=== PATIENT | female | born 1955 | race Hispanic/Latino ===

== ENCOUNTER 2023-03-28 13:59 | Inpatient (IN) | payer BC, OTHER ==
--- OUTSIDE RECORDS SUMMARY | 2023-03-28 22:04 | XMS REPORT | Continuity of Care Document ---
:1955 Author Organization [facility] t Address [address] [place]. [address] [place] [address] Care Team Providers Name Role Phone Pcp, Patient Does Not Have A Primary Care Physician [phone] ANA NOVA Attending Clinician Unavailable Sen GONZALEZ, Abel El Attending Clinician [phone] Tereso Villalba MD Attending Clinician Abel Bhagat MD Attending Clinician Ana Nova MD Attending Clinician DEREK PLASCENCIA Attending Clinician Unavailable Derek Plascencia MD Attending Clinician Doctor Unassigned, Adeline Attending Clinician Unavailable ABEL BHAGAT Admitting Clinician Unavailable Payers Payer Name Policy Type Policy Number Effective Date Expiration Date [facility] OBS/INPT [id number] 2022 PART A ONLY 00:00:00 Problems Condition Condition Condition Status Onset Resolution Last Treating Co mments Source Name Details Category Date Date Treatment Clinician Date Acute Acute Disease Active Univers ischemic ischemic 03-25 ity of stroke stroke 00:00: [place] 00 Medical Branch Aortic Aortic Disease Active Univers dissection dissection 03-25 it y of 00:00: [place] [facility] Essential Essential Disease Active Uni vers hypertensi hypertensi 03-25 it y of on on 00:00: [place] 00 Medical Branch 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 00: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) Br anch , right , right Allergies, Adverse Reactions, Alerts Allergy Allergy Status Severity Reaction(s) Onset Inactive Treating Comm ents Source Name Type Date Date Clinician NO KNOWN Drug Active Univers ALLERGIE Class ity of S [facility] Social History Social Habit Start Date Stop Date Quantity Comments Source Sexual orientation Univer sity [facility] History of tobacco Cigarette Smoker University of use [facility] Gender identity Universit y [facility] History of Social 2023-03-20 2023-03-20 Univers ity of function 00:00:00 00:00:00 [facility] Tobacco use and 2023 2023 Smokeless Universit y of exposure 00:00:00 00:00:00 tobacco non-user [facility] Sex Ass[birth year] At [birth year] Universit y of 00:00:00 00:00:00 [facility] Smoking Status Start Date Stop Date Source Tobacco smoking consumption Univ [facility] Branch Smokes tobacco daily 2023 00:00:[address] [facility] Medications Ordered Filled Start Stop Current Ordering Indication Dosage Frequency Signature Comments Components Source Medication Medication Date Date Medication? Clinician (SIG) Name Name atordhara 2023- Yes [id number] 40mg Take 1 Univers n 40 mg 03-28 tablet by ity of tablet 00:00: 04:59 mouth at [place] 00 :00 bedtime. Medical Branch melatonin 3 2023- Yes [id number] 3mg Take 1 Univers mg tablet 03-28 tablet by ity of 00:00: 05:59 mouth at [place] 00 :00 bedtime Medical for 180 Branch days. Lidocaine 2022- No 1{patch 1 Patch, Univers (LIDOCARE) 03-27 } Topical, ity of 4 % patch 1 17:00: 06:24 Administer [place] Patch 00 :00 over 12 Medical Hours, Branch ONCE, 1 dose, On Fri03/27/23 at 1200, Routine lisinopriL 2023-0 Yes 5mg 5 mg, Univer s (PRINIVIL,Z 03-27 Oral, ity of ESTRIL) 14:00: DAILY, Kristie tablet 5 mg 00 First dose Me dical on [place] Branch 03/27/23 at 0900, Until Discontinu ed, Routine labetaloL Yes 10mg 10 mg, Univer s (NORMODYNE) 03-27 Slow IV ity o f injection 11:36: Push, [place] 10 mg 17 [id number], 5 Medical doses, Branch Starting on [place] 03/27/23 at 0636, Until Discontinu ed, Routine, Hypertensi on SBP> 180, DBP > 110 Lidocaine 2022- No 1{patch 1 Patch, Univers (LIDOCARE) 03-26 } Topical, ity of 4 % patch 1 16:45: 04:50 Administer [place] Patch 00 :00 over 12 Medical Hours, Branch ONCE, 1 dose, On Fri03/26/23 at 1145, Routine cefTRIAXone 2022- Yes 1000mg 1,000 mg, Univers (ROCEPHIN) 03-26 IV ity of 1,000 mg in 13:30: 13:29 Piggyback, [place] NaCl 0.9% 00 :00 Q24H ABX, Medic al (NS) 100 mL 5 doses, Bran ch MINI-BAG First dose on Fri03/26/23 at 0830, Last dose on Fri03/30/23 at 0830, Administer over 30 Minutes, 100 mL
Reas on for Anti-Infec tive: Documented Infection< br>Documen edna Infection Site: Urine
D uration of Therapy: Other (see Comments) barium 2022- No [id number] 20g 20 g, Univ ers sulfate 03-25 Oral, ity of (VARIBAR 21:45: 21:45 ONCE, 1 [place] THIN 00 :00 dose, On Medical LIQUID) 81 03/25/23 Bra nch % (w/w) at 1645, oral powder Routine 20 g barium 2022- No [id number] 20mL 20 mL, Uni vers sulfate-NO 03-25 Oral, ity of CHARGE- 21:45: 21:45 ONCE, 1 [place] (VARIBAR 00 :00 dose, On Medical NECTOR) 40 Fri03/25/23 Bra nch % (w/v) at 1645, oral Routine suspension 20 mL NaCl 0.9% 2022- No 1000mL at 50 [facility] ers (NS) IV 03-25 09-05 mL/hr, IV ity of infusion 06:30: 16:50 Infusion, García as 1,000 mL 00 :18 CONTINUOUS Medic al , Starting Branch on Fri03/25/23 at 0130, Until Fri03/25/23 at 1150, Routine iopamidol 2022- No [id number] 100mL 100 mL, Univers (ISOVUE 03-24 09-04 Intravenou ity o f 370-500 mL) 17:30: 17:30 s, ONCE, 1 [place] injection 00 :00 dose, On Medica l 100 mL Fri03/24/23 Branch at 1230, Routine clopidogreL Yes 75mg 75 mg, [facility] ers (PLAVIX) 75 03-24 Oral, ity of mg tablet 14:00: DAILY, [place] 75 mg 00 First dose Medical on [facility] 03/24/23 at 0900, Until Discontinu ed, Routine aspirin Yes 81mg 81 mg, Univers chewable 03-24 Oral, ity of tablet 81 14:00: DAILY, [place] mg 00 First dose Medical on [facility] 03/24/23 at 0900, Until Discontinu ed, Routine acetaminoph Yes 650mg 650 mg, Un lennox en 03-23 Oral, ity of (TYLENOL) 22:03: Q4HPRN, [place] 160 mg/5 mL 12 Starting Medi porsha oral liquid on [facility] 650 mg 03/23/23 at 1703, Until Discontinu ed, Routine, Temp > 38.5 C polyethylen Yes 17g 17 g, [facility] rs e glycol 03-23 Oral, ity of 3350 powder 19:30: DAILY, [place] 17 g 00 First dose Medical on [facility] 03/23/23 at 1430, Until Discontinu ed, Routine sennosides- 0 Yes 1{tbl} 1 tablet, Univers docusate 03-23 Oral, ity of sodium 19:30: DAILY, [place] (SENOKOT-S) 00 First dose Me dical 8.6-50 mg on [place] Branch per tablet 03/23/23 at 1 tablet 1430, Until Discontinu ed, Routine iopamidol 2022-2022- No [id number] 80mL 80 mL, Univers (ISOVUE 03-23 Intravenou ity o f 370-500 mL) 15:45: 15:45 s, ONCE, 1 [place] injection 00 :00 dose, On Medica l 80 mL [place] 03/23/23 Branch at 1045, Routine KCL 2022-2022- No 40meq 40 mEq, Univers (KLOR-CON 03-23 Oral, ity of M20) tablet 13:30: 13:15 ONCE, 1 [place] 40 mEq 00 :00 dose, On Medical [place] 03/23/23 Branch at 0830, Routine potassium 2022-2022- No 20meq 20 mEq, IV Univers chloride in 03-23 Piggyback, i ty of water (KCL) 12:15: 17:58 ONCE, 1 [place] 20 mEq/100 00 :07 dose, On Medic al mL RTU IVPB [place] 03/23/23 Br anch 20 mEq at 0715, 100 mL magnesium 2022- No 4g 4 g, IV Univ ers sulfate in 03-23 Piggyback, it y of water 4 12:15: 13:50 at 25 [place] gram/50 mL 00 :00 mL/hr Medical (8 %) IV Administer Branc h Piggyback 4 over 120 g Minutes, ONCE, 1 dose, On 03/23/23 at 0715, Routine calcium 2022-2022- No 2g 2 g, IV Univer s gluconate 2 03-22 Infusion, it y of g in NaCl 13:45: 15:25 at 200 [place] 100 mL 00 :00 mL/hr Medical (ISO-OSM) Administer Bran ch RTU IV over 30 infusion 2 Minutes, g ONCE, 1 dose, On 03/22/23 at 0845, Routine KCL 2022-0 2022- No 40meq 40 mEq, Univers (KLOR-CON 03-22 Oral, ity of M20) tablet 13:30: 13:33 ONCE, 1 [place] 40 mEq 00 :00 dose, On Medical [facility] 03/22/23 Branch at 0830, Routine potassium 2022-2022- No 20meq 20 mEq, IV Univers chloride in 03-22 Piggyback, i ty of water (KCL) 13:30: 19:14 ONCE, 1 [place] 20 mEq/100 00 :17 dose, On Medic al mL RTU IVPB Sat 03/22/23 Br anch 20 mEq at 0830, 100 mL magnesium 2022- No 2g 2 g, IV Univ ers sulfate in 03-22 Piggyback, it y of water 2 13:15: 14:36 Administer García as gram/50 mL 00 :00 over 60 Medica l (4 %) Minutes, Branch infusion 2 ONCE, 1 g dose, On 03/22/23 at 0815, Routine methocarbam 2022- No 1000mg 1,000 mg, Univers oL 03-22 Intravenou ity of (ROBAXIN) 03:00: 21:09 s, Q8H, 9 [place] injection 00 :32 doses, Medical 1,000 mg First dose Branc h (after last modificati on) on Fri03/21/23 at 2200, Last dose on Fri03/24/23 at 1400, Routine heparin Yes 5000U 5,000 Univers (porcine) 03-22 Units, ity of injection 01:00: Subcutaneo [place] 5,000 Units 00 us, Q12H, Med ical First dose Branch on Fri03/21/23 at 2000, Until Discontinu ed, Routine acetaminoph Yes 650mg 650 mg, Un lennox en 03-21 Oral, Q6H, ity of (TYLENOL) 23:00: First dose [place] tablet 650 00 (after Medical mg last Branch modificati on) on Fri03/21/23 at 1800, Until Discontinu ed, Routine D5W 0.9% 2022- No 1000mL at 50 Unive rs NaCl (NS) 03-21 09-05 mL/hr, ity of IV infusion 22:00: 05:26 1,000 mL, [place] 1,000 mL 00 :25 IV Medical Infusion, Branch CONTINUOUS , Starting on Fri03/21/23 at 1700, Until Fri03/25/23 at 0026, Routine dextrose Yes 250mL 250 mL, IV Un lennox 10% (D10W) 03-21 Infusion, ity of bolus 20:57: PRN - SEE [place] infusion 14 INSTRUCTIO Medic al 250 mL NS, Branch Administer over 60 Minutes, Other, If blood glucose is < or = 70 mg/dL and patient is unable to swallow or has mental status changes, Starting on Fri03/21/23 at 1557
If blood glucose is < or = 70 mg/dL and patient is unable to swallow or has mental status changes (Give glucagon order if patient needs fluid restrictio n): IF IV access available: Dextrose 10%. 1. 125 mL (? bag) of D10W IV infusion - equivalent to 12.5 g dextrose 2. Blood glucose - draw blood glucose 15 minutes after D10W Administra tion. 3. If blood glucose is < 80 mg/dL, repeat.
glucagon Yes 1mg 1 mg, Univers (GLUCAGEN 03-21 Intramuscu ity of DIAGNOSTIC 20:57: lar, PRN, [place] KIT) 10 Starting Medical injection 1 on Fri Branch mg 03/21/23 at 1557, Until Discontinu ed, [facility], Blood Glucose < or = 70 mg/dL and patient is NPO, unable to swallow or has mental changes. niCARdipine 2022- No 2.5mg/h 2.5-15 Univers (CARDENE 03-21 09-06 mg/hr ity of I.V.) 40 mg 19:19: 12:10 (12.5-75 [place] in NaCL 200 08 :44 mL/hr), IV Me dical mL (RTU) Infusion, Branch infusion TITRATE, SBP 120 - 140, Starting on Fri03/21/23 at 1419
In itiate infusion at 2.5 mg/hr.&nbs p; Ti trate by 2.5 mg/hr every 5 minutes to 15 minutes as needed to achieve and maintain goal blood pressure. Maximum dose = 15 mg/hr. If goal not maintained at maximum allowed dose, contact prescriber .
niCARdipine 2022- No 2.5mg/h 2.5-15 Univers (CARDENE 03-21 mg/hr ity of I.V.) 40 mg 17:50: 19:19 (12.5-75 [place] in NaCL 200 58 :22 mL/hr), IV Me dical mL (RTU) Infusion, Branch infusion TITRATE, SBP <120, Starting on Fri03/21/23 at 1250
Initiate infusion at 2.5 mg/hr.&nbs p; Ti trate by 2.5 mg/hr every 5 minutes to 15 minutes as needed to achieve and maintain goal blood pressure. Maximum dose = 15 mg/hr. If goal not maintained at maximum allowed dose, contact prescriber .
niCARdipine 2022- No 2.5mg/h 2.5-15 Univers (CARDENE 03-21 mg/hr ity of I.V.) 40 mg 17:50: 17:05 (12.5-75 [place] in NaCL 200 58 :07 mL/hr), IV Me dical mL (RTU) Infusion, Branch infusion TITRATE, SBP Goal < 180 mmHg, <140, Starting on Fri03/21/23 at 1250
In itiate infusion at 2.5 mg/hr.&nbs p; Ti trate by 2.5 mg/hr every 5 minutes to 15 minutes as needed to achieve and maintain goal blood pressure. Maximum dose = 15 mg/hr. If goal not maintained at maximum allowed dose, contact prescriber .
iopamidol 2022- No [id number] 80mL 80 mL, Univers (ISOVUE 03-21 9104 Intravenou ity o f 370-500 mL) 16:30: 15:27 s, ONCE, 1 [place] injection 00 :00 dose, On Medica l 80 mL Fri03/21/23 Branch at 1130, Routine pantoprazol 2022- No 40mg 40 mg, Uni vers e 03-21 Slow IV ity of (PROTONIX) 16:00: 15:59 Push, [place] injection 00 :00 Q24H, 3 Medical 40 mg doses, Branch First dose on Fri03/21/23 at 1100, Last dose on 03/23/23 at 1100 heparin 2022-0 2022- No PRN, Univers 1,000 03-21 Starting ity of unit/mL 15:07: 15:07 on Fri [place] injection 57 :57 03/21/23 at Medic al 1007, Branch Until Fri03/21/23 at 1007, Routine, Intra-op atropine 2022-2022- No PRN, Univers injection 03-21 Starting ity o f 14:52: 14:52 on Fri [place] 58 :58 03/21/23 at Medical 0952, Branch Until Fri03/21/23 at 0952, Routine, Intra-op iopamidol 2022-2022- No [id number] 50mL 50 mL, Univers (ISOVUE 03-21 9104 Intravenou ity o f 300-100 mL) 14:30: 14:30 s, ONCE, 1 [place] injection 00 :00 dose, On Medica l 50 mL 03/21/23 Branch at 0930, Routine lidocaine 2022- No PRN, Univers 1% 03-21 Starting ity of (XYLOCAINE) 14:15: 14:15 on Fri García as 10 mg/mL (1 00 :00 03/21/23 at Med ical %) 0915, Branch injection Until Fri03/21/23 at 0915, Routine, Intra-op FENTanyl PF 2022- No Slow IV Un lennox (SUBLIMAZE 03-21 Push, PRN, it y of (PF)) 14:12: 15:04 Starting [place] injection 24 :44 on Fri Medical 03/21/23 at Branch 0912, Until Fri03/21/23 at 1004, Routine, Intra-op melatonin 2022- Yes 3mg 3 mg, Univers (MELATIN) 03-21 Oral, QHS, ity of tablet 3 mg 02:00: First dose [place] 00 on [place] [facility] 03/20/23 at Branch 2100, Until Discontinu ed, Routine aspirin 2022- No 81mg 81 mg, Univers chewable 03-20 Oral, ity of tablet 81 17:15: 14:09 DAILY, [place] mg 00 :55 First dose Medical on [facility] 03/20/23 at 1215, Until Discontinu ed, Routine clopidogreL 2022-0 2022- No 75mg 75 mg, Uni vers (PLAVIX) 75 03-2003 Oral, ity of mg tablet 14:00: 14:09 DAILY, [place] 75 mg 00 :55 First dose Medical on [facility] 03/20/23 at 0900, Until Discontinu ed, Routine acetaminoph 0 2022- No 650mg 650 mg, U nivers en 03-20 Oral, ity of (TYLENOL) 05:40: 18:46 Q6HPRN, [place] tablet 650 47 :27 Starting Medic al mg on [facility] 03/20/23 at 0040, Until Fri03/21/23 at 1346, Routine, Pain (scale 1-3), Pain (scale 4-6), Temp > 38 C atorvastati Yes 40mg 40 mg, Univ ers n (LIPITOR) 03-20 Oral, QHS, it y of tablet 40 02:00: First dose [place] mg 00 on [facility] 03/19/23 at Branch 2100, Until Discontinu ed, Routine famotidine Yes 20mg 20 mg, Unive rs (PEPCID AC) 03-20 Oral, BID, it y of tablet 20 01:00: First dose [place] mg 00 on Fri [facility] 03/19/23 at Branch 2000, Until Discontinu ed, Routine nicotine 0 Yes 1{patch 1 Patch, Un lennox (NICODERM) 03-19 } Topical, ity o f 21 mg/24 hr 22:45: Administer [place] patch 1 00 over 24 Medical Patch Hours, Branch Q24H, First dose on Fri03/19/23 at 1745, Until Discontinu ed, Routine NaCl 0.9% 0 2022- No 1000mL at 50 Univ ers (NS) IV 03-19 0904 mL/hr, IV ity of infusion 22:42: 14:56 Infusion, García as 1,000 mL 00 :34 CONTINUOUS Medic al , Starting Branch on Fri03/19/23 at 1745, Until Fri03/24/23 at 0956, Routine NaCl 0.9% 2022-0 2022- Yes 1000mL at 999 Uni vers (NS) bolus 03-19 mL/hr, ity of infusion 15:30: 15:00 1,000 mL, García as 1,000 mL 00 :00 IV Medical Infusion, Branch ONCE, 1 dose, On Fri03/19/23 at 1030, STAT clopidogreL No 300mg 300 mg, U nivers (PLAVIX) 03-19 Oral, ity of 300 mg 15:15: 14:24 ONCE, 1 [place] tablet 300 00 :00 dose, On Medic al mg Wed Branch 03/19/23 at 1015, [facility] aspirin No 325mg 325 mg, Unive rs tablet 325 03-19 Oral, ity of mg 14:30: 14:24 ONCE, 1 [place] 00 :00 dose, On Medical Wed Branch 03/19/23 at 0930, STAT iopamidol 2022- No [id number] 80mL 80 mL, Univers (ISOVUE 03-19 Intravenou ity o f 370-500 mL) 13:16: 13:30 s, ONCE, 1 [place] injection 00 :00 dose, On Medica l 80 mL Wed Branch 03/19/23 at 0830, Routine NaCl 0.9% Yes 5mL 5 mL, Slow Un lennox (NS) 03-19 IV Push, ity of injection 5 13:01: PRN - SEE [place] mL 36 [facility] Medical NS, Branch Starting on Fri03/19/23 at 0801, Until Discontinu ed, 10 mL Immunizations Ordered Immunization Filled Immunization Date Status Commen ts Source Name Name Moderna COVID-19 Moderna COVID-19 2021-03-17 Completed Vaccine Vaccine 00:00:00 Moderna COVID-19 Moderna COVID-19 2021-02-17 Completed Vaccine Vaccine 00:00:00 Vital Signs Vital Name Observation Time Observation Value Comments Source Systolic blood 2023-03-28 20:39:00 149 mm[Hg] Univer sity of pressure [facility] Diastolic blood 2023-03-28 20:39:00 73 mm[Hg] Unive rsity of pressure [facility] Heart rate 2023-03-28 20:39:00 59 /min Universi ty of [facility] Body temperature 2023-03-28 20:39:00 36.5 Nohemy Univ ersity of [place] [facility] Respiratory rate 2023-03-28 20:39:00 16 /min Univ ersity of [place] [facility] Oxygen saturation in 2023-03-28 20:39:00 96 /min University of Arterial blood by [facility] Pulse oximetry Branch Body height 2023 21:07:00 162.6 cm Universi ty of [place] [facility] Body weight 2023 21:07:00 66.679 kg Universi ty of [place] [facility] BMI 2023 21:07:00 25.23 kg/m2 Universi ty [facility] [place] [facility] Systolic blood 2023 14:30:00 196 mm[Hg] Univer sity of pressure [place] [facility] Diastolic blood 2023 14:30:00 78 mm[Hg] Unive rsity of pressure [place] [facility] Heart rate 2023 14:30:00 51 /min Universi ty of [place] [facility] Respiratory rate 2023 14:30:00 24 /min Univ ersity of [place] [facility] Oxygen saturation in 2023 14:30:00 97 /min University of Arterial blood by [facility] Pulse oximetry Branch Body temperature 2023 14:06:36 37.06 Nohemy Univ ersity of [place] [facility] Body height 2023 12:52:00 162.6 cm Universi ty of [place] [facility] Body weight 2023 12:52:00 66.724 kg Universi ty of [place] [facility] BMI 2023 12:52:00 25.25 kg/m2 Universi ty [facility] [place] [facility] Systolic blood 2023-03-23 16:00:00 140 mm[Hg] Univer sity of pressure [place] [facility] Diastolic blood 2023-03-23 16:00:00 51 mm[Hg] Unive rsity of pressure [place] [facility] Heart rate 2023-03-23 16:00:00 71 /min Universi ty [facility] [place] [facility] Body temperature 2023-03-23 16:00:00 37.72 Nohemy Univ ersity of [place] [facility] Respiratory rate 2023-03-23 16:00:00 20 /min Univ ersity of [place] [facility] Oxygen saturation in 2023-03-23 16:00:00 98 /min [facility] Arterial blood by [facility] Pulse oximetry Branch Systolic blood 2023-03-22 16:00:00 138 mm[Hg] Univer sity of pressure [facility] Diastolic blood 2023-03-22 16:00:00 67 mm[Hg] [facility] Heart rate 2023-03-22 16:00:00 58 /min [facility] Body temperature 2023-03-22 16:00:00 37.28 Nohemy [facility] Respiratory rate 2023-03-22 16:00:00 16 /min [facility] hospital Oxygen saturation in 2023-03-22 16:00:00 97 /min [facility] Arterial blood by [facility] Pulse oximetry [employer] Body height 2023 21:07:[address] [facility] Body weight 2023 21:07:[address] [facility] BMI 2023 21:07:00 25.23 kg/m2 [facility] Procedures Procedure Date / Time Performing Clinician Source Performed MAGNESIUM 2023-03-28 06:09:00 Elías Flowers [facility] BASIC METABOLIC PANEL 2023-03-28 06:09:00 Elías Flowers [facility] (NA, K, CL, CO2, GLUCOSE, Medica l Branch BUN, CREATININE, CA) MR BRAIN WO CONTRAST 2023-03-27 20:27:00 Elías Flowers [facility] MAGNESIUM 2023-03-27 07:46:00 Elías Flowers [facility] BASIC METABOLIC PANEL 2023-03-27 07:46:00 Elías Flowers [facility] (NA, K, CL, CO2, GLUCOSE, Medica l Branch BUN, CREATININE, CA) CBC WITHOUT DIFF 2023-03-27 07:46:00 Elías Flowers [facility] POCT GLUCOSE (AUTOMATED) 2023-03-26 21:24:00 Tereso Pan [facility] POCT GLUCOSE (AUTOMATED) 2023-03-26 16:54:[address] [address] (AUTOMATED) 2023-03-26 12:40:[address] [facility] MAGNESIUM 2023-03-26 09:52:00 Perry Collins [facility] BASIC METABOLIC PANEL 2023-03-26 09:52:00 Karina [facility] [place] [facility] (NA, K, CL, CO2, GLUCOSE, Medica l Branch BUN, CREATININE, CA) CBC WITH DIFF 2023-03-26 09:52:[address] [facility] POCT GLUCOSE (AUTOMATED) 2023-03-26 01:22:00 Tereso Pan [facility] XR CHEST 1 VW 2023-03-25 21:59:[address] [facility] URINALYSIS 2023-03-25 21:55:[address] [facility] POCT GLUCOSE (AUTOMATED) 2023-03-25 16:47:[address] [facility] PO[facility] GLUCOSE (AUTOMATED) 2023-03-25 12:46:[address] [facility] PHOSPHORUS 2023-03-25 08:35:[address] [facility] MAGNESIUM 2023-03-25 08:35:[address] [facility] THYROID STIMULATING 2023-03-25 08:35:00 [facility] 2023-03-25 08:35:00 Larry Watts [facility] (NA, K, CL, CO2, GLUCOSE, [place] Medica l Branch BUN, CREATININE, CA) CBC WITHOUT DIFF 2023-03-25 08:35:00 Larry Watts [facility] POCT GLUCOSE (AUTOMATED) 2023-03-25 02:22:[address] [facility] PO[facility]UCOSE (AUTOMATED) 2023-03-24 20:37:[address] [facility] [facility] PO[facility] GLUCOSE (AUTOMATED) 2023-03-24 16:49:00 Tereso Pan [facility] CT ANGIOGRAM CHEST 2023-03-24 16:40:56 Allison Valle [facility] CT ABDOMEN PELVIS W 2023-03-24 16:40:56 Allison Valle [facility] CONTRAST [facility] POCT GLUCOSE (AUTOMATED) 2023-03-24 12:49:00 Tereso Pan [facility] PHOSPHORUS 2023-03-24 09:07:[address] [facility] MAGNESIUM 2023-03-24 09:07:[address] [facility] BASIC METABOLIC PANEL 2023-03-24 09:07:00 Yokasta Clark [facility] (NA, K, CL, CO2, GLUCOSE, Medica l Branch BUN, CREATININE, CA) CBC WITHOUT DIFF 2023-03-24 09:07:00 Amber Ykoasta [facility] POCT GLUCOSE (AUTOMATED) 2023-03-24 02:09:00 Tereso Pan [facility] POCT GLUCOSE (AUTOMATED) 2023-03-23 21:05:00 Tereso Pan [facility] POCT GLUCOSE (AUTOMATED) 2023-03-23 16:43:00 Tereso Pan [facility] POCT GLUCOSE (AUTOMATED) 2023-03-23 16:43:00 Tereso Pan [facility] AC PANEL 20 + LACTIC ACID 2023-03-23 15:21:00 Yokasta Clark [facility] AC PANEL 20 + LACTIC ACID 2023-03-23 15:21:00 Yokasta Clark [facility] CT ANGIOGRAM HEAD 2023-03-23 14:57:00 Maria Isabel [facility] CT HEAD WO CONTRAST 2023-03-23 14:57:00 Yokasta Clark [facility] CT ANGIOGRAM NECK 2023-03-23 14:57:00 Maria Isabel [facility] POCT GLUCOSE (AUTOMATED) 2023-03-23 13:16:00 Tereso Pan [facility] POCT GLUCOSE (AUTOMATED) 2023-03-23 13:16:00 Tereso Pan [facility] CBC WITH DIFF 2023-03-23 10:19:00 Se [facility] BASIC METABOLIC PANEL 2023-03-23 10:19:00 Se [facility] (NA, K, CL, CO2, GLUCOSE, Medica l Branch BUN, CREATININE, CA) PHOSPHORUS 2023-03-23 10:19:[address] [facility] MAGNESIUM 2023-03-23 10:19:[address] [facility] PHOSPHORUS 2023-03-23 10:19:[address] [facility] MAGNESIUM 2023-03-23 10:19:[address] [facility] BASIC METABOLIC PANEL 2023-03-23 10:19:00 Se [facility] (NA, K, CL, CO2, GLUCOSE, Medica l Branch BUN, CREATININE, CA) CBC WITH DIFF 2023-03-23 10:19:00 Se [facility] POCT GLUCOSE (AUTOMATED) 2023-03-23 02:41:00 Tereso Pan [facility] POCT GLUCOSE (AUTOMATED) 2023-03-23 02:41:00 Tereso Pan [facility] POCT GLUCOSE (AUTOMATED) 2023-03-22 21:10:00 Tereso Pan [facility] POCT GLUCOSE (AUTOMATED) 2023-03-22 21:10:00 Tereso Pan [facility] BASIC METABOLIC PANEL 2023-03-22 20:59:00 Se [facility] (NA, K, CL, CO2, GLUCOSE, Medica l Branch BUN, CREATININE, CA) MAGNESIUM 2023-03-22 20:59:00 Se [facility] MAGNESIUM 2023-03-22 20:59:00 Se [facility] BASIC METABOLIC PANEL 2023-03-22 20:59:00 Se [facility] (NA, K, CL, CO2, GLUCOSE, Medica l Branch BUN, CREATININE, CA) POCT GLUCOSE (AUTOMATED) 2023-03-22 17:10:00 Tereso Pan [facility] POCT GLUCOSE (AUTOMATED) 2023-03-22 17:10:00 Tereso Pan [facility] CBC WITH DIFF 2023-03-22 16:23:00 Leonard [facility] CBC WITH DIFF 2023-03-22 16:23:00 Leonard [facility] POCT GLUCOSE (AUTOMATED) 2023-03-22 12:41:00 Tereso Pan [facility] POCT GLUCOSE (AUTOMATED) 2023-03-22 12:41:00 Tereso Pan [facility] CBC WITH DIFF 2023-03-22 10:33:00 Leonard [facility] BASIC METABOLIC PANEL 2023-03-22 10:33:00 [facility], K, CL, CO2, GLUCOSE, Fanta Medica l Branch BUN, CREATININE, CA) MAGNESIUM 2023-03-22 10:33:00 Kristina [facility] PHOSPHORUS 2023-03-22 10:33:00 [facility] PHOSPHORUS 2023-03-22 10:33:00 [facility] MAGNESIUM 2023-03-22 10:33:00 [facility] BASIC METABOLIC PANEL 2023-03-22 10:33:00 [facility] (NA, K, CL, CO2, GLUCOSE, Fanta Medica l Branch BUN, CREATININE, CA) CBC WITH DIFF 2023-03-22 10:33:00 Leonard [facility] CBC WITH DIFF 2023-03-22 04:28:00 Leonard [facility] CBC WITH DIFF 2023-03-22 04:28:00 Leonard [facility] POCT GLUCOSE (AUTOMATED) 2023-03-22 01:46:00 Tereso Pan [facility] POCT GLUCOSE (AUTOMATED) 2023-03-22 01:46:00 Tereso Pan [facility] CBC WITH DIFF 2023-03-21 22:45:00 Lia [facility] CBC WITH DIFF 2023-03-21 22:45:00 Lia [facility] POCT GLUCOSE (AUTOMATED) 2023-03-21 20:43:00 Tereso Pan [facility] POCT GLUCOSE (AUTOMATED) 2023-03-21 20:43:00 Tereso Pan [facility] TRANSTHORACIC ECHO (TTE) 2023-03-21 19:58:09 Shameka Whatley [facility] TRANSTHORACIC ECHO (TTE) 2023-03-21 19:58:09 Shameka Whatley [facility] BASIC METABOLIC PANEL 2023-03-21 17:41:00 Alexy Benson [facility] (NA, K, CL, CO2, GLUCOSE, Medica l Branch BUN, CREATININE, CA) MAGNESIUM 2023-03-21 17:41:00 Alexy Benson [facility] PHOSPHORUS 2023-03-21 17:41:00 Alexy Benson [facility] PHOSPHORUS 2023-03-21 17:41:00 Alexy Benson [facility] MAGNESIUM 2023-03-21 17:41:00 Alexy Benson [facility] BASIC METABOLIC PANEL 2023-03-21 17:41:00 Alexy Benson [facility] (NA, K, CL, CO2, GLUCOSE, Medica l Branch BUN, CREATININE, CA) MRSA / MSSA SCREEN BY 2023-03-21 17:04:00 Allison Valle [facility] PCR, [facility] CBC WITH DIFF 2023-03-21 17:04:00 Leonard [facility] CBC WITH DIFF 2023-03-21 17:04:00 Leonard [facility] MRSA / MSSA SCREEN BY 2023-03-21 17:04:00 Allison Valle [facility] PCR, [facility] [employer] CT ANGIOGRAM 2023-03-21 15:44[facility] ANGIOGRAM 2023-03-21 15:44:44 [facility] CT ANGIOGRAM CHEST 2023-03-21 15:43:51 Heriberto [facility] ABORH CONFIRMATION (LAB 2023-03-21 15:37:00 [facility] ONLY) [facility] ABORH CONFIRMATION (LAB 2023-03-21 15:37:00 [facility] ONLY) [facility] HB ABO GROUPING 2023-03-21 15:15:00 [facility] HB ABO GROUPING 2023-03-21 15:15:00 [facility] LIPID PANEL (43753)(TOTAL 2023-03-21 09:53:00 Shameka Whatley [facility] CHOLESTEROL, Medical Branch TRIGLYCERIDES, HDL) GLYCOSYLATED HEMOGLOBIN 2023-03-21 09:53:00 Shameka Whatley [facility] VERIFYNOW PRUTEST (P2Y12) 2023-03-21 09:53:00 Larry Watts [facility] LIPID PANEL (51521)(TOTAL 2023-03-21 09:53:00 Shameka Whatley [facility] CHOLESTEROL, Medical Branch TRIGLYCERIDES, HDL) GLYCOSYLATED HEMOGLOBIN 2023-03-21 09:53:00 Shameka Whatley [facility] VERIFYNOW ASPIRIN TEST 2023-03-21 09:53:00 Larry Watts [facility] TRANSTHORACIC ECHO (TTE) 2023-03-20 20:44:32 Shameka Whatley [facility] COMPLETE [facility] [employer] TRANSTHORACIC ECHO (TTE) 2023-03-20 20:44:32 Shameka Whatley [facility] COMPLETE [facility] MR STROKE BRAIN WO 2023-03-20 17:35:00 [facility] MR STROKE BRAIN WO 2023-03-20 17:35:00 Ch[facility] CONTRAST [facility] URINALYSIS 2023 14:52:00 Derek Plascencia [facility] POCT GLUCOSE(AGE >30DAYS) 2023 14:07:[address] [facility]SE(AGE >30DAYS) 2023 14:07:00 [facility] NECK 2023 13:21:28 Derek Plascencia [facility] CT STROKE ANGIOGRAM HEAD 2023 13:21:28 Derek Plascencia [facility] CT STROKE HEAD WO 2023 13:16:00 Derek Plascencia [facility] CT STROKE HEAD WO 2023 13:16:00 Derek Plascencia [facility] CBC WITHOUT DIFF 2023 13:07:00 [facility]FF 2023 13:07:00 Derek Plascencia [facility] PROTHROMBIN TIME / INR 2023 13:05:00 Derek Plascencia [facility] ACTIVATED PARTIAL 2023 13:05:00 Derek Plascencia [facility] 13:05:00 Derek Plascencia [facility] BASIC METABOLIC PANEL 2023 13:05:00 Derek Plascencia [facility] (NA, K, CL, CO2, GLUCOSE, Medica l Branch BUN, CREATININE, CA) MAGNESIUM 2023 13:05:00 Derek Plascencia [facility] MAGNESIUM 2023 13:05:00 Derek Plascencia [facility] TROPONIN I 2023 13:05:00 Derek Plascencia [facility] BASIC METABOLIC PANEL 2023 13:05:00 Derek Plascencia [facility] (NA, K, CL, CO2, GLUCOSE, Medica l Branch BUN, CREATININE, CA) PROTHROMBIN TIME / INR 2023 13:05:00 Derek Plascencia [facility] ACTIVATED PARTIAL 2023 13:05:00 Derek Plascencia [facility] THRMPLAS FORTINO [facility] HB ECG ROUTINE & RHYTHM 2023 13:00:52 Derek Plascencia [facility] STRIP [facility] NOTICE OF PRIVACY 2023 12:46:28 Doctor Rebekah, [facility] [employer] NOTICE OF PRIVACY 2023 12:46:28 Doctor Rebekah, [facility] [employer] CONSENT/REFUSAL FOR 2023 12:44:58 Doctor Rebekah [facility] DIAGNOSIS AND TREATMENT [facility] [employer] AGREEMENTS AUTHORIZATIONS 2023 05:01:00 Doctor Rebekah [facility] AND IRREVOCABLE [facility] ASSIGNMENTS (FORM 2001) AGREEMENTS AUTHORIZATIONS 2023 05:01:00 [facility] AND IRREVOCABLE [facility] ASSIGNMENTS (FORM 2001) HOSPITAL ADMISSION 2023 05:01:00 Doctor Rebekah [facility] Name Medical [facility] [employer] Plan of Care Planned Activity Planned Date Details Comments Source Medication 2023-03-29 aspirin 81 mg [facility] 00:00:00 chewable tablet [code Medica l Branch = 964103] Medication 2023-03-29 clopidogreL 75 mg [facility] 00:00:00 tablet [code = Medical Branc h 850024] Medication 2023-03-29 lisinopriL 5 mg [facility] 00:00:00 tablet [code = Medical Branc h 368760] Medication 2023-03-29 amoxicillin-clavulana [facility] 00:00:00 te (AUGMENTIN) Medical Branc h 875-125 mg per tablet [code = 465905] Encounters Start End Encounter Admission Attending Care Care Encounter Source Date/Time Date/Time Type Type Clinicians Facility Department ID 2023 2023-03-28 Inpatient X GENE [facility] IRINA [id number] Univers 11:02:00 20:00:00 ANA ity of [facility] 2023 2023-03-28 [facility] M[facility]ENDEZ 1 .2.840.114 [id number] Univers 11:02:00 20:00:00 Encounter Tereso Pan 350.1.13.10 ity of [facility] Anne [facility] 4.2.7.2.686 [place] Ana Nova [id number] Medical 098 Branch 2023 2023 [facility] [id number] Univers 07:55:00 09:58:00 DEREK ity [facility] 2023 2023 Emergency Plascencia, 1.2.840.6 [id number] Univers 07:55:00 09:58:00 Derek 01265.1.1 ity of 3.104.2.7 [place] .3.904733 Medica l .8 [employer] 2023 2023 Travel 1.2.840.1 1.2.367.508 [id number] Univers 00:00:00 00:00:00 56938.1.1 350.1.13.10 ity of 3[place]104.2.[place] .3.369[place] 084.8 Medica l .8 [employer] 2023 2023 Orders Doctor 1.2.840.9 [id number] Univers 00:00:00 00:00:00 Only Unassigned, 29342.1.1 ity of [place] 3.104.2.7 [place] .3.569150 Medica l .8 Branch 2021-03-17 2021-03-17 Outpatient GCCOVIDV GCCOVIDV [id number] GCCOVID 00:00:00 00:00:00 V 2021-02-17 2021-02-17 Outpatient GCCOVIDV GCCOVIDV [id number] GCCOVID 00:00:00 00:00:00 V Results Test Description Test Time Test Comments Results Result Comments Source POCT GLUCOSE (AUTOMATED) 2023-03-26 21:25:59 Test Item Value Reference Range Interpretation Comme nts POCT GLU (test code = 4338695452) 127 mg/dL 70-110 H Lab Interpretation (test code = 98956-2) Abnormal [facility] GLUCOSE (AUTOMATED)2023-03-26 16:54:59 Test Item Value Reference Range Interpretation Comments POCT GLU (test code = 5105326102) 125 mg/dL 70-110 H Lab Interpretation (test code = Abnormal 80371-2) [facility] GLUCOSE (AUTOMATED)2023-03-26 12:41:41 Test Item Value Reference Range Interpretation Comments POCT GLU (test code = 4791208578) 125 mg/dL 70-110 H Lab Interpretation (test code = Abnormal 88010-8) [facility] [place] [facility] 10:55:12 Test Item Value Reference Range Interpretation Comments MAGNESIUM (test code = 1818431866) 1.9 mg/dL 1.7-2.4 Lab Interpretation (test code = Normal 49296-1) [facility] METABOLIC PANEL (NA, K, CL, CO2, GLUCOSE, BUN, CREATININE, CA)2023-03-26 10:55:12 Test Item Value Reference Range Interpretation Comments NA (test code = 137 mmol/L 135-145 1666722749) K (test code = 3.8 mmol/L 3.5-5.0 6351398583) CL (test code = 101 mmol/L 98-108 4948525836) CO2 TOTAL (test code = 26 mmol/L 23-31 2512332359) AGAP (test code = 10 2-16 6590419059) BUN (test code = 18 mg/dL 7-23 1009541923) GLUCOSE (test code = 118 mg/dL 70-110 H 7921174459) CREATININE (test code = 0.40 mg/dL 0.50-1.04 L 3793194501) CALCIUM (test code = 9.2 mg/dL 8.6-10.6 5026951680) eGFR (test code = 159.7 mL/min/1.73m2 5166994433) EMANI (test code = EMANI) Association of Glomerular Filtration Rate (GFR) and Staging of Kidney Disease* + --+ --+ ------+| GFR (mL/min/1.73 m2) ?| With Kidney Damage ?| ?Without Kidney Damage+ --------+ --------+ +| ?>90 ?| ?Stage one ?| ? Normal ?+ ---+ ---+ -------+| ?60-89 ?| ?Stage two ?| ? Decreased GFR ? + --+ --+ ------+| ?30-59 ?| ?Stage three ?| ? Stage three ? + --+ --+ ------+| ?15-29 ?| ?Stage four ? | ? Stage four ?+ ---+ ---+ -------+| ?<15 (or dialysis) ? ?| ?Stage five ? | ? Stage five ?+ ---+ ---+ -------+ *Each stage assumes the associated GFR level has been in effect for at least three months. ?Stages 1 to 5, with or without kidney disease, indicate chronic kidney disease. Notes: Determination of stages one and two (with eGFR >59mL/min/1.73 m2) requires estimation of kidney damage for at least three months as defined by structural or functional abnormalities of the kidney, manifested by either:Pathological abnormalities or Markers of kidney damage (including abnormalities in the composition of the blood or urine or abnormalities in imaging tests). Lab Interpretation Abnormal (test code = 88089-7) [facility] WITH [id number] 10:33:28 Test Item Value Reference Range Interpretation Comments WBC (test code = 9.79 See_Comment [Automated 1001-2) message] The sy stem which generated this result transmitted reference range : 4.30 - 11.10 10*3/?L. The reference range was not used to interpret this result as normal/abnormal . RBC (test code = 3.93 See_Comment [Automated 347-1) message] The sy stem which generated this result transmitted reference range : 3.93 - 5.25 10*6/?L. The reference range was not used to interpret this result as normal/abnormal . HGB (test code = 11.7 g/dL 11.6-15.0 718-7) HCT (test code = 34.2 % 35.7-45.2 L 4544-3) MCV (test code = 87.0 fL 80.6-95.5 787-2) MCH (test code = 29.8 pg 25.9-32.8 785-6) MCHC (test code = 34.2 g/dL 31.6-35.1 786-4) RDW-SD (test code = 42.7 fL 39.0-49.9 14294-8) RDW-CV (test code = 13.4 % 12.0-15.5 788-0) PLT (test code = 289 See_Comment [Automated 777-3) message] The sy stem which generated this result transmitted reference range : 166 - 358 10*3/ ?L. The reference r oralia was not used to interpret this result as normal/abnormal . MPV (test code = 9.7 fL 9.5-12.9 91387-1) NRBC/100 WBC (test 0.0 See_Comment [Automat ed code = 6253643675) message] The system which generated this result transmitted reference range : 0.0 - 10.0 /100 WBCs. The refer ence range was not u sed to interpret th is result as normal/abnormal . NRBC x10^3 (test code See_Comment [Auto mated = 0628989800) message] The s ystem which generated this result transmitted reference range : 10*3/?L. The reference range was not used to interpret this result as normal/abnormal . GRAN MAT (NEUT) % 71.2 % (test code = 770-8) IMM GRAN % (test code 0.30 % = 8962138545) LYMPH % (test code = 19.0 % 736-9) MONO % (test code = 8.9 % 5905-5) EOS % (test code = 0.2 % 713-8) BASO % (test code = 0.4 % 706-2) GRAN MAT x10^3(ANC) 6.97 10*3/uL 1.88-7.09 (test code = 5503094077) IMM GRAN x10^3 (test 0.03 10*3/uL 0.00-0.06 code = 2038307350) LYMPH x10^3 (test code 1.86 10*3/uL 1.32-3.29 = 731-0) MONO x10^3 (test code 0.87 10*3/uL 0.33-0.92 = 742-7) EOS x10^3 (test code = 0.03-0.39 L 711-2) BASO x10^3 (test code 0.04 10*3/uL 0.01-0.07 = 704-7) Lab Interpretation Abnormal (test code = 47464-1) [facility] GLUCOSE (AUTOMATED)2023-03-26 01:23:00 Test Item Value Reference Range Interpretation Comments POCT GLU (test code = 5031645067) 124 mg/dL 70-110 H Lab Interpretation (test code = Abnormal 60754-4) [facility] GLUCOSE (AUTOMATED)2023-03-25 16:48:49 Test Item Value Reference Range Interpretation Comments POCT GLU (test code = 0380132349) 109 mg/dL 70-110 Lab Interpretation (test code = Normal 42173-7) [facility] [place] [facility] [id number] 16:29:48 Test Item Value Reference Range Interpretation Comments TSH (test code = 2.05 See_Comment Biotin has been 8013380868) reported to cau se a negative bias, interpret resul ts relative to pat chante's use of biotin. [Automated mess age] The system [employer] generated this result transmitted ref erence range: 0.45 - 4 .70 mIU/L. The refe rence range was not u sed to interpret this result as normal/abnor mal. Lab Interpretation (test Normal code = 68590-5) [facility] GLUCOSE (AUTOMATED)2023-03-25 12:47:02 Test Item Value Reference Range Interpretation Comments POCT GLU (test code = 3506983498) 121 mg/dL 70-110 H Lab Interpretation (test code = Abnormal 66762-6) [facility] [place] [facility]2023-[facility]-05 09:13:39 Test Item Value Reference Range Interpretation Comments PHOSPHORUS (test code = 8197936755) 4.1 mg/dL 2.5-5.0 Lab Interpretation (test code = Normal 22260-3) [facility] [place] [facility]23-[facility]-05 09:13:39 Test Item Value Reference Range Interpretation Comments MAGNESIUM (test code = 4395310688) 1.9 mg/dL 1.7-2.4 Lab Interpretation (test code = Normal 91746-5) [facility] METABOLIC PANEL (NA, K, CL, CO2, GLUCOSE, BUN, CREATININE, CA)2023-03-25 09:13:39 Test Item Value Reference Range Interpretation Comments NA (test code = 137 mmol/L 135-145 5661333659) K (test code = 4.1 mmol/L 3.5-5.0 Slight 6952566799) hemolysis CL (test code = 103 mmol/L 98-108 8354825165) CO2 TOTAL (test code 25 mmol/L 23-31 = 9853019380) AGAP (test code = 9 2-16 9189479460) BUN (test code = 12 mg/dL 7-23 Slight 5241332198) hemolysis GLUCOSE (test code = 118 mg/dL 70-110 H 9182434556) CREATININE (test code 0.40 mg/dL 0.50-1.04 L = 5570810877) CALCIUM (test code = 8.9 mg/dL 8.6-10.6 7125029510) eGFR (test code = 159.7 mL/min/1.73m2 9942601218) EMANI (test code = EMANI) Association of Glomerular Filtration Rate (GFR) and Staging of Kidney Disease* + -----+ --------+ +| GFR (mL/min/1.73 m2) ?| With Kidney Damage ?| ?Without Kidney Damage+ +------- +---- --+| ?>90 ?| ?Stage one ?| ? Normal ?+ ------+ ---------+--------- +| ?60-89 ?| ?Stage two ?| ? Decreased GFR ? + -----+ --------+ +| ?30-59 ?| ?Stage three ?| ? Stage three ? + -----+ --------+ +| ?15-29 ?| ?Stage four ? | ? Stage four ?+ ------+ ---------+--------- +| ?<15 (or dialysis) ? ?| ?Stage five ? | ? Stage five ?+ ------+ ---------+--------- + *Each stage assumes the associated GFR level has been in effect for at least three months. ?Stages 1 to 5, with or without kidney disease, indicate chronic kidney disease. Notes: Determination of stages one and two (with eGFR >59mL/min/1.73 m2) requires estimation of kidney damage for at least three months as defined by structural or functional abnormalities of the kidney, manifested by either:Pathological abnormalities or Markers of kidney damage (including abnormalities in the composition of the blood or urine or abnormalities in imaging tests). Lab Interpretation Abnormal (test code = 23588-6) [facility] WITHOUT [id number] 08:57:39 Test Item Value Reference Range Interpretation Comments WBC (test code = 6690-2) 10.13 See_Comment [A utomated message] The system [employer] generated this result transmit edna reference range : 4.30 - 11.10 10*3/?L. The reference range was not used to interpret this result as normal/abnormal . RBC (test code = 789-8) 3.69 See_Comment L [Au tomated message] The system [employer] generated this result transmit edna reference range : 3.93 - 5.25 10* 6/?L. The reference r oralia was not used to interpret this result as normal/abnormal . HGB (test code = 718-7) 11.3 g/dL 11.6-15.0 L HCT (test code = 4544-3) 32.5 % 35.7-45.2 L MCH (test code = 785-6) 30.6 pg 25.9-32.8 MCV (test code = 787-2) 88.1 fL 80.6-95.5 MCHC (test code = 786-4) 34.8 g/dL 31.6-35.1 PLT (test code = 777-3) 240 See_Comment [Au tomated message] The system [employer] generated this result transmit edna reference range : 166 - 358 10*3/?L. The reference range was not used to interpret this result as normal/abnormal . MPV (test code = 10.5 fL 9.5-12.9 58985-0) RDW-CV (test code = 13.6 % 12.0-15.5 788-0) RDW-SD (test code = 44.0 fL 39.0-49.9 75646-8) NRBC x10^3 (test code = See_Comment [Au tomated message] 9852410412) The system [employer] generated this result transmit edna reference range : 10*3/?L. The reference range was not used to interpret this result as normal/abnormal . NRBC/100 WBC (test code 0.0 See_Comment [Au tomated message] = 7815985856) The system [employer] generated this result transmit edna reference range : 0.0 - 10.0 /100 WBC s. The reference r oralia was not used to interpret this result as normal/abnormal . IPF % (test code = 4569137829) Lab Interpretation (test Abnormal code = 68654-8) [facility] GLUCOSE (AUTOMATED)2023-03-25 02:32:46 Test Item Value Reference Range Interpretation Comments POCT GLU (test code = 5457776601) 143 mg/dL 70-110 H Lab Interpretation (test code = Abnormal 26324-6) [facility] GLUCOSE (AUTOMATED)2023-03-24 20:46:56 Test Item Value Reference Range Interpretation Comments POCT GLU (test code = 2403221808) 123 mg/dL 70-110 H Lab Interpretation (test code = Abnormal 71462-5) [facility] GLUCOSE (AUTOMATED)2023-03-24 16:51:31 Test Item Value Reference Range Interpretation Comments POCT GLU (test code = 5646088608) 111 mg/dL 70-110 H Lab Interpretation (test code = Abnormal 39079-7) [facility] GLUCOSE (AUTOMATED)2023-03-24 13:25:21 Test Item Value Reference Range Interpretation Comments POCT GLU (test code = 0533683470) 129 mg/dL 70-110 H Lab Interpretation (test code = Abnormal 25484-3) [facility] METABOLIC PANEL (NA, K, CL, CO2, GLUCOSE, BUN, CREATININE, CA)2023-03-24 09:44:31 Test Item Value Reference Range Interpretation Comments NA (test code = 136 mmol/L 135-145 8501087311) K (test code = 4.1 mmol/L 3.5-5.0 Slight 7514049672) hemolysis CL (test code = 108 mmol/L 98-108 2439599864) CO2 TOTAL (test code 21 mmol/L 23-31 L = 3907912233) AGAP (test code = 7 2-16 7708440915) BUN (test code = 10 mg/dL 7-23 Slight 2409497671) hemolysis GLUCOSE (test code = 111 mg/dL 70-110 H 6726079993) CREATININE (test code 0.40 mg/dL 0.50-1.04 L = 8773468167) CALCIUM (test code = 7.6 mg/dL 8.6-10.6 L 1445999636) eGFR (test code = 159.7 mL/min/1.73m2 6604985488) EMANI (test code = EMANI) Association of Glomerular Filtration Rate (GFR) and Staging of Kidney Disease* + -----+ --------+ +| GFR (mL/min/1.73 m2) ?| With Kidney Damage ?| ?Without Kidney Damage+ +------- +---- --+| ?>90 ?| ?Stage one ?| ? Normal ?+ ------+ ---------+--------- +| ?60-89 ?| ?Stage two ?| ? Decreased GFR ? + -----+ --------+ +| ?30-59 ?| ?Stage three ?| ? Stage three ? + -----+ --------+ +| ?15-29 ?| ?Stage four ? | ? Stage four ?+ ------+ ---------+--------- +| ?<15 (or dialysis) ? ?| ?Stage five ? | ? Stage five ?+ ------+ ---------+--------- + *Each stage assumes the associated GFR level has been in effect for at least three months. ?Stages 1 to 5, with or without kidney disease, indicate chronic kidney disease. Notes: Determination of stages one and two (with eGFR >59mL/min/1.73 m2) requires estimation of kidney damage for at least three months as defined by structural or functional abnormalities of the kidney, manifested by either:Pathological abnormalities or Markers of kidney damage (including abnormalities in the composition of the blood or urine or abnormalities in imaging tests). Lab Interpretation Abnormal (test code = 93126-3) [facility] [place] [facility] 09:37:32 Test Item Value Reference Range Interpretation Comments PHOSPHORUS (test code = 0778511293) 3.2 mg/dL 2.5-5.0 Lab Interpretation (test code = Normal 25903-0) [facility] [place] [facility]23-[facility]04 09:37:32 Test Item Value Reference Range Interpretation Comments MAGNESIUM (test code = 5496557261) 1.8 mg/dL 1.7-2.4 Lab Interpretation (test code = Normal 91593-2) [id number] 09:32:46 Test Item Value Reference Range Interpretation Comments WBC (test code = 6690-2) 8.79 See_Comment [A utomated message] The system [employer] generated this result transmit edna reference range : 4.30 - 11.10 10*3/?L. The reference range was not used to interpret this result as normal/abnormal . RBC (test code = 789-8) 3.37 See_Comment L [Au tomated message] The system [employer] generated this result transmit edna reference range : 3.93 - 5.25 10* 6/?L. The reference r oralia was not used to interpret this result as normal/abnormal . HGB (test code = 718-7) 10.2 g/dL 11.6-15.0 L HCT (test code = 4544-3) 30.3 % 35.7-45.2 L MCH (test code = 785-6) 30.3 pg 25.9-32.8 MCV (test code = 787-2) 89.9 fL 80.6-95.5 MCHC (test code = 786-4) 33.7 g/dL 31.6-35.1 PLT (test code = 777-3) 198 See_Comment [Au tomated message] The system [employer] generated this result transmit edna reference range : 166 - 358 10*3/?L. The reference range was not used to interpret this result as normal/abnormal . MPV (test code = 10.6 fL 9.5-12.9 14076-4) RDW-CV (test code = 13.9 % 12.0-15.5 788-0) RDW-SD (test code = 45.3 fL 39.0-49.9 99789-3) NRBC x10^3 (test code = See_Comment [Au tomated message] 1688798466) The system [employer] generated this result transmit edna reference range : 10*3/?L. The reference range was not used to interpret this result as normal/abnormal . NRBC/100 WBC (test code 0.0 See_Comment [Au tomated message] = 7677424384) The system [employer] ch generated this result transmit edna reference range : 0.0 - 10.0 /100 WBC s. The reference r oralia was not used to interpret this result as normal/abnormal . IPF % (test code = 1938553918) Lab Interpretation (test Abnormal code = 42741-3) [facility] GLUCOSE (AUTOMATED)2023-03-24 02:09:59 Test Item Value Reference Range Interpretation Comments POCT GLU (test code = 1518843242) 120 mg/dL 70-110 H Lab Interpretation (test code = Abnormal 76928-3) [facility] GLUCOSE (AUTOMATED)2023-03-23 21:06:29 Test Item Value Reference Range Interpretation Comments POCT GLU (test code = 7930825895) 123 mg/dL 70-110 H Lab Interpretation (test code = Abnormal 01097-9) [facility] GLUCOSE (AUTOMATED)2023-03-23 16:44:08 Test Item Value Reference Range Interpretation Comments POCT GLU (test code = 3835088658) 133 mg/dL 70-110 H Lab Interpretation (test code = Abnormal 43974-0) [facility] GLUCOSE (AUTOMATED)2023-03-23 16:44:08 Test Item Value Reference Range Interpretation Comments POCT GLU (test code = 1435607847) 133 mg/dL 70-110 H Lab Interpretation (test code = Abnormal 01375-8) [facility] + Lactic [id number] 15:44:35 Test Item Value Reference Range Interpretation Comments PH (test code = 2) 7.39 7.35-7.45 PCO2 (test code = 35 See_Comment [Automate d 6847235206) message] The sy stem which generated this result transmitted reference range : 35 - 45 mmHg. The reference range was not used to interpret this result as normal/abnormal . PO2 (test code = 75 See_Comment L [Automated 6308554321) message] The sy stem which generated this result transmitted reference range : 80 - 100 mmHg. The reference range was not used to interpret this result as normal/abnormal . HCO3 (test code = 21 See_Comment L [Automate d 5001070278) message] The sy stem which generated this result transmitted reference range : 22 - 26 mEq/L. The reference range was not used to interpret this result as normal/abnormal . BE (test code = -3.5 See_Comment L [Automated 0214044999) message] The sy stem which generated this result transmitted reference range : -3.0 - 3.0 mEq/ L. The reference r oralia was not used to interpret this result as normal/abnormal . THB (test code = 14.5 g/dL 12.0-16.0 9791147288) %O2HB (test code = 94.1 % 94.0-99.0 3678099704) %COHB ART (test code = 1.4 % 0.0-1.5 8250818874) %METHB ART (test code = 0.0 % 0.4-1.5 L 6241124565) VOL%O2 ART (test code = 19.2 % 15.0-23.0 5394043690) NA (test code = 135 mmol/L 135-145 7664852445) K+ (test code = 3.6 mmol/L 3.5-5.0 2768398980) AC CA IONZ (test code = 4.60 mg/dL 4.50-5.30 3721951051) GLUCOSE (test code = 108 mg/dL 70-110 9866451973) LACTIC ACID (test code 0.99 mmol/L 0.50-2.20 = 3960732881) Lab Interpretation Abnormal (test code = 36028-1) [facility] + Lactic [id number] 15:44:35 Test Item Value Reference Range Interpretation Comments PH (test code = 2) 7.39 7.35-7.45 PCO2 (test code = 35 See_Comment [Automate d 1656113167) message] The sy stem which generated this result transmitted reference range : 35 - 45 mmHg. The reference range was not used to interpret this result as normal/abnormal . PO2 (test code = 75 See_Comment L [Automated 1770247252) message] The sy stem which generated this result transmitted reference range : 80 - 100 mmHg. The reference range was not used to interpret this result as normal/abnormal . HCO3 (test code = 21 See_Comment L [Automate d 3391834411) message] The sy stem which generated this result transmitted reference range : 22 - 26 mEq/L. The reference range was not used to interpret this result as normal/abnormal . BE (test code = -3.5 See_Comment L [Automated 6533804525) message] The sy stem which generated this result transmitted reference range : -3.0 - 3.0 mEq/ L. The reference r oralia was not used to interpret this result as normal/abnormal . THB (test code = 14.5 g/dL 12.0-16.0 5875696949) %O2HB (test code = 94.1 % 94.0-99.0 9469132096) %COHB ART (test code = 1.4 % 0.0-1.5 6679713837) %METHB ART (test code = 0.0 % 0.4-1.5 L 6911075680) VOL%O2 ART (test code = 19.2 % 15.0-23.0 0643851540) NA (test code = 135 mmol/L 135-145 0367287566) K+ (test code = 3.6 mmol/L 3.5-5.0 7422544903) AC CA IONZ (test code = 4.60 mg/dL 4.50-5.30 0586266466) GLUCOSE (test code = 108 mg/dL 70-110 0873457922) LACTIC ACID (test code 0.99 mmol/L 0.50-2.20 = 5466675548) Lab Interpretation Abnormal (test code = 91678-1) [facility] 13:17:53 Test Item Value Reference Range Interpretation Comments POCT GLU (test code = 4316255262) 139 mg/dL 70-110 H Lab Interpretation (test code = Abnormal 96438-2) [facility] METABOLIC PANEL (NA, K, CL, CO2, GLUCOSE, BUN, CREATININE, CA)2023-03-23 11:15:05 Test Item Value Reference Range Interpretation Comments NA (test code = 137 mmol/L 135-145 5778500397) K (test code = 3.4 mmol/L 3.5-5.0 L 5510846652) CL (test code = 108 mmol/L 98-108 2602949353) CO2 TOTAL (test code = 20 mmol/L 23-31 L 1083827846) AGAP (test code = 9 2-16 9786691643) BUN (test code = 9 mg/dL 7-23 2397804582) GLUCOSE (test code = 122 mg/dL 70-110 H 7762544828) CREATININE (test code = 0.40 mg/dL 0.50-1.04 L 4269242762) CALCIUM (test code = 8.0 mg/dL 8.6-10.6 L 2401828293) eGFR (test code = 159.7 mL/min/1.73m2 3045539896) EMANI (test code = EMANI) Association of Glomerular Filtration Rate (GFR) and Staging of Kidney Disease* + --+ --+ ------+| GFR (mL/min/1.73 m2) ?| With Kidney Damage ?| ?Without Kidney Damage+ --------+ --------+ +| ?>90 ?| ?Stage one ?| ? Normal ?+ ---+ ---+ -------+| ?60-89 ?| ?Stage two ?| ? Decreased GFR ? + --+ --+ ------+| ?30-59 ?| ?Stage three ?| ? Stage three ? + --+ --+ ------+| ?15-29 ?| ?Stage four ? | ? Stage four ?+ ---+ ---+ -------+| ?<15 (or dialysis) ? ?| ?Stage five ? | ? Stage five ?+ ---+ ---+ -------+ *Each stage assumes the associated GFR level has been in effect for at least three months. ?Stages 1 to 5, with or without kidney disease, indicate chronic kidney disease. Notes: Determination of stages one and two (with eGFR >59mL/min/1.73 m2) requires estimation of kidney damage for at least three months as defined by structural or functional abnormalities of the kidney, manifested by either:Pathological abnormalities or Markers of kidney damage (including abnormalities in the composition of the blood or urine or abnormalities in imaging tests). Lab Interpretation Abnormal (test code = 87714-8) [facility] METABOLIC PANEL (NA, K, CL, CO2, GLUCOSE, BUN, CREATININE, CA)2023-03-23 11:15:05 Test Item Value Reference Range Interpretation Comments NA (test code = 137 mmol/L 135-145 2362520347) K (test code = 3.4 mmol/L 3.5-5.0 L 4981634316) CL (test code = 108 mmol/L 98-108 7466992055) CO2 TOTAL (test code = 20 mmol/L 23-31 L 7151085465) AGAP (test code = 9 2-16 2476164180) BUN (test code = 9 mg/dL 7-23 1315777344) GLUCOSE (test code = 122 mg/dL 70-110 H 5968694951) CREATININE (test code = 0.40 mg/dL 0.50-1.04 L 0559288225) CALCIUM (test code = 8.0 mg/dL 8.6-10.6 L 5763206279) eGFR (test code = 159.7 mL/min/1.73m2 8149495755) EMANI (test code = EMANI) Association of Glomerular Filtration Rate (GFR) and Staging of Kidney Disease* + --+ --+ ------+| GFR (mL/min/1.73 m2) ?| With Kidney Damage ?| ?Without Kidney Damage+ --------+ --------+ +| ?>90 ?| ?Stage one ?| ? Normal ?+ ---+ ---+ -------+| ?60-89 ?| ?Stage two ?| ? Decreased GFR ? + --+ --+ ------+| ?30-59 ?| ?Stage three ?| ? Stage three ? + --+ --+ ------+| ?15-29 ?| ?Stage four ? | ? Stage four ?+ ---+ ---+ -------+| ?<15 (or dialysis) ? ?| ?Stage five ? | ? Stage five ?+ ---+ ---+ -------+ *Each stage assumes the associated GFR level has been in effect for at least three months. ?Stages 1 to 5, with or without kidney disease, indicate chronic kidney disease. Notes: Determination of stages one and two (with eGFR >59mL/min/1.73 m2) requires estimation of kidney damage for at least three months as defined by structural or functional abnormalities of the kidney, manifested by either:Pathological abnormalities or Markers of kidney damage (including abnormalities in the composition of the blood or urine or abnormalities in imaging tests). Lab Interpretation Abnormal (test code = 11181-6) [facility] 11:15:05 Test Item Value Reference Range Interpretation Comments PHOSPHORUS (test code = 9186390323) 3.1 mg/dL 2.5-5.0 Lab Interpretation (test code = Normal 83778-9) [facility] Test Item Value Reference Range Interpretation Comments MAGNESIUM (test code = 3635590648) 1.6 mg/dL 1.7-2.4 L Lab Interpretation (test code = Abnormal 16238-4) [facility] 11:15:05 Test Item Value Reference Range Interpretation Comments PHOSPHORUS (test code = 1548995611) 3.1 mg/dL 2.5-5.0 Lab Interpretation (test code = Normal 89145-2) [facility]05 Test Item Value Reference Range Interpretation Comments MAGNESIUM (test code = 4342972982) 1.6 mg/dL 1.7-2.4 L Lab Interpretation (test code = Abnormal 07800-9) [facility] WITH [id number] 10:45:03 Test Item Value Reference Range Interpretation Comments WBC (test code = 10.89 See_Comment [Automated 6690-2) message] The sy stem which generated this result transmitted reference range : 4.30 - 11.10 10*3/?L. The reference range was not used to interpret this result as normal/abnormal . RBC (test code = 3.70 See_Comment L [Automated 789-8) message] The sy stem which generated this result transmitted reference range : 3.93 - 5.25 10*6/?L. The reference range was not used to interpret this result as normal/abnormal . HGB (test code = 11.0 g/dL 11.6-15.0 L 718-7) HCT (test code = 33.2 % 35.7-45.2 L 4544-3) MCV (test code = 89.7 fL 80.6-95.5 787-2) MCH (test code = 29.7 pg 25.9-32.8 785-6) MCHC (test code = 33.1 g/dL 31.6-35.1 786-4) RDW-SD (test code = 45.1 fL 39.0-49.9 93817-2) RDW-CV (test code = 13.8 % 12.0-15.5 788-0) PLT (test code = 212 See_Comment [Automated 777-3) message] The sy stem which generated this result transmitted reference range : 166 - 358 10*3/ ?L. The reference r oralia was not used to interpret this result as normal/abnormal . MPV (test code = 10.4 fL 9.5-12.9 89002-6) NRBC/100 WBC (test 0.0 See_Comment [Automat ed code = 5497273979) message] The system which generated this result transmitted reference range : 0.0 - 10.0 /100 WBCs. The refer ence range was not u sed to interpret th is result as normal/abnormal . NRBC x10^3 (test code See_Comment [Auto mated = 8773346322) message] The s ystem which generated this result transmitted reference range : 10*3/?L. The reference range was not used to interpret this result as normal/abnormal . GRAN MAT (NEUT) % 77.8 % (test code = 770-8) IMM GRAN % (test code 0.30 % = 1544610073) LYMPH % (test code = 12.6 % 736-9) MONO % (test code = 8.9 % 5905-5) EOS % (test code = 0.1 % 713-8) BASO % (test code = 0.3 % 706-2) GRAN MAT x10^3(ANC) 8.48 10*3/uL 1.88-7.09 H (test code = 0474962805) IMM GRAN x10^3 (test 0.03 10*3/uL 0.00-0.06 code = 5086246446) LYMPH x10^3 (test code 1.37 10*3/uL 1.32-3.29 = 731-0) MONO x10^3 (test code 0.97 10*3/uL 0.33-0.92 H = 742-7) EOS x10^3 (test code = 0.03-0.39 L 711-2) BASO x10^3 (test code 0.03 10*3/uL 0.01-0.07 = 704-7) Lab Interpretation Abnormal (test code = 66782-3) [facility] WITH [id number] 10:45:03 Test Item Value Reference Range Interpretation Comments WBC (test code = 10.89 See_Comment [Automated 6690-2) message] The sy stem which generated this result transmitted reference range : 4.30 - 11.10 10*3/?L. The reference range was not used to interpret this result as normal/abnormal . RBC (test code = 3.70 See_Comment L [Automated 789-8) message] The sy stem which generated this result transmitted reference range : 3.93 - 5.25 10*6/?L. The reference range was not used to interpret this result as normal/abnormal . HGB (test code = 11.0 g/dL 11.6-15.0 L 718-7) HCT (test code = 33.2 % 35.7-45.2 L 4544-3) MCV (test code = 89.7 fL 80.6-95.5 787-2) MCH (test code = 29.7 pg 25.9-32.8 785-6) MCHC (test code = 33.1 g/dL 31.6-35.1 786-4) RDW-SD (test code = 45.1 fL 39.0-49.9 84492-2) RDW-CV (test code = 13.8 % 12.0-15.5 788-0) PLT (test code = 212 See_Comment [Automated 777-3) message] The sy stem which generated this result transmitted reference range : 166 - 358 10*3/ ?L. The reference r oralia was not used to interpret this result as normal/abnormal . MPV (test code = 10.4 fL 9.5-12.9 18622-1) NRBC/100 WBC (test 0.0 See_Comment [Automat ed code = 4825397879) message] The system which generated this result transmitted reference range : 0.0 - 10.0 /100 WBCs. The refer ence range was not u sed to interpret th is result as normal/abnormal . NRBC x10^3 (test code See_Comment [Auto mated = 7611001024) message] The s ystem which generated this result transmitted reference range : 10*3/?L. The reference range was not used to interpret this result as normal/abnormal . GRAN MAT (NEUT) % 77.8 % (test code = 770-8) IMM GRAN % (test code 0.30 % = 3545148770) LYMPH % (test code = 12.6 % 736-9) MONO % (test code = 8.9 % 5905-5) EOS % (test code = 0.1 % 713-8) BASO % (test code = 0.3 % 706-2) GRAN MAT x10^3(ANC) 8.48 10*3/uL 1.88-7.09 H (test code = 9971313282) IMM GRAN x10^3 (test 0.03 10*3/uL 0.00-0.06 code = 0032651495) LYMPH x10^3 (test code 1.37 10*3/uL 1.32-3.29 = 731-0) MONO x10^3 (test code 0.97 10*3/uL 0.33-0.92 H = 742-7) EOS x10^3 (test code = 0.03-0.39 L 711-2) BASO x10^3 (test code 0.03 10*3/uL 0.01-0.07 = 704-7) Lab Interpretation Abnormal (test code = 83861-0) [facility] 02:42:21 Test Item Value Reference Range Interpretation Comments POCT GLU (test code = 2695976574) 154 mg/dL 70-110 H Lab Interpretation (test code = Abnormal 76667-8) [facility] 21:32:56 Test Item Value Reference Range Interpretation Comments MAGNESIUM (test code = 8567992807) 1.9 mg/dL 1.7-2.4 Lab Interpretation (test code = Normal 43530-2) [facility] (NA, K, CL, CO2, GLUCOSE, BUN, CREATININE, CA)2023-03-22 21:21:57 Test Item Value Reference Range Interpretation Comments NA (test code = 137 mmol/L 135-145 6262719542) K (test code = 4.0 mmol/L 3.5-5.0 7697093630) CL (test code = 110 mmol/L 98-108 H 0390611242) CO2 TOTAL (test code = 21 mmol/L 23-31 L 9775095591) AGAP (test code = 6 2-16 6046887387) BUN (test code = 10 mg/dL 7-23 6757757726) GLUCOSE (test code = 123 mg/dL 70-110 H 5268383210) CREATININE (test code = 0.50 mg/dL 0.50-1.04 9516462714) CALCIUM (test code = 8.6 mg/dL 8.6-10.6 8140220399) eGFR (test code = 123.4 mL/min/1.73m2 6851578466) EMANI (test code = EMANI) Association of Glomerular Filtration Rate (GFR) and Staging of Kidney Disease* + --+ --+ ------+| GFR (mL/min/1.73 m2) ?| With Kidney Damage ?| ?Without Kidney Damage+ --------+ --------+ +| ?>90 ?| ?Stage one ?| ? Normal ?+ ---+ ---+ -------+| ?60-89 ?| ?Stage two ?| ? Decreased GFR ? + --+ --+ ------+| ?30-59 ?| ?Stage three ?| ? Stage three ? + --+ --+ ------+| ?15-29 ?| ?Stage four ? | ? Stage four ?+ ---+ ---+ -------+| ?<15 (or dialysis) ? ?| ?Stage five ? | ? Stage five ?+ ---+ ---+ -------+ *Each stage assumes the associated GFR level has been in effect for at least three months. ?Stages 1 to 5, with or without kidney disease, indicate chronic kidney disease. Notes: Determination of stages one and two (with eGFR >59mL/min/1.73 m2) requires estimation of kidney damage for at least three months as defined by structural or functional abnormalities of the kidney, manifested by either:Pathological abnormalities or Markers of kidney damage (including abnormalities in the composition of the blood or urine or abnormalities in imaging tests). Lab Interpretation Abnormal (test code = 22930-9) [facility] GLUCOSE (AUTOMATED)2023-03-22 21:11:14 Test Item Value Reference Range Interpretation Comments POCT GLU (test code = 3015350218) 122 mg/dL 70-110 H Lab Interpretation (test code = Abnormal 49317-4) [facility] GLUCOSE (AUTOMATED)2023-03-22 17:11:57 Test Item Value Reference Range Interpretation Comments POCT GLU (test code = 0094953119) 141 mg/dL 70-110 H Lab Interpretation (test code = Abnormal 58807-9) [facility] WITH [id number] 16:43:19 Test Item Value Reference Range Interpretation Comments WBC (test code = 8.16 See_Comment [Automated 9415-2) message] The sy stem which generated this result transmitted reference range : 4.30 - 11.10 10*3/?L. The reference range was not used to interpret this result as normal/abnormal . RBC (test code = 3.96 See_Comment [Automated 945-8) message] The sy stem which generated this result transmitted reference range : 3.93 - 5.25 10*6/?L. The reference range was not used to interpret this result as normal/abnormal . HGB (test code = 11.8 g/dL 11.6-15.0 718-7) HCT (test code = 35.5 % 35.7-45.2 L 4544-3) MCV (test code = 89.6 fL 80.6-95.5 787-2) MCH (test code = 29.8 pg 25.9-32.8 785-6) MCHC (test code = 33.2 g/dL 31.6-35.1 786-4) RDW-SD (test code = 45.3 fL 39.0-49.9 67589-3) RDW-CV (test code = 14.1 % 12.0-15.5 788-0) PLT (test code = 222 See_Comment [Automated 977-3) message] The sy stem which generated this result transmitted reference range : 166 - 358 10*3/ ?L. The reference r oralia was not used to interpret this result as normal/abnormal . MPV (test code = 10.1 fL 9.5-12.9 14955-6) NRBC/100 WBC (test 0.0 See_Comment [Automat ed code = 7023070412) message] The system which generated this result transmitted reference range : 0.0 - 10.0 /100 WBCs. The refer ence range was not u sed to interpret th is result as normal/abnormal . NRBC x10^3 (test code See_Comment [Auto mated = 9999361282) message] The s ystem which generated this result transmitted reference range : 10*3/?L. The reference range was not used to interpret this result as normal/abnormal . GRAN MAT (NEUT) % 66.5 % (test code = 770-8) IMM GRAN % (test code 0.20 % = 1796436815) LYMPH % (test code = 26.0 % 736-9) MONO % (test code = 7.0 % 5905-5) EOS % (test code = 0.1 % 713-8) BASO % (test code = 0.2 % 706-2) GRAN MAT x10^3(ANC) 5.42 10*3/uL 1.88-7.09 (test code = 3219076070) IMM GRAN x10^3 (test 0.00-0.06 code = 7906314392) LYMPH x10^3 (test code 2.12 10*3/uL 1.32-3.29 = 731-0) MONO x10^3 (test code 0.57 10*3/uL 0.33-0.92 = 742-7) EOS x10^3 (test code = 0.03-0.39 L 711-2) BASO x10^3 (test code 0.01-0.07 = 704-7) Lab Interpretation Abnormal (test code = 35685-1) [facility] WITH [id number] 16:43:19 Test Item Value Reference Range Interpretation Comments WBC (test code = 8.16 See_Comment [Automated 6690-2) message] The sy stem which generated this result transmitted reference range : 4.30 - 11.10 10*3/?L. The reference range was not used to interpret this result as normal/abnormal . RBC (test code = 3.96 See_Comment [Automated 789-8) message] The sy stem which generated this result transmitted reference range : 3.93 - 5.25 10*6/?L. The reference range was not used to interpret this result as normal/abnormal . HGB (test code = 11.8 g/dL 11.6-15.0 718-7) HCT (test code = 35.5 % 35.7-45.2 L 4544-3) MCV (test code = 89.6 fL 80.6-95.5 787-2) MCH (test code = 29.8 pg 25.9-32.8 785-6) MCHC (test code = 33.2 g/dL 31.6-35.1 786-4) RDW-SD (test code = 45.3 fL 39.0-49.9 96291-4) RDW-CV (test code = 14.1 % 12.0-15.5 788-0) PLT (test code = 222 See_Comment [Automated 777-3) message] The sy stem which generated this result transmitted reference range : 166 - 358 10*3/ ?L. The reference r oralia was not used to interpret this result as normal/abnormal . MPV (test code = 10.1 fL 9.5-12.9 99415-9) NRBC/100 WBC (test 0.0 See_Comment [Automat ed code = 5223895686) message] The system which generated this result transmitted reference range : 0.0 - 10.0 /100 WBCs. The refer ence range was not u sed to interpret th is result as normal/abnormal . NRBC x10^3 (test code See_Comment [Auto mated = 4827323662) message] The s ystem which generated this result transmitted reference range : 10*3/?L. The reference range was not used to interpret this result as normal/abnormal . GRAN MAT (NEUT) % 66.5 % (test code = 770-8) IMM GRAN % (test code 0.20 % = 3960088988) LYMPH % (test code = 26.0 % 736-9) MONO % (test code = 7.0 % 5905-5) EOS % (test code = 0.1 % 713-8) BASO % (test code = 0.2 % 706-2) GRAN MAT x10^3(ANC) 5.42 10*3/uL 1.88-7.09 (test code = 7174942569) IMM GRAN x10^3 (test 0.00-0.06 code = 5584930390) LYMPH x10^3 (test code 2.12 10*3/uL 1.32-3.29 = 731-0) MONO x10^3 (test code 0.57 10*3/uL 0.33-0.92 = 742-7) EOS x10^3 (test code = 0.03-0.39 L 711-2) BASO x10^3 (test code 0.01-0.07 = 704-7) Lab Interpretation Abnormal (test code = 05613-4) [facility] GLUCOSE (AUTOMATED)2023-03-22 12:42:49 Test Item Value Reference Range Interpretation Comments POCT GLU (test code = 6718683717) 115 mg/dL 70-110 H Lab Interpretation (test code = Abnormal 70117-8) [facility] GLUCOSE (AUTOMATED)2023-03-22 12:42:49 Test Item Value Reference Range Interpretation Comments POCT GLU (test code = 7976447664) 115 mg/dL 70-110 H Lab Interpretation (test code = Abnormal 19131-0) [facility] WITH [id number] 11:26:21 Test Item Value Reference Range Interpretation Comments WBC (test code = 8.85 See_Comment [Automated 1190-2) message] The sy stem which generated this result transmitted reference range : 4.30 - 11.10 10*3/?L. The reference range was not used to interpret this result as normal/abnormal . RBC (test code = 3.62 See_Comment L [Automated 909-8) message] The sy stem which generated this result transmitted reference range : 3.93 - 5.25 10*6/?L. The reference range was not used to interpret this result as normal/abnormal . HGB (test code = 10.8 g/dL 11.6-15.0 L 718-7) HCT (test code = 31.9 % 35.7-45.2 L 4544-3) MCV (test code = 88.1 fL 80.6-95.5 787-2) MCH (test code = 29.8 pg 25.9-32.8 785-6) MCHC (test code = 33.9 g/dL 31.6-35.1 786-4) RDW-SD (test code = 45.7 fL 39.0-49.9 34883-9) RDW-CV (test code = 14.1 % 12.0-15.5 788-0) PLT (test code = 187 See_Comment [Automated 777-3) message] The sy stem which generated this result transmitted reference range : 166 - 358 10*3/ ?L. The reference r oralia was not used to interpret this result as normal/abnormal . MPV (test code = 10.1 fL 9.5-12.9 70604-1) IPF % (test code = 3.3 % 1.3-7.7 Platelet count [id number]) measured by fluorescence method. NRBC/100 WBC (test 0.0 See_Comment [Automat ed code = 0184990102) message] The system which generated this result transmitted reference range : 0.0 - 10.0 /100 WBCs. The refer ence range was not u sed to interpret th is result as normal/abnormal . NRBC x10^3 (test code See_Comment [Auto mated = 4735903755) message] The s ystem which generated this result transmitted reference range : 10*3/?L. The reference range was not used to interpret this result as normal/abnormal . GRAN MAT (NEUT) % 72.3 % (test code = 770-8) IMM GRAN % (test code 0.30 % = 2548394528) LYMPH % (test code = 18.3 % 736-9) MONO % (test code = 8.7 % 5905-5) EOS % (test code = 0.1 % 713-8) BASO % (test code = 0.3 % 706-2) GRAN MAT x10^3(ANC) 6.39 10*3/uL 1.88-7.09 (test code = 8504803818) IMM GRAN x10^3 (test 0.03 10*3/uL 0.00-0.06 code = 9528907950) LYMPH x10^3 (test code 1.62 10*3/uL 1.32-3.29 = 731-0) MONO x10^3 (test code 0.77 10*3/uL 0.33-0.92 = 742-7) EOS x10^3 (test code = 0.03-0.39 L 711-2) BASO x10^3 (test code 0.03 10*3/uL 0.01-0.07 = 704-7) Lab Interpretation Abnormal (test code = 50208-6) [facility] METABOLIC PANEL (NA, K, CL, CO2, GLUCOSE, BUN, CREATININE, CA)2023-03-22 11:12:01 Test Item Value Reference Range Interpretation Comments NA (test code = 139 mmol/L 135-145 2533500973) K (test code = 3.0 mmol/L 3.5-5.0 L 0883329052) CL (test code = 112 mmol/L 98-108 H 1727810409) CO2 TOTAL (test code = 20 mmol/L 23-31 L 1229498695) AGAP (test code = 7 2-16 5635713923) BUN (test code = 15 mg/dL 7-23 4891970078) GLUCOSE (test code = 112 mg/dL 70-110 H 2212617572) CREATININE (test code = 0.40 mg/dL 0.50-1.04 L 3904114093) CALCIUM (test code = 7.4 mg/dL 8.6-10.6 L 9406988259) eGFR (test code = 159.7 mL/min/1.73m2 7433817417) EMANI (test code = EMANI) Association of Glomerular Filtration Rate (GFR) and Staging of Kidney Disease* + --+ --+ ------+| GFR (mL/min/1.73 m2) ?| With Kidney Damage ?| ?Without Kidney Damage+ --------+ --------+ +| ?>90 ?| ?Stage one ?| ? Normal ?+ ---+ ---+ -------+| ?60-89 ?| ?Stage two ?| ? Decreased GFR ? + --+ --+ ------+| ?30-59 ?| ?Stage three ?| ? Stage three ? + --+ --+ ------+| ?15-29 ?| ?Stage four ? | ? Stage four ?+ ---+ ---+ -------+| ?<15 (or dialysis) ? ?| ?Stage five ? | ? Stage five ?+ ---+ ---+ -------+ *Each stage assumes the associated GFR level has been in effect for at least three months. ?Stages 1 to 5, with or without kidney disease, indicate chronic kidney disease. Notes: Determination of stages one and two (with eGFR >59mL/min/1.73 m2) requires estimation of kidney damage for at least three months as defined by structural or functional abnormalities of the kidney, manifested by either:Pathological abnormalities or Markers of kidney damage (including abnormalities in the composition of the blood or urine or abnormalities in imaging tests). Lab Interpretation Abnormal (test code = 72713-3) [facility]2023-09-02 11:12:01 Test Item Value Reference Range Interpretation Comments MAGNESIUM (test code = 3551664563) 1.5 mg/dL 1.7-2.4 L Lab Interpretation (test code = Abnormal 23512-0) [facility]12:01 Test Item Value Reference Range Interpretation Comments PHOSPHORUS (test code = 3337017025) 3.0 mg/dL 2.5-5.0 Lab Interpretation (test code = Normal 79869-9) [facility] 11:12:01 Test Item Value Reference Range Interpretation Comments PHOSPHORUS (test code = 9593534294) 3.0 mg/dL 2.5-5.0 Lab Interpretation (test code = Normal 70412-9) [facility]2023-09-02 11:12:01 Test Item Value Reference Range Interpretation Comments MAGNESIUM (test code = 2394747994) 1.5 mg/dL 1.7-2.4 L Lab Interpretation (test code = Abnormal 09141-8) [facility] (NA, K, CL, CO2, GLUCOSE, BUN, CREATININE, CA)2023-03-22 11:12:01 Test Item Value Reference Range Interpretation Comments NA (test code = 139 mmol/L 135-145 5655665025) K (test code = 3.0 mmol/L 3.5-5.0 L 5627460808) CL (test code = 112 mmol/L 98-108 H 0826646421) CO2 TOTAL (test code = 20 mmol/L 23-31 L 1093809344) AGAP (test code = 7 2-16 8321276555) BUN (test code = 15 mg/dL 7-23 0866096973) GLUCOSE (test code = 112 mg/dL 70-110 H 3150842145) CREATININE (test code = 0.40 mg/dL 0.50-1.04 L 8868302217) CALCIUM (test code = 7.4 mg/dL 8.6-10.6 L 7589127795) eGFR (test code = 159.7 mL/min/1.73m2 5235655115) EMANI (test code = EMANI) Association of Glomerular Filtration Rate (GFR) and Staging of Kidney Disease* + --+ --+ ------+| GFR (mL/min/1.73 m2) ?| With Kidney Damage ?| ?Without Kidney Damage+ --------+ --------+ +| ?>90 ?| ?Stage one ?| ? Normal ?+ ---+ ---+ -------+| ?60-89 ?| ?Stage two ?| ? Decreased GFR ? + --+ --+ ------+| ?30-59 ?| ?Stage three ?| ? Stage three ? + --+ --+ ------+| ?15-29 ?| ?Stage four ? | ? Stage four ?+ ---+ ---+ -------+| ?<15 (or dialysis) ? ?| ?Stage five ? | ? Stage five ?+ ---+ ---+ -------+ *Each stage assumes the associated GFR level has been in effect for at least three months. ?Stages 1 to 5, with or without kidney disease, indicate chronic kidney disease. Notes: Determination of stages one and two (with eGFR >59mL/min/1.73 m2) requires estimation of kidney damage for at least three months as defined by structural or functional abnormalities of the kidney, manifested by either:Pathological abnormalities or Markers of kidney damage (including abnormalities in the composition of the blood or urine or abnormalities in imaging tests). Lab Interpretation Abnormal (test code = 01434-8) [facility] WITH [id number] 05:20:35 Test Item Value Reference Range Interpretation Comments WBC (test code = 12.93 See_Comment H [Automated 6690-2) message] The sy stem which generated this result transmitted reference range : 4.30 - 11.10 10*3/?L. The reference range was not used to interpret this result as normal/abnormal . RBC (test code = 4.19 See_Comment [Automated 789-8) message] The sy stem which generated this result transmitted reference range : 3.93 - 5.25 10*6/?L. The reference range was not used to interpret this result as normal/abnormal . HGB (test code = 12.4 g/dL 11.6-15.0 718-7) HCT (test code = 36.7 % 35.7-45.2 4544-3) MCV (test code = 87.6 fL 80.6-95.5 787-2) MCH (test code = 29.6 pg 25.9-32.8 785-6) MCHC (test code = 33.8 g/dL 31.6-35.1 786-4) RDW-SD (test code = 45.6 fL 39.0-49.9 23136-3) RDW-CV (test code = 14.3 % 12.0-15.5 788-0) PLT (test code = 230 See_Comment [Automated 777-3) message] The sy stem which generated this result transmitted reference range : 166 - 358 10*3/ ?L. The reference r oralia was not used to interpret this result as normal/abnormal . MPV (test code = 10.1 fL 9.5-12.9 83109-4) IPF % (test code = 3.3 % 1.3-7.7 Platelet count 0514822114) measured by fluorescence method. NRBC/100 WBC (test 0.0 See_Comment [Automat ed code = 1451018039) message] The system which generated this result transmitted reference range : 0.0 - 10.0 /100 WBCs. The refer ence range was not u sed to interpret th is result as normal/abnormal . NRBC x10^3 (test code See_Comment [Auto mated = 3254106386) message] The s ystem which generated this result transmitted reference range : 10*3/?L. The reference range was not used to interpret this result as normal/abnormal . GRAN MAT (NEUT) % 78.5 % (test code = 770-8) IMM GRAN % (test code 0.40 % = 3453718592) LYMPH % (test code = 14.2 % 736-9) MONO % (test code = 6.5 % 5905-5) EOS % (test code = 0.2 % 713-8) BASO % (test code = 0.2 % 706-2) GRAN MAT x10^3(ANC) 10.16 10*3/uL 1.88-7.09 H (test code = 8800342924) IMM GRAN x10^3 (test 0.05 10*3/uL 0.00-0.06 code = 3610014203) LYMPH x10^3 (test 1.84 10*3/uL 1.32-3.29 code = 731-0) MONO x10^3 (test code 0.84 10*3/uL 0.33-0.92 = 742-7) EOS x10^3 (test code 0.03-0.39 L = 711-2) BASO x10^3 (test code 0.01-0.07 = 704-7) Lab Interpretation Abnormal (test code = 05925-4) [facility]22 01:47:33 Test Item Value Reference Range Interpretation Comments POCT GLU (test code = 5214871896) 128 mg/dL 70-110 H Lab Interpretation (test code = Abnormal 08716-5) [facility]2023-03-21 22:05:13 Test Item Value Reference Range Interpretation Comments Height (test code = 64 in 9029595740) Weight (test code = 147 lbs 1259487476) Systolic BP (test 140 mmHg code = 5305377340) Diastolic BP (test 54 mmHg code = 5302176517) Heart Rate (test code 50 bpm = 7951597863) BSA (test code = 1.72 m2 4754018743) Radiology Study observation (narrative) (test code = 83694-8) EMANI (test code = EMANI) ?Left?Atrium: PFO present viewable by saline contrast on Valsalva, less than 10 bubble visualized within 4 beats. Left VentricleLeft ventricle size is normal. Normal systolic function.Right VentricleRight ventricle size is normal. Normal systolic function.Left AtriumLeft atrium size is normal. PFO present viewable by saline contrast on Valsalva, less than 10 bubble visualized within 4 beats.Right AtriumRight atrium size is normal.Study DetailsA limited echocardiogram was performed using 2D. [facility] GLUCOSE (AUTOMATED)2023-03-21 20:45:43 Test Item Value Reference Range Interpretation Comments POCT GLU (test code = 7272800186) 139 mg/dL 70-110 H Lab Interpretation (test code = Abnormal 33437-5) [facility] Confirm[facility] (Lab Only)2023-03-21 15:41:00 Test Item Value Reference Range Interpretation Comments ABO & RH (test code = 20) A Positive [facility] (Lab Only)2023-03-21 15:41:00 Test Item Value Reference Range Interpretation Comments ABO & RH (test code = 20) [facility]2023-03-21 15:41:00 Test Item Value Reference Range Interpretation Comments ABO & RH (test code = 20) A [facility] Screen - ONCE [id number] 15:25:00 Test Item Value Reference Range Interpretation Comments ABO & RH (test code = 20) A POSITIVE IAT (test code = 1185) Negative [facility]CE [id number] 15:25:00 Test Item Value Reference Range Interpretation Comments ABO & RH (test code = 20) A POSITIVE IAT (test code = 1185) Negative [facility] [employer] and Screen - ONCE [id number] 15:25:00 Test Item Value Reference Range Interpretation Comments ABO & RH (test code = 20) A POSITIVE IAT (test code = 1185) Negative [facility] Glucose (Age >30 Days) - Code Stroke 2023 14:07:00 Test Item Value Reference Range Interpretation Comments POCT Glu (age>30days) (test code = 112 mg/dL 70-110 A BMP 3342) Lab Interpretation (test code = Abnormal 24389-6) [facility] Glucose (Age >30 Days) - Code Stroke 2023 14:07:00 Test Item Value Reference Range Interpretation Comments POCT Glu (age>30days) (test code = 112 mg/dL 70-110 A BMP 3342) Lab Interpretation (test code = Abnormal 43580-9) [facility] Glucose (Age >30 Days) - Code Stroke 2023 14:07:00 Test Item Value Reference Range Interpretation Comments POCT Glu (age>30days) (test code = 112 mg/dL 70-110 A BMP 3342) Lab Interpretation (test code = Abnormal 74250-9) [facility] [id number] 13:35:07 Test Item Value Reference Range Interpretation Comments TROPONIN I (test code = 0.007 ng/mL <=0.034 5738214286) EMANI (test code = EMANI) Reference (Normal) Range (defined by the 99th percentile reference limit): <= 0.034 ng/mL Note: Cardiac troponin begins to rise 3-4 hours after the onset of ischemia. Repeat in 4-6 hours if the sample was drawn within 3-4 hours of the onset of the symptom and found normal. Diagnosis of myocardial injury is made with acute changes in cTn concentrations with at least one serial sample above the 99th percentile upper reference limit (URL), taken together with the patient's clinical presentation. Biotin has been reported to cause a negative bias, interpret results relative to patient's use of biotin. Lab Interpretation Normal (test code = 35795-2) [facility] [id number] 13:35:07 Test Item Value Reference Range Interpretation Comments TROPONIN I (test code = 0.007 ng/mL <=0.034 8059296786) EMANI (test code = EMANI) Reference (Normal) Range (defined by the 99th percentile reference limit): <= 0.034 ng/mL Note: Cardiac troponin begins to rise 3-4 hours after the onset of ischemia. Repeat in 4-6 hours if the sample was drawn within 3-4 hours of the onset of the symptom and found normal. Diagnosis of myocardial injury is made with acute changes in cTn concentrations with at least one serial sample above the 99th percentile upper reference limit (URL), taken together with the patient's clinical presentation. Biotin has been reported to cause a negative bias, interpret results relative to patient's use of biotin. Lab Interpretation Normal (test code = 43222-4) [facility] - Code [id number] 13:35:07 Test Item Value Reference Range Interpretation Comments TROPONIN I (test code = 0.007 ng/mL <=0.034 8133403632) EMANI (test code = EMANI) Reference (Normal) Range (defined by the 99th percentile reference limit): <= 0.034 ng/mL Note: Cardiac troponin begins to rise 3-4 hours after the onset of ischemia. Repeat in 4-6 hours if the sample was drawn within 3-4 hours of the onset of the symptom and found normal. Diagnosis of myocardial injury is made with acute changes in cTn concentrations with at least one serial sample above the 99th percentile upper reference limit (URL), taken together with the patient's clinical presentation. Biotin has been reported to cause a negative bias, interpret results relative to patient's use of biotin. Lab Interpretation Normal (test code = 26822-8) [facility] - Code [id number] 13:33:26 Test Item Value Reference Range Interpretation Comments APTT Patient (test 25 See_Comment [Automat ed code = 3173-2) message] The system which generated this result transmitted reference range : 23 - 38 Seconds . The reference range was not used to interpr et this result as normal/abnormal . EMANI (test code = EMANI) The [facility] patient population mean normal value for aPTT is 30 seconds. Lab Interpretation Normal (test code = 30436-0) [facility] - Code [id number] 13:33:26 Test Item Value Reference Range Interpretation Comments APTT Patient (test 25 See_Comment [Automat ed code = 3173-2) message] The system which generated this result transmitted reference range : 23 - 38 Seconds . The reference range was not used to interpr et this result as normal/abnormal . EMANI (test code = EMANI) The [facility] patient population mean normal value for aPTT is 30 seconds. Lab Interpretation Normal (test code = 07462-0) [facility] - Code [id number] 13:33:26 Test Item Value Reference Range Interpretation Comments APTT Patient (test 25 See_Comment [Automat ed code = 3173-2) message] The system which generated this result transmitted reference range : 23 - 38 Seconds . The reference range was not used to interpr et this result as normal/abnormal . EMANI (test code = EMANI) The [facility] patient population mean normal value for aPTT is 30 seconds. Lab Interpretation Normal (test code = 04266-8) [facility] Hospital[facility] / INR - Code [id number] 13:31:29 Test Item Value Reference Range Interpretation Comments PROTIME PATIENT (test 12.4 See_Comment [Auto mated message] code = 5964-2) The system [employer] generated this result transmitted ref erence range: 12.0 - 1 4.7 Seconds. The re ference range was not u sed to interpret this result as normal/abnor mal. INR (test code = 6301-6) 1.0 Nor mal INR <1.1; Warfarin Therap eutic range 2.0 to 3. 0 or 2.5 to 3.5, dep ending upon the indica tions. Lab Interpretation (test Normal code = 47331-7) [facility] / INR - Code [id number] 13:31:29 Test Item Value Reference Range Interpretation Comments PROTIME PATIENT (test 12.4 See_Comment [Auto mated message] code = 5964-2) The system [employer] generated this result transmitted ref erence range: 12.0 - 1 4.7 Seconds. The re ference range was not u sed to interpret this result as normal/abnor mal. INR (test code = 6301-6) 1.0 Nor mal INR <1.1; Warfarin Therap eutic range 2.0 to 3. 0 or 2.5 to 3.5, dep ending upon the indica tions. Lab Interpretation (test Normal code = 35298-8) [facility] / INR - Code [id number] 13:31:29 Test Item Value Reference Range Interpretation Comments PROTIME PATIENT (test 12.4 See_Comment [Auto mated message] code = 5964-2) The system [employer] generated this result transmitted ref erence range: 12.0 - 1 4.7 Seconds. The re ference range was not u sed to interpret this result as normal/abnor mal. INR (test code = 6301-6) 1.0 Nor mal INR <1.1; Warfarin Therap eutic range 2.0 to 3. 0 or 2.5 to 3.5, dep ending upon the indica tions. Lab Interpretation (test Normal code = 53292-2) [facility] Metabolic Panel (NA, K, CL, CO2, Glucose, BUN, Creatinine, CA) - Code [id number] 13:23:43 Test Item Value Reference Range Interpretation Comments NA (test code = 141 mmol/L 135-145 6137242714) K (test code = 4.2 mmol/L 3.5-5.0 5186850557) CL (test code = 110 mmol/L 98-108 H 3945971924) CO2 TOTAL (test code = 26 mmol/L 23-31 6183307937) AGAP (test code = 5 2-16 5376689534) BUN (test code = 21 mg/dL 7-23 4106430451) GLUCOSE (test code = 112 mg/dL 70-110 H 8941896781) CREATININE (test code = 0.48 mg/dL 0.50-1.04 L 0432362142) CALCIUM (test code = 9.4 mg/dL 8.6-10.6 3868176518) eGFR (test code = 129.4 mL/min/1.73m2 0046416280) EMANI (test code = EMANI) Association of Glomerular Filtration Rate (GFR) and Staging of Kidney Disease* + --+ --+ ------+| GFR (mL/min/1.73 m2) ?| With Kidney Damage ?| ?Without Kidney Damage+ --------+ --------+ +| ?>90 ?| ?Stage one ?| ? Normal ?+ ---+ ---+ -------+| ?60-89 ?| ?Stage two ?| ? Decreased GFR ? + --+ --+ ------+| ?30-59 ?| ?Stage three ?| ? Stage three ? + --+ --+ ------+| ?15-29 ?| ?Stage four ? | ? Stage four ?+ ---+ ---+ -------+| ?<15 (or dialysis) ? ?| ?Stage five ? | ? Stage five ?+ ---+ ---+ -------+ *Each stage assumes the associated GFR level has been in effect for at least three months. ?Stages 1 to 5, with or without kidney disease, indicate chronic kidney disease. Notes: Determination of stages one and two (with eGFR >59mL/min/1.73 m2) requires estimation of kidney damage for at least three months as defined by structural or functional abnormalities of the kidney, manifested by either:Pathological abnormalities or Markers of kidney damage (including abnormalities in the composition of the blood or urine or abnormalities in imaging tests). Lab Interpretation Abnormal (test code = 87152-9) [facility] 13:23:43 Test Item Value Reference Range Interpretation Comments MAGNESIUM (test code = 8500003827) 2.0 mg/dL 1.7-2.4 Lab Interpretation (test code = Normal 63251-2) [facility] without Diff - Code [id number] 13:13:26 Test Item Value Reference Range Interpretation Comments WBC (test code = 8.45 See_Comment [Automated message] The 0790-2) system which [employer] nerated this result tra nsmitted reference range : 4.30 - 11.10 10*3/?L. The reference range was not used to interpr et this result as normal/abnormal . RBC (test code = 4.75 See_Comment [Automated message] The 789-8) system which [employer] nerated this result tra nsmitted reference range : 3.93 - 5.25 10*6/?L. T he reference range was not used to interpr et this result as normal/abnormal . HGB (test code = 14.5 g/dL 11.6-15.0 718-7) HCT (test code = 42.7 % 35.7-45.2 4544-3) MCH (test code = 30.5 pg 25.9-32.8 785-6) MCV (test code = 89.9 fL 80.6-95.5 787-2) MCHC (test code = 34.0 g/dL 31.6-35.1 786-4) PLT (test code = 327 See_Comment [Automated message] The 777-3) system which ge nerated this result tra nsmitted reference range : 166 - 358 10*3/?L. Th e reference range was not used to interpr et this result as normal/abnormal . MPV (test code = 9.7 fL 9.5-12.9 79438-5) RDW-CV (test code = 14.2 % 12.0-15.5 788-0) RDW-SD (test code = 46.9 fL 39.0-49.9 06831-1) NRBC x10^3 (test See_Comment [Automated message] The code = 2979682550) system ich generated this result tra nsmitted reference range : 10*3/?L. The reference r oralia was not used to int erpret this result as normal/abnormal . NRBC/100 WBC (test 0.0 See_Comment [Automat ed message] The code = 7334498981) system [facility] generated this result tra nsmitted reference range : 0.0 - 10.0 /100 WBCs. The reference range was not used to interpr et this result as normal/abnormal . IPF % (test code = 6263910699) [facility] without Diff - Code [id number] 13:13:26 Test Item Value Reference Range Interpretation Comments WBC (test code = 8.45 See_Comment [Automated message] The 6690-2) system which nerated this result tra nsmitted reference range : 4.30 - 11.10 10*3/?L. The reference range was not used to interpr et this result as normal/abnormal . RBC (test code = 4.75 See_Comment [Automated message] The 789-8) system which ge nerated this result tra nsmitted reference range : 3.93 - 5.25 10*6/?L. T he reference range was not used to interpr et this result as normal/abnormal . HGB (test code = 14.5 g/dL 11.6-15.0 718-7) HCT (test code = 42.7 % 35.7-45.2 4544-3) MCH (test code = 30.5 pg 25.9-32.8 785-6) MCV (test code = 89.9 fL 80.6-95.5 787-2) MCHC (test code = 34.0 g/dL 31.6-35.1 786-4) PLT (test code = 327 See_Comment [Automated message] The 777-3) system which nerated this result tra nsmitted reference range : 166 - 358 10*3/?L. Th e reference range was not used to interpr et this result as normal/abnormal . MPV (test code = 9.7 fL 9.5-12.9 61225-4) RDW-CV (test code = 14.2 % 12.0-15.5 788-0) RDW-SD (test code = 46.9 fL 39.0-49.9 64299-9) NRBC x10^3 (test See_Comment [Automated message] The code = 0367117916) system [facility] generated this result tra nsmitted reference range : 10*3/?L. The reference r oralia was not used to int erpret this result as normal/abnormal . NRBC/100 WBC (test 0.0 See_Comment [Automat ed message] The code = 1148998377) system [facility] generated this result tra nsmitted reference range : 0.0 - 10.0 /100 WBCs. The reference range was not used to interpr et this result as normal/abnormal . IPF % (test code = 9257828800) [facility] without Diff - Code [id number] 13:13:26 Test Item Value Reference Range Interpretation Comments WBC (test code = 8.45 See_Comment [Automated message] The 6690-2) system which nerated this result tra nsmitted reference range : 4.30 - 11.10 10*3/?L. The reference range was not used to interpr et this result as normal/abnormal . RBC (test code = 4.75 See_Comment [Automated message] The 789-8) system which nerated this result tra nsmitted reference range : 3.93 - 5.25 10*6/?L. T he reference range was not used to interpr et this result as normal/abnormal . HGB (test code = 14.5 g/dL 11.6-15.0 718-7) HCT (test code = 42.7 % 35.7-45.2 4544-3) MCH (test code = 30.5 pg 25.9-32.8 785-6) MCV (test code = 89.9 fL 80.6-95.5 787-2) MCHC (test code = 34.0 g/dL 31.6-35.1 786-4) PLT (test code = 327 See_Comment [Automated message] The 777-3) system which ge nerated this result tra nsmitted reference range : 166 - 358 10*3/?L. Th e reference range was not used to interpr et this result as normal/abnormal . MPV (test code = 9.7 fL 9.5-12.9 20414-4) RDW-CV (test code = 14.2 % 12.0-15.5 788-0) RDW-SD (test code = 46.9 fL 39.0-49.9 21301-4) NRBC x10^3 (test See_Comment [Automated message] The code = 3487291921) system [facility] generated this result tra nsmitted reference range : 10*3/?L. The reference r oralia was not used to int erpret this result as normal/abnormal . NRBC/100 WBC (test 0.0 See_Comment [Automat ed message] The code = 0824452413) system [facility] generated this result tra nsmitted reference range : 0.0 - 10.0 /100 WBCs. The reference range was not used to interpr et this result as normal/abnormal . IPF % (test code = 3310609008) [facility] Consult Notes Date/Time Note Provider Source 2023-03-22 15:04:00-00:00 Associated Order(s): CONSULT SPEECH [facility] Formatting of this note is different from the or iginal. Speech-Language Pathology Clinical Swallow Re-Evaluation 03/22/2023 Criss Griffin : 1955 Age/Sex: 68 year ol d female Time IN/OUT: 5061-6328 Referring Physician: Akhil Date of Referral: 03/22/2023 Reason for Referral: stroke activation (dysphagia, speech-language/cognitive-linguistic) Date of Admission/Onset: 2023 SUBJECTIVE: Patient awake/alert, accompa nied by family, agreeable to participate. Per RN, patient on CLD awaiting this evaluation. OBJECTIVE: is being seen for a clinical swallow evaluation. Per Hospital Course, "Patient is a 68 y/o woman with no concerning PMH history presenting for left-sided weakness onset 03/18 at 23:30. She was transferred from [facility] on 03/19 to [facility] in [place], where she was admitted to stroke service. Imagining in [place] showed right ICA occlusion with right FILOMENA, MCA flow from left- sided collaterals. Started o n DAPT, statin, and enoxaparin prophylactic. MRI showed multiple infarcts and right FILOMENA-MCA watershed cortical infarct. DSA aborted due to suspicion of aortic dissection whic h was confirmed and patient was transferred to SICU." This service re-consulted due to "patient with repeat stroke with significant deficits". Please see chart for more details. Pertinent Imaging: CT ANGIOGRAM ABDOMEN/PELVIS Result Date: 03/21/2023 1. Zenda type B aortic di ssection extending up to the level of renal arteries. Superior mesenteric artery, left renal artery, celiac trunk and DALY arise from true lumen and are patent. The false lume n extends into the right katrina al artery leading to narrowing at the ostium but there is symmetric enhancement of the right kidney when compared to the left kidney. 3. Calcified and noncalcified arterioscl erotic plaques are visualize d throughout the aorta and branch arteries resulting in approximately 50% luminal narrowing of the right common iliac artery. Left femoral arterial line terminates at the aor tic bifurcation. 4. Two left hepatic lobe focal lesions are favored to represent hemangioma. The larger one measures 6.7 cm in largest dimension, is superficial, and surgical consultation is recommended . Post cholecystectomy. A 1. 4 cm left adrenal adenoma. 5. Post procedural changes are seen in the groins bilaterally with fat stranding seen on the left side and a pelvic hematoma measuring about 6 cm s een on the right side withou t contrast extravasation (5:202). Findings were notified to Dr. Louis by Dr. Dimas around 11:00 AM. Preliminary Report Dictated by Resident: Carson Jhaveri MD., have reviewed this study and agree w ith the above report. MR STROKE BRAIN WO CONTRAST Result Date: 03/20/2023 Restricted diffusion indicat ing acute infarctions in numerous aspect of the right centrum semiovale white matter as well as a right FILOMENA-MCA watershed cortical infarct. Thrombosed right ICA. Preliminary Report Dictated by Resident: Sal Bull MD., have reviewed this study and agree with the above report. CT ACUTE STROKE ANGIOGRAM HEAD Result Date: 2023 Total occlusion of the right ICA at the bifurcation. Right FILOMENA and MCA fill through collaterals. discussed with Dr. Gould at 8:33am. Preliminary Report Dictated by Resident: Yogesh Middleton MD., have reviewed this study and agree with the above report. CT ACUTE STROKE ANGIOGRAM NECK Result Date: 2023 Total occlusion of the right ICA at the bifurcation. Right FILOMENA and MCA fill through collaterals. discussed with Dr. Gould at 8:33am. Preliminary Report Dictated by Resident: Yogesh Middleton MD., have reviewed this study and agree with the above report. CT ACUTE STROKE HEAD WO CONTRAST Result Date: 2023 No acute intracranial abnorm ality. Preliminary Report Dictated by Resident: Sal Middleton MD., have reviewed this study and agree with the above report. Previous BATTERY TECHNICIAN Services/Swallow History: Patient seen for clinical sw allow evaluation earlier this admission on 2023 at which time she appeared to present with safe, functional swallowing. BATTERY TECHNICIAN rec'd a regular-textured diet with thin liqui ds and swallow precautions w ith plan to follow-up for diet tolerance and completion of speech-language/cognitive evaluation in the coming days. Please see note for more details. No past medical history on file. No past surgical history on file. General Behavior: Alert and Cooperative Hearing: WFL for speech Respiratory Status: room air Orientation/Cognition: - Patient oriented to: person, place, time, and situation - Response type: verbal - Follows 1-step commands: Yes Current Diet Texture/Means of Nutrition: Clear l iquid diet Oral Motor Exam Dentition and Oral Cavity: n atural dentition, moist oral mucosa, and clean oral cavity Face impaired function, characterized by Left fa cial droop Jaw within normal limits and symmetrical Lips impaired function, characterized by asymmet fareed labial spread and pucker Tongue impaired function, ch aracterized by tongue deviates to the left slightly Palate Difficult to fully assess/visualize Vocal Quality clear Speech dysarthria CLINICAL SWALLOW EVALUATION Swallows on command: Yes Handles Secretions: Yes Volitional Cough: Did not test Spontaneous Cough: No PO trials were administered by patient and BATTERY TECHNICIAN. Patient was provided with multiple bites/sips of thin liquid (0), pudding (4), and regular solid (7) consistencies with the following observations: Oral Stage Anterior leakage of bolus not observe d Pocketing of bolus not observed Subjectively prolonged oral phase not observed Oral residue not observed Mastication slow and prolonged, but adequate Pharyngeal Stage Subjectively reduced laryngeal elevation not observed Coughing or throat clearing not observed Change in voice quality not observed Multiple swallows subjectively not observed Respiratory sufficiency and coordination WFL - no increased work of breathing and/or oxygen sats and respiratory rate remained stable Report of globus sensation does not report 3 oz water challenge Did not test Patient/Family/Staff educati on: Provided verbally. Patient/family verbalized understanding and is in agreement with plan of care. Patient/Family goal: safe PO intake ASSESSMENT/IMPRESSIONS: Criss Griffin presents with possible oropharyngeal dysphagia in the setting of multiple right-sided infarcts. Patient noted to have left-sided facial weakness, not seen during initial evaluation on 03/19 , but demonstrated adequate bolus acceptance. Laryngeal elevation is subjectively adequate upon palpation and no overt s/sx of aspiration observed (note: aspiration cannot be confirmed nor r/o at bedsid e without imaging). Patient appears to be grossly safe for a PO diet as below given observations made today but is at some risk for dysphagia/aspiration due to multiple right-sided infarcts. She may cyndy ntually benefit from complet ion of instrumental swallow study (I.e., MBS/FEES), especially if any specific concerns for aspiration/aspiration-related complication arise. Patient may also eventually bene fit from speech-language/cog nitive evaluation. Patient and family members in agreement. She would benefit from continued BATTERY TECHNICIAN services while in-house. Prognosis is fair for safe p o intake with adherence to texture modifications and adherence to swallow precautions due to above findings. RECOMMENDATIONS/GOALS: 1. Recommend patient initiat e a easy to chew (IDDSI level 7)-textured diet with thin liquids (IDDSI level 0) and swallow precautions: sit fully upright/in chair, small single bites/sips, alternate bites/sips, and remain upright after PO intake 2. Recommend pt be closely m onitored for s/sx of aspiration or signs of a developing respiratory infection (i.e. Throat clearing/coughing with po, wet/gurgled voice, fever spikes 30-60 mins after meals, increased chest congestion, leukocytosis, etc). If observed or suspected, recommend pt be made NPO and notify BATTERY TECHNICIAN - may consider MBS vs FEES at that time 3. Recommend elevated head of bed and frequent, thorough oral hygiene care. 4. Recommend BATTERY TECHNICIAN therapy 2-5 x/wk for 15-45 min/session while in-house to address the following goals: Swallowing: - Patient will tolerate the safest, least restricted po diet texture without overt s/sx of aspiration or other negative effects on medical condition BATTERY TECHNICIAN will also follow up for full speech-language/cognitive evaluation in the coming days as indicated. 5. Discharge rec: IGGY Rios MS, [facility]-BATTERY TECHNICIAN Speech Language Pathology Office Number: [phone] Pager: [phone] 08:46:00-00:00 Associated Order(s): CONSULT ADULT OCCUPATIONAL THERAPY [facility] 03/22/2023 0846 OCCUPATIONAL THERAPY NOTE: Duplicate consult. Please di scontinue active bedrest order once patient cleared to participate with therapy. PUSHPA Fonseca, OTD, C/NDT Electronically signed by Sherron Allen OT a t 03/22/2023 8:56 AM CDT 2023-03-22 08:45:00-00:00 Associated Order(s): CONSULT ADULT PHY SICAL THERAPY [facility] PHYSICAL THERAPY NOTE: Duplicate consult. Please di scontinue active bedrest order once patient cleared to participate with therapy. Thank you. Maira Adam, PT, DPT [facility] Rehabilitation Services 2023-03-21 12:08:34-00:00 Formatting of this note is d ifferent from the original. [facility] VASCULAR SURGERY CONSULT Date of Service: 03/21/2023 Requesting Physician: Neuro IR Chief Complaint: aortic dissection HPI Ms. Griffin is a 68 yo femal e who presents with aortic dissection. Patient initially presented to [place] with new onset L sided weakness LSN 23:30 on 03/18. Was found to have total right ICA occlusion with R FILOMENA and MCA fill thro ugh left-sided collaterals. Got ASA and plavix and was transferred to [place]. MRI showed multiple acute right-sided infarcts as well as right FILOMENA-MCA watershed cortical in [place]. Patient went this AM for cerebral angiogram with neuro IR, however upon access to R CHIP SEPARATOR, the wire didn't advance and resistance was met. L CHIP SEPARATOR access was obtained however the wire was looping in the mid abdominal aorta and dissection was suspected at that point. 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 Patient has minimal L sided abdominal pain but is otherwise a symptomatic. She says her L weakness has slightl y improved since admission. CURRENT HOSPITAL MEDICATIONS Current Facility-Administered Medications Medication Dose Route Frequency Last Rate Last A dmin atropine injection PRN 0.5 mg at 03/21/23 0952 FENTanyl PF (SUBLIMAZE (PF) ) injection Slow IV Push PRN 50 mcg at 03/21/23 1004 heparin 1,000 unit/mL injection PRN 5,000 Units at 03/21/23 1007 lidocaine 1% (XYLOCAINE) 10 mg/mL (1 %) injecti on PRN 10 mL at 03/21/23 0915 niCARdipine (CARDENE I.V.) 40 mg in NaCL 200 mL (RTU) infusion 2.5-15 mg/hr IV Infusion TITRATE pantoprazole (PROTONIX) injection 40 mg 40 mg S low IV Push Q24H acetaminophen (TYLENOL) tab let 650 mg 650 mg Oral Q6HPRN 650 mg at 03/20/23 0048 melatonin (MELATIN) tablet 3 mg 3 mg Oral QHS 3 mg at 03/20/232 aspirin chewable tablet 81 mg 81 mg Oral DAILY 81 mg at 03/20/23 1355 atorvastatin (LIPITOR) tablet 40 mg 40 mg Oral QHS 40 mg at 03/20/232041 clopidogreL (PLAVIX) 75 mg tablet 75 mg 75 mg Oral DAILY 75 mg at 03/20/23 0855 enoxaparin (LOVENOX) injection 40 mg 40 mg Subc utaneous DAILY AT 1700 famotidine (PEPCID AC) tablet 20 mg 20 mg Oral BID 20 mg at 03/20/232041 labetaloL (NORMODYNE) injection 10 mg 10 mg Slo w IV Push [id number] NaCl 0.9% (NS) IV infusion 1,000 mL 1,000 mL IV Infusion CONTINUOUS 50 mL/hr at 03/21/23 1156 1,000 mL at 03/21/23 1156 nicotine (NICODERM) 21 mg/2 4 hr patch 1 Patch 1 Patch Topical Q24H 1 Patch at 03/20/23 1644 Review of Systems (-)=Negative,(+)=Positive Constitutional: negative HEENT: negative Cardio: negative Resp: negative GI: (+) abdominal pain : negative DONNELL: (+) L weakness Neuro: negative Hem/Lymphatic: negative Allergic/Immunologic: negative HISTORIES No past medical history on file. No past surgical history on file. No family history on file. Social History Socioeconomic History Marital status: Tobacco Use Smoking status: Every Day Types: Cigarettes Passive exposure: Never Smokeless tobacco: Never Social Determinants of Health Financial Resource Strain: Low Risk (03/20/2023) Overall Financial Resource Strain (CARDIA) Difficulty of Paying Living Expenses: Not hard at all Food Insecurity: No Food Insecurity (03/20/2023) Hunger Vital Sign Worried About Running Out of Food in the Last Y ear: Never true Ran Out of Food in the Last Year: Never true Transportation Needs: No Transportation Needs () PRAPARE - Transportation Lack of Transportation (Medical): No Lack of Transportation (Non-Medical): No Physical Activity: Sufficiently Active () Exercise Vital Sign Days of Exercise per Week: 7 days Minutes of Exercise per Session: 150+ min Social Connections: Unknown (03/20/2023) Social Connection and Isolation Panel [NHANES] Frequency of Communication with Friends and Family: More than three times a week Marital Status: Housing Stability: Low Risk (03/20/2023) Housing Stability Vital Sign Unable to Pay for Housing in the Last Year: No Number of Places Lived in the Last Year: 2 Unstable Housing in the Last Year: No Physical Exam Vitals: Vitals: 03/21/23 1050 03/21/23 1100 03/21/23 1110 03/21 1120 BP: (!) 157/71 (!) 173/70 (!) 183/62 (!) 148/66 BP Location: Patient Position: Pulse: Resp: 16 17 16 16 Temp: TempSrc: SpO2: 98% 98% 96% 98% Weight: Height: (-)=Negative,(+)=Positive General: awake, alert HEENT: normocephalic atraumatic Respiratory: clear to auscultation bilaterally Cardio: sinus bradycardia, H R 40-50 asymptomatic. BP systolic's 180's . Bilateral carotid pulses, bilateral palpable radial pulses, sheath still present on L femoral stick site sutured in place, R femoral pulse palpable, palpable DP pulses. Abdomen: negative and NT/ND Rectal: not tested Musculoskeletal: weakness LUE Skin: negative Neurologic: no focal deficits Psychiatric: alert, oriented, with appropriate a ffect LABORATORY Labs reviewed RADIOLOGY Radiology Reviewed PATHOLOGY N/a ASSESSMENT/PLAN: Ms. Griffin is a 68 yo femal e who presents with aortic dissection. Initially presented to [facility] with R ICA occlusive stroke and L sided weakness. Attempted to undergo cerebral angiogram with neuro IR this AM, however aortic dissecti on flap created during procedure (Zenda B). Patient has mild L abdominal pain but is otherwise asymptomatic with pulses intact. Neuro: monitor neuro exam, f /u neurology recs, continue ASA and plavix. Q1H neuro checks. CV: Systolic BP goal <120, s tarted cardene gtt (held on BB given bradycardia down to 40's). Monitor bradycardia. Catheter still in L groin stick site - will remove and hold pressure. Resp: no acute concerns GI: NPO, gentle IVF. Liver m ass seen on CT will f/u final read and discuss with patient. : cruz in place, monitor UOP Endo: no current concerns MSK: lie flat per neuro IR protocol Heme: q6h CBC, transfuse for Hgb >7 ID: no current concerns Dispo: SICU, transferred to vascular surgery ser vice Allison Valle MD General Surgery PGY-4 Electronically signed by Tereso Pan MD at 1:00 PM CDT Associated attestation - Tereso Pan MD - 07/2022 1:00 PM CDT This is a patient who presen ts for iatrogenic aortic dissection. Patient was undergoing an arteriogram directed at evaluating for recent stroke and aortic dissection was noted. Patient continues to have palpable pulses in all 4 ex tremities and minimal complaints. CT scan demonstrates what amounts to a type B aortic dissection. There is no visceral malperfusion although the right renal artery appears t o be somewhat narrowed by th e dissection. We will admit her to the intensive care unit for blood pressure control and monitoring. We will plan on a repeat CAT scan if this is stable she will probably not need specific treatment. 2023-03-20 10:42:36-00:00 Associated Order(s): CONSULT CARE [facility]-ADULT [facility] - [facility] Medicare part A: [id number] Walker delivered from [facility] mgmt requested, patient does not have DME coverage. HH with [facility] ([facility]) [place] [address] [place] [address], P: [phone] / [phone], F: [phone] referral sent. Care Management Social Functional Assessment Patient Name: Criss Griffin Age: [age] year old Sex : female Previous admit date: N/A CM spoke with patient/family to complete SFA. Role of Care Management explained. Initial CM screening and initial discharge plan established. CM anticipates patient to discharge to prior [facility] and to be provided informa tion on after care, medication management, and follow-ups prior to discharge. No discharge barriers identified. Current diagnosis and co-morbidities: CVA, old, hemiparesis [I69.359] Readmission Questions: Was patient discharged from any acute care hospital within the last 30 days: No Alcohol Use Screening (AUDIT-C) Q1: How often do you have a drink containing alc ohol?: Never SCORE: 1 Did patient elect to have resources provided: No Social Functional Assessment: Mental Status: Alert & Oriented to Person,Place & Time Information given by: Self Patient's support system and healthcare project manager: Child;O ther Name and phone number of [place] caregiver/support system: Catherine Abdi sibling [phone], Anthony Ibarra child [phone], Flo Griffin child [phone], Feng palma BF [phone] Living Arrangement: Apartment: Downstairs In the last 12 months, was t here a time when you were not able to pay the mortgage or rent on time?: No In the last 12 months, how many places have you lived?: 2 (planned) In the last 12 months, was t here a time when you did not have a steady place to sleep or slept in a residential (including now)?: No Persons living in home: Other Names & numbers of persons living in home: Alban palma [phone] Are you , , di vorced, , never , or living with a partner?: In a typical week, how many times do you talk on the phone with family, friends, or neighbors?: More than three times a week Baseline functional assessment-ADLS: Independent Current functional status same as prior: No Current functional status- ambulation: Independe nt Current functional status- personal care: Indepe ndent Current functional status- driving: Dependent Current functional status- g rocery shopping: Requires minimal to moderate assistance Current functional status-ho use keeping: Requires minimal to moderate assistance Current functional status- m eal preparation: Requires minimal to moderate assistance On average, how many days pe r week do you engage in moderate to strenuous exercise (like a brisk walk)?: 7 days On average, how many minutes do you engage in exercise at this level?: 150+ min Do you have a PCP?: No Refered to: [facility] pcp set up team Home Health Care Agency: No Provider Services: No DME Company: No Equipment: None Hemodialysis: No Community resources utilized: SSA/SSI/Medicaid Funding Resources: Medicare A;Commercial Prescription coverage plan: Commercial How hard is it for you to pa y for the very basics like food, housing, medical care, and heating?: Not hard at all Within the past 12 months, y ou worried that your food would run out before you got the money to buy more.: Never true Within the past 12 months, t he food you bought just didn't last and you didn't have money to get more.: Never true Anticipated services prior t o disharge: Consult;Continue Medical Eval;IV Antibiotic Therapy;Lab Values;MRI/CT/US;PT/OT/ST;Reassess prior to discharge;ROCAEL/TTE Expected mode of discharge t ransportation: Personal vehicle;Same as support system In the past 12 months, has l ack of transportation kept you from medical appointments or from getting medications?: No In the past 12 months, has l ack of transportation kept you from meetings, work, or from getting things needed for daily living?: No Additional info required for discharge planning: Pending medical evaluation;Pending P/T O/T recommendation Recommended discharge plan: Home;Home with new [facility] [employer] [employer] Health;DME Referral SFA Complete: Social Functional Assessment complete: Yes KAYA Ortiz, RN [email or web address] O:[phone] F:[phone] Case Management Reshma Hancock Adult Inpatient Pager for weekends and holidays [phone] Electronically signed by Tirso Monsalve, RN at 10:44 AM CDT 2023-03-20 09:10:00-00:00 Associated Order(s): CONSULT ADULT OCCUPATIONAL THERAPY [facility] OT GENERAL EVALUATION Consult received via [employer] MR reviewed and evaluation completed 03/20/23. Patient referred to occupational therapy for evaluation and treatment secondary to L sided weakness. Patient agreeable to participate in occupational therapy. Discharge Recommendations: T he patient would benefit from continued therapy post-discharge from hospital. The patient reports that she does not have reliable transportation to and from outpatient appoin [facility], therefore OT recommending home health OT /PT if applicable. Therapy Needs and Potential: - Patient would benefit from continued skilled occupational therapy services to address: Decline in basic activities of daily living, Decline in instrumental activities of daily living, Decreased streng th, Decreased range of motion, Decreased endurance, and Decreased coordination - Patient demonstrates good potential to improve and meet therapy goals with further skilled occupational therapy services. - Patient appears motivated to improve their B/IADLs and return to their previous level of function. - Patient demonstrates abili ty to tolerate at least 30-60 minutes of active participation in occupational therapy. - Patient able to follow com mands: 1-step Yes, Multi-step Yes, Inconsistencies No Challenges to Home Transition: - Requires physical assistance for BADLS - Requires physical assistance for IADLS - Requires supervision or verbal cues for BADLS - Requires supervision or verbal cues for IADLS - Limited caregiver availability - Increased risk of falls - Environmental barriers Equipment Recommendations:Bedside commode, Tub t ransfer bench, and Grab bars PLAN OF CARE: At least 3x/week Precautions: Weight bearing status: NA General: PPE Utilized: Gloves, Fall, BP < 220/11 0 for first 24 hours; Bracing: N/A Current Occupational Performance and/or Treatmen t: AM-PAC 6 Clicks (Raw Score 0 =Dependent, 24=Independent; Low function Raw Score 0= Dependent, 32=Independent): Raw Score - Daily Activity: 13 T-Scale Score - Daily Activity: 32.03 Grooming: Supervision, to wipe face bed level wi th rag UB Dressing: Moderate Assist ance, to doff gown by pulling over head bed level; to don new gown from front pending transportation to MRI LB Dressing: Moderate Assistance, to don socks b ed level Feeding: Not Tested - The pa tient is NPO at this time secondary to pending imaging and procedure. Functional Mobility: Pt foun d semireclining in bed with HOB elevated. The patient reports that she just finished working with physical therapy staff and is feeling fatigued at this time with dizziness. Patient seen for bed level e valuation at this time secondary to these symptoms. Patient/caregiver educated o n: Adaptive equipment, ADL training, AROM/Strengthening (of OMAR UE with more emphasis on L hand due to lack of fine motor coordination) Role of OT, and Safety awareness Patient left semireclining i n bed with call bradshaw in reach. Visitor present and OMAR LE elevated. Please, see full evaluation below for more detail. OT EVALUATION: 68 year old female Admit date: 2023 Date of onset: 2023 Admit Diagnosis: CVA, old, hemiparesis [I69.359] OT Diagnosis: Impaired BADL independence, Impaired IADL independence, Weakness, Decreased endurance, and Limited joint ROM PMH: No past medical history on file. PSH: No past surgical history on file. PAIN: Denies pain before and after session. OCCUPATIONAL ROLES/HOME ENVIRONMENT: Home environment: Lives enmanuel rapp in a first floor apartment in [place]. The patient reports that her boyfriend stays with her often but works throughout the day therefore he is not available for support. The patient reports that she has a brother and sister but they do not live close to support her as needed. 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 The patient reports that in her free time she enjoys riding around and going to the movies with her boyfriend. Function prior to admission: Prior to onset of symptoms - Household ambulation, Community ambulation, Independent with BADLs, and Independent with IADLs Suspected ischemic or hemorraghic stroke patient : YES, Defer to PT Equipment prior to admission: None PERFORMANCE SKILLS/FACTORS: Areas marked NT as patient reports she just finished working with physical therapy staff and is feeling dizzy at this time. The patient requests OT return at a later time for EOB/OOB activity. UE Muscle Tone: bilateral WNL UE ROM: bilateral AROM WFL e xcept shoulder flexion limited bilaterally; pt reports possible rotator cuff injury to R shoulder from repetitive scrubbing of pots/grills at work causing pain. UE Strength: R UE (4-/5), L UE (3+/5) Hand dominance: right Dexterity/Coordination: left Fine motor skills Impaired - pt reports weakness in the left hand intermittently after working all day at [employer]. The patient reports that when the weakness onsets, she drops objects and has trouble with her grasping . Endurance - Sitting: Fair+ Standing: NT Sitting Balance - Static: Good against HOB Dynam ic: NT Standing: Balance - Static NT Dynamic: NT Dizziness: Yes Skin Integrity: No breakdown noted, but defer full skin assessment to nursing staff. Sensation: bilateral Intact to light touch and Patient denies numbness and tinging. Oral Motor: WFL - pt was NPO pending procedure and MRI at time of OT evaluation. Communication: Able to verbalize needs Yes Other : N/A Vision: WFL Yes Other: reading glasses Hearing: good; no issues reported COGNITION: Orientation: person, place, date/time, and situa tion Follows Commands: 1-step Yes Multi-step Yes Inco nsistencies No Safety Awareness/Judgment: Good PROBLEM LIST: Decreased inde pendence with B/IADL, Decreased functional ROM, and Decreased strength/endurance for functional activity REHAB POTENTIAL/PROGNOSIS: good PATIENT/FAMILY GOALS: The pa danielle and her boyfriend report that they want the patient to have a resolution of symptoms and gained independence. The patient requests to speak to care management regarding her concerns with being out of work without her group home at this time. TREATMENT/INTERVENTION PLAN: Patient/Caregiver Education, Equipment recommendations, Daily living activities, and Therapeutic exercises GOAL(S): By discharge, patie nt will increase independence in daily living skills as follows: 1 Patient will perform toilet transfer with mini mal assistance. 2 Patient will perform 1 grooming task while sta nding with supervision. 3 Patient will perform simulated tub/shower mendiola sfer with supervision. 4 Patient will don/doff UB clothing with supervi christiano. 5 Patient will don/doff LB c lothing with supervision using adaptive equipment as needed. 6 Patient will increase endu loren for functional activity as evidenced by ability to sustain 30 minutes of active participation. 7 Patient/caregiver will nancy balize/demonstrate understanding/proficiency in the following home programs: Adaptive equipment and 8 Dexterity/fine motor coordination//General Strengthening PATIENT-FAMILY TEACHING Patient provided with prefer red teaching of verbal information and demonstration on Adaptive equipment, ADL training, AROM/Strengthening (of OMAR UE with more emphasis on L hand due to lack of fine motor coordination) Role of OT, a nd Safety awareness. Shows readiness to learn. Verbal instruction and Demonstration teaching provided. Individual is able to read and verbalizes understanding of teaching provided. PUSHPA Montano, OTD Pager #: [phone] Total Timed Treatment Codes: 8 Min Total Treatment Time: 19 Min Patient Complexity Level Mod erate - An occupational therapy evaluation of moderate complexity was completed using the above tests and measures. The following information was obtained: An occupational pr ofile and medical and therap y history, including an expanded review of medical and/or therapy records and additional review of physical, cognitive, or psychosocial history related to current functional performance, Various standar dized and non-standardized assessments were used to identify at least 3-5 performance deficits related to physical, cognitive, or psychosocial skills that result in activity limitations and/or participa tion restrictions, and Clinical decision making of moderate analytic complexity, which includes an analysis of the occupational profile, analysis of data from detailed assess ment(s), and consideration o f several treatment options. Patient may present with comorbidities that affect occupational performance. Minimal to moderate modification of tasks or assistance (e.g., physi porsha or verbal) with assessme nt(s) is necessary to enable patient to complete evaluation component. Electronically signed by Leyda Vazquez OT at 0 03/20/2023 1:31 PM CDT 2023-03-20 08:40:00-00:00 Associated Order(s): CONSULT ADULT PHY SICAL THERAPY [facility] Formatting of this note is different from the or iginal. Patient agreeable to working with physical thera py. Patient met supine. Recommend nursing staff util ize RW to safely assist patient with mobility out of the bed or chair. PHYSICAL THERAPY EVALUATION Consult received, chart revi ewed and evaluation complete this date. Patient is referred to PT for evaluation and treatment. Patient is a 68 year old female who presents to hospital for CVA, old, hemipar esis [I69.359] [facility]: smoking (25 pack year), who presented with left sided weakness, LSN: 23:30 03/18, NIHSS 2. Transferred from [facility]. In ED: CT head showed no acute intracranial abnor mality, CTA head and neck showed total occlusion of right ICA at bifurcation and right FILOMENA and MCA fill through collaterals. Discharge Recommendations: Therapy Needs and Potential: Patient would benefit from c ontinued physical therapy services to address: decline in bed mobility decline in transfers decline in gait and/or balance decreased strength decreased endurance Patient demonstrates good po tential to improve and meet therapy goals with further physical therapy services. Patient appears motivated to improve their functional mobility and return to their previous level of function. Challenges to Home Transition: increased risk of falls decreased caregiver availability Equipment recommendations: rolling walker Rolling Walker or Rollator: I certify that Criss Griffin is under my care and that I had a [id number] encounter with this patient on: 03/20/23 . The primary reason for the durable medical equip ment: Difficulty in walking. I am ordering and certify th at, based on my findings, the following is medically necessary durable medical equipment: Rolling walker . Patient has a mobility limit ation that significantly impairs his/her ability to participate in one or more mobility-related activities of daily living (MRADL) in the home and the patient is able to safe ly use the walker and the fu nctional mobility deficit can be sufficiently resolved with use of a walker. Height: Ht Readings from Last 1 Encounters: 03/19/23 5' 4" (1.626 m) Weight: Wt Readings from Last 1 Encounters: 03/19/23 147 lb (66.7 kg) Duration of need: 99 months. Current Functional Status and/or Treatment: AM-PAC 6 Clicks (Raw Score 0 =Dependent, 24=Independent; Low function Raw Score 0= Dependent, 32=Independent): Raw Score - Basic Mobility : 16 T-Scale Score - Basic Mobility : 38.32 Bed Mobility: Rolling: Supervision Supine-sit: Minimal Assistance Scooting to edge of bed: Moderate Assistance Sit to supine: Minimal Assistance compensatory strategies to c omplete rolling without using side rails to simulate bed at home patient given verbal cues fo r proper body mechanics during transition supine to sit provided min assistance to swing both LE in/out of bed provided min assistance for elevation of the upper body to complete transition to upright position Incorporated sitting balance activities while sitting on the EOB.Initiated with static sitting balance and progressed to dynamic sitting balance within FLAQUITA.Manual facilitation for postural correction an d to maintain midline positi on in sitting position. Anterior cueing to reduce retropulsion Transfers: Sit to stand: Moderate Assistance using Rolling Walker Stand to sit: Moderate Assistance using Rolling Walker Static/dynamic standing balance: Poor+ Verbal cueing provided for correct hand placemen t and correct use of AD Patient provided education o n proper feet placement, and proper trunk movement for safety and stability during STS. Ambulation: Assisted patient with ambul ation as follows: 20 feet using Rolling Walker and Moderate Assistance. Patient presenting with Step -to gait pattern. Patient has short step length with the left LE and needed mod assist for weight shifting, sequencing, and activation of LE muscles for safety and stability. Therapeutic exercise: patient educated in Fall pre vention, General strengthening, Positioning, Relaxation/breathing techniques, and Safety awareness., instructed patient in the following: ankle pumps, glut sets, heel slides, hip abduction/adduction, lo ng arc quads, seated septembering, patient/caregiver instructed to perform HEP 1-2 times per day, 10 repetitions., and patient/caregiver demonstrates understanding of instructions. Patient educated on function al mobility and the importance/benefits of active and safe performance to help prevent BLE DVT's, PNA, overall decrease in mobility, strength, and endurance, skin breakdown Weight shifting in supine an d sitting position with correct frequency and duration to help prevent any possible skin breakdown. Functional Outcome Measures: (Values within the past 12 hours) Tinetti Gait Score- # / 12 Initiation of gait: No hesitancy Step length: Only on foot passes the other Foot clearance: Both feet completely clear floor Step Symmetry: Step lengths not equal Step continuity: Stopping/dis-continuous steps Path: Mild/moderate deviation or uses AD Trunk: Marked sway or uses AD Walking: Heels apart Tinetti Gait Score: 5 Tinetti Gait Score Interpretation: < 7 - Increas ed risk for falls After session, patient semi reclined in bed. Call button provided. Nurse notified. PLAN OF CARE: While in the hospital, PT wi ll follow patient at least 3-5 times per week,once or twice a day, per patient's tolerance and needs. See below for complete details. Admit Date: 2023 Hospital Diagnosis:CVA, old, hemiparesis [I69.359] PMHx of the following stroke risk factors: smoking (25 pack year), who presented with left sided weakness, LSN: 23:30 08, NIHSS 2. Transferred from [facility]. In ED: CT hea d showed no acute intracranial abnormality, CTA head and neck showed total occlusion of right ICA at bifurcation and right FILOMENA and MCA fill through collaterals. PT Diagnosis: Difficulty wal paul, Weakness, Abnormality of gait and balance, and dizziness Weight Bearing Precaution: NA General Precautions: PPE used:Gloves, General, F all, Bracing/Cast present or required:N/A PMH: No past medical history on file. PSH: No past surgical history on file. Prior Living Situation: live s alone and in a apartment, has a boyfriend that comes and help her DME: No device Prior level of Mobility: community ambulation, h ouse hold ambulation Suspected ischemic or hemorr aghic stroke:Yes, Pre-Stroke Modified Talat Score: 0 - No symptoms Subjective: "I need to go back to work" Patient/Family Goals: To go home Patient/Family verbalizes understanding of condi tion: Yes PAIN: -Pain Description: aching -Pain Location: right UE -Pain rating before treatment: does not rate, Af ter treatment: does not rate -Pain Management: Nursing Notified and Sapnaitidarlin fountain Provided COMMUNICATION Primary Language: Icelandic Able to Verbalize needs: Yes Vision:good; no issues reported Hearing:good; no issues reported ORIENTATION/COGNITION: Oriented to: person, place, date/time, and situa tion Awake: Yes Alert: Yes Dizzy: Yes , while standin g and walking but no LOB Follows Commands: Yes 1-Step Yes Multi-Step Yes Inconsistent: No NEUROLOGICAL Light Touch: within functional limits bilateral LE Tone: intact BALANCE: Sitting: Static: Good Dynamic: Good Standing: Static: Fair Dynamic: Poor+ RANGE OF MOTION: within functional limits bilate ral LE STRENGTH: 5/5 (Normal) right LE , 4/5 left LE ENDURANCE: Fair, Room air SKIN INTEGRITY: intact PROBLEM LIST: Decline in bed mobility, Decline in gait, Decline in transfers, Decreased strength, Decreased endurance, Decreased balance, and Pain ASSESSMENT: Patient is a 68 year old female seen secondary to the above listed diagnosis. Patient presents with left side weakness and decline in functional mobility. Patient requires physical assistanc e with bed mobility, transfe rs, balance and ambulation. Patient would benefit from continued PT services to address the above listed deficits to maximize independence and safety with functional mobility . Patient will also benefit from post acute Physical Therapy services in a Home health setting to continue therapeutic intervention to improve functional mobility with increased safety and return to PLO F . With patient's motivatio n and active participation, patient can reasonably make measurable improvement in functional mobility. Rehabilitation Potential: good Goals: The following goals a re to maximize independence and safety with functional mobility to eventually return to prior living situation and prior functional status. Upon discharge, patient and/or family will demon strate the followin. Rolling: Independent Supine-sit: Independent Sit to supine: Independent 2. sit-stand: Independent 3. Independent with ambulation, Feet: 300 using least assistive device. 4. Demonstrate or verbalize understanding of home exercise program in order to continue with their rehab on their own. Treatment Plan: Gait trainin g, Therapeutic exercise, Transfer training, Balance training, Bed mobility training, Equipment needs assessment, Safety education, patient/caregiver education, and Neuromuscular Re-Education PATIENT EDUCATION: Patient p rovided with preferred teaching of verbal information on role of PT, plan of care, HEP. Shows readiness to learn. Verbal instruction teaching provided. Individual verbalizes understanding of teaching provided. Total Time Tx Codes in Minutes: 24 min Total Treatment Time in Minutes: 34 min Maira Adam PT, DPT [facility] A physical therapy evaluatio n of moderate complexity was completed based on meeting the criteria below: A history of present problem with at least 1-2 personal factors (includes environmental factors) and/or comorbidities that impact the plan of care An examination of body syste ms using standardized tests and measures in addressing at least 3 or more elements from any of the following: body structures and functions, activity limitations and/or participation restrictions An evolving clinical presentation with changing characteristics 2023 15:16:00-00:00 Associated Order(s): CONSULT SPEECH [facility] Formatting of this note is different from the or iginal. Speech-Language Pathology Clinical Swallow Evaluation 2023 Criss Griffin : 1955 Age/Sex: 68 year ol d female Time IN/OUT: [id number] Referring Physician: Chacorta Date of Referral: 2023 Reason for Referral: stroke activation (dysphagia, speech-language/cognitive-linguistic) Date of Admission/Onset: 2023 SUBJECTIVE: Patient awake/alert, accompa nied by multiple family members, agreeable to participate. OBJECTIVE: is being seen for a clinical swallow evaluation. Per (incomplete, may be subject to change) Neurology note, "Criss Griffin is a 68 year old female with the following stroke factors: current s moker (25 pack year hx, half packs a day) who presented with CC of left-sided weakness prompting stroke activation. CT head did not show any intracranial abnormality. CTA showed total occlusion of the r ight ICA at the bifurcation, and Right FILOMENA and MCA fill through collaterals" MRI has been ordered. Pertinent Imaging: CT ACUTE STROKE ANGIOGRAM HEAD Result Date: 2023 Total occlusion of the right ICA at the bifurcation. Right FILOMENA and MCA fill through collaterals. discussed with Dr. Gould at 8:33am. Preliminary Report Dictated by Resident: Yogesh Middleton MD., have reviewed this study and agree with the above report. CT ACUTE STROKE ANGIOGRAM NECK Result Date: 2023 Total occlusion of the right ICA at the bifurcation. Right FILOMENA and MCA fill through collaterals. discussed with Dr. Gould at 8:33am. Preliminary Report Dictated by Resident: Yogesh Middleton MD., have reviewed this study and agree with the above report. CT ACUTE STROKE HEAD WO CONTRAST Result Date: 2023 No acute intracranial abnorm ality. Preliminary Report Dictated by Resident: Lesley Doll I, Sal Zurita MD., have reviewed this study and agree with the above report. Previous BATTERY TECHNICIAN Services/Swallow History: None documented or reported No past medical history on file. No past surgical history on file. General Behavior: Alert and Cooperative Hearing: WFL for speech Respiratory Status: room air Orientation/Cognition: - Patient oriented to: person, place, time, and situation - Response type: verbal - Follows 1-step commands: Yes Current Diet Texture/Means o f Nutrition: NPO; per pt, OK to eat and snacks seen at bedside Oral Motor Exam Dentition and Oral Cavity: n atural dentition, many missing teeth, moist oral mucosa, and clean oral cavity Face within normal limits and symmetrical Jaw within normal limits and symmetrical Lips within normal limits and symmetrical Tongue within normal limits and midline on protr usion Palate Difficult to fully assess/visualize Vocal Quality clear Speech clear/intelligible CLINICAL SWALLOW EVALUATION Swallows on command: Yes Handles Secretions: Yes Volitional Cough: strong Spontaneous Cough: No PO trials were administered by patient. Patient was provided with bites/sips of thin liquid (0) and regular solid (7) consistencies with the following observations: Oral Stage Anterior leakage of bolus not observe d Pocketing of bolus not observed Subjectively prolonged oral phase not observed Oral residue not observed Mastication WNL Pharyngeal Stage Subjectively reduced laryngeal elevation not observed Coughing or throat clearing not observed Change in voice quality not observed Multiple swallows subjectively not observed Respiratory sufficiency and coordination WFL - no increased work of breathing and/or oxygen sats and respiratory rate remained stable Report of globus sensation no 3 oz water challenge passed Patient/Family/Staff education: Provided verball y. Patient/Family goal: safe PO intake ASSESSMENT/IMPRESSIONS: Criss Griffin appears to pre sent with safe, functional swallowing c/b suspected timely swallow initiation with subjectively adequate laryngeal elevation and no overt s/sx of aspiration observed (Note: a spiration cannot be confirme d nor ruled out without instrumental study/imaging). Patient appears to be safe to continue a PO diet as below but would benefit from at-least 1 additional session, given str fiona work-up, to assess diet tolerance and ensure no further BATTERY TECHNICIAN needs. Prognosis is favorable for safe po intake due to above findings RECOMMENDATIONS/GOALS: 1. Recommend patient continu e a regular (IDDSI level 7)-textured diet with thin liquids (IDDSI level 0) and swallow precautions: sit fully upright/in chair and remain upright after PO intake 2. Recommend BATTERY TECHNICIAN therapy 2-5 x/wk for 15-45 min/session while in-house to address the following goals: Swallowing: - Patient will tolerate the safest, least restricted po diet texture without overt s/sx of aspiration or other negative effects on medical condition *Patient may benefit from sp eech-language/cognitive evaluation in the coming days 3. Discharge recs: TBD Perla Rios MS, CCC-BATTERY TECHNICIAN Speech Language Pathology Office Number: [phone] Pager: [phone] History and Physical Notes Date/Time Note Provider Source 2023-03-21 13:23:24-00:00 Formatting of this note is d ifferent from the original. SHAYE-SURGERY [facility] SICU ADMIT NOTE Date of Service: 03/21/2023 13:25 Pre-operative/Admission Diagnosis: Type B Aortic Dissection Monitoring/Support: hemodynamic monitoring HPI: Ms. Griffin is a 68 yo femal e who is admitted to SICU for hemodynamic monitoring after type B aortic dissection. Patient initially presented to [place] with new onset L sided weakness 03/18. Was found t o have total right ICA occlu christiano with R FILOMENA and MCA fill through left-sided collaterals. Got ASA and plavix and was transferred to [place]. MRI showed multiple acute right-sided infarcts as well as ri ght FILOMENA-MCA watershed cortic al infarct. Patient went this AM for cerebral angiogram with neuro IR, however upon access to R CHIP SEPARATOR, the wire didn't advance and resistance was met. L CHIP SEPARATOR access was obtained however the wire was loopin g in the mid abdominal aorta and dissection was suspected at that point. A Lavell type B dissection was confirmed on CTA. She says her L weakness has slightly improved since admission. Social History Socioeconomic History Marital status: Spouse name: Not on file Number of children: Not on file Years of education: Not on file Highest education level: Not on file Occupational History Not on file Tobacco Use Smoking status: Every Day Types: Cigarettes Passive exposure: Never Smokeless tobacco: Never Substance and Sexual Activity Alcohol use: Not on file Drug use: Not on file Sexual activity: Not on file Other Topics Concern Not on file Social History Narrative Not on file Social Determinants of Health Financial Resource Strain: Low Risk (03/20/2023) Overall Financial Resource Strain (CARDIA) Difficulty of Paying Living Expenses: Not hard at all Food Insecurity: No Food Insecurity (03/20/2023) Hunger Vital Sign Worried About Running Out of Food in the Last Y ear: Never true Ran Out of Food in the Last Year: Never true Transportation Needs: No Transportation Needs () PRAPARE - Transportation Lack of Transportation (Medical): No Lack of Transportation (Non-Medical): No Physical Activity: Sufficiently Active () Exercise Vital Sign Days of Exercise per Week: 7 days Minutes of Exercise per Session: 150+ min Stress: Not on file Social Connections: Unknown (03/20/2023) Social Connection and Isolation Panel [NHANES] Frequency of Communication with Friends and Family: More than three times a week Frequency of Social Gatherings with Friends and Family: Not on file Attends Sabianist Services: Not on file Active Member of Clubs or Organizations: Not on file Attends Club or Organization Meetings: Not on f ile Marital Status: Intimate Partner Violence: Not on file Housing Stability: Low Risk (03/20/2023) Housing Stability Vital Sign Unable to Pay for Housing in the Last Year: No Number of Places Lived in the Last Year: 2 Unstable Housing in the Last Year: No CURRENT MEDICATIONS: IV niCARdipine infusion, Last Rate: 2.5 mg/hr (09/0 1/23 1323) NaCl 0.9% (NS), Last Rate: 1,000 mL (03/21/23 11 56) Scheduled pantoprazole (PROTONIX) IV, 40 mg, Q24H melatonin, 3 mg, QHS aspirin, 81 mg, DAILY atorvastatin, 40 mg, QHS clopidogreL, 75 mg, DAILY enoxaparin (LOVENOX) SC Syringe, 40 mg, DAILY AT 1700 famotidine, 20 mg, BID nicotine, 1 Patch, Q24H PRN niCARdipine infusion, 2.5-15 mg/hr, TITRATE acetaminophen, 650 mg, Q6HPRN labetaloL, 10 mg, [id number] Pressors: None Feeds: Orders Placed This Encounter Procedures NPO Except Meds Diet. Vent Settings: SpO2 Av.3 % Min: 93 % Max: 100 % SpO2: 95 % Oxygen mode (O2 device): None (room air) Mechani porsha Ventilation: Lines/catheters locations: Peripheral IV 03/21/23 1029 Distal;Left;Superior Arm (Active) Peripheral IV 03/21/23 1115 Inferior;Left Arm (A ctive) Urethral Catheter Single-lumen;Temperature probe 16 fr (Active) Intake/Output: No intake or output data in the 24 hours ending 03/21/23 1325 Physical Exam: Vitals: 03/21/23 1255 BP: Pulse: 50 Resp: 12 Temp: 36.9 ?C (98.4 ?F) SpO2: 95% General: awake, alert HEENT: normocephalic atraumatic Respiratory: clear to auscultation bilaterally Cardio: sinus bradycardia. B P systolic's 180's . Bilateral carotid pulses, bilateral palpable radial pulses. R femoral pulse palpable, palpable DP pulses. Abdomen: negative and NT/ND Musculoskeletal: weakness LUE Skin: negative Neurologic: left lower extremity with some weakn ess. Strength 4/5 Psychiatric: alert, oriented, with appropriate a ffect Labs - reviewed, pertinent results as below: Cell count Recent Labs 03/19/23 0807 03/21/23 1204 WBC 8.45 8.88 HGB 14.5 12.9 MCV 89.9 89.7 HCT 42.7 38.5 PLT 327 288 Chemistry Recent Labs 03/19/23 0805 03/21/23 1241 NA 141 140 K 4.2 3.8 CL 110* 111* TCO2 26 22* AGAP 5 7 BUN 21 19 CREAT 0.48* 0.50 GLU 112* 109 PHOS -- 3.7 MG 2.0 1.8 CA 9.4 8.4* Coagulation Profile Recent Labs 03/19/23 0805 PTPAT 12.4 PTINR 1.0 APTTPAT 25 Imaging MR STROKE BRAIN WO CONTRAST Result Date: 03/20/2023 Restricted diffusion indicat ing acute infarctions in numerous aspect of the right centrum semiovale white matter as well as a right FILOMENA-MCA watershed cortical infarct. Thrombosed right ICA. Preliminary Report Dictated by Resident: David Wilson, Sal Zurita MD., have reviewed this study and agree with the above report. Assessment/Plan: Ms. Griffin is a 68 yo femal e who presents with type B aortic dissection. Initially presented to [facility] with R ICA occlusive stroke and L sided weakness. Attempted to undergo cerebral angiogram with neuro IR, however aortic dissectio n flap created during procedure (Zenda B). Patient is asymptomatic with pulses intact. Neuro ASA 81 mg daily Clopidogrel 75 mg daily Monitor neuro exam Q1H neuro checks. 2. Cardiovascular Systolic BP goal < 120 mmHg Cardene gtt (held on BB given bradycardia down t o 40's). Monitor bradycardia. MIVF low rate 50 cc/hr 3. Respiratory O2 per protrocol 4. Gastrointestinal NPO 5. Genitourinary Cruz in place, monitor UOP, replace electrolyte s PRN 6. MSK: Lie flat per neuro IR protocol 7. Heme Q6H CBC, transfuse for Hgb >7 8. ID Not indicated at this time. 9. PPX Lovenox 40 mg daily Protonix 40 mg daily 10. Disposition SICU Plan discussed with Dr. Maninder MD. Christine Acevedo MD General Surgery Resident PGY-2 Associated attestation - Miguel Dickens MD - 03/21/2023 2:32 PM CDT I personally examined the joseline santos on March 21 [address] Acevedo's resident note as written . I actively participated in the decision- making process. Please see the resident's note for additional details. 2023 11:17:06-00:00 Formatting of this note is d ifferent from the original. [facility] STROKE SERVICE HISTORY AND PHYSICAL DATE OF SERVICE: 2023 18:31 CHIEF COMPLAINT: Left sided weakness HISTORY OF PRESENT ILLNESS Criss Griffin is a 68 year o ld female right handed with the following stroke factors: current smoker (25 pack year hx, half packs a day) and no other PMHx presented with CC of Left sided weakness. LSN: 10/16 23:30. Patient says brandon rapp was walking in her house when all of a sudden she felt heavy in her left leg and left arm. She felt like she was "going sideways" while walking. She slept and woke up at 3: 30 am to walk her dog. She h ad difficulty walking even then. She slept again and woke up at 5:30 for work but felt that she wont be able to go to work. She called her boyfriend to take her to the hospit al. She was subsequently brought to [facility] ED. In ED at [place]: Arrival B P: 171/60, B, CT head did not show any intracranial abnormality. CTA showed total occlusion of the right ICA at the bifurcation, and Right FILOMENA and MCA fill through collaterals. Of note, patient says that 2 weeks ago she had difficulty holding cup on left hand, which later improved later. She also has Intermittent right-sided hemianopia for a year now, which lasts 2-3 mins, occ urs "every other day". Thoug ht was allergies and never seeked medical attention. Feels like air bubbles coming out of right ear and also endorses hearing loss on right side. Antiplatelets: No Anticoagulations: No Tobacco abuse: Yes half a pack a day. (25 pack y ear hx) Alcohol abuse: No Drug abuse: No Previous stroke: No Body mass index is 25.23 kg/m?. STROKE DOCUMENTATION Stroke Activation - Date: 03/19/23 Stroke Activation - Time: (not recorded) Physician arrival at bedside - Date: (not record ed) Physician arrival at bedside - Time: (not record ed) CT-Head without contrast read by Neurology: (not recorded) Transfer from [place] Last seen normal: Last known well - Date: (not recorded) Last known well - Time: (not recorded) Wake up stroke: No NIH STROKE SCALE NIHSS TOTAL: 2 NIHSS Interval: Admission LOC: 0 Alert: Keenly Responsive LOC QUESTIONS: 0 Answers Both Questions Correctl y LOC COMMANDS: 0 Performs Both Tasks Correctly BEST GAZE: 0 Normal VISUAL: 0 No Visual Loss FACIAL PALSY: 0 Normal MOTOR ARM-LEFT: 1 Drift MOTOR ARM-RIGHT: 0 No Drift MOTOR LEG-LEFT: 1 Drift MOTOR LEG-RIGHT: 0 No Drift LIMB ATAXIA: 0 Absent SENSORY: 0 Normal BEST LANGUAGE: 0 No Aphasia DYSARTHRIA: 0 Normal EXTINCTION AND INATTENTION (FORMERLY NEGLECT): 0 No Abnormalty Dysphagia Screen: Dysphagia Screen Step 1 (Exclusion Criteria): Pa ss (none of the above) Dysphagia Screen Step 2 (Management of secretion s): Pass (none of the above) Dysphagia Screen Step 3 (3-o unce water swallow challenge): Pass (none of the above) IV Alteplase: If IV Thrombolytic therapy w as indicated and given as a standard of care was the patient/family informed of benefits of treatment and risk such as hemorrhage and/or angioedema?: (not recorded) Was there a delay in door to IV thrombolytic ove r 30 minutes?: (not recorded) Reason (s): (not recorded) ICH/SAH Endovascular Intervention: PRE- ADMISSION MODIFIED TALAT SCORE 2 - Slight disability; unabl e to carry out all previous activities; but able to look after own affairs without assistance PAST MEDICAL HISTORY No past medical history on file. PAST SURGICAL HISTORY Laparoscopic cholecystitis FAMILY HISTORY Stroke in family SOCIAL HISTORY Social History Socioeconomic History Marital status: Tobacco Use Smoking status: Every Day Types: Cigarettes Passive exposure: Never Smokeless tobacco: Never Lives with her boyfriend Reviewed patient's family, surgical and social h x. HOME MEDICATIONS No medications prior to admission. HOSPITAL MEDICATIONS Current Facility-Administered Medications Medication Dose Route Frequency Last Rate Last A dmin [START ON 03/20/2023] aspirin chewable tablet 81 mg 81 mg Oral DAILY atorvastatin (LIPITOR) tablet 40 mg 40 mg Oral QHS [START ON 03/20/2023] clopidogreL (PLAVI X) 75 mg tablet 75 mg 75 mg Oral DAILY enoxaparin (LOVENOX) injection 40 mg 40 mg Subc utaneous DAILY AT 1700 famotidine (PEPCID AC) tablet 20 mg 20 mg Oral BID labetaloL (NORMODYNE) injection 10 mg 10 mg Slo w IV Push [id number] NaCl 0.9% (NS) IV infusion 1,000 mL 1,000 mL IV Infusion CONTINUOUS nicotine (NICODERM) 21 mg/2 4 hr patch 1 Patch 1 Patch Topical Q24H 1 Patch at 03/19/23 1641 ALLERGY No Known Allergies REVIEW OF SYSTEMS See HPI PHYSICAL EXAM Vitals: 03/19/23 1103 03/19/23 1247 03/19/23 1400 03/19 1607 BP: (!) 184/78 (!) 183/77 (!) 196/102 (!) 200/79 BP Location: Left arm Patient Position: Supine Pulse: (!) 47 (!) 47 61 60 Resp: 14 23 16 Temp: 36.4 ?C (97.5 ?F) 36.6 ?C (97.9 ?F) TempSrc: Oral SpO2: 97% 98% 94% 98% Weight: 66.7 kg (147 lb) 66.7 kg (147 lb) Height: 1.626 m (5' 4") General: Alert and oriented x 4 (time , person, place and situation); no apparent distress. Mental Status: Consciousness, attention, co ncentration: normal, Stays focused and on task while being questioned. Speech/ Language: intact to comprehension, fluen cy, repetition and naming. Fund of knowledge: is congruent with level of ed ucation. Remote and recent memory: normal, can recall rec ent and distant memories Cranial Nerves: I. Not tested. II. PERRL. FOV full to confrontation. III. IV., . Extraocular movements intact witho ut nystagmus. V. Normal sensation in V1-3 distributions. VII. No facial droop noted. VIII. Reduced hearing on right side. IX., X. Palatal elevation present symmetrically. XI. Normal Strength of sternocleidomastoid and t rapezius muscles bilaterally. XII. Tongue in midline. Motor: Tone: normal Bulk: normal STRENGTH Right Left Deltoid 5 4 Biceps 5 5- Triceps 5 5- Wrist extensors 5 5- Interossei 5 4 Hip flexors 5 4+ Knee flexors (hamstring) 5 4+ Knee extensors (quadriceps) 5 4+ Ankle dorsiflexors 5 5- Ankle plantar flexors 5 5- DTR's: Right Left Biceps 2+ 2+ Triceps 2+ 2+ Brachioradialis 2+ 3+ Patella 2+ 3+ Achilles 1+ 1+ Pathologic reflexes and signs: Mccallum: absent Babinski: absent Cerebellar: Nystagmus: neg, FTN: nl, HTS:nl, Tremors: neg, D ysdiadochokinesia: neg Sensory: LT: intact, temperature: int act, PP: intact, proprioception: intact, Vibration: intact Gait: antalgic gait HEENT: pupils equal, round, reactive to light; extraocular movements intact; oropharynx clear; moist mucous membranes Lungs: clear to auscultation bilaterally Cardio: S1, S2 normal Extremities:no cyanosis,clubbing or edema Neck:supple,no carotid bruit,no JVD LABS Recent Results (from the past 24 hour(s)) Prothrombin Time / INR - Code Stroke Collection Time: 03/19/23 8:05 AM Result Value Ref Range PROTIME PATIENT 12.4 12.0 - 14.7 Seconds INR 1.0 aPTT - Code Stroke Collection Time: 03/19/23 8:05 AM Result Value Ref Range APTT Patient 25 23 - 38 Seconds Troponin I - Code Stroke Collection Time: 03/19/23 8:05 AM Result Value Ref Range TROPONIN I 0.007 <=0.034 ng/mL Basic Metabolic Panel (NA, K , CL, CO2, Glucose, BUN, Creatinine, CA) - Code Stroke Collection Time: 03/19/23 8:05 AM Result Value Ref Range NA 141 135 - 145 mmol/L K 4.2 3.5 - 5.0 mmol/L CL 110 (H) 98 - 108 mmol/L CO2 TOTAL 26 23 - 31 mmol/L AGAP 5 2 - 16 BUN 21 7 - 23 mg/dL GLUCOSE 112 (H) 70 - 110 mg/dL CREATININE 0.48 (L) 0.50 - 1.04 mg/dL CALCIUM 9.4 8.6 - 10.6 mg/dL eGFR 129.4 mL/min/1.73m2 MAGNESIUM Collection Time: 03/19/23 8:05 AM Result Value Ref Range MAGNESIUM 2.0 1.7 - 2.4 mg/dL CBC without Diff - Code Stroke Collection Time: 03/19/23 8:07 AM Result Value Ref Range WBC 8.45 4.30 - 11.10 10*3/?L RBC 4.75 3.93 - 5.25 10*6/?L HGB 14.5 11.6 - 15.0 g/dL HCT 42.7 35.7 - 45.2 % MCH 30.5 25.9 - 32.8 pg MCV 89.9 80.6 - 95.5 fL MCHC 34.0 31.6 - 35.1 g/dL PLT 327 166 - 358 10*3/?L MPV 9.7 9.5 - 12.9 fL RDW-CV 14.2 12.0 - 15.5 % RDW-SD 46.9 39.0 - 49.9 fL NRBC x10^3 <0.01 10*3/?L NRBC/100 WBC 0.0 0.0 - 10.0 /100 WBCs IPF % POCT Glucose (Age >30 Days) - Code Stroke Collection Time: 03/19/23 9:07 AM Result Value Ref Range POCT Glu (age>30days) 112 (A) 70 - 110 mg/dL Urinalysis Collection Time: 03/19/23 9:52 AM Result Value Ref Range APPEARANCE Clear Clear COLOR Colorless (A) Yellow PH 6.0 4.8 - 8.0 SP GRAVITY 1.020 1.003 - 1.030 GLU U QUAL Normal Normal BLOOD 1+ (A) Negative KETONES Negative Negative PROTEIN Negative Negative UROBILIN Normal Normal BILIRUBIN Negative Negative NITRITE Negative Negative LEUK RED Negative Negative RBC/HPF <1 0 - 3 HPF WBC/HPF 0 0 - 5 HPF BACTERIA Negative Negative SQ EPITH 1 HPF STROKE LABS No results found for: "HGBA1C" No results found for: "LDL" No results found for: "CHOL" No results found for: "TSH" Recent Labs 03/19/[address] ACUTE STROKE ANGIOGRAM HEAD Result Date: 2023 Total occlusion of the right ICA at the bifurcation. Right FILOMENA and MCA fill through collaterals. discussed with Dr. Gould at 8:33am. Preliminary Report Dictated by Resident: Yogesh Middleton MD., have reviewed this study and agree with the above report. CT ACUTE STROKE ANGIOGRAM NECK Result Date: 2023 Total occlusion of the right ICA at the bifurcation. Right FILOMENA and MCA fill through collaterals. discussed with Dr. Gould at 8:33am. Preliminary Report Dictated by Resident: Lesley Doll I, Yogesh Hunt MD., have reviewed this study and agree with the above report. CT ACUTE STROKE HEAD WO CONTRAST Result Date: 2023 No acute intracranial abnorm ality. Preliminary Report Dictated by Resident: Lesley Doll I, Sal Zurita MD., have reviewed this study and agree with the above report. ASSESSMENT AND PLAN Criss Griffin is a 68 year o ld female with PMHx of the following stroke risk factors: smoking (25 pack year), who presented with left sided weakness, LSN: 23:30 03/18, NIHSS 2. Transferred from [facility]. In ED: CT head showed no acute intracranial abnormality, CTA head and neck showed total occlusion of right ICA at bifurcation and right FILOMENA and MCA fill through collaterals. Arrival BP 171/60, BG 112. On exam patient has le ft sided weakness in both UE and LE. 4/5. Plan to start DAPT. DSA on 03/20 to investigate cerebral vessels. Anatomic localization: Right MCA and FILOMENA Stroke etiology: Large vessel Occlusion List of Problems: Tobacco abuse - Admission under neurology stroke service - Aspirin 81 daily - Plavix 75 mg daily - Lipitor 40mg daily if LDL>70, will adjust acco rding to fasting lipid panel - <220/110 for ischemic stro ke first 24h, then resume home anti-hypertensive medications for goal normo-tension - Telemetry monitoring - DSA on 03/20 - NPO pMN - Frequent Neurochecks - Avoid hyperthermia, pain and constipation - POCT for BG and sliding scale insulin - Fall precautions - Consult PT/OT/ Speech pathology/Primary swallo wing screen - Milk Pasteurizer on stroke educatio n, smoking cessation, healthy diet, physical activity, weight loss Imaging: - MRI brain without contrast ordered STAT - Cerebral angiogram on 03/20 Labs: - Check fasting Lipid panel, HgA1C, TSH. - Check CBC, BMP, Pt, PTT, cardiac enzymes x 1, EKG - GI Prophylaxis: famotidine - DVT Prophylaxis: enoxaparin - Code status: Full code Discussed with Dr. Chatterjee, Neurology Faculty CARMEN Clarke Neurology PGY-2 Associated attestation - Abel Chatterjee MD - 03/20/2023 1:09 PM CDT Vascular Neurology attending note I personally examined the pa tient on 03/19/23 and agree with resident's note as written. I actively participated in the decision making process and edited the note as needed. Please see the resident's note for additional details. 68 year old female with PMHx of the following stroke risk factors: smoking (25 pack year), HTN who presented with left sided weakness, LSN: 23:30 03/18, NIHSS 2. Transferred from [facility]. In ED: C T head showed no acute intra cranial abnormality, CTA head and neck showed total occlusion of right ICA at bifurcation and right FILOMENA and MCA fill through collaterals.Left ICA moderate stenosis also, Arri donnie BP 171/60, BG 112. On ex am patient has left sided weakness in both UE and LE. 4/5. 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 [facility] VASCULAR AND INTERVENTIONAL RADIOLOGY PROCEDURE NOTE Pre-procedure diagnosis: Right ICA occlusion Post-procedure diagnosis: Right ICA occlusion an d [place] type B dissection. Procedure: No cerebral angiogram was performed. Findings: None. Complications: Rt CHIP SEPARATOR access , however failed as the wire didn't advance and resistance was meet. We then removed the RFA access and held manual compression till hemostasis. L CHIP SEPARATOR access was obtained, ho wever the wire was looping i n the mid abdominal aorta and did not advance. Dissection was suspected, and the procedure was stopped. Vascular interventional radiology as well as vascular surgery were con sulted. 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 Patient and her family were informed and verbalized understanding. Subsequently th e patient was transferred to vascular [facility] and admitted to SICU. Condition: Fair. Estimated blood loss: 300 ml Full dictated note to follow in PACS. Associated attestation - Abel Chatterjee MD - 03/23/2023 10:35 PM CDT Vascular Neurology attending note I agree with not e as written. I actively participated in the decision making process and edited the note as needed. Please see the resident's note for additional details. Abel Chatterjee MD Notes Date/Time Note Provider Source 2023-03-28 Formatting of this note might be differe nt from the original. Elizabeth Cueva RN [facility] 18:31:36-00:00 Problem: Discharge Planning Goal: Able to perform ADL 03/28/20231830 by Elizabeth Cueva RN Outcome: Resolved 03/28/20231830 by Elizabeth Cueva RN Outcome: Progressing as expected Goal: Knowledge of medication management 03/28/20231830 by Elizabeth Cueva RN Outcome: Resolved 03/28/20231830 by Elizabeth Cueva RN Outcome: Progressing as expected Goal: Knowledge of need for follow-up care 03/28/20231830 by Elizabeth Cueva RN Outcome: Resolved 03/28/20231830 by Elizabeth Cueva RN Outcome: Progressing as expected Goal: Knowledge of personal stroke risk factors 03/28/20231830 by Elizabeth Cueva RN Outcome: Resolved 03/28/20231830 by Elizabeth Cueva RN Outcome: Progressing as expected Goal: Knowledge of stroke warning signs 03/28/20231830 by Elizabeth Cueva RN Outcome: Resolved 03/28/20231830 by Elizabeth Cueva RN Outcome: Progressing as expected Problem: Falls, Risk of Goal: Absence of falls 03/28/20231830 by Elizabeth Cueva RN Outcome: Resolved 03/28/20231830 by Elizabeth Cueva RN Outcome: Progressing as expected Problem: Mobility - Impaired Goal: Able to achieve maximum mobility level 03/28/20231830 by Elizabeth Cueva RN Outcome: Resolved 03/28/20231830 by Elizabeth Cueva RN Outcome: Progressing as expected Goal: Able to use ambulatory assistive device ap propriately 03/28/20231830 by Elizabeth Cueva RN Outcome: Resolved 03/28/20231830 by Elizabeth Cueva RN Outcome: Progressing as expected Problem: Pain Goal: Control of pain at or below patient's docu mented comfort goal 03/28/20231830 by Elizabeth Cueva RN Outcome: Resolved 03/28/20231830 by Elizabeth Cueva RN Outcome: Progressing as expected Goal: Reduction in pain sensation 03/28/20231830 by Elizabeth Cueva RN Outcome: Resolved 03/28/20231830 by Elizabeth Cueva RN Outcome: Progressing as expected Electronically signed by Elizabeth Cueva RN a t 03/28/2023 6:31 PM CDT 2023-03-28 Formatting of this note might be differe nt from the original. Maritza Monsalve RN [facility] 04:22:48-00:00 Problem: Discharge Planning Goal: Able to perform ADL Outcome: Progressing as expected Goal: Knowledge of medication management Outcome: Progressing as expected Goal: Knowledge of need for follow-up care Outcome: Progressing as expected Goal: Knowledge of personal stroke risk factors Outcome: Progressing as expected Goal: Knowledge of stroke warning signs Outcome: Progressing as expected Problem: Falls, Risk of Goal: Absence of falls Outcome: Progressing as expected Problem: Mobility - Impaired Goal: Able to achieve maximum mobility level Outcome: Progressing as expected Goal: Able to use ambulatory assistive device ap propriately Outcome: Progressing as expected Problem: Pain Goal: Control of pain at or below patient's docu mented comfort goal Outcome: Progressing as expected Goal: Reduction in pain sensation Outcome: Progressing as expected Electronically signed by Maritza Monsalve RN at 02/2023 4:22 AM CDT 2023-03-27 [facility] 18:46:27-00:00 Problem: Discharge Planning Goal: Able to perform ADL Outcome: Progressing as expected Goal: Knowledge of medication management Outcome: Progressing as expected Goal: Knowledge of need for follow-up care Outcome: Progressing as expected Goal: Knowledge of personal stroke risk factors Outcome: Progressing as expected Goal: Knowledge of stroke warning signs Outcome: Progressing as expected Problem: Falls, Risk of Goal: Absence of falls Outcome: Progressing as expected Problem: Mobility - Impaired Goal: Able to achieve maximum mobility level Outcome: Progressing as expected Goal: Able to use ambulatory assistive device ap propriately Outcome: Progressing as expected Electronically signed by Elizabeth Cueva RN a t 03/27/2023 6:46 PM CDT 2023-03-25 Formatting of this note might be differe nt from the original. Yohana Jeff [facility] 03:49:35-00:00 WILMER Problem: Discharge Planning Goal: Able to perform ADL Outcome: Progressing as expected Goal: Knowledge of medication management Outcome: Progressing as expected Goal: Knowledge of need for follow-up care Outcome: Progressing as expected Goal: Knowledge of personal stroke risk factors Outcome: Progressing as expected Goal: Knowledge of stroke warning signs Outcome: Progressing as expected Problem: Falls, Risk of Goal: Absence of falls Outcome: Progressing as expected Problem: Mobility - Impaired Goal: Able to achieve maximum mobility level Outcome: Progressing as expected Goal: Able to use ambulatory assistive device ap propriately Outcome: Progressing as expected Problem: Pain Goal: Control of pain at or below patient's docu mented comfort goal Outcome: Progressing as expected Goal: Reduction in pain sensation Outcome: Progressing as expected 2023-03-24 Formatting of this note might be differe nt from the original. Johanna Domingo RN [facility] 16:45:21-00:00 Problem: Discharge Planning Goal: Able to perform ADL Outcome: Progressing as expected Goal: Knowledge of medication management Outcome: Progressing as expected Goal: Knowledge of need for follow-up care Outcome: Progressing as expected Goal: Knowledge of personal stroke risk factors Outcome: Progressing as expected Goal: Knowledge of stroke warning signs Outcome: Progressing as expected Problem: Falls, Risk of Goal: Absence of falls Outcome: Progressing as expected Problem: Mobility - Impaired Goal: Able to achieve maximum mobility level Outcome: Progressing as expected Goal: Able to use ambulatory assistive device ap propriately Outcome: Progressing as expected Problem: Pain Goal: Control of pain at or below patient's docu mented comfort goal Outcome: Progressing as expected Goal: Reduction in pain sensation Outcome: Progressing as expected Electronically signed by Johanna Domingo RN at 4:[address] [facility] 2023-03-24 Formatting of this note might be differe nt from the original. Friday Bonita GUILLEN [facility] 06:00:00-00:00 Problem: Discharge Planning Goal: Able to perform ADL Outcome: Progressing as expected Problem: Falls, Risk of Goal: Absence of falls Outcome: Progressing as expected Problem: Mobility - Impaired Goal: Able to achieve maximum mobility level Outcome: Progressing as expected Problem: Pain Goal: Control of pain at or below patient's docu mented comfort goal Outcome: Progressing as expected Electronically signed by Fox [place] RN at 10/2022 7:[address] [facility] 2023-03-23 Formatting of this note might be differe nt from the original. Huma Tinoco RN [facility] 00:09:38-00:00 Problem: Discharge Planning Goal: Able to perform ADL Outcome: Progressing as expected Goal: Knowledge of medication management Outcome: Progressing as expected Goal: Knowledge of need for follow-up care Outcome: Progressing as expected Goal: Knowledge of personal stroke risk factors Outcome: Progressing as expected Goal: Knowledge of stroke warning signs Outcome: Progressing as expected Problem: Falls, Risk of Goal: Absence of falls Outcome: Progressing as expected Problem: Mobility - Impaired Goal: Able to achieve maximum mobility level Outcome: Progressing as expected Goal: Able to use ambulatory assistive device ap propriately Outcome: Progressing as expected Problem: Pain Goal: Control of pain at or below patient's docu mented comfort goal Outcome: Progressing as expected Goal: Reduction in pain sensation Outcome: Progressing as expected RA [facility] 2023-03-22 Formatting of this note might be differe nt from the original. Akilah Maria RN [facility] 01:44:35-00:00 Problem: Discharge Planning Goal: Able to perform ADL Outcome: Progressing as expected Goal: Knowledge of medication management Outcome: Progressing as expected Goal: Knowledge of need for follow-up care Outcome: Progressing as expected Goal: Knowledge of personal stroke risk factors Outcome: Progressing as expected Goal: Knowledge of stroke warning signs Outcome: Progressing as expected Problem: Falls, Risk of Goal: Absence of falls Outcome: Progressing as expected Problem: Mobility - Impaired Goal: Able to achieve maximum mobility level Outcome: Progressing as expected Goal: Able to use ambulatory assistive device ap propriately Outcome: Progressing as expected Problem: Pain Goal: Control of pain at or below patient's docu mented comfort goal Outcome: Progressing as expected Goal: Reduction in pain sensation Outcome: Progressing as expected Electronically signed by Akilah Maria RN at 03/22 1:44 AM CDT 2023-03-21 Formatting of this note might be differe nt from the original. Segundo Escobedo RN [facility] 19:27:36-00:00 Problem: Discharge Planning Goal: Able to perform ADL Outcome: Progressing as expected Goal: Knowledge of medication management Outcome: Progressing as expected Goal: Knowledge of need for follow-up care Outcome: Progressing as expected Goal: Knowledge of personal stroke risk factors Outcome: Progressing as expected Goal: Knowledge of stroke warning signs Outcome: Progressing as expected Problem: Falls, Risk of Goal: Absence of falls Outcome: Progressing as expected Problem: Mobility - Impaired Goal: Able to achieve maximum mobility level Outcome: Progressing as expected Goal: Able to use ambulatory assistive device ap propriately Outcome: Progressing as expected Problem: Pain Goal: Control of pain at or below patient's docu mented comfort goal Outcome: Progressing as expected Goal: Reduction in pain sensation Outcome: Progressing as expected 2023-03-21 Formatting of this note might be differe nt from the original. Carla Robertson RN [facility] 11:12:00-00:00 Report called to segundo guillen for icu bed [id number] 2023-03-21 [facility] 10:50:00-00:00 dr sybil Loco with neuro and dr pan all at bedside updating pt on status and plan of care; pt to go to surgical icu T 2023-03-21 Formatting of this note might be differe nt from the original. Koki Woods RN [facility] 10:13:29-00:00 Transporting patient for stat CT T 2023-03-21 [facility] 10:06:00-00:00 Dr mcneil came into procedure room 2 by the requ est of Dr Chatterjee T 2023-03-21 Formatting of this note might be differe nt from the original. Tommy Virgen RN [facility] 05:15:16-00:00 Problem: Discharge Planning Goal: Able to perform ADL Outcome: Progressing as expected Goal: Knowledge of medication management Outcome: Progressing as expected Goal: Knowledge of need for follow-up care Outcome: Progressing as expected Goal: Knowledge of personal stroke risk factors Outcome: Progressing as expected Goal: Knowledge of stroke warning signs Outcome: Progressing as expected Problem: Falls, Risk of Goal: Absence of falls Outcome: Progressing as expected Problem: Mobility - Impaired Goal: Able to achieve maximum mobility level Outcome: Progressing as expected Goal: Able to use ambulatory assistive device ap propriately Outcome: Progressing as expected Problem: Pain Goal: Control of pain at or below patient's docu mented comfort goal Outcome: Progressing as expected Goal: Reduction in pain sensation Outcome: Progressing as expected RA [facility] 2023-03-20 Formatting of this note might be differe nt from the original. Odalis Quevedo RN [facility] 13:25:38-00:00 Problem: Discharge Planning Goal: Able to perform ADL Outcome: Progressing as expected Goal: Knowledge of medication management Outcome: Progressing as expected Goal: Knowledge of need for follow-up care Outcome: Progressing as expected Goal: Knowledge of personal stroke risk factors Outcome: Progressing as expected Goal: Knowledge of stroke warning signs Outcome: Progressing as expected Problem: Falls, Risk of Goal: Absence of falls Outcome: Progressing as expected Problem: Mobility - Impaired Goal: Able to achieve maximum mobility level Outcome: Progressing as expected Goal: Able to use ambulatory assistive device ap propriately Outcome: Progressing as expected Problem: Pain Goal: Control of pain at or below patient's docu mented comfort goal Outcome: Progressing as expected Goal: Reduction in pain sensation Outcome: Progressing as expected T 2023-03-20 [facility] 05:52:48-00:00 Problem: Falls, Risk of Goal: Absence of falls Outcome: Progressing as expected Problem: Mobility - Impaired Goal: Able to achieve maximum mobility level Outcome: Progressing as expected Goal: Able to use ambulatory assistive device ap propriately Outcome: Progressing as expected Problem: Pain Goal: Control of pain at or below patient's docu mented comfort goal Outcome: Progressing as expected Goal: Reduction in pain sensation Outcome: Progressing as expected RA [facility] 2023 [facility] 17:10:52-00:00 Problem: Discharge Planning Goal: Able to perform ADL Outcome: Progressing as expected Goal: Knowledge of medication management Outcome: Progressing as expected Goal: Knowledge of need for follow-up care Outcome: Progressing as expected Goal: Knowledge of personal stroke risk factors Outcome: Progressing as expected Goal: Knowledge of stroke warning signs Outcome: Progressing as expected Problem: Falls, Risk of Goal: Absence of falls Outcome: Progressing as expected Problem: Mobility - Impaired Goal: Able to achieve maximum mobility level Outcome: Progressing as expected Goal: Able to use ambulatory assistive device ap propriately Outcome: Progressing as expected Problem: Pain Goal: Control of pain at or below patient's docu mented comfort goal Outcome: Progressing as expected Goal: Reduction in pain sensation Outcome: Progressing as expected 2023 Formatting of this note might be differe nt from the original. Alba Marrero RN [facility] 15:48:20-00:00 Pt transported to [id number] with transporter and te ch 2023 [facility] 15:23:27-00:00 Report given to Jazmine GUILLEN 2023 [facility] 13:10:31-00:00 Pt provided with sandwich, bedside dysphagia pas sed 2023 [facility] 12:45:16-00:00 call center analyst stroke paged 2023 [facility] 12:45:00-00:00 Per neurology, ok to keep blood pressure permiss americo SBP <220 2023 [facility] 11:46:44-00:00 Stroke attending at bedside 2023 [facility] 11:19:26-00:00 Neurology at bedside 2023 [facility] 11:09:34-00:00 Criss Griffin is a 68 year o ld female that presents to ER via EMS that was transferred from [place] d/t R ICA occlusion. EMS reports that around 0300 she had unsteady gait when taking her dogs to the athroom. CTA performed in [place] and pt loaded with ASA/plavix. NAD. Ambulated to bathroom on arrival, minima l assist to bathroom d/t unsteady gait T 2023 [facility] 11:07:17-00:00 Neuro aware of pt arrival. Electronically signed by Sarah Chester RN at 02/20 11:[address] [facility] 2023 Formatting of this note might be differe nt from the original. Sarah Chester RN [facility] 11:02:48-00:00 Criss Griffin is a 68 year o ld female presents to ED via EMS from [facility] for R ICA full occlusion. Pt reports 0400 woke up feeling sluggish and left arm weakness. Denies any PMH. Pt given Plavix and ASA pt a. Pt is aox4 with gcs 15 sk in warm and dry resp even and unlabored. Pt to room 113 for eval Neuro paged for pt arrival, awaiting call return . Electronically signed by Sarah Chester RN at 02/20 11:06 AM T 2023 Formatting of this note might be differe nt from the original. Tatiana Bright RN [facility] 09:55:08-00:00 Nurse Report Report given to WILMER Fitzgerald. C hief complaint, assessment findings, infusion verify and orders reviewed. Plan of care discussed at bedside with patient and both nurses. Patient/family members verbalized understanding. [facility] at bedside picking up patient - Report given at bedside to Venkatesh Hung RN/LP. Patient left ER in no distress. Stable. Tatiana Bright RN 2023 Formatting of this note might be differe nt from the original. Brant Reyes [facility] 09:17:10-00:00 Provider speaking with suzanna martin and told her we will transfer her to [place]. RN 2023 [facility] 08:02:23-00:00 TC tech at bedside. Ekg being done and patient will go to CT scan. 2023 Formatting of this note is different from the or iginal. [facility] 08:00:00-00:00 Patient's name and verified with patient. Chief Complaint Patient presents with Other Left side heavy Patient ambulatory with steady gait with EC arri donnie. Patient is conscious and kira rt, with normal/unlabored breathing, and normal color/tone for ethnicity -oriented to name, time, place, and situation. GCS 15. Patient reports she got up t his morning to walk her dog at ~0400hrs - reports she was feeling "sluggish" with left sided deficits as she was unable to brush her hair. Continues to have slight left arm w eakness but it is "better" than it was when she initially woke up. Denies headache, shortness o f breath, fever, chills, nausea, vomiting, diarrhea. Report she experienced visua l changes when she woke up but they resolved prior to ER arrival. No past medical history on file. No known allergies. Vitals obtained. Assessment performed. IV in place and patent. Placed on continuous spo2/cardiac monitoring, HR 57 Bed low and locked, secured with two rails, call light within reach. Belongings at bedside. Patient aware of plan of care. Tatiana Bright RN 2023 [facility] 07:51:40-00:00 Pt woke up this morning ~030 0 with left arm/leg heaviness. States she couldn't put her hair in ponytail that well. Has had left hand numbness before but it didn't last. Electronically signed by Kathryn Brenner RN at 7:52 AM CDT
[2023-03-29] MEDS: ACETAMINOPHEN 325 MG TABLET PO PRN ×2 (00:04→08:02)
[2023-03-29] MEDS: MELATONIN 3 MG TABLET PO SCH ×2 (00:06→20:04)
[2023-03-29] MEDS ORDERED: PNEUMOCOCCAL VACCINE 0.5 ML IMVAC ONE (07:00)
[2023-03-29] MEDS: lisinopriL 5 MG TAB PO SCH (07:12)
[2023-03-29] MEDS: ASPIRIN 81 MG CHEWABLE TABLET PO SCH (07:12)
[2023-03-29 07:47] LABS: Hematocrit 36.5 % (36.0-45.0); Lymphocytes % 15.7 % (15.3-44.8); MCV 89.7 fL (80-100); MPV 7.6 fL (7.6-11.3); Platelets 465 thou/uL (152-406); RBC Red Blood Cell Count 4.07 M/uL (3.86-4.86)
[2023-03-29 07:48] LABS: Absolute Lymphocytes (CBC) 1.5 K/uL (0.7-4.9)
[2023-03-29] MEDS ORDERED: CLOPIDOGREL 75 MG TABLET PO SCH (08:00)
[2023-03-29 08:09] LABS: Albumin 2.9 g/dL (3.4-5.0); Magnesium 2.2 mg/dL (1.6-2.4); Prealbumin 14.9 mg/dL (20-40)
[2023-03-29] MEDS: AMOX/K CLAV 875 MG TAB PO SCH ×2 (13:32→20:04)
[2023-03-29] MEDS ORDERED: DOCUSATE NA/SENNA CONC 1 TAB PO PRN (17:03)
[2023-03-29] MEDS: ACETAMINOPHEN 500 MG TAB PO PRN (17:15)
[2023-03-29] MEDS: LIDOCAINE 4% PATCH TOP SCH (17:15)
[2023-03-29] MEDS: ATORVASTATIN 40 MG TAB PO SCH (20:03)
[2023-03-29] MEDS: APIXABAN 2.5 MG TABLET PO SCH (20:04)
[2023-03-29] MEDS: MAGNESIUM OXIDE 400 MG TAB PO SCH (20:04)
--- NOTE | 2023-03-29 23:34 | HP ---
Date of Admission: 03/28/2023 Time Of Service: 2 p.m. Chief Complaint: "I had a stroke and my left side is weak." History Of Present Illness: Ms. Figueroa is a 68-year-old patient with multiple stroke risk factors including 25 pack-year history of smoking, dyslipidemia, hypertension, and patent davis ova le, who presented to [facility] with sudden onset left-sided weakness. The patient's symptoms cortez ve been present for a few days prior to her arrival. She was not a candidate for thrombolysis. Work up showed total right internal carotid artery occlusion and right anterior cerebral artery and MCA we re filling through the left-sided collaterals. She was treated medically with aspirin, Plavix, and s ent to [facility] for higher level of care. Brain MRI on March 20 showed multiple right-side d infarcts with the right MCA FILOMENA watershed cortical infarcts. An attempt to undergo cerebral angiog quan was done, however the patient had an aortic dissection flap complicating the procedure. She was transferred to the SICU for hemodynamic monitoring. She was found to have very low blood pressures a nd required Cardene for the aortic dissection. She had an NIH Stroke Scale of 13. Subsequent CT sca n of her head showed the evolving right MCA territory stroke with hyperdensities unchanged. The [facility] ular surgery service repeated a CT angiogram of the abdomen and deemed no procedure was required for her dissection. She was transferred to the Neurological Intensive Care Unit for further management o f her stroke. Another repeat CT angiogram showed interval decrease in size in the aortic dissection. However, the patient will require interval monitoring of the dissection to determine if there is a surgical intervention required. She had a CT scan of abdomen and pelvis, which showed the liver mass to be hemangioma. Also determined to have a urinary tract infection treated with Rocephin. She was transferred to the regular floor and began physical therapy but was found to be maximum assistance f or her activities of daily living, upper body dressing, transferring, as she was completely independe nt with lower body dressing, bed mobilization. She had a modified barium study completed on and was able to tolerate nectar thick liquids with soft bite size texture diet and requires con tinued monitoring to determine when the diet can be advanced. As a result of her medical complicatio ns and acute need for aggressive inpatient rehabilitation, she is determined to be an appropriate can didate for physical, occupational, and speech therapy in an inpatient setting with management of her multiple comorbid conditions and she is therefore admitted for that. Past Medical History: As noted above. Past Surgical History: Unknown. Allergies: NO KNOWN DRUG ALLERGIES. Medications: Melatonin 3 mg at night, Zestril 5 mg daily, Plavix 75 mg daily, Lipitor 40 mg at bedti me, aspirin 81 mg daily, and she had received amoxicillin-clavulanic acid 875-125 twice daily. Family History: Noncontributory. Laboratory Studies: Complete blood count with differential is unremarkable except slightly elevated platelets of 465. White blood cell count 9.3, hemoglobin 12.5. Sodium 136, potassium 4.0, chloride 104, carbon dioxide 23, BUN 18, creatinine 0.45, glucose 115, calcium 9.4, magnesium 2.2, albumin 2.4 , prealbumin 14. Review of Systems: The patient's sister is at the bedside and did say she had some mild myalgias in the left upper and l ower extremity. She has dense paresis on that side and require passive movement. She is unable to m ove the arm or leg on the left to any degree. She does have decreased movement of the left face, but as noted can do her own swallowing and eating independently with the right hand. Otherwise, no feve rs, chills. No nausea and vomiting. No rash. There is depression of mood, otherwise no other posit cassie other than stated above on review of systems. Physical Examination: Vital Signs: Blood pressure 140/57, pulse of 60, respiratory rate 16, temperature 97.3, weight 151 p ounds, height 5 feet 2 inches, BMI 27.7. General: Ms. Figueroa is lying in bed, slightly on her right side. Her sister says she likes to lie on her abdomen. HEENT: She is normocephalic, atraumatic. Sclerae anicteric. Oropharynx is pink and moist. Neck: Supple. Chest: Clear. Heart: Regular. Extremities: Show no significant edema or cyanosis. Neurological: She is alert, oriented to person and situation. She follows commands. Moves the righ t upper and lower extremities equally well. She does have a cranial nerve deficits, decrease in the left nasolabial fold and with mild excursions when she tries to smile. Otherwise, some deviation of tongue as she goes to the left side and decreased sensation on the left face compared to right face. Motor examination dense paresis at 0-5 proximally and distally in the left upper and lower extremiti es, 5/5 right upper extremity. She has symmetric reflexes at best on the left. Sensation decreased in the left upper and lower extremity compared to the right side. She will be ambulated with gait be lt and the physical therapists. Current Level Of Functioning: Currently supervision for eating, maximal assistance for oral hygiene; dependent for toileting, showering, lower body dressing, upper body dressing, and sitting to standin g, all dependent, dependent on transfer from bed to chair and unable to ambulate at this point. Rehabilitation And Medical Assessment And Plan: Ms. Figueroa is admitted to the inpatient rehabilitat ion with impairment category of 01 stroke. Her impairment group code is 01.1 left body involvement r ight brain. Her etiologic diagnosis is right MCA stroke. Her comorbidities are decreased mobility, decrease in physical functioning, dyslipidemia, hypertension, incontinence of urine, left hemiparesis with dysphagia along with the right MCA stenosis and the aortic dissection. Plan: 1.She will have physical, occupational, and speech therapy for 3.5 hours, 5 of 7 days. 2.Continue aspirin 81 mg for stroke risk reduction. 3.Continue Eliquis 2.5 mg twice daily for DVT risk reduction. 4.Continue Augmentin for possible urinary tract infection. 5.Prinivil 5 mg daily for hypertension. 6.Melatonin for insomnia. 7.Patient does have tobacco dependency and is on nicotine patch of 21 mg daily, will be continued. Impact Of Comorbidities: She is a tobacco dependent as noted above and is on nicotine patch. Attemp ts were made to cut that back and decrease the need for nicotine. She also has stroke risk factors a s noted. Those will be worked on aggressively to minimize risk of worsening stroke. Also given the large size of her stroke, an interval CT scan may be required to determine if there is extension or h emorrhagic conversion. Rehab Specific Plan: Ms. Figueroa will have 3.5 hours, 5 of 7 days of physical, occupational, speech therapy. She will have fci ongoing daily basis start today and physician evaluation and management on a daily basis. Ms. Figueroa and her sister has a good understanding of the process of admission to the inpatient reha bilitation facility and that she will have a multidisciplinary approach to her rehabilitation. If ne ed be, services such as the Cardiology Service, Pulmonary Service, and Wound Care to help decrease th e risk of dependent ulcers will be consulted. Given the patient's complex medical condition and risk of further complications, rehabilitation cannot be safely or effectively provided at a lower level f acility such as fci. Barriers To Discharge: Currently she has a dense paresis of left upper extremity and lower extremity , and at this point be very difficult to see her going home unless the family has a plan where there are caregivers 24 hours 7 days a week. She will have her comorbidities addressed aggressively and th ose should be under good control prior to her discharge. She also is at risk of depression given the large stroke and significant risk of aspiration and those will be appropriately addressed. Estimated Length Of Stay: About 3 weeks. Disposition: Currently home. Prognosis: Fair. Rehabilitation Goals: 1.Min assist with upper and lower body dressing. 2.Min assist with transfers from bed to chair to toilet. 3.Min assist with showering. 4.Min assist with mobilization around 50 feet with a right gracie walker. 5.Min assist with going up and down 5 steps. 6.Continue with speech improvement and swallowing improvement to the point of being able to eat inde pendently and communicate independently. 7.The above goals were reviewed with Ms. Figueroa and her sister and they are in agreement. 8. I acknowledge, I personally performed a full physical examination on Ms. Criss Figueroa no later than 24 hours after her admission to the inpatient rehabilitation facility and determined that she is able to tolerate the above course of treatment at an intensive level for reasonable period of time. A de tailed individualized plan of care for her will be completed by hospital day 4 based on the preadmiss ion screen, history and physical, and therapy evaluations. STEVE/EFREN Voice ID: [id number]
[2023-03-30] MEDS: ACETAMINOPHEN 500 MG TAB PO PRN ×2 (01:24→19:07)
[2023-03-30] MEDS ORDERED: MAGNESIUM HYDROXIDE 8% 30 ML PO PRN (06:00)
[2023-03-30] MEDS: LIDOCAINE 4% PATCH TOP SCH (07:42)
[2023-03-30] MEDS: NICOTINE 21 MG/PAT TD SCH (07:42)
[2023-03-30] MEDS: MAGNESIUM OXIDE 400 MG TAB PO SCH ×2 (07:43→19:06)
[2023-03-30] MEDS: lisinopriL 5 MG TAB PO SCH (07:43)
[2023-03-30] MEDS: AMOX/K CLAV 875 MG TAB PO SCH ×2 (07:43→19:06)
[2023-03-30] MEDS: APIXABAN 2.5 MG TABLET PO SCH ×2 (07:43→19:06)
[2023-03-30] MEDS: DOCUSATE NA/SENNA CONC 1 TAB PO SCH ×2 (07:44→19:06)
[2023-03-30] MEDS: ASPIRIN 81 MG CHEWABLE TABLET PO SCH (07:44)
[2023-03-30] MEDS: MELATONIN 3 MG TABLET PO SCH (19:07)
[2023-03-30] MEDS: ATORVASTATIN 40 MG TAB PO SCH (19:07)
[2023-03-30] MEDS: TRAZODONE 50 MG TABLET PO PRN (21:34)
[2023-03-31] MEDS: TRAZODONE 50 MG TABLET PO PRN ×2 (00:38→19:15)
[2023-03-31] MEDS: ACETAMINOPHEN 500 MG TAB PO PRN ×3 (04:10→19:15)
[2023-03-31] MEDS: lisinopriL 5 MG TAB PO SCH (07:50)
[2023-03-31] MEDS: APIXABAN 2.5 MG TABLET PO SCH ×2 (07:50→19:14)
[2023-03-31] MEDS: ASPIRIN 81 MG CHEWABLE TABLET PO SCH (07:50)
[2023-03-31] MEDS: MAGNESIUM OXIDE 400 MG TAB PO SCH ×2 (07:50→19:15)
[2023-03-31] MEDS: DOCUSATE NA/SENNA CONC 1 TAB PO SCH ×2 (07:50→19:15)
[2023-03-31] MEDS: LIDOCAINE 4% PATCH TOP SCH (10:19)
[2023-03-31] MEDS: NICOTINE 21 MG/PAT TD SCH (10:19)
[2023-03-31] MEDS: CYANOCOBALAMIN 1,000 MCG TAB PO SCH (13:34)
[2023-03-31] MEDS: ATORVASTATIN 40 MG TAB PO SCH (19:15)
--- NOTE | 2023-04-01 02:31 | PN ---
Date of Progress Note: 03/31/2023 Time Of Service: 1:15 p.m. Subjective: Ms. Figueroa is doing better. She says the left sided upper and lower extremity not show ing much recovery after her stroke. She still has some drooling at the corner of the mouth, but she still has good spirits and she is able to eat without significant difficulty. Review of Systems: She denies significant fevers or chills. No nausea or vomiting. No myalgias or arthralgias. Physical Examination: Vital Signs: Blood pressure 123/57, pulse 69, respiratory rate 18, temperature 97.6, and oxygen satu ration 95%. Weight 151 pounds, height 5 feet 2 inches, and BMI 27.7. General: Ms. Figueroa is resting in bed. She appears in no acute distress. HEENT: She is normocephalic, atraumatic. Sclerae are anicteric. Oropharynx is moist. Some droolin g at the left corner of the mouth with decreased nasolabial fold in the left face. Lungs: Good air movement. Abdomen: Soft. Extremities: No significant edema or cyanosis in the extremities. Neurologic: She has dense paresis in the left upper and lower extremity. Decreased sensation in the left upper and lower extremity. She has some neglect of the left side. Laboratory Studies: Complete blood count with differential in the night is normal. Chemistries norm al. Creatinine is 0.45. Prealbumin 14.9, albumin 2.9. X-ray imaging no x-rays or imaging studies. Medications: Tylenol Extra Strength 500 mg every 4 hours as needed, Eliquis 2.5 mg twice daily, aspi rin 81 mg daily, Lipitor 40 mg at bedtime, B12 1000 mcg daily, lisinopril 5 mg daily, magnesium oxide 400 mg daily, nicotine patch 21 mg daily, trazodone 25 mg at night as needed, Senokot-S 2 twice rosa y for constipation. Please note that the patient did have some somnolence this morning after she received melatonin 3 mg and trazodone 25 mg at night. She is now on vitamin B12 1000 mcg sublingual daily. Current Functional Status: Today, with physical therapy gait training was done with maximum assistan ce. Two rehab assistants were required. Supine to sit done with moderate to maximum assistance. Sh e is unable to maintain an upright position in chair. She would fall in both directions, left or rig ht side. She did self pull a wheelchair 100 feet twice with seated rest breaks. With her occupation al therapy, she did have impaired sitting balance and tolerance, impaired core strength, and leaning to the left significantly. She did have a bedside swallow evaluation that showed recommendations wer dionte continued cognitive therapy. She would have thin liquids with chopped meat. Sit upright at 90 deg palmira when eating. Present food on the right side with small bites, alternate solids and liquids. Ea t slowly. Remain upright after meal. Progress Towards Rehabilitation Goals: Ms. Figueroa is beginning to make fair progress with her goals , but is still significantly impaired in her ability to transfer, to mobilize, to perform activities of daily living. She is making better progress with ability to eat different consistencies, but ther e are restrictions as stated above. Assessment: Ms. Figueroa is a 68-year-old patient admitted to the rehabilitation unit with a right mi ddle cerebral artery stroke, producing dense paresis of the left upper and lower extremities, dysarth nasra, dysphagia. She has hypertension, urinary incontinence, and dyslipidemia. Plan: 1.Continue with physical, occupational, and speech therapy for 3.5 hours, 5 to 7 days. 2.Continue with aspirin for stroke risk reduction. 3.Eliquis for DVT risk reduction. 4.Prinivil for hypertension. 5.Melatonin for insomnia. 6.Tobacco dependency addressed via nicotine patch. 7.She has atorvastatin for dyslipidemia. Comorbidities That Continue To Impact Her Rehabilitation Process: Currently her stroke is in the rig ht brain, allowing her good communication, but she has some impulsivity and has had significant weakn ess and will require an extended period of time for recovery given her significant stroke. She is li james to not be able to return home within the next few weeks and may require more extended stay for i mprovement. However, aggressive therapy at this point is the most critical thing she can receive to begin to recover strength and use full functioning of the left upper and lower extremities. LB/MODL Voice ID: [id number] Report ID: [id number]
[2023-04-01] MEDS: DOCUSATE NA/SENNA CONC 1 TAB PO SCH ×2 (07:26→19:17)
[2023-04-01] MEDS: CYANOCOBALAMIN 1,000 MCG TAB PO SCH (07:26)
[2023-04-01] MEDS: MAGNESIUM OXIDE 400 MG TAB PO SCH ×2 (07:27→19:16)
[2023-04-01] MEDS: lisinopriL 5 MG TAB PO SCH (07:27)
[2023-04-01] MEDS: APIXABAN 2.5 MG TABLET PO SCH ×2 (07:27→19:16)
[2023-04-01] MEDS: ASPIRIN 81 MG CHEWABLE TABLET PO SCH (07:27)
[2023-04-01] MEDS: ACETAMINOPHEN 500 MG TAB PO PRN ×3 (07:43→19:16)
[2023-04-01] MEDS: LIDOCAINE 4% PATCH TOP SCH (11:05)
[2023-04-01] MEDS: NICOTINE 21 MG/PAT TD SCH (11:05)
[2023-04-01] MEDS: ATORVASTATIN 40 MG TAB PO SCH (19:16)
[2023-04-01] MEDS: TRAZODONE 50 MG TABLET PO PRN ×2 (19:17→22:29)
--- NOTE | 2023-04-01 20:23 | PN ---
Date of Progress Note: 04/01/2023 Time Of Service: 1:45 p.m. Subjective: Ms. Figueroa is lying in bed, doing fairly well. She denies any new complaints. No othe r concerns. She just wants to get better. Review of Systems: No fevers, chills, nausea, vomiting. No myalgias or arthralgias. She does not appear to have a depr essed mood despite her significant stroke. Physical Examination: Vital Signs: Blood pressure 122/60, pulse 56, respiratory rate 17, temperature 97.8, oxygen saturati on 97%. General: Ms. Figueroa is resting in bed. HEENT: She is normocephalic, atraumatic. She does have significant left face, arm, and leg weakness from her right MCA stroke and that is essentially unchanged, around 0/5 movement proximally and dist ally in the left upper with movement in the lower extremity noted as well. Laboratory Studies: No new laboratory studies. X-rays/imaging: No new x-rays or imaging. Medications: Medications have been reviewed and remained unchanged. Current Functional Status: Today, she mobilized a wheelchair 100 feet twice with min assistance. Sh dionte completed therapeutic exercises. She needed maximum assistance for supine to sit transfers, modera te assistance for turning in bed. [id number] transfers in front of a mirror were done. Maximum as sistance needed to maintain standing upright position with cuing. With speech therapy, she repeated phrases and multisyllabic words with 80% accuracy. She recalled 3 of 3 unrelated pictures after 5 mi nutes without cues with 3 recalls. With occupational therapy, maximum assistance for bathing, upper body dressing while sitting in a shower chair, dependent for lower body dressing while sitting in the wheelchair. Supervision for oral hygiene. Progress Towards Rehabilitation Goals: Ms. Figueroa is making slow progress as she has a dense paresi s of the left side and large right MCA stroke. She is still trying very hard to move towards her goa ls of modified independence with transfers, to be able to dress her body with perhaps supervision, to do showering with supervision or minimum assistance and to begin to ambulate household distances wit h minimum assistance towards supervision. Assessment: Ms. Figueroa is a 68-year-old patient, in the rehabilitation unit with a right middle cer ebral artery stroke producing dense paresis of the left upper and lower extremity with numbness. She has dysarthria, some dysphagia, hypertension, urinary incontinence, dyslipidemia. Plan: 1.Continue with physical, occupational, and speech therapy for 3.5 hours, 5 of 7 days. 2.Continue Eliquis 2.5 mg twice daily for DVT risk reduction. 3.Continue aspirin 81 mg daily for stroke risk reduction. 4.Lipitor 40 mg at bedtime for dyslipidemia. 5.Vitamin B12 1000 mcg daily for poor energy. 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 She was actu ally started on gabapentin 100 mg at bedtime for this. 7.Continue with 1 lidocaine patch to the left side as needed. 8.Prinivil 5 mg daily for hypertension. 9.Magnesium oxide 400 mg twice daily for muscle spasms. 10.Nicotine patch 21 mg daily for tobacco withdrawal. 11.Senokot-S 2 tablets twice daily for constipation. 12.Trazodone 25 mg at night for insomnia. Comorbidities That Continue To Impact Her Rehabilitation Process: After the right-sided stroke, she does have a course dense paresis, but now is beginning to feel unusual tingling and pins and needle s ensations in the left side, likely related to the central pain syndrome after stroke and again that i s now treated with gabapentin, which is just started. She also has a significant need for help and i s likely to still require that need as she is ready to discharge from the unit and will require 24-ho ur care and supervision for an extended period of time. This will be discussed with the patient as s he will likely to require a plan of care at home with caregivers or family members versus facility monson ch as detention as her medical conditions are stably managed and she has outcomes to the end of aggressive inpatient therapy. LB/MODL Voice ID: [id number] Report ID: [id number]
[2023-04-01] MEDS ORDERED: GABAPENTIN 100 MG CAP PO SCH (21:00)
[2023-04-02] MEDS: LIDOCAINE 4% PATCH TOP SCH ×2 (08:00→08:01)
[2023-04-02] MEDS: NICOTINE 21 MG/PAT TD SCH (08:01)
[2023-04-02] MEDS: CYANOCOBALAMIN 1,000 MCG TAB PO SCH (08:02)
[2023-04-02] MEDS: APIXABAN 2.5 MG TABLET PO SCH ×2 (08:02→20:00)
[2023-04-02] MEDS: ASPIRIN 81 MG CHEWABLE TABLET PO SCH (08:02)
[2023-04-02] MEDS: MAGNESIUM OXIDE 400 MG TAB PO SCH ×2 (08:02→20:00)
[2023-04-02] MEDS: lisinopriL 5 MG TAB PO SCH (08:02)
[2023-04-02] MEDS: DOCUSATE NA/SENNA CONC 1 TAB PO SCH ×2 (08:03→20:00)
[2023-04-02] MEDS: ACETAMINOPHEN 500 MG TAB PO PRN ×3 (08:06→23:46)
[2023-04-02 13:51] VITALS: BMI 22.1
[2023-04-02] MEDS: DULOXETINE 30 MG CAP PO SCH (20:00)
[2023-04-02] MEDS: ATORVASTATIN 40 MG TAB PO SCH (20:00)
--- NOTE | 2023-04-02 20:02 | PN ---
Date of Progress Note: 04/02/2023 Time Of Service: 1:45 p.m. Subjective: Ms. Figueroa is resting in bed. She was on the phone. She is in no significant distress . No new complaints. Review of Systems: No fevers or chills. No nausea or vomiting. Still has significant paresis in the left upper and low er extremity. Physical Examination: Vital Signs: Blood pressure 139/62, pulse 55, respiratory rate of 16, temperature 97.7, oxygen satur ation 96%. General: Ms. Figueroa is resting in bed. She has significant left facial droop, has very dense pares is of the left upper and lower extremity. Decreased sensation, left upper and lower compared to the right side. No other new findings on examination. Laboratory Studies: No new laboratory studies. X-ray/imaging: No new x-rays or imaging studies. Medications: Her medications have been adjusted as she did complain of some tingling, pins and needl es sensations in the left upper and lower extremity, likely central pain from her stroke as she recov ers. She was put on gabapentin 100 mg at bedtime that will be increased to 200 mg at bedtime. Other miller, she continues aspirin 81 mg daily, Eliquis 2.5 mg daily, vitamin B12 1000 mcg daily, Prinivil 5 mg daily, milk of magnesia 30 mL daily for constipation, nicotine patch 21 mg daily, Senokot-S 2 tab lets twice daily, and Desyrel 25 mg at bedtime for insomnia. Current Functional Status: Currently complete wheelchair mobility, covering 200 feet and 150 feet wi th minimum assistance. Maximum assistance for wjs-is-lweov transfers and supine to sit transfers req uire maximum assistance. With her occupational therapy, she did improve static sitting balance philomena ance. She did have some left-sided inattention and difficulty with trunk control. With her speech t herapy, she tolerated soft bite size texture food. She was able to recall how to use lingual sweep f or oral clearing. She used chin tuck with thin liquids via straw with no coughing. She exhibited 90 % oral clearing after solids. Progress Towards Rehabilitation Goals: Ms. Figueroa is making good progress towards her recovery give n her dense stroke involving the left side. She does improve in terms of her ability to swallow. Sh e has good cognition, good insight and understanding. There is still some impulsivity. She is able to do mobilization with a wheelchair well, but still requires a lot of assistance for her transfers s uch as from bed to chair to toilet to commode. She will require a lot more care. Assessment: Ms. Figueroa is a 68-year-old patient with a right middle cerebral artery stroke, produci ng dense paresis of the left upper extremity, dysarthria, dysphagia. She has hypertension, urinary i ncontinence, dyslipidemia. Plan: 1.Continue with physical, occupational, speech therapy for 3.5 hours, 5 of 7 days. 2.Continue with Eliquis 2.5 mg daily for DVT prophylaxis. 3.Aspirin 81 mg daily for stroke risk reduction. 4.Continue with her multiple comorbid conditions including vitamin B12, Lipitor, Prinivil, magnesium , nicotine patch, Senokot-S, and trazodone as noted previously. Comorbidities That Continue To Impact Rehabilitation Process: Currently she is having a post stroke neuropathic central pain syndrome and gabapentin is helping with that. She also has some low back pa in and gabapentin is adjusted from 100 at night to 200 at night. STEVE/EFREN Voice ID: [id number] Report ID: [id number]
[2023-04-02] MEDS ORDERED: GABAPENTIN 100 MG CAP PO SCH (21:00)
[2023-04-02] MEDS: TRAZODONE 50 MG TABLET PO PRN (23:46)
[2023-04-03 04:46] LABS: Absolute Lymphocytes (CBC) 2.5 K/uL (0.7-4.9); Hematocrit 31.7 % (36.0-45.0); Lymphocytes % 32.5 % (15.3-44.8); MCV 89.9 fL (80-100); Platelets 576 thou/uL (152-406); RBC Red Blood Cell Count 3.53 M/uL (3.86-4.86)
[2023-04-03 05:04] LABS: Albumin 2.7 g/dL (3.4-5.0); Magnesium 2.3 mg/dL (1.6-2.4); Potassium 4.2 mEq/L (3.5-5.1); Prealbumin 16.2 mg/dL (20-40)
[2023-04-03] MEDS: LIDOCAINE 4% PATCH TOP SCH (08:00)
[2023-04-03] MEDS: APIXABAN 2.5 MG TABLET PO SCH ×2 (09:00→19:57)
[2023-04-03] MEDS: ACETAMINOPHEN 500 MG TAB PO PRN ×3 (09:04→19:56)
[2023-04-03] MEDS: lisinopriL 5 MG TAB PO SCH (09:05)
[2023-04-03] MEDS: MAGNESIUM OXIDE 400 MG TAB PO SCH ×2 (09:06→19:57)
[2023-04-03] MEDS: ASPIRIN 81 MG CHEWABLE TABLET PO SCH (09:06)
[2023-04-03] MEDS: DOCUSATE NA/SENNA CONC 1 TAB PO SCH ×2 (09:06→19:57)
[2023-04-03] MEDS: CYANOCOBALAMIN 1,000 MCG TAB PO SCH (09:06)
[2023-04-03] MEDS: NICOTINE 21 MG/PAT TD SCH (09:12)
[2023-04-03] MEDS ORDERED: BISACODYL 10 MG RECTAL SUPP PR PRN (12:53)
[2023-04-03] MEDS: TRAZODONE 50 MG TABLET PO PRN (19:56)
[2023-04-03] MEDS: ATORVASTATIN 40 MG TAB PO SCH (19:56)
[2023-04-03] MEDS: DULOXETINE 30 MG CAP PO SCH (19:57)
[2023-04-03] MEDS: GABAPENTIN 300 MG CAP PO SCH (19:57)
[2023-04-03] MEDS ORDERED: GABAPENTIN 100 MG CAP PO SCH (21:00)
--- NOTE | 2023-04-03 21:19 | PN ---
Date of Progress Note: 04/03/2023 Time Of Service: 1:30 p.m. Subjective: Ms. Figueroa is resting in bed. In terms of subjective, no complaints. She does have ag ain dense paresis of the left upper and lower extremities, but she is not necessarily depressed given her large deficit and is working hard to overcome her deficits. Review of Systems: No fevers or chills. No nausea, vomiting. No myalgias, arthralgias, or rash. Physical Examination: Vital Signs: Blood pressure 136/62, pulse 55, respiratory rate 16, temperature 97.6, oxygen saturati on 96%. General: Ms. Figueroa is resting comfortably. HEENT: Speech pathology is in the room. She does have a decrease of the left nasolabial fold and dr ooping of the left corner of her mouth. Extremities: She has dense paresis of left upper and lower extremity with no significant improvement over yesterday. Her right upper and lower extremities shows good movement. Laboratory Studies: Complete blood count with differential showed a slightly low hemoglobin of 11, h ematocrit 31.7, platelets slightly elevated to 576. Basic metabolic panel shows normal sodium, potas sium, chloride, BUN slightly elevated to 29, creatinine is 0.49, glucose 115, calcium 9.3. Magnesium 2.3. Albumin 2.7, prealbumin 16. X-rays/imaging: No new x-rays or imaging. Medications: Her medications have been reviewed and remained unchanged. Current Functional Status: Today, she did mobilize a wheelchair 175 feet with minimum assistance. S he did bump into the alicea to be redirected. Grrfyo-uf-lio transfers with maximum assistance. Sit-t o-stand transfers required maximum assistance. At another session, she mobilized a wheelchair 220 fe et with minimum assistance. With speech therapy, she used visualization to recall 3/3 unrelated pict ures after 5 minutes. She did attend to the left visual field with moderate verbal cues. She did re call speech and swallow strategies independently. Progress Towards Rehabilitation Goals: Ms. Figueroa is beginning to make good progress towards her go als of mobilization with a wheelchair with modified independence. Still significant deficits with am bulating with a rolling walker and requiring maximal assistance for transfers. She is doing better w ith her speech and swallowing, moving towards modified independence. Assessment: Ms. Figueroa is a 68-year-old patient with a right MCA stroke, which cause dense left upp er and lower extremity paresis, dysarthria, and dysphagia. She has urinary continence, dyslipidemia, hypertension. Plan: 1.Continue with physical, occupational, and speech therapy for 3.5 hours, 5/7 days. 2.Eliquis 2.5 mg twice daily for DVT prophylaxis. 3.She has B12 for low energy. She has Lipitor, Prinivil, magnesium. Has nicotine patch for tobacco dependency, Senokot S for constipation, trazodone for insomnia. 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 It is now 200 actuall y up to 300 at night and other medications have been continued as noted. STEVE/EFREN Voice ID: [id number] Report ID: [id number]
[2023-04-04] MEDS: TRAZODONE 50 MG TABLET PO PRN ×2 (00:13→22:55)
[2023-04-04] MEDS: ACETAMINOPHEN 500 MG TAB PO PRN ×2 (03:31→19:23)
[2023-04-04] MEDS: LIDOCAINE 4% PATCH TOP SCH (07:35)
[2023-04-04] MEDS: NICOTINE 21 MG/PAT TD SCH (07:35)
[2023-04-04] MEDS: ASPIRIN 81 MG CHEWABLE TABLET PO SCH (07:36)
[2023-04-04] MEDS: CYANOCOBALAMIN 1,000 MCG TAB PO SCH (07:36)
[2023-04-04] MEDS: lisinopriL 5 MG TAB PO SCH (07:36)
[2023-04-04] MEDS: APIXABAN 2.5 MG TABLET PO SCH ×2 (07:36→19:20)
[2023-04-04] MEDS: MAGNESIUM OXIDE 400 MG TAB PO SCH ×2 (07:41→19:20)
[2023-04-04] MEDS: DOCUSATE NA/SENNA CONC 1 TAB PO SCH ×3 (07:41→19:20)
[2023-04-04] MEDS ORDERED: GABAPENTIN 100 MG CAP PO SCH (08:00)
--- NOTE | 2023-04-04 13:30 | P.RH.PN ---
Estimated Length of Stay: 23 Expected Discharge Date: 04/12/23 Discharge Disposition Plan: Home Family Support: Yes [facility] Goal: Mobility, Transfers, Self Care Vital Signs: Last Vital Signs Temp 98.0 F 04/04/23 07:30 Pulse 56 04/04/23 07:36 Resp 17 04/04/23 07:30 BP 170/74 H 04/04/23 07:36 Pulse Ox 94 04/04/23 07:30 Laboratory: Laboratory Last Values WBC 7.70 thou/uL (4.3-10.9) 04/03/23 04:17 RBC 3.53 M/uL (3.86-4.86) L 04/03/23 04:17 Hgb 11.0 g/dL (12.0-15.0) L 04/03/23 04:17 Hct 31.7 % (36.0-45.0) L 04/03/23 04:17 MCV 89.9 fL (80-100) 04/03/23 04:17 MCH 31.1 pg (27.0-35.0) 04/03/23 04:17 MCHC 34.6 g/dL (32.0-36.0) 04/03/23 04:17 RDW 13.5 % (12.1-15.2) 04/03/23 04:17 Plt Count 576 thou/uL (152-406) H 04/03/23 04:17 MPV 7.0 fL (7.6-11.3) L 04/03/23 04:17 Neutrophils % 59.3 % (41.7-73.7) 04/03/23 04:17 Lymphocytes % 32.5 % (15.3-44.8) 04/03/23 04:17 Monocytes % 7.4 % (3.3-12.3) 04/03/23 04:17 Eosinophils % 0.4 % (0-4.4) 04/03/23 04:17 Basophils % 0.4 % (0-1.3) 04/03/23 04:17 Absolute Neutrophils 4.5 K/uL (1.8-8.0) 04/03/23 04:17 Absolute Lymphocytes 2.5 K/uL (0.7-4.9) 04/03/23 04:17 Absolute Monocytes 0.6 K/uL (0.1-1.3) 04/03/23 04:17 Absolute Eosinophils 0.0 K/uL (0-0.5) 04/03/23 04:17 Absolute Basophils 0.0 K/uL (0-0.5) 04/03/23 04:17 Sodium 138 mEq/L (136-145) 04/03/23 04:17 Potassium 4.2 mEq/L (3.5-5.1) 04/03/23 04:17 Chloride 106 mEq/L (98-107) 04/03/23 04:17 Carbon Dioxide 28 mEq/L (21-32) 04/03/23 04:17 Anion Gap 8.2 mEq/L (5.0-15.0) 04/03/23 04:17 BUN 29 mg/dL (7-18) H 04/03/23 04:17 Creatinine 0.49 mg/dL (0.55-1.02) L 04/03/23 04:17 Est GFR (CKD-EPI) 104 ml/min (=/>90) 04/03/23 04:17 Glucose 115 mg/dL (74-106) H 04/03/23 04:17 Calcium 9.3 mg/dL (8.5-10.1) 04/03/23 04:17 Magnesium 2.3 mg/dL (1.6-2.4) 04/03/23 04:17 Albumin 2.7 g/dL (3.4-5.0) L 04/03/23 04:17 Prealbumin 16.2 mg/dL (20-40) L 04/03/23 04:17 Weight: 117 lb 1.6 oz Wound Present: No Closed Surgical Incision Present: No Negative Pressure Wound Therapy Present: No Physician Update: Labs reviewed and are stable. But needs more water as BUN is elevated. BIMS 13, MOCA 16, left neglect, moderate dementia. Now on soft and bite sized diet. 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 Not doing well with physical therapy. Still at max assistance with walker and better with the wheelchair. She will likely require 24/7 care and SNF. She pushs over to the right. Summary: Patient's care plan and assisted goals have been reviewed and revised as necessary. Please see the Rehabilitation Signature page for all necessary signatures.
[2023-04-04] MEDS ORDERED: NA CHLORIDE 0.9% 1,000 ML IV SCH (15:00)
[2023-04-04] MEDS: ENSURE ENLIVE 237 ML CAN PO SCH ×2 (19:20→20:00)
[2023-04-04] MEDS: ATORVASTATIN 40 MG TAB PO SCH (19:20)
[2023-04-04] MEDS: DULOXETINE 30 MG CAP PO SCH (19:20)
[2023-04-04] MEDS: GABAPENTIN 300 MG CAP PO SCH (19:21)
[2023-04-05] MEDS: DOCUSATE NA/SENNA CONC 1 TAB PO SCH ×2 (07:58→19:47)
[2023-04-05] MEDS: CYANOCOBALAMIN 1,000 MCG TAB PO SCH (07:58)
[2023-04-05] MEDS: NICOTINE 21 MG/PAT TD SCH (07:59)
[2023-04-05] MEDS: APIXABAN 2.5 MG TABLET PO SCH ×2 (07:59→19:48)
[2023-04-05] MEDS: ASPIRIN 81 MG CHEWABLE TABLET PO SCH (07:59)
[2023-04-05] MEDS: MAGNESIUM OXIDE 400 MG TAB PO SCH ×2 (08:00→19:47)
[2023-04-05] MEDS: lisinopriL 5 MG TAB PO SCH (08:00)
[2023-04-05] MEDS: ENSURE ENLIVE 237 ML CAN PO SCH ×2 (08:00→19:49)
[2023-04-05] MEDS: LIDOCAINE 4% PATCH TOP SCH (08:01)
[2023-04-05] MEDS: PANTOPRAZOLE 40MG TABLET PO SCH (15:57)
[2023-04-05] MEDS: ACETAMINOPHEN 500 MG TAB PO PRN (16:15)
[2023-04-05] MEDS: TRAZODONE 50 MG TABLET PO PRN (19:47)
[2023-04-05] MEDS: DULOXETINE 30 MG CAP PO SCH (19:48)
[2023-04-05] MEDS: ATORVASTATIN 40 MG TAB PO SCH (19:48)
[2023-04-05] MEDS: GABAPENTIN 300 MG CAP PO SCH (19:48)
[2023-04-06] MEDS: ACETAMINOPHEN 500 MG TAB PO PRN ×3 (03:32→23:42)
[2023-04-06] MEDS: NICOTINE 21 MG/PAT TD SCH (07:36)
[2023-04-06] MEDS: PANTOPRAZOLE 40MG TABLET PO SCH (07:36)
[2023-04-06] MEDS: MAGNESIUM OXIDE 400 MG TAB PO SCH ×2 (07:37→19:08)
[2023-04-06] MEDS: lisinopriL 5 MG TAB PO SCH (07:37)
[2023-04-06] MEDS: ENSURE ENLIVE 237 ML CAN PO SCH ×2 (07:37→19:10)
[2023-04-06] MEDS: LIDOCAINE 4% PATCH TOP SCH (07:38)
[2023-04-06] MEDS: DOCUSATE NA/SENNA CONC 1 TAB PO SCH ×2 (07:38→19:09)
[2023-04-06] MEDS: ASPIRIN 81 MG CHEWABLE TABLET PO SCH (07:38)
[2023-04-06] MEDS: CYANOCOBALAMIN 1,000 MCG TAB PO SCH (07:38)
[2023-04-06] MEDS: APIXABAN 2.5 MG TABLET PO SCH ×2 (07:38→19:09)
[2023-04-06] MEDS: TRAZODONE 50 MG TABLET PO PRN (19:09)
[2023-04-06] MEDS: DULOXETINE 30 MG CAP PO SCH (19:09)
[2023-04-06] MEDS: GABAPENTIN 300 MG CAP PO SCH (19:09)
[2023-04-06] MEDS: ATORVASTATIN 40 MG TAB PO SCH (19:09)
--- NOTE | 2023-04-06 19:44 | PN ---
Date of Progress Note: 04/06/2023 Time Of Service: 2 p.m. Subjective: Ms. Figueroa is in bed. Her boyfriend is at the bedside. She is more awake and alert th an when I saw her on Friday. I was able to get thumbs up and she is not complaining of any issues on subjective. Review of Systems: No fevers or chills. No myalgias, arthralgias, or rash. No active psychiatric issues. Physical Examination: Vital Signs: Blood pressure 130/60, pulse 60, respiratory rate 18, temperature 97.3, and O2 saturati on 95%. General: Ms. Figueroa is resting comfortably. She does have the paresis of the left nasolabial fold with some fair excursion, difficulty with articulation as noted and dense paresis of the left upper e xtremity and lower extremity, which actually currently the boyfriend was instructed on how to passive ly move the upper and lower extremities around every hour to go through a set of 5 movements in each degree of freedom of the extremity. Otherwise, no new examination findings. Laboratory Studies: Have not been changed and have been reviewed. Medications: Have been reviewed and remained unchanged. X-ray/imaging: No new x-rays or imaging. Current Functional Status: She was able to perform sitting in the wheelchair and doing lower extremi ty exercises 20 repetitions. She did roll [id number], [id number] with minimum assistance. Max imum assistance for sit to supine and supine to sit and stand pivot transfers all at maximum assistan ce level. With occupational therapy, minimum assistance to avoid knocking the left foot into the wal l of doors when propelling a wheelchair within the room. She stood about 20 seconds, required maximu m assistance. Progress Towards Rehabilitation Goals: Ms. Figueroa is making fair progress towards her goals of bein g able to transfer from bed to chair to toilet to shower with around at min assist, to be able to mob ilize a wheelchair 250 feet which required supervision and to begin to ambulate for perhaps 10, 20, o r 50 feet with min assistance. However, she has dense paresis of left upper or lower extremity and _ strength on the right side to be able to compensate, so she is making progress, but that is slow, thus far. Regarding her speech, she is doing much better, able to swallow and articulate, can comprehend, cannot express herself, does not have much of aphasia with her stroke. Assessment And Plan: Ms. Figueroa is a 68-year-old patient in the rehabilitation unit with a right mi ddle cerebral artery stroke affecting the left upper, lower extremity and face. She has dysarthria, dysphagia and again dense paresis of left upper extremity. She has dyslipidemia, hypertension, depre ssion, peripheral neuropathy, tobacco dependency, insomnia, constipation, gastroesophageal reflux. Plan: 1.She will continue with Eliquis 2.5 mg twice daily, aspirin 81 mg daily, atorvastatin 40 mg at bedt marco. Continue all other medications including for depression duloxetine, gabapentin for neuropathy. Continue the magnesium oxide, nicotine patch, and other medications. 2.She will have physical, occupational, and speech therapy for 3.5 hours, 5 of 7 days. Comorbidities That Continue To Impact Rehabilitation: Currently, her dense paresis which is obviousl y the reason she is here making it difficult for her to thrive and recover quickly. She has comorbid ities that will be managed medically and do not negatively impact her rehabilitation. LB/MODL Voice ID: [id number] Report ID: [id number]
[2023-04-07] MEDS: PANTOPRAZOLE 40MG TABLET PO SCH (06:44)
[2023-04-07] MEDS: NICOTINE 21 MG/PAT TD SCH (07:31)
[2023-04-07] MEDS: LIDOCAINE 4% PATCH TOP SCH (07:31)
[2023-04-07] MEDS: lisinopriL 5 MG TAB PO SCH (07:32)
[2023-04-07] MEDS: DOCUSATE NA/SENNA CONC 1 TAB PO SCH ×3 (07:32→19:41)
[2023-04-07] MEDS: ASPIRIN 81 MG CHEWABLE TABLET PO SCH (07:32)
[2023-04-07] MEDS: CYANOCOBALAMIN 1,000 MCG TAB PO SCH (07:32)
[2023-04-07] MEDS: APIXABAN 2.5 MG TABLET PO SCH ×2 (07:32→19:42)
[2023-04-07] MEDS: MAGNESIUM OXIDE 400 MG TAB PO SCH ×2 (07:33→19:41)
[2023-04-07] MEDS: ENSURE ENLIVE 237 ML CAN PO SCH ×2 (07:34→19:42)
[2023-04-07] MEDS: ACETAMINOPHEN 500 MG TAB PO PRN ×2 (09:42→19:42)
[2023-04-07] MEDS: TRAZODONE 50 MG TABLET PO PRN (19:42)
[2023-04-07] MEDS: GABAPENTIN 300 MG CAP PO SCH (19:42)
[2023-04-07] MEDS: DULOXETINE 30 MG CAP PO SCH (19:42)
[2023-04-07] MEDS: ATORVASTATIN 40 MG TAB PO SCH (19:42)
--- NOTE | 2023-04-08 01:13 | PN ---
Date of Progress Note: 04/07/2023 Time Of Service: 1:40 p.m. Subjective: Ms. Figueroa is in bed. Her family and friends are in the room. She is awake, much more awake today than 2 days ago, alert, interactive, and is happy, although still somewhat disappointed in her slow rate of recovery of left upper and lower extremity strength after her stroke. Review of Systems: No fevers, chills, nausea, vomiting. No myalgias, arthralgias. Physical Examination: Vital Signs: Blood pressure 138/65, pulse 58, respiratory rate 16, temperature 97.4, oxygen saturati on 97%. General: Carolina is resting in bed. She is in no acute distress. She has dense paresis of the left upper and lower extremity. She has decrease in the left nasolabial fold. LUNGS: She has good air movement. Abdomen: Soft. Extremities: No edema or cyanosis noted. Laboratory Studies: No new laboratory studies. X-rays/imaging: No new x-rays or imaging. Medications: Her medications have been reviewed and remained unchanged. Current Functional Status: Today, she did 15 bridge exercises sets 4 times. She also was at the edg e of the bed sitting for 25 minutes with the left upper extremity supported. She did mobilize wheelc hair 250 feet, another 125 feet with standby assistance and verbal cues. Supine to sit with maximum assistance, sit to stand with maximum assistance. Stand pivot transfers done with maximum assistance with speech. She did drink thin liquids with a straw without signs of aspiration. Progress Towards Rehabilitation Goals: Ms. Figueroa is making better progress towards her rehabilitat ion goals, especially with speech. She is doing better with her mobilization via wheelchair, still s ignificant difficulty ambulating with the walker, needs lots of help, max assist for transfers so far , making slow progress there. Assessment: Ms. Figueroa is a 68-year-old patient in the rehabilitation unit with a right hemispheric stroke producing dense paresis of left upper and lower extremity with dysarthria and dysphagia, whic h is improving. She has dyslipidemia, hypertension, depression, peripheral neuropathy, tobacco depen dency, insomnia, GE reflux, constipation. Plan: 1.Continue with physical, occupational, and speech therapy for 3.5 hours, 5 out of 7 days. 2.Continue all of her comorbid condition medications which have been listed including duloxetine, ga bapentin, magnesium, nicotine patch, atorvastatin, aspirin and Eliquis. Comorbidities That Continue To Impact The Rehabilitation Process: At this point, she is making hazle r progress, but still has some features of depression, those features are improving and she is becomi ng more enthusiastic about her therapy and her prospects for recovery. STEVE/EFREN Voice ID: [id number] Report ID: [id number]
[2023-04-08] MEDS: CYANOCOBALAMIN 1,000 MCG TAB PO SCH (07:19)
[2023-04-08] MEDS: PANTOPRAZOLE 40MG TABLET PO SCH (07:20)
[2023-04-08] MEDS: APIXABAN 2.5 MG TABLET PO SCH ×2 (07:20→19:29)
[2023-04-08] MEDS: lisinopriL 5 MG TAB PO SCH (07:20)
[2023-04-08] MEDS: ASPIRIN 81 MG CHEWABLE TABLET PO SCH (07:21)
[2023-04-08] MEDS: MAGNESIUM OXIDE 400 MG TAB PO SCH ×2 (07:21→19:30)
[2023-04-08] MEDS: ENSURE ENLIVE 237 ML CAN PO SCH ×2 (07:21→19:55)
[2023-04-08] MEDS: DOCUSATE NA/SENNA CONC 1 TAB PO SCH ×2 (07:21→19:30)
[2023-04-08] MEDS: LIDOCAINE 4% PATCH TOP SCH ×2 (08:00→09:12)
[2023-04-08] MEDS: ACETAMINOPHEN 500 MG TAB PO PRN ×4 (08:47→23:43)
[2023-04-08] MEDS: NICOTINE 21 MG/PAT TD SCH (09:11)
[2023-04-08] MEDS ORDERED: MAGNES/ALUMIN/SIMET 30ML UCUP PO PRN (11:52)
[2023-04-08] MEDS: TRAZODONE 50 MG TABLET PO PRN ×2 (19:29→23:44)
[2023-04-08] MEDS: GABAPENTIN 300 MG CAP PO SCH (19:29)
[2023-04-08] MEDS: DULOXETINE 30 MG CAP PO SCH (19:29)
[2023-04-08] MEDS: ATORVASTATIN 40 MG TAB PO SCH (19:30)
--- NOTE | 2023-04-08 22:09 | PN ---
Date of Progress Note: 04/08/2023 Time Of Service: 1:05 p.m. Subjective: Ms. Figueroa is in bed. Family at the bedside. She is in better spirits, able to give t humbs up with the right upper extremity. Dense paresis of her left upper and lower extremity is stil l present. Review of Systems: No fevers, chills, nausea, vomiting, myalgias, arthralgias. No rash. Mild positive symptoms of depr ession. Physical Examination: Vital Signs: Blood pressure 144/63, pulse 57, respiratory rate 16, temperature 97.2, oxygen saturati on 96%. General: Ms. Figueroa is lying in bed in between therapy sessions. She is actually working with the speech pathologist in the room. She has left nasolabial fold decrease. Extremities: Dense paresis of left upper and lower extremity. Decreased sensation in left compared to right upper and lower extremities. Laboratory Studies: No new blood work. X-ray/imaging: No new x-rays. Medications: Her medications have been reviewed and remained unchanged. Current Functional Status: With occupational therapy, partial assistance required for upper body mena ssing, dependent for lower body dressing, and footwear. Shower transfer and wheelchair to [facility] d, maximum assistance required for that. She does have some difficulty paying attention to the left side and that is the side where she has neglect and the side of course of her stroke. With physical therapy, maximum assistance for supine to sit transfer. She mobilized wheelchair 250 feet twice with standby assistance, not yet ambulating any significant amount. With speech therapy, she required [facility] assistance for short-term memory tasks. She was able to recall 2 sets of 4/4 unrelated items a fter a 5-minute delay. She needed moderate assistance there. Progress Towards Rehabilitation Goals: Ms. Figueroa is making fair progress towards her goals of supe rvision to contact guard for transfers from bed to toilet to chair to shower and her capacity to mobi lize a wheelchair with modified independence and to be able to continue to eat all consistencies with independence and to communicate independently both for comprehension and expression. Assessment: Ms. Figueroa is a 68-year-old patient with a right hemispheric stroke producing dense par esis of left upper and lower extremity. She has preserved language and swallowing. She has dyslipid emia, hypertension, depression, peripheral neuropathy, tobacco dependency, insomnia, gastroesophageal reflux, constipation. Plan: 1.Continue with physical, occupational, and speech therapy for 3.5 hours, 5 out of 7 days. 2.She has multiple comorbid conditions which have been listed above and she will continue with dulox etine, gabapentin, magnesium, nicotine patch, atorvastatin, aspirin, and Eliquis. Comorbidities That Continue To Impact The Rehabilitation Process: She is making some improvements in terms of her depression and is seeing slight improvements with therapy every few days and that is en couraging to her plus she has good family support. STEVE/EFREN Voice ID: [id number] Report ID: [id number]
[2023-04-09] MEDS: PANTOPRAZOLE 40MG TABLET PO SCH (07:01)
[2023-04-09] MEDS: APIXABAN 2.5 MG TABLET PO SCH ×2 (07:02→19:22)
[2023-04-09] MEDS: MAGNESIUM OXIDE 400 MG TAB PO SCH ×2 (07:02→19:21)
[2023-04-09] MEDS: ASPIRIN 81 MG CHEWABLE TABLET PO SCH (07:02)
[2023-04-09] MEDS: DOCUSATE NA/SENNA CONC 1 TAB PO SCH ×2 (07:02→19:21)
[2023-04-09] MEDS: CYANOCOBALAMIN 1,000 MCG TAB PO SCH (07:02)
[2023-04-09] MEDS: lisinopriL 5 MG TAB PO SCH (07:02)
[2023-04-09] MEDS: LIDOCAINE 4% PATCH TOP SCH (07:03)
[2023-04-09] MEDS: NICOTINE 21 MG/PAT TD SCH (07:04)
[2023-04-09] MEDS: ACETAMINOPHEN 500 MG TAB PO PRN ×2 (07:37→19:21)
[2023-04-09] MEDS: ENSURE ENLIVE 237 ML CAN PO SCH ×2 (09:03→19:22)
[2023-04-09] MEDS: GABAPENTIN 300 MG CAP PO SCH (19:21)
[2023-04-09] MEDS: DULOXETINE 30 MG CAP PO SCH (19:21)
[2023-04-09] MEDS: ATORVASTATIN 40 MG TAB PO SCH (19:22)
[2023-04-09] MEDS: TRAZODONE 50 MG TABLET PO PRN (19:22)
--- NOTE | 2023-04-09 22:19 | PN ---
Date of Progress Note: 04/09/2023 Time Of Service: 1:15 p.m. Subjective: Ms. Figueroa is resting in bed. She has a container of food in front of her. is at bedside and family members at bedside. She is showing improved mood and spirits and is working h anthony to improve the weakness of the left lower upper and lower extremities. Review of Systems: No fevers, chills. No myalgias, arthralgias. No significant evidence of a depression. Physical Examination: Vital Signs: Blood pressure 143/66, pulse of 54, respiratory rate 16, temperature 97.2, oxygen satur ation 96%. Neuro: Ms. Figueroa again is in bed. She has some unchanged left nasolabial fold decrease with mild excursion on smiling. She has dense paresis of the left upper and lower extremities, but has some mo vement more in the lower than upper extremity. Decreased sensation in the left compared to right zayda e. Laboratory Studies: No new laboratory studies. X-ray/imaging: No new x-rays or imaging. Medications: Her medications have been reviewed and remained unchanged. Current Functional Status: Today, supine to sit transfers done with maximum assistance; stand pivot transfers, moderate assistance. She mobilized a wheelchair 250 feet twice with standby assistance. No verbal cues required for her maneuvering. She did community center coordinator the Nida Plus stand, which allows her to be able to stand up, but not yet able to take steps. She did stand twice 5 minutes each. With sp eech, she is able to eat again soft bite size foods without any overt signs of aspiration and consume 65% of her meal at lunch time. She did use chin tuck for thin liquids and with 4 of 5 attempts whil e swallowing, she had 1 episode of coughing due to increased rate of intake of liquid. With occupati onal therapy, she engage in functional reaching tasks using a director of field coordination with right upper extremity to g rasp items from the floor and placed on a trash can while sitting unsupported at the edge of bed. Sh e required maximum assistance with balance due to fatigue. Progress Towards Rehabilitation Goals: Ms. Figueroa is making fair overall progress towards her goals of supervision, perhaps minimum assistance with her transfers and her ability to begin to ambulate. She is just beginning to stand. She mobilizes very well with a wheelchair. She is also making a si gnificant improvement in her ability to safely eat all consistencies. She does not require a PEG tub e at this point and, again, is maintaining her oral intake along with medications at an apt level. Assessment: Ms. Figueroa is a 68-year-old patient in the rehabilitation unit with a right hemispheric stroke producing dense paresis of upper and lower extremities. She has some dysarthria and dysphagi a. She has comorbidities of dyslipidemia, hypertension, depression, peripheral neuropathy, tobacco d ependency, insomnia, gastroesophageal reflux, and constipation. Plan: 1.Continue with physical and occupational therapy for 3.5 hours, 5/7 days. 2.All her comorbid condition medications are continued, which have been noted previously and they ar e unchanged. Comorbidities That Continue To Impact The Rehabilitation Process: Currently, she is doing very well, has family support, but her ability to stand is not quite there yet and not able to take steps. Hayden t is her biggest limiting factor. She is mobilizing well once she is in a wheelchair. STEVE/EFREN Voice ID: [id number] Report ID: [id number]
[2023-04-10 04:24] LABS: Hematocrit 30.4 % (36.0-45.0); Lymphocytes % 29.3 % (15.3-44.8); MCV 89.9 fL (80-100); MPV 7.1 fL (7.6-11.3); Platelets 598 thou/uL (152-406); RBC Red Blood Cell Count 3.38 M/uL (3.86-4.86)
[2023-04-10 04:35] LABS: Albumin 2.6 g/dL (3.4-5.0); Magnesium 2.1 mg/dL (1.6-2.4); Potassium 3.8 mEq/L (3.5-5.1); Prealbumin 18.2 mg/dL (20-40)
[2023-04-10] MEDS: ACETAMINOPHEN 500 MG TAB PO PRN ×2 (07:09→16:09)
[2023-04-10] MEDS: PANTOPRAZOLE 40MG TABLET PO SCH (07:09)
[2023-04-10] MEDS: LIDOCAINE 4% PATCH TOP SCH (08:00)
[2023-04-10] MEDS: MAGNESIUM OXIDE 400 MG TAB PO SCH ×2 (08:02→19:09)
[2023-04-10] MEDS: DOCUSATE NA/SENNA CONC 1 TAB PO SCH ×2 (08:02→19:10)
[2023-04-10] MEDS: NICOTINE 21 MG/PAT TD SCH (08:03)
[2023-04-10] MEDS: lisinopriL 5 MG TAB PO SCH (08:04)
[2023-04-10] MEDS: ENSURE ENLIVE 237 ML CAN PO SCH ×2 (08:04→19:10)
[2023-04-10] MEDS: CYANOCOBALAMIN 1,000 MCG TAB PO SCH (08:04)
[2023-04-10] MEDS: APIXABAN 2.5 MG TABLET PO SCH ×2 (08:04→19:10)
[2023-04-10] MEDS: ASPIRIN 81 MG CHEWABLE TABLET PO SCH (08:04)
[2023-04-10] MEDS: TRAZODONE 50 MG TABLET PO PRN (19:09)
[2023-04-10] MEDS: DULOXETINE 30 MG CAP PO SCH (19:10)
[2023-04-10] MEDS: ATORVASTATIN 40 MG TAB PO SCH (19:10)
[2023-04-10] MEDS: GABAPENTIN 300 MG CAP PO SCH (19:10)
--- NOTE | 2023-04-10 20:18 | PN ---
Date of Progress Note: 04/10/2023 Time Of Service: 1:25 p.m. Subjective: Ms. Figueroa is resting in bed. She has a smile on her face. She is showing good spirit s. She has no new complaints. Review of Systems: No fevers, chills. No myalgias, arthralgias. No rash. Again, no evidence of depression. Physical Examination: Vital Signs: Blood pressure 143/73, pulse of 62, respiratory rate 15, temperature 97.4, oxygen satur ation 95%. Neuro: Ms. Figueroa again is resting in bed. She does have a decreased left nasolabial fold. No dominik jaja drooling is noted from the left corner of the mouth. She has dense paresis of the left upper and lower extremities. No movement really noted when asked voluntarily to do so on the left upper and l ower extremities. Right side, she is doing better. It is noted she is unable to stand yet at this p oint without assistance such as a Nida Lift. Laboratory Studies: White blood cell count 7.0, hemoglobin 10.4, platelets 598. Sodium 140, potassi um 3.8, chloride 109, carbon dioxide 28, BUN 21, creatinine 0.54, glucose 106, calcium 9.0. Magnesiu m 2.1. Prealbumin 18.2, albumin 2.6. X-ray/imaging: No new x-rays or imaging. Medications: Medications have been reviewed and remained unchanged. Current Functional Status: Today, she has minimal assistance for icq-iv-yauem transfers, maximum ass istance for wheelchair transfer, and to reach the edge of bed. She did sit at the edge of bed with a n eye patch in the right eye with 1 upper extremity support and no extremity support for a pproximately 35 minutes with fair static standing balance and minimum verbal cues to maintain the mid line positioning. She did static and dynamic sitting balance to improve safety performing lower body dressing and bathing. With her physical therapy, she was able to mobilize a wheelchair 250 feet wit h modified independence. No verbal cues and not yet being able to stand and ambulate somewhat of a l imiting factor and barrier at this point. Progress Towards Rehabilitation Goals: Ms. Figueroa is making great progress, mobilizing with wheelch air, but very slow progress being able to stand and ambulate. She is thus far unable to maintain her weight without maximum assistance. Her cognitive functioning and speech and swallowing are doing ve ry well. Assessment: Ms. Figueroa is a 68-year-old patient in the rehabilitation unit with a right middle cere bral artery stroke and dense left upper and lower extremity paresis with dysarthria, dysphagia. She has dyslipidemia, hypertension, depression, peripheral neuropathy, tobacco dependency, gastroesophage al reflux, constipation, and insomnia. Plan: 1.Continue with physical, occupational, and speech therapy for 3.5 hours, 5/7 days/. 2.Her multiple comorbid conditions are managed by continuing her medications, which have been noted. She does have DVT prophylaxis with Eliquis 2.5 mg twice daily, aspirin for stroke risk reduction. She has Prinivil, lisinopril for her blood pressure management, Tylenol for pain, B12 for energy, Pro tonix for malnutrition. Comorbidities That Continue To Impact Rehabilitation: Her stroke, which is the biggest issue and her significant weakness in the left lower and upper extremity, making it at this point not possible for her to stand independently. She will likely require a much longer time for recovery than is allowed in inpatient rehabilitation and will likely be a candidate for prison that is being discuss ed currently with the patient and she is showing understanding of that. STEVE/EFREN Voice ID: [id number] Report ID: [id number]
[2023-04-11] MEDS: PANTOPRAZOLE 40MG TABLET PO SCH (06:43)
[2023-04-11] MEDS: DOCUSATE NA/SENNA CONC 1 TAB PO SCH ×2 (06:43→19:43)
[2023-04-11] MEDS: CYANOCOBALAMIN 1,000 MCG TAB PO SCH (06:43)
[2023-04-11] MEDS: lisinopriL 5 MG TAB PO SCH (06:44)
[2023-04-11] MEDS: MAGNESIUM OXIDE 400 MG TAB PO SCH ×2 (06:44→19:43)
[2023-04-11] MEDS: ASPIRIN 81 MG CHEWABLE TABLET PO SCH (06:44)
[2023-04-11] MEDS: ACETAMINOPHEN 500 MG TAB PO PRN ×2 (06:45→14:19)
[2023-04-11] MEDS: NICOTINE 21 MG/PAT TD SCH (06:45)
[2023-04-11] MEDS: LIDOCAINE 4% PATCH TOP SCH (06:46)
[2023-04-11] MEDS: ENSURE ENLIVE 237 ML CAN PO SCH ×2 (06:46→19:44)
[2023-04-11] MEDS: APIXABAN 2.5 MG TABLET PO SCH ×2 (07:02→19:43)
--- NOTE | 2023-04-11 13:27 | P.RH.PN ---
Estimated Length of Stay: 23 Expected Discharge Date: 04/18/23 Discharge Disposition Plan: Home Vital Signs: Last Vital Signs Temp 97.4 F 04/11/23 08:00 Pulse 55 04/11/23 08:00 Resp 18 04/11/23 08:00 BP 126/58 L 04/11/23 08:00 Pulse Ox 96 04/11/23 08:00 Laboratory: Laboratory Last Values WBC 7.00 thou/uL (4.3-10.9) 04/10/23 03:22 RBC 3.38 M/uL (3.86-4.86) L 04/10/23 03:22 Hgb 10.4 g/dL (12.0-15.0) L 04/10/23 03:22 Hct 30.4 % (36.0-45.0) L 04/10/23 03:22 MCV 89.9 fL (80-100) 04/10/23 03:22 MCH 30.9 pg (27.0-35.0) 04/10/23 03:22 MCHC 34.3 g/dL (32.0-36.0) 04/10/23 03:22 RDW 13.5 % (12.1-15.2) 04/10/23 03:22 Plt Count 598 thou/uL (152-406) H 04/10/23 03:22 MPV 7.1 fL (7.6-11.3) L 04/10/23 03:22 Neutrophils % 62.7 % (41.7-73.7) 04/10/23 03:22 Lymphocytes % 29.3 % (15.3-44.8) 04/10/23 03:22 Monocytes % 6.3 % (3.3-12.3) 04/10/23 03:22 Eosinophils % 1.1 % (0-4.4) 04/10/23 03:22 Basophils % 0.6 % (0-1.3) 04/10/23 03:22 Absolute Neutrophils 4.4 K/uL (1.8-8.0) 04/10/23 03:22 Absolute Lymphocytes 2.0 K/uL (0.7-4.9) 04/10/23 03:22 Absolute Monocytes 0.4 K/uL (0.1-1.3) 04/10/23 03:22 Absolute Eosinophils 0.1 K/uL (0-0.5) 04/10/23 03:22 Absolute Basophils 0.0 K/uL (0-0.5) 04/10/23 03:22 Sodium 140 mEq/L (136-145) 04/10/23 03:22 Potassium 3.8 mEq/L (3.5-5.1) 04/10/23 03:22 Chloride 109 mEq/L (98-107) H 04/10/23 03:22 Carbon Dioxide 28 mEq/L (21-32) 04/10/23 03:22 Anion Gap 6.8 mEq/L (5.0-15.0) 04/10/23 03:22 BUN 21 mg/dL (7-18) H 04/10/23 03:22 Creatinine 0.54 mg/dL (0.55-1.02) L 04/10/23 03:22 Est GFR (CKD-EPI) 101 ml/min (=/>90) 04/10/23 03:22 Glucose 106 mg/dL (74-106) 04/10/23 03:22 Calcium 9.0 mg/dL (8.5-10.1) 04/10/23 03:22 Magnesium 2.1 mg/dL (1.6-2.4) 04/10/23 03:22 Albumin 2.6 g/dL (3.4-5.0) L 04/10/23 03:22 Prealbumin 18.2 mg/dL (20-40) L 04/10/23 03:22 Weight: 151 lb 9.6 oz Wound Present: No Closed Surgical Incision Present: No Negative Pressure Wound Therapy Present: No Physician Update: Making fair overall progress but still has dense left upper and lower extremity weakness with neglect. She will most likely go to SNF. Now on regular diet. She has marked left sided neglect. WC 250' with Neal. Transfers are max assistance. No walking yet. Able to sit at sink. Moderate toilet transfer. No movement in the left arm. Summary: Patient's care plan and terminal clerk goals have been reviewed and revised as necessary. Please see the Rehabilitation Signature page for all necessary signatures.
[2023-04-11] MEDS: DULOXETINE 30 MG CAP PO SCH (19:43)
[2023-04-11] MEDS: GABAPENTIN 300 MG CAP PO SCH (19:43)
[2023-04-11] MEDS: ATORVASTATIN 40 MG TAB PO SCH (19:43)
[2023-04-11] MEDS: TRAZODONE 50 MG TABLET PO PRN (21:14)
[2023-04-12] MEDS: PANTOPRAZOLE 40MG TABLET PO SCH (06:38)
[2023-04-12] MEDS: CYANOCOBALAMIN 1,000 MCG TAB PO SCH (07:51)
[2023-04-12] MEDS: APIXABAN 2.5 MG TABLET PO SCH ×2 (07:51→20:20)
[2023-04-12] MEDS: DOCUSATE NA/SENNA CONC 1 TAB PO SCH ×2 (07:51→20:20)
[2023-04-12] MEDS: ASPIRIN 81 MG CHEWABLE TABLET PO SCH (07:52)
[2023-04-12] MEDS: lisinopriL 5 MG TAB PO SCH (07:53)
[2023-04-12] MEDS: MAGNESIUM OXIDE 400 MG TAB PO SCH ×2 (07:53→20:22)
[2023-04-12] MEDS: ENSURE ENLIVE 237 ML CAN PO SCH ×2 (07:54→20:22)
[2023-04-12] MEDS: ACETAMINOPHEN 500 MG TAB PO PRN ×4 (08:09→22:51)
[2023-04-12] MEDS: NICOTINE 21 MG/PAT TD SCH (08:10)
[2023-04-12] MEDS: DULOXETINE 30 MG CAP PO SCH (20:20)
[2023-04-12] MEDS: ATORVASTATIN 40 MG TAB PO SCH (20:21)
[2023-04-12] MEDS: GABAPENTIN 300 MG CAP PO SCH (20:21)
[2023-04-12] MEDS: TRAZODONE 50 MG TABLET PO PRN ×2 (20:22→22:50)
[2023-04-13] MEDS: PANTOPRAZOLE 40MG TABLET PO SCH (06:59)
[2023-04-13] MEDS: CYANOCOBALAMIN 1,000 MCG TAB PO SCH (07:38)
[2023-04-13] MEDS: NICOTINE 21 MG/PAT TD SCH (07:38)
[2023-04-13] MEDS: ASPIRIN 81 MG CHEWABLE TABLET PO SCH (07:39)
[2023-04-13] MEDS: DOCUSATE NA/SENNA CONC 1 TAB PO SCH ×2 (07:39→19:04)
[2023-04-13] MEDS: lisinopriL 5 MG TAB PO SCH (07:40)
[2023-04-13] MEDS: APIXABAN 2.5 MG TABLET PO SCH ×2 (07:40→19:05)
[2023-04-13] MEDS: MAGNESIUM OXIDE 400 MG TAB PO SCH ×2 (07:40→19:05)
[2023-04-13] MEDS: ENSURE ENLIVE 237 ML CAN PO SCH ×2 (07:40→19:05)
[2023-04-13] MEDS: ACETAMINOPHEN 500 MG TAB PO PRN ×3 (08:53→19:05)
[2023-04-13] MEDS: DULOXETINE 30 MG CAP PO SCH (19:04)
[2023-04-13] MEDS: TRAZODONE 50 MG TABLET PO PRN (19:04)
[2023-04-13] MEDS: GABAPENTIN 300 MG CAP PO SCH (19:05)
[2023-04-13] MEDS: ATORVASTATIN 40 MG TAB PO SCH (19:05)
[2023-04-14] MEDS: MAGNESIUM OXIDE 400 MG TAB PO SCH ×2 (08:00→19:47)
[2023-04-14] MEDS: ENSURE ENLIVE 237 ML CAN PO SCH ×2 (08:00→19:48)
[2023-04-14] MEDS: ACETAMINOPHEN 500 MG TAB PO PRN ×2 (08:32→19:48)
[2023-04-14] MEDS: NICOTINE 21 MG/PAT TD SCH (08:32)
[2023-04-14] MEDS: ASPIRIN 81 MG CHEWABLE TABLET PO SCH (08:32)
[2023-04-14] MEDS: DOCUSATE NA/SENNA CONC 1 TAB PO SCH ×2 (08:32→19:47)
[2023-04-14] MEDS: CYANOCOBALAMIN 1,000 MCG TAB PO SCH (08:32)
[2023-04-14] MEDS: PANTOPRAZOLE 40MG TABLET PO SCH (08:33)
[2023-04-14] MEDS: lisinopriL 5 MG TAB PO SCH (08:33)
[2023-04-14] MEDS: APIXABAN 2.5 MG TABLET PO SCH ×2 (08:33→19:47)
[2023-04-14] MEDS: DULOXETINE 30 MG CAP PO SCH (19:47)
[2023-04-14] MEDS: TRAZODONE 50 MG TABLET PO PRN ×2 (19:47→21:24)
[2023-04-14] MEDS: ATORVASTATIN 40 MG TAB PO SCH (19:47)
[2023-04-14] MEDS: GABAPENTIN 300 MG CAP PO SCH (19:48)
--- NOTE | 2023-04-14 22:57 | PN ---
Date of Progress Note: 04/14/2023 Time Of Service: 1:10 p.m. Subjective: Ms. Figueroa is resting in bed. She has an eye patch over the right eye to help her pay attention to the left side, which is neglected after her stroke, which affected the right brain produ cing left-sided weakness along with left homonymous hemianopsia. She has no new complaints despite h er situation where there is very little to no movement in the left upper and lower extremity. Her mo od is upbeat. Review of Systems: No fevers, chills. No significant myalgias, arthralgias. No rash or headache or weight change. She did mention some mild spasms in the left upper and lower extremity where she has her dense paresis. Physical Examination: Vital Signs: Blood pressure 138/64, pulse 64, respiratory rate of 16, temperature 97.4, oxygen satur ation 95%. General: Ms. Figueroa is resting in bed. HEENT: She is normocephalic, atraumatic. Sclerae anicteric. Oropharynx pink, moist. Neck: Supple. Chest: Clear. Extremities: The left upper and lower extremity dense paresis around 1 or 0. Upper and lower extrem ities, no significant movement there. She has to be put in a Nida lift for any transfers as she is u nable completely to bear any weight. Right upper and lower extremities are strong with still she has significant right lower extremity weakness. Her sensory exam still decreased in sensation in the le ft compared to the right side. Laboratory Studies: No new laboratory studies. X-ray/imaging: No new x-rays or imaging. Medications: Medications have been reviewed and remain unchanged. She has DVT prophylaxis with Eliq uis 2.5 twice daily. She has aspirin 81 mg for stroke risk reduction, atorvastatin for dyslipidemia. She has Cymbalta for depression, gabapentin for neuropathic pain, Prinivil for hypertension. She h as a nicotine patch, which actually will be cut back today from 21 to 14 daily. Current Functional Status: Today, supine to sit transfers with moderate assistance, stand and pivot transfers, still with minimum assist. Today, she did wheelchair mobilization 400 feet with modified independence. No verbal cues required. With her speech therapy, she demonstrated improved attention to the left visual field and identified targets and letters during a cancellation task with minimum to moderate assistance. Speech strategies used during conversation, which allowed her to be 90% inte lligible at conversational level. Progress Towards Rehabilitation Goals: Ms. Figueroa is making fair progress towards her goals of mobi lizing very well with a wheelchair. She still has significant limitations in her ability to transfer because of no movement essentially in the left lower extremity and weakness in the right lower extre mity. Her speech is doing better. She is able to pay attention to the left neglected side and she i s swallowing without issues all consistencies, although if she tends to eat quickly, there is a risk of aspiration. She should have upright posture 90 degrees when eating. Assessment: Ms. 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 She has comorbids, hypertension, dyslipidemia, depression, peripheral neuropathy, tobacco dependenc y, gastroesophageal reflux, constipation and insomnia. Plan: 1.Continue with physical, occupational, and speech therapy for 3.5 hours, 5/7 days. 2.She has multiple comorbid condition medications, which are continued including Eliquis, aspirin, P rinivil, Protonix, Lipitor, Cymbalta, Senokot S, and trazodone. Note again, nicotine patch now cut t o 14 from 21 mg daily. Comorbidities That Continue To Impact Rehabilitation: She is tobacco dependent, but she has been doi ng very well. Not asking to smoke and the nicotine patch now began to be cut back. Also, very weak in the lower extremities and unable to stand at all requiring Nida lift or Mac's lift to get her into a aby ding position. LB/MODL Voice ID: [id number] Report ID: [id number]
[2023-04-15] MEDS: MAGNESIUM OXIDE 400 MG TAB PO SCH ×2 (07:17→19:50)
[2023-04-15] MEDS: DOCUSATE NA/SENNA CONC 1 TAB PO SCH ×2 (07:17→19:50)
[2023-04-15] MEDS: PANTOPRAZOLE 40MG TABLET PO SCH (07:17)
[2023-04-15] MEDS: lisinopriL 5 MG TAB PO SCH (07:17)
[2023-04-15] MEDS: ASPIRIN 81 MG CHEWABLE TABLET PO SCH (07:18)
[2023-04-15] MEDS: CYANOCOBALAMIN 1,000 MCG TAB PO SCH (07:18)
[2023-04-15] MEDS: APIXABAN 2.5 MG TABLET PO SCH ×2 (07:18→19:50)
[2023-04-15] MEDS: ENSURE ENLIVE 237 ML CAN PO SCH ×2 (07:19→19:51)
[2023-04-15] MEDS: NICOTINE 14 MG/PAT TD SCH (08:34)
[2023-04-15] MEDS: ACETAMINOPHEN 500 MG TAB PO PRN ×2 (08:54→19:50)
[2023-04-15] MEDS: GABAPENTIN 300 MG CAP PO SCH (19:50)
[2023-04-15] MEDS: DULOXETINE 30 MG CAP PO SCH (19:50)
[2023-04-15] MEDS: ATORVASTATIN 40 MG TAB PO SCH (19:50)
[2023-04-15] MEDS: TRAZODONE 50 MG TABLET PO PRN (19:50)
--- NOTE | 2023-04-15 20:59 | PN ---
Date of Progress Note: 04/15/2023 Beeh-dw-Itir Progress Note. Time Of Service: 1:15 p.m. Subjective: Ms. Figueroa is lying in the bed in seated position. She is actually doing better. She denies any significant problems or pain despite her dense paresis of the left upper extremity. Review of Systems: No significant fevers, chills, myalgias, arthralgias, rash, headache, or weight change. Physical Examination: Vital Signs: Blood pressure 137/63, pulse of 50, respiratory rate 16, temperature 97.5, oxygen satur ation 97%. General: Ms. Figueroa is sitting comfortably. Neurologic: She does have decrease of the left nasolabial fold, but no drooling is noted now. She h as no significant movement of the left upper and lower extremities and right side continues to work w ell although she still has right-sided weakness, and is unable to bear weight. Laboratory Studies: No new laboratory studies. X-ray/imaging: No new x-rays or imaging. Medications: Medications have been reviewed and remained unchanged. Current Functional Status: Today, with occupational therapy, she did gracie-dressing techniques for up per and lower body dressing. She was somewhat drowsy while she attempted to perform more activities of daily living. She did engage in dressing and putting an eye patch on the right to be able to pay more attention to the left side from her left neglect after her stroke. With physical therapy, supin e-to-sit moderate assistance, [id number] moderate assistance. 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 With speech therapy, she demonstrated visual scanning during a cancellation task with [id number] verbal cues and 95% accuracy. She used speech production strategies independently to be 1% intelligible at conversational level. Progress Towards Rehabilitation Goals: Ms. Figueroa is making fair overall progress with her speech, which is much better than her ability to ambulate, which she is really not doing at all. She still r equires maximal assistance for transfers and performing activities of daily living. Assessment: Ms. Figueroa is a 68-year-old patient with a right hemispheric stroke and dense paresis o f the left upper and lower extremity, dysarthria, and dysphagia. She has hypertension, dyslipidemia, depression, tobacco dependency, gastroesophageal reflux, constipation, and insomnia. Plan: 1.Continue with physical, occupational, and speech therapy for 3.5 hours, 5 of 7 days. 2.Her medications have been continued and are now unchanged. Comorbidities That Continue To Impact Her Rehabilitation: Currently, her comorbid conditions are wel l managed and do not negatively impact her rehabilitation. STEVE/EFREN Voice ID: [id number] Report ID: [id number]
[2023-04-16 03:51] LABS: Absolute Lymphocytes (CBC) 2.5 K/uL (0.7-4.9); Hematocrit 29.5 % (36.0-45.0); MCV 90.2 fL (80-100); MPV 7.2 fL (7.6-11.3); Platelets 385 thou/uL (152-406); RBC Red Blood Cell Count 3.27 M/uL (3.86-4.86)
[2023-04-16 04:24] LABS: Albumin 2.6 g/dL (3.4-5.0); Magnesium 1.8 mg/dL (1.6-2.4); Potassium 3.8 mEq/L (3.5-5.1); Prealbumin 17.8 mg/dL (20-40)
[2023-04-16] MEDS: ACETAMINOPHEN 500 MG TAB PO PRN ×3 (07:32→20:31)
[2023-04-16] MEDS: PANTOPRAZOLE 40MG TABLET PO SCH (07:33)
[2023-04-16] MEDS: lisinopriL 5 MG TAB PO SCH (07:34)
[2023-04-16] MEDS: ENSURE ENLIVE 237 ML CAN PO SCH ×2 (07:35→20:00)
[2023-04-16] MEDS: MAGNESIUM OXIDE 400 MG TAB PO SCH ×2 (07:35→20:31)
[2023-04-16] MEDS: ASPIRIN 81 MG CHEWABLE TABLET PO SCH (07:35)
[2023-04-16] MEDS: DOCUSATE NA/SENNA CONC 1 TAB PO SCH ×2 (07:35→20:30)
[2023-04-16] MEDS: CYANOCOBALAMIN 1,000 MCG TAB PO SCH (07:35)
[2023-04-16] MEDS: APIXABAN 2.5 MG TABLET PO SCH ×2 (07:37→20:31)
[2023-04-16] MEDS: NICOTINE 14 MG/PAT TD SCH (10:44)
[2023-04-16] MEDS: DULOXETINE 30 MG CAP PO SCH (20:30)
[2023-04-16] MEDS: GABAPENTIN 300 MG CAP PO SCH (20:30)
[2023-04-16] MEDS: ATORVASTATIN 40 MG TAB PO SCH (20:30)
[2023-04-16] MEDS: TRAZODONE 50 MG TABLET PO PRN ×2 (20:30→23:44)
[2023-04-17 07:28] VITALS: BP 147/58; TEMP 98
[2023-04-17] MEDS: PANTOPRAZOLE 40MG TABLET PO SCH (07:49)
[2023-04-17] MEDS: ACETAMINOPHEN 500 MG TAB PO PRN (07:50)
[2023-04-17] MEDS: NICOTINE 14 MG/PAT TD SCH (08:12)
[2023-04-17] MEDS: lisinopriL 5 MG TAB PO SCH (08:13)
[2023-04-17] MEDS: DOCUSATE NA/SENNA CONC 1 TAB PO SCH (08:14)
[2023-04-17] MEDS: ENSURE ENLIVE 237 ML CAN PO SCH (08:14)
[2023-04-17] MEDS: ASPIRIN 81 MG CHEWABLE TABLET PO SCH (08:14)
[2023-04-17] MEDS: APIXABAN 2.5 MG TABLET PO SCH (08:14)
[2023-04-17] MEDS: MAGNESIUM OXIDE 400 MG TAB PO SCH (08:14)
[2023-04-17] MEDS: CYANOCOBALAMIN 1,000 MCG TAB PO SCH (08:14)
== END 2023-04-17 10:20 | DRG 57 ==
LOC: 5TH 21:51
PROVIDERS: ADMIT Psychiatry & Neurology Neurology with Special Qualifications in Child Neurology; ATTEND Psychiatry & Neurology Neurology with Special Qualifications in Child Neurology
DX: I69.354 Hemiplegia and hemiparesis following cerebral infarction affecting left non-dominant side (principal); N39.0 Urinary tract infection, site not specified; I69.391 Dysphagia following cerebral infarction; I69.322 Dysarthria following cerebral infarction; H53.462 Homonymous bilateral field defects, left side; E78.5 Hyperlipidemia, unspecified; I10 Essential (primary) hypertension; D18.09 Hemangioma of other sites; R32 Unspecified urinary incontinence; R13.10 Dysphagia, unspecified; G47.00 Insomnia, unspecified; K59.00 Constipation, unspecified; K21.9 Gastro-esophageal reflux disease without esophagitis; F32.A Depression, unspecified; G62.9 Polyneuropathy, unspecified; F17.210 Nicotine dependence, cigarettes, uncomplicated
CPT/HCPCS: 36415; 80048; 82040; 83735; 84134; 85025; 92507; 92523; 92526; 92610; 97110; 97112; 97116; 97129; 97140; 97163; 97165; 97530; 97542; J2001; J7030

== ENCOUNTER 2023-04-25 10:11 | Emergency (ER) | payer BC, OTHER ==
--- OUTSIDE RECORDS SUMMARY | 2023-04-25 10:17 | XMS REPORT | Continuity of Care Document ---
:1955 Author Organization [facility] t Address [address] [facility] [address] [place] [address] Care Team Providers Name Role Phone Pcp, Patient Does Not Have A Primary Care Physician [phone] Abel Chatterjee MD Attending Clinician [phone] ANA NOVA Attending Clinician Unavailable Tereso Membreno MD Attending Clinician Abel Blevins MD Attending Clinician Ana Nova MD Attending Clinician Derek Plascencia MD Attending Clinician DEREK PLASCENCIA Attending Clinician Unavailable Doctor Unassigned, [place] Attending Clinician Unavailable ABEL BLEVINS Admitting Clinician Unavailable Payers Payer Name Policy Type Policy Number Effective Date Expiration Date S ource Problems Condition Condition Condition Status Onset Resolution Last Treating Co mments Source Name Details Category Date Date Treatment Clinician Date Acute Acute Disease Active Univers ischemic ischemic 03-25 ity of stroke stroke 00:00: [place] [facility] Aortic Aortic Disease Active Univers dissection dissection 03-25 it y of 00:00: [place] [facility] Essential Essential Disease Active Uni vers hypertensi hypertensi 03-25 it y of on on 00:00: [place] [facility] ICAO ICAO Disease Active Univers (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 ity of carotid carotid 00:00: [place] artery artery 00 Medical occlusion) occlusion) Br anch , right , right Allergies, Adverse Reactions, Alerts Allergy Allergy Status Severity Reaction(s) Onset Inactive Treating Comm ents Source Name Type Date Date Clinician NO KNOWN Drug Active Univers ALLERGIE Class ity of S [facility] Social History Social Habit Start Date Stop Date Quantity Comments Source Sexual orientation Univer sity [facility] History of tobacco Cigarette Smoker University of use [facility] Gender identity Universit y of [facility] History of Social 2023-03-20 2023-03-20 Univers ity of function 00:00:00 00:00:00 [facility] Tobacco use and 2023 2023 Smokeless Universit y of exposure 00:00:00 00:00:00 tobacco non-user [facility] Sex Assigned At [birth year] Universit y of 00:00:00 00:00:00 [facility] Smoking Status Start Date Stop Date Source Tobacco smoking consumption [facility] Ordered Filled Start Stop Current Ordering Indication Dosage Frequency Signature Comments Components Source Medication Medication Date Date Medication? Clinician (SIG) Name Name aspirin 81 2023- Yes [id number] 81mg Take 1 Univers mg chewable 03-29 tablet by it y of tablet 00:00: 04:59 mouth in [place] 00 :00 the Medical morning. Branch clopidogreL 2023- Yes [id number] 75mg Take 1 Univers 75 mg 03-29 tablet by ity of tablet 00:00: 04:59 mouth in [place] 00 :00 the Medical morning. Branch aspirin 81 2023- Yes [id number] 81mg Take 1 Univers mg chewable 03-29 tablet by it y of tablet 00:00: 04:59 mouth in [place] 00 :00 the Medical morning. Branch clopidogreL 2023- Yes [id number] 75mg Take 1 Univers 75 mg 03-29 tablet by ity of tablet 00:00: 04:59 mouth in [place] 00 :00 the Medical morning. Branch lisinopriL 2023- Yes [id number] 5mg Take 1 Univers 5 mg tablet 03-29 tablet by it y of 00:00: 05:59 mouth in [place] 00 :00 the Medical morning Branch for 180 days. lisinopriL 2023- Yes [id number] 5mg Take 1 Univers 5 mg tablet 03-29 tablet by it y of 00:00: 05:59 mouth in [place] 00 :00 the Medical morning Branch for 180 days. amoxicillin 2022- Yes [id number] 1{tbl} Take 1 Univers -clavulanat 03-29 tablet by it y of e 00:00: 04:59 mouth in [place] (AUGMENTIN) 00 :00 the [facility] 875-125 mg morning Branch per tablet and 1 tablet in the evening. Do all this for 2 days. atorvastati 2023- Yes [id number] 40mg Take 1 Univers n 40 mg 03-28 tablet by ity of tablet 00:00: 04:59 mouth at [place] 00 :00 bedtime. Medical Branch atorvastati 2023- Yes [id number] 40mg Take 1 Univers n 40 mg 03-28 tablet by ity of tablet 00:00: 04:59 mouth at [place] 00 :00 bedtime. Medical Branch melatonin 3 2023- Yes [id number] 3mg Take 1 Univers mg tablet 03-28 tablet by ity of 00:00: 05:59 mouth at [place] 00 :00 bedtime Medical for 180 Branch days. melatonin 3 2023- Yes [id number] 3mg Take 1 Univers mg tablet 03-28 tablet by ity of 00:00: 05:59 mouth at [place] 00 :00 bedtime Medical for 180 Branch days. Lidocaine 2022- No 1{patch 1 Patch, Univers (LIDOCARE) 03-27 } Topical, ity of 4 % patch 1 17:00: 06:24 Administer [place] Patch 00 :00 over 12 Medical Hours, Branch ONCE, 1 dose, On [place] 03/27/23 at 1200, Routine lisinopriL Yes 5mg 5 mg, Univer s (PRINIVIL,Z 03-27 Oral, ity of ESTRIL) 14:00: DAILY, [place] tablet 5 mg 00 First dose Me dical on [place] Branch 03/27/23 at 0900, Until Discontinu ed, Routine labetaloL Yes 10mg 10 mg, Univer s (NORMODYNE) 03-27 Slow IV ity o f injection 11:36: Push, [place] 10 mg 17 [id number], 5 Medical doses, Branch Starting on [place] [...] of 1,000 mg in 13:30: 13:29 Piggyback, [place] NaCl 0.9% 00 :00 Q24H ABX, Medic al (NS) 100 mL 5 doses, Bran ch MINI-BAG First dose on Fri03/26/23 at 0830, Last dose on Fri03/30/23 at 0830, Administer over 30 Minutes, 100 mL
Reas on for Anti-Infec tive: Documented Infection< br>Documen edna Infection Site: Urine
D uration of Therapy: Other (see Comments) barium 2022- No [id number] 20g 20 g, Univ ers sulfate 03-25 Oral, ity of (VARIBAR 21:45: 21:45 ONCE, 1 [place] THIN 00 :00 dose, On Medical LIQUID) 81 03/25/23 Bra nch % (w/w) at 1645, oral powder Routine 20 g barium 2022- No [id number] 20mL 20 mL, Uni vers sulfate-NO 03-25 Oral, ity of CHARGE- 21:45: 21:45 ONCE, 1 [place] (VARIBAR 00 :00 dose, On Medical NECTOR) 40 03/25/23 Bra nch % (w/v) at 1645, oral Routine suspension 20 mL NaCl 0.9% 2022- No 1000mL at 50 [facility] ers (NS) IV 03-25 09-05 mL/hr, IV ity of infusion 06:30: 16:50 Infusion, García as 1,000 mL 00 :18 CONTINUOUS Medic al , Starting Branch on Fri03/25/23 at 0130, Until Fri03/25/23 at 1150, Routine iopamidol 2022- No [id number] 100mL 100 mL, Univers (ISOVUE 03-24 Intravenou ity o f 370-500 mL) 17:30: 17:30 s, ONCE, 1 [place] injection 00 :00 dose, On Medica l 100 mL [facility] 03/24/23 Branch at 1230, Routine clopidogreL Yes 75mg 75 mg, [facility] ers (PLAVIX) 75 03-24 Oral, ity of mg tablet 14:00: DAILY, [place] 75 mg 00 First dose Medical on [facility] 03/24/23 at 0900, Until Discontinu ed, Routine aspirin Yes 81mg 81 mg, Univers chewable 03-24 Oral, ity of tablet 81 14:00: DAILY, [place] mg 00 First dose Medical on [facility] 03/24/23 at 0900, Until Discontinu ed, Routine acetaminoph Yes 650mg 650 mg, Un lennox en 03-23 Oral, ity of (TYLENOL) 22:03: Q4HPRN, [place] 160 mg/5 mL 12 Starting Medi porsha oral liquid on [facility] 650 mg 03/23/23 at 1703, Until Discontinu ed, Routine, Temp > 38.5 C polyethylen Yes 17g 17 g, Unive rs e glycol 03-23 Oral, ity of 3350 powder 19:30: DAILY, [place] 17 g 00 First dose Medical on [facility] 03/23/23 at 1430, Until Discontinu ed, Routine sennosides- Yes 1{tbl} 1 tablet, Univers docusate 03-23 Oral, ity of sodium 19:30: DAILY, [place] (SENOKOT-S) 00 First dose Me dical 8.6-50 mg on [facility] per tablet 9/3/23 at 1 tablet 1430, Until Discontinu ed, Routine iopamidol 2022-0 3- No [id number] 80mL 80 mL, Univers (ISOVUE 03-23 Intravenou ity o f 370-500 mL) 15:45: 15:45 s, ONCE, 1 [place] injection 00 :00 dose, On Medica l 80 mL [place] 03/23/23 Branch at 1045, Routine KCL 2022-0 2022- No 40meq 40 mEq, Univers (KLOR-CON 03-23 Oral, ity of M20) tablet 13:30: 13:15 ONCE, 1 [place] 40 mEq 00 :00 dose, On Medical [place] 03/23/23 Branch at 0830, Routine potassium 2022-0 2022- No 20meq 20 mEq, IV Univers chloride in 03-23 Piggyback, i ty of water (KCL) 12:15: 17:58 ONCE, 1 [place] 20 mEq/100 00 :07 dose, On Medic al mL RTU IVPB [place] 03/23/23 Br anch 20 mEq at 0715, 100 mL magnesium 2022-2022- No 4g 4 g, IV Univ ers [...] On 03/22/23 at 0845, Routine KCL 2022-0 3- No 40meq 40 mEq, Univers (KLOR-CON 03-22 Oral, ity of M20) tablet 13:30: 13:33 ONCE, 1 [place] 40 mEq 00 :00 dose, On Medical [facility] 03/22/23 Branch at 0830, Routine potassium 3-0 2023- No 20meq 20 mEq, IV Univers chloride in 03-22 Piggyback, i ty of water (KCL) 13:30: 19:14 ONCE, 1 [place] 20 mEq/100 00 :17 dose, On Medic al mL RTU IVPB Sat 03/22/23 Br anch 20 mEq at 0830, 100 mL magnesium 2022-0 2022- No 2g 2 g, IV Univ ers sulfate in 03-22 Piggyback, it y of water 2 13:15: 14:36 Administer García as gram/50 mL 00 :00 over 60 Medica l (4 %) Minutes, Branch infusion 2 ONCE, 1 g dose, On 03/22/23 at 0815, Routine methocarbam 0 2022- No 1000mg 1,000 mg, Univers oL 03-22 Intravenou ity of (ROBAXIN) 03:00: 21:09 s, Q8H, 9 [place] injection 00 :32 doses, Medical 1,000 mg First dose Branc h (after last modificati on) on Fri03/21/23 at 2200, Last dose on Fri03/24/23 at 1400, Routine heparin 2022-0 Yes 5000U 5,000 Univers (porcine) 03-22 Units, ity of injection 01:00: Subcutaneo [place] 5,000 Units 00 us, Q12H, Med ical First dose Branch on Fri03/21/23 at 2000, Until Discontinu ed, Routine acetaminoph 2022-0 Yes 650mg 650 mg, Un lennox en 03-21 Oral, Q6H, ity of (TYLENOL) 23:00: First dose [place] tablet 650 00 (after Medical mg last Branch modificati on) on Fri03/21/23 at 1800, Until Discontinu ed, Routine D5W 0.9% 2022-2022- No 1000mL at 50 Unive rs NaCl (NS) 03-21 09-05 mL/hr, ity of IV infusion 22:00: 05:26 1,000 mL, [place] 1,000 mL 00 :25 IV Medical Infusion, Branch CONTINUOUS , Starting on Fri03/21/23 at 1700, Until Fri03/25/23 at 0026, Routine dextrose 2022-0 Yes 250mL 250 mL, IV Un lennox [...] niCARdipine 2022- No 2.5mg/h 2.5-15 Univers (CARDENE 03-21-06 mg/hr ity of I.V.) 40 mg 19:19: [...] dose, contact prescriber .
iopamidol 2022- No [id number] 80mL 80 mL, Univers (ISOVUE 03-21 9104 [...] on Fri03/21/23 at 1100, Last dose on Fri03/23/23 at 1100 heparin 2022- No PRN, Univers 1,000 03-21 Starting ity of unit/mL 15:07: 15:07 on Fri [place] injection 57 :57 03/21/23 at Medic al 1007, Branch Until Fri03/21/23 at 1007, Routine, Intra-op atropine 2022- No PRN, Univers injection 03-21 Starting ity o f 14:52: 14:52 on Fri [place] 58 :58 03/21/23 at Medical 0952, Branch Until Fri03/21/23 at 0952, Routine, Intra-op iopamidol 2022- No [id number] 50mL 50 mL, Univers (ISOVUE 03-21 9104 [...] Until Fri03/21/23 at 1004, Routine, Intra-op melatonin Yes 3mg 3 mg, Univers (MELATIN) 03-21 Oral, QHS, ity of tablet 3 mg 02:00: First dose [place] 00 on [facility] Medical 03/20/23 at Branch 2100, Until Discontinu ed, Routine aspirin 2022- No 81mg 81 mg, Univers chewable 03-20 Oral, ity of tablet 81 17:15: 14:09 DAILY, [place] mg 00 :55 First dose Medical on [place] Branch 03/20/23 at 1215, Until Discontinu ed, Routine clopidogreL 2022- No 75mg 75 mg, Uni vers (PLAVIX) 75 03-2003 Oral, ity of mg tablet 14:00: 14:09 DAILY, [place] 75 mg 00 :55 First dose Medical on Fri [place] 03/20/23 at 0900, Until Discontinu ed, Routine acetaminoph 2022- No 650mg 650 mg, U nivers en 03-2001 Oral, ity of (TYLENOL) 05:40: 18:46 Q6HPRN, [place] tablet 650 47 :27 Starting Medic al mg on Fri [place] 03/20/23 at 0040, Until Fri03/21/23 at 1346, Routine, Pain (scale 1-3), Pain (scale 4-6), Temp > 38 C atorvastati Yes 40mg 40 mg, Univ ers n (LIPITOR) 03-20 Oral, QHS, it y of tablet 40 02:00: First dose [place] mg 00 on Fri03/19/23 at Branch 2100, Until Discontinu ed, Routine famotidine Yes 20mg 20 mg, Unive rs (PEPCID AC) 03-20 Oral, BID, it y of tablet 20 01:00: First dose [place] mg 00 on Fri03/19/23 at Branch 2000, Until Discontinu ed, Routine nicotine Yes 1{patch 1 Patch, Un lennox (NICODERM) 03-19 } Topical, ity o f 21 mg/24 hr 22:45: Administer [place] patch 1 00 over 24 Medical Patch Hours, Branch Q24H, First dose on Fri03/19/23 at 1745, Until Discontinu ed, Routine NaCl 0.9% 2022- No 1000mL at 50 Univ ers (NS) IV 03-19 09-04 mL/hr, IV ity of infusion 22:42: 14:56 Infusion, García as 1,000 mL 00 :34 CONTINUOUS Medic al , Starting Branch on Fri03/19/23 at 1745, Until Fri03/24/23 at 0956, Routine NaCl 0.9% 0 2022- Yes 1000mL at 999 Uni vers (NS) bolus 03-19 08-30 mL/hr, ity of infusion 15:30: 15:00 1,000 mL, García as 1,000 mL 00 :00 IV Medical Infusion, Branch ONCE, 1 dose, On Fri03/19/23 at 1030, STAT clopidogreL No 300mg 300 mg, U nivers (PLAVIX) 03-19 Oral, ity of 300 mg 15:15: 14:24 ONCE, 1 [place] tablet 300 00 :00 dose, On Medic al mg Fri Branch 03/19/23 at 1015, [facility] aspirin No 325mg 325 mg, Unive rs tablet 325 03-19 Oral, ity of mg 14:30: 14:24 ONCE, 1 [place] 00 :00 dose, On Medical Fri Branch 03/19/23 at 0930, STAT iopamidol No [id number] 80mL 80 mL, Univers (ISOVUE 03-19 Intravenou ity o f 370-500 mL) 13:16: 13:30 s, ONCE, 1 [place] injection 00 :00 dose, On Medica l 80 mL [facility] Branch 03/19/23 at 0830, Routine NaCl 0.9% Yes 5mL 5 mL, Slow Un lennox (NS) 03-19 IV Push, ity of injection 5 13:01: PRN - SEE [place] mL 36 INSTRUCT Medical NS, Branch Starting on Fri03/19/23 at 0801, Until Discontinu ed, 10 mL Immunizations Ordered Immunization Filled Immunization Date Status Commen ts Source Name Name Moderna COVID-19 Moderna COVID-19 2021-03-17 Completed Vaccine Vaccine 00:00:00 Moderna COVID-19 Moderna COVID-19 2021-02-17 Completed Vaccine Vaccine 00:00:00 Vital Signs Vital Name Observation Time Observation Value Comments Source Systolic blood 2023-03-28 20:39:00 149 mm[Hg] Univer sity of pressure [facility] Diastolic blood 2023-03-28 20:39:00 73 mm[Hg] Unive rsity of pressure [facility] Heart rate 2023-03-28 20:39:00 59 /min Universi [facility] [place] [facility] Body temperature 2023-03-28 20:39:00 36.5 Nohemy Univ ersity [facility] Respiratory rate 2023-03-28 20:39:00 16 /min Univ ersity of [place] [facility] Oxygen saturation in 2023-03-28 20:39:00 96 /min University of Arterial blood by [employer] porsha Pulse oximetry Branch Body height 2023 21:07:00 162.6 cm Universi ty [facility] [place] [facility] Body weight 2023 21:07:00 66.679 kg Universi ty of [place] [facility] BMI 2023 21:07:00 25.23 kg/m2 Universi ty [facility] [place] [facility] Systolic blood 2023 14:30:00 196 mm[Hg] Univer sity of pressure [place] [facility] Diastolic blood 2023 14:30:00 78 mm[Hg] Unive rsity of pressure [place] [facility] Heart rate 2023 14:30:00 51 /min Universi ty [facility] [place] [facility] Respiratory rate 2023 14:30:00 24 /min Univ ersity [facility] [place] [facility] Oxygen saturation in 2023 14:30:00 97 /min University of Arterial blood by [place] [employer] porsha Pulse oximetry Branch Body temperature 2023 14:06:36 37.06 Nohemy Univ ersity of [place] [facility] Body height 2023 12:52:00 162.6 cm Universi ty [facility] [place] [facility] Body weight 2023 12:52:00 66.724 kg Universi ty [facility] [place] [facility] BMI 2023 12:52:00 25.25 kg/m2 Universi ty of [place] [facility] Systolic blood 2023-03-23 16:00:00 140 mm[Hg] Univer sity of pressure [place] [facility] Diastolic blood 2023-03-23 16:00:00 51 mm[Hg] Unive rsity of pressure [place] [facility] Heart rate 2023-03-23 16:00:00 71 /min Universi ty [facility] [place] [facility] Body temperature 2023-03-23 16:00:00 37.72 Nohemy Univ ersity [facility] [place] [facility] Respiratory rate 2023-03-23 16:00:00 20 /min Univ ersity [facility] [place] [facility] Oxygen saturation in 2023-03-23 16:00:00 98 /min University of Arterial blood by [employer] Pulse oximetry Branch Systolic blood 2023-03-22 16:00:00 138 mm[Hg] [facility] Diastolic blood 2023-03-22 16:00:00 67 mm[Hg] [facility] 2023-03-22 16:00:00 58 /min [facility] Body temperature 2023-03-22 16:00:[address] [facility] ersUT [facility] Respiratory rate 2023-03-22 16:00:00 16 /min [facility] Oxygen saturation in 2023-03-22 16:00:00 97 /min [facility] Arterial blood by [facility] Pulse oximetry [place] Body height 2023 21:07:00 162.6 cm [facility] Body weight 2023 21:07:00 66.679 kg [facility] BMI 2023 21:07:00 25.23 kg/m2 [facility] Procedures Procedure Date / Time Performing Clinician Source Performed MAGNESIUM 2023-03-28 06:09:00 Elías Flowers [facility] BASIC METABOLIC PANEL 2023-03-28 06:09:00 Elías Flowers [facility] (NA, K, CL, CO2, GLUCOSE, Medica l Branch BUN, CREATININE, CA) MR BRAIN WO CONTRAST 2023-03-27 20:27:00 [facility] 2023-03-27 07:46:00 Elías Flowers [facility] BASIC METABOLIC PANEL 2023-03-27 07:46:00 Elías Flowers [facility] (NA, K, CL, CO2, GLUCOSE, Medica l Branch BUN, CREATININE, CA) CBC WITHOUT DIFF 2023-03-27 07:46:00 Elías Flowers [facility] POCT GLUCOSE (AUTOMATED) 2023-03-26 21:24:00 Tereso Membreno [facility] POCT GLUCOSE (AUTOMATED) 2023-03-26 16:54:00 Tereso Membreno [facility] POCT GLUCOSE (AUTOMATED) 2023-03-26 12:40:00 Tereso Membreno vers[facility] MAGNESIUM 2023-03-26 09:52:00 [facility] 2023-03-26 09:52:00 [facility] ([facility], K, CL, CO2, GLUCOSE, Medica l Branch BUN, CREATININE, CA) CBC WITH DIFF 2023-03-26 09:52:00 [facility] ([facility]OMATED) 2023-03-26 01:22:00 Tereso Membreno [facility] XR CHEST 1 VW 2023-03-25 21:59:00 Karina [facility] URINALYSIS 2023-03-25 21:55:00 Karina [facility] POCT GLUCOSE (AUTOMATED) 2023-03-25 16:47:00 Tereso Membreno [facility] POCT GLUCOSE (AUTOMATED) 2023-03-25 12:46:00 Tereso Membreno [facility] PHOSPHORUS 2023-03-25 08:35:00 [facility] MAGNESIUM 2023-03-25 08:35:00 [facility] THYROID STIMULATING 2023-03-25 08:35:00 Serena Mendoza [facility] HORMONE [facility] BASIC METABOLIC PANEL 2023-03-25 08:35:00 Larry Watts [facility] (NA, K, CL, CO2, GLUCOSE, [place] Medica l Branch BUN, CREATININE, CA) CBC WITHOUT DIFF 2023-03-25 08:35:00 Larry Watts [facility] POCT GLUCOSE (AUTOMATED) 2023-03-25 02:22:00 Tereso Membreno [facility] POCT GLUCOSE (AUTOMATED) 2023-03-24 20:37:00 Tereso Membreno [facility] POCT GLUCOSE (AUTOMATED) 2023-03-24 16:49:00 Tereso Membreno [facility] CT ANGIOGRAM CHEST 2023-03-24 16:40:56 [facility] CT ABDOMEN PELVIS W 2023-03-24 16:40:56 Allison Valle [facility] CONTRAST [facility] POCT GLUCOSE (AUTOMATED) 2023-03-24 12:49:00 Tereso Membreno [facility] PHOSPHORUS 2023-03-24 09:07:00 [facility] MAGNESIUM 2023-03-24 09:07:00 [facility] BASIC METABOLIC PANEL 2023-03-24 09:07:00 Amber Yokasta [facility] (NA, K, CL, CO2, GLUCOSE, Medica l Branch BUN, CREATININE, CA) CBC WITHOUT DIFF 2023-03-24 09:07:00 Amber Yokasta [facility] POCT GLUCOSE (AUTOMATED) 2023-03-24 02:09:00 Tereso Membreno [facility] POCT GLUCOSE (AUTOMATED) 2023-03-23 21:05:00 Tereso Membreno [facility] POCT GLUCOSE (AUTOMATED) 2023-03-23 16:43:00 Tereso Membreno [facility] POCT GLUCOSE (AUTOMATED) 2023-03-23 16:43:00 Tereso Membreno [facility] AC PANEL 20 + LACTIC ACID 2023-03-23 15:21:00 Yokasta Clark [facility] AC PANEL 20 + LACTIC ACID 2023-03-23 15:21:00 Yokasta Clark [facility] CT ANGIOGRAM HEAD 2023-03-23 14:57:00 Maria Isabel [facility] CT HEAD WO CONTRAST 2023-03-23 14:57:00 Yokasta Clark [facility] CT ANGIOGRAM NECK 2023-03-23 14:57:00 Maria Isabel [facility] POCT GLUCOSE (AUTOMATED) 2023-03-23 13:16:00 Tereso Membreno [facility] POCT GLUCOSE (AUTOMATED) 2023-03-23 13:16:00 Tereso Membreno [facility] CBC WITH DIFF 2023-03-23 10:19:00 Se [facility] BASIC METABOLIC PANEL 2023-03-23 10:19:00 Se [facility] (NA, K, CL, CO2, GLUCOSE, Medica l Branch BUN, CREATININE, CA) PHOSPHORUS 2023-03-23 10:19:00 [facility] MAGNESIUM 2023-03-23 10:19:00 [facility] PHOSPHORUS 2023-03-23 10:19:00 [facility] MAGNESIUM 2023-03-23 10:19:00 [facility] BASIC METABOLIC PANEL 2023-03-23 10:19:00 Se [facility] (NA, K, CL, CO2, GLUCOSE, Medica l Branch BUN, CREATININE, CA) CBC WITH DIFF 2023-03-23 10:19:00 Se [facility] POCT GLUCOSE (AUTOMATED) 2023-03-23 02:41:00 Tereso Membreno [facility] POCT GLUCOSE (AUTOMATED) 2023-03-23 02:41:00 Tereso Membreno [facility] POCT GLUCOSE (AUTOMATED) 2023-03-22 21:10:00 Tereso Membreno [facility] POCT GLUCOSE (AUTOMATED) 2023-03-22 21:10:00 Tereso Membreno [facility] BASIC METABOLIC PANEL 2023-03-22 20:59:00 Se [facility] (NA, K, CL, CO2, GLUCOSE, Medica l Branch BUN, CREATININE, CA) MAGNESIUM 2023-03-22 20:59:00 Se [facility] MAGNESIUM 2023-03-22 20:59:00 Se [facility] BASIC METABOLIC PANEL 2023-03-22 20:59:00 Se [facility] (NA, K, CL, CO2, GLUCOSE, Medica l Branch BUN, CREATININE, CA) POCT GLUCOSE (AUTOMATED) 2023-03-22 17:10:00 Tereso Membreno [facility] POCT GLUCOSE (AUTOMATED) 2023-03-22 17:10:00 Tereso Membreno [facility] CBC WITH DIFF 2023-03-22 16:23:00 [facility] CBC WITH DIFF 2023-03-22 16:23:00 [facility] POCT GLUCOSE (AUTOMATED) 2023-03-22 12:41:00 Tereso Membreno [facility] POCT GLUCOSE (AUTOMATED) 2023-03-22 12:41:00 Tereso Membreno [facility] CBC WITH DIFF 2023-03-22 10:33:00 [facility] BASIC METABOLIC PANEL 2023-03-22 10:33:00 [facility] (NA, K, CL, CO2, GLUCOSE, [place] Medica l Branch BUN, CREATININE, CA) MAGNESIUM 2023-03-22 10:33:00 Fortich, [facility] PHOSPHORUS 2023-03-22 10:33[facility] 2023-03-22 10:33:00 Fort[place], [facility] MAGNESIUM 2023-03-22 10:33:00 Fortich, [facility] BASIC METABOLIC PANEL 2023-03-22 10:33:00 [facility] (NA, K, CL, CO2, GLUCOSE, [place] Medica l Branch BUN, CREATININE, CA) CBC WITH DIFF 2023-03-22 10:33:00 [facility] CBC WITH DIFF 2023-03-22 04:28:00 [facility] CBC WITH DIFF 2023-03-22 04:28:00 [facility] POCT GLUCOSE (AUTOMATED) 2023-03-22 01:46:00 Membreno, Tereso [facility] POCT GLUCOSE (AUTOMATED) 2023-03-22 01:46:00 Tereso Membreno [facility] CBC WITH DIFF 2023-03-21 22:45:00 Lia [facility] CBC WITH DIFF 2023-03-21 22:45:00 Nateдмитрийcésar [facility] POCT GLUCOSE (AUTOMATED) 2023-03-21 20:43:00 Tereso Membreno [facility] POCT GLUCOSE (AUTOMATED) 2023-03-21 20:43:00 Tereso Membreno [facility] TRANSTHORACIC ECHO (TTE) 2023-03-21 19:58:09 Shameka Whatley [facility] TRANSTHORACIC ECHO (TTE) 2023-03-21 19:58:09 Shameka Whatley [facility] BASIC METABOLIC PANEL 2023-03-21 17:41:00 Alexy Benson [facility] (NA, K, CL, CO2, GLUCOSE, Medica l Branch BUN, CREATININE, CA) MAGNESIUM 2023-03-21 17:41:00 Alexy Benson [facility] PHOSPHORUS 2023-03-21 17:41:00 Alexy Benson [facility] PHOSPHORUS 2023-03-21 17:41:00 Alexy Benson [facility] MAGNESIUM 2023-03-21 17:41:00 Alexy Benson [facility] BASIC METABOLIC PANEL 2023-03-21 17:41:00 Alexy Benson [facility] (NA, K, CL, CO2, GLUCOSE, Medica l Branch BUN, CREATININE, CA) MRSA / MSSA SCREEN BY 2023-03-21 17:04:00 Allison Valle [facility] CBC WITH DIFF 2023-03-21 17:04:00 [facility] CBC WITH DIFF 2023-03-21 17:04:00 [facility] MRSA / MSSA SCREEN BY 2023-03-21 17:04:00 Green, [facility] [place] PCR, NARES Medical Branch CT ANGIOGRAM 2023-03-21 15:44:44 [facility] Medical Branch CT ANGIOGRAM 2023-03-21 15:44:44 [facility] ABDOMEN[facility]PELVIS Medical Branch CT ANGIOGRAM CHEST 2023-03-21 15:43:51 Heriberto [facility] Medical Branch ABORH CONFIRMATION (LAB 2023-03-21 15:37:00 [facility] ONLY) [facility] Branch ABORH CONFIRMATION (LAB 2023-03-21 15:37:00 [facility] ONLY) [facility] HB ABO GROUPING 2023-03-21 15:15:00 [facility] HB ABO GROUPING 2023-03-21 15:15:00 [facility] LIPID PANEL (32558)(TOTAL 2023-03-21 09:53:00 Shameka Whatley [facility] CHOLESTEROL, Medical Branch TRIGLYCERIDES, HDL) GLYCOSYLATED HEMOGLOBIN 2023-03-21 09:53:00 Shameka Whatley [facility] ([facility]) [facility] VERIFYNOW PRUTEST (P2Y12) 2023-03-21 09:53:[address] [facility] LIPID PANEL (95228)(TOTAL 2023-03-21 09:53:00 Shameka Whatley [facility] CHOLESTEROL, Medical Branch TRIGLYCERIDES, HDL) GLYCOSYLATED HEMOGLOBIN 2023-03-21 09:53:00 Shameka Whatley [facility] ([facility]) [facility] VERIFYNOW ASPIRIN TEST 2023-03-21 09:53:00 Larry Watts [facility] TRANSTHORACIC ECHO (TTE) 2023-03-20 20:44:32 Shameka Whatley [facility] [place] TRANSTHORACIC ECHO (TTE) 2023-03-20 20:44:32 Shameka Whatley [facility] [place] MR STROKE BRAIN WO 2023-03-20 17:35[facility] 2023-03-20 17:35:00 Chacorta [facility] URINALYSIS 2023 14:52:00 Derek Plascencia [facility] POCT GLUCOSE(AGE >30DAYS) 2023 14:07:00 [facility] PO[facility] GLU[facility]SE(AGE >30DAYS) 2023 14:07:00 [facility] NECK 2023 13:21:28 Derek Plascencia [facility] CT STROKE ANGIOGRAM HEAD 2023 13:21:28 Derek Plascencia [facility] CT STROKE HEAD WO 2023 13:16:00 Derek Plascencia [facility] CT STROKE HEAD WO 2023 13:16:00 Derek Plascencia [facility] CBC WITHOUT DIFF 2023 13:07:00 Derek Plascencia [facility] CBC WITHOUT DIFF 2023 13:07:00 Derek Plascencia [facility] PROTHROMBIN TIME / INR 2023 13:05:00 Derek Plascencia [facility] ACTIVATED PARTIAL 2023 13:05:00 Derek [facility]ascencia [facility]23 13:05:00 Derek Plascencia [facility] BASIC METABOLIC PANEL 2023 13:05:00 Derek Plascencia [facility] (NA, K, CL, CO2, GLUCOSE, Medica l Branch BUN, CREATININE, CA) MAGNESIUM 2023 13:05:00 Derek Plascencia [facility] MAGNESIUM 2023 13:05:00 Derek Plascencia [facility] TROPONIN I 2023 13:05:00 Derek Plascencia [facility] BASIC METABOLIC PANEL 2023 13:05:00 Derek Plascencia [facility] (NA, K, CL, CO2, GLUCOSE, Medica l Branch BUN, CREATININE, CA) PROTHROMBIN TIME / INR 2023 13:05:00 Derek Plascencia [facility] ACTIVATED PARTIAL 2023 13:05:00 Derek Plascencia [facility] THRMPLAS FORTINO Medical [place] HB ECG ROUTINE & RHYTHM 2023 13:00:52 Derek Plascencia [facility] STRIP Medical [place] NOTICE OF PRIVACY 2023 12:46:28 Doctor Rebekah [facility] [place] NOTICE OF PRIVACY 2023 12:46:28 Doctor Rebekah [facility] CONSENT/REFUSAL FOR 2023 12:44:58 Doctor Welch [facility] DIAGNOSIS AND TREATMENT [facility] [place] AGREEMENTS AUTHORIZATIONS 2023 05:01:00 Doctor Rebekah [facility] AND IRREVOCABLE [facility] ASSIGNMENTS (FORM 2000) AGREEMENTS AUTHORIZATIONS 2023 05:01:00 Doctor Rebekah [facility] AND IRREVOCABLE [place] ASSIGNMENTS (FORM 2001) HOSPITAL ADMISSION 2023 05:01:00 Doctor Rebekah [facility] Encounters Start End Encounter Admission Attending Care Care Encounter Source Date/Time Date/Time Type Type Clinicians Facility Department ID 2023-04-07 2023-04-07 Telephone [facility] [id number] Univers 00:00:00 00:00:00 [facility] 350.1.13.10 i ty of Nikko MALIK 4.2.7.2.686 [facility] [id number] [facility] [place][note 2] 092 Branch OFFICE BUILDING 2023 2023-03-28 Inpatient X GENE [facility] IRINA [id number] Univers 11:02:00 20:00:00 ANA [facility] 2023 2023-03-28 Hospital Sen, [facility] Nikko MELENDEZ 1 .[id number] Univers 11:02:00 20:00:00 Encounter Tereso Membreno 350.1.13.10 ity of [facility] 4.2.7.2.686 Ana Miranda [id number] Medical 098 Branch 2023 2023 Emergency [place], 1.2.840.5 [id number] Univers 07:55:00 09:58:00 Derek 32633.1.1 ity of 3.104.2.7 [place] .3.136940 Medica l .8 Branch 2023 2023 Emergency X [place], [facility] ERT [id number] Univers 07:55:00 09:58:00 DEREK ity of [facility] 2023 2023 Travel 1.2.840.1 [id number] Univers 00:00:00 00:00:00 65810.1.1 350.1.13.10 ity of 3.104.2.7 [place].3.698 [place] .3.970912 084.8 Medica l .8 Branch 2023 2023 Orders Doctor 1.2.840.4 [id number] Univers 00:00:00 00:00:00 Only Unassigned, 91827.1.1 ity of [place] 3.104.2.7 [place] .3.308639 Medica l .8 [place] 2021-03-17 2021-03-17 Outpatient GCCOVIDV GCCOVIDV [id number] GCCOVID 00:00:00 00:00:00 V 2021-02-17 2021-02-17 Outpatient GCCOVIDV GCCOVIDV [id number] GCCOVID 00:00:00 00:00:00 V Results Test Description Test Time Test Comments Results Result Comments Source POCT GLUCOSE (AUTOMATED) 2023-03-26 21:25:59 Test Item Value Reference Range Interpretation Comme nts POCT GLU (test code = 6562887477) 127 mg/dL 70-110 H Lab Interpretation (test code = 68850-7) [facility]normal [facility]2023-03-26 16:54:59 Test Item Value Reference Range Interpretation Comments POCT GLU (test code = 8684718192) 125 mg/dL 70-110 H Lab Interpretation (test code = Abnormal 32596-3) [facility]2023-03-26 12:41:41 Test Item Value Reference Range Interpretation Comments POCT GLU (test code = 6621025914) 125 mg/dL 70-110 H Lab Interpretation (test code = Abnormal 69556-1) [facility]2023-[facility]-06 10:55:12 Test Item Value Reference Range Interpretation Comments MAGNESIUM (test code = 4635789928) 1.9 mg/dL 1.7-2.4 Lab Interpretation (test code = Normal 67186-6) [facility] METABOLIC PANEL (NA, K, CL, CO2, GLUCOSE, BUN, CREATININE, CA)2023-03-26 10:55:12 Test Item Value Reference Range Interpretation Comments NA (test code = 137 mmol/L 135-145 0761786334) K (test code = 3.8 mmol/L 3.5-5.0 7543658588) CL (test code = 101 mmol/L 98-108 7367544943) CO2 TOTAL (test code = 26 mmol/L 23-31 6837927514) AGAP (test code = 10 2-16 3947847103) BUN (test code = 18 mg/dL 7-23 3804943588) GLUCOSE (test code = 118 mg/dL 70-110 H 0100917182) CREATININE (test code = 0.40 mg/dL 0.50-1.04 L 8108484122) CALCIUM (test code = 9.2 mg/dL 8.6-10.6 4099513820) eGFR (test code = 159.7 mL/min/1.73m2 7471277579) EMANI (test code = EMANI) Association of [...] tests). Lab Interpretation Abnormal (test code = 79876-3) [facility] WITH [id number] 10:33:28 Test Item Value Reference Range Interpretation Comments WBC (test code = 9.79 See_Comment [Automated 5519-2) message] The sy stem which generated this result transmitted reference range : 4.30 - 11.10 10*3/?L. The reference range was not used to interpret this result as normal/abnormal . RBC (test code = 3.93 See_Comment [Automated 736-8) message] The sy stem which generated this [...] RDW-SD (test code = 42.7 fL 39.0-49.9 51059-2) RDW-CV (test code = 13.4 % 12.0-15.5 788-0) PLT (test code = 289 See_Comment [Automated 777-3) message] The sy stem which generated this result transmitted reference range : 166 - 358 10*3/ ?L. The reference r oralia was not used to interpret this result as normal/abnormal . MPV (test code = 9.7 fL 9.5-12.9 26621-3) NRBC/100 WBC (test 0.0 See_Comment [Automat ed code = 8887585209) message] The system which generated this result transmitted reference range : 0.0 - 10.0 /100 WBCs. The refer ence range was not u sed to interpret th is result as normal/abnormal . NRBC x10^3 (test code See_Comment [Auto mated = 5708835894) message] The s ystem which generated this result transmitted reference range : 10*3/?L. The reference range was not used to interpret this result as normal/abnormal . GRAN MAT (NEUT) % 71.2 % (test code = 770-8) IMM GRAN % (test code 0.30 % = 5563139697) LYMPH % (test code = 19.0 % 736-9) MONO % (test code = 8.9 % 5905-5) EOS % (test code = 0.2 % 713-8) BASO % (test code = 0.4 % 706-2) GRAN MAT x10^3(ANC) 6.97 10*3/uL 1.88-7.09 (test code = 3323399017) IMM GRAN x10^3 (test 0.03 10*3/uL 0.00-0.06 code = 2367119057) LYMPH x10^3 (test code 1.86 10*3/uL 1.32-3.29 = 731-0) MONO x10^3 (test code 0.87 10*3/uL 0.33-0.92 = 742-7) EOS x10^3 (test code = 0.03-0.39 L 711-2) BASO x10^3 (test code 0.04 10*3/uL 0.01-0.07 = 704-7) Lab Interpretation Abnormal (test code = 60247-5) [facility] GLUCOSE (AUTOMATED)2023-03-26 01:23:00 Test Item Value Reference Range Interpretation Comments POCT GLU (test code = 1443401312) 124 mg/dL 70-110 H Lab Interpretation (test code = Abnormal 02193-8) [facility] GLUCOSE (AUTOMATED)2023-03-25 16:48:49 Test Item Value Reference Range Interpretation Comments POCT GLU (test code = 0570532194) 109 mg/dL 70-110 Lab Interpretation (test code = Normal 04650-2) [facility] [id number] 16:29:48 Test Item Value Reference Range Interpretation Comments TSH (test code = 2.05 See_Comment Biotin has been 9169736828) reported to cau se a negative bias, interpret resul ts relative to heber sharif's use of biotin. [Automated mess age] The system sailsquare generated this result transmitted ref erence range: 0.45 - 4 .70 mIU/L. The refe rence range was not u sed to interpret this result as normal/abnor mal. Lab Interpretation (test Normal code = 62011-7) [facility] GLUCOSE (AUTOMATED)2023-03-25 12:47:02 Test Item Value Reference Range Interpretation Comments POCT GLU (test code = 5616671659) 121 mg/dL 70-110 H Lab Interpretation (test code = Abnormal 95513-0) [facility]2023-09-05 09:13:39 Test Item Value Reference Range Interpretation Comments PHOSPHORUS (test code = 2059702234) 4.1 mg/dL 2.5-5.0 Lab Interpretation (test code = Normal 12872-5) [facility]23-[facility]-05 09:13:39 Test Item Value Reference Range Interpretation Comments MAGNESIUM (test code = 9095510753) 1.9 mg/dL 1.7-2.4 Lab Interpretation (test code = Normal 90524-7) [facility] (NA, K, CL, CO2, GLUCOSE, BUN, CREATININE, CA)2023-03-25 09:13:39 Test Item Value Reference Range Interpretation Comments NA (test code = 137 mmol/L 135-145 0543205628) K (test code = 4.1 mmol/L 3.5-5.0 Slight 8980473432) hemolysis CL (test code = 103 mmol/L 98-108 6396903121) CO2 TOTAL (test code 25 mmol/L 23-31 = 3633394432) AGAP (test code = 9 2-16 2931849490) BUN (test code = 12 mg/dL 7-23 Slight 9379061094) hemolysis GLUCOSE (test code = 118 mg/dL 70-110 H 8315737405) CREATININE (test code 0.40 mg/dL 0.50-1.04 L = 1604945231) CALCIUM (test code = 8.9 mg/dL 8.6-10.6 8078452242) eGFR (test code = 159.7 mL/min/1.73m2 7588885549) EMANI (test code = EMANI) Association of [...] tests). Lab Interpretation Abnormal (test code = 65791-0) [facility] WITHOUT [id number] 08:57:39 Test Item Value Reference Range Interpretation Comments WBC (test code = 6690-2) 10.13 See_Comment [A utomated message] The system sailsquare generated this result transmit edna reference range : 4.30 - 11.10 10*3/?L. The reference range was not used to interpret this result as normal/abnormal . RBC (test code = 789-8) 3.69 See_Comment L [Au tomated message] The system sailsquare generated this result transmit edna reference range [...] 240 See_Comment [Au tomated message] The system sailsquare generated this result transmit edna reference range : 166 - 358 10*3/?L. The reference range was not used to interpret this result as normal/abnormal . MPV (test code = 10.5 fL 9.5-12.9 82497-2) RDW-CV (test code = 13.6 % 12.0-15.5 788-0) RDW-SD (test code = 44.0 fL 39.0-49.9 58818-0) NRBC x10^3 (test code = See_Comment [Au tomated message] 6142241016) The system sailsquare generated this result transmit edna reference range : 10*3/?L. The reference range was not used to interpret this result as normal/abnormal . NRBC/100 WBC (test code 0.0 See_Comment [Au tomated message] = 3972802656) [facility] generated this result transmit edna reference range : 0.0 - 10.0 /100 WBC s. The reference r oralia was not used to interpret this result as normal/abnormal . IPF % (test code = 9905724732) Lab Interpretation (test Abnormal code = 32892-2) [facility] GLUCOSE (AUTOMATED)2023-03-25 02:32:46 Test Item Value Reference Range Interpretation Comments POCT GLU (test code = 8117736976) 143 mg/dL 70-110 H Lab Interpretation (test code = Abnormal 70130-8) [facility] GLUCOSE (AUTOMATED)2023-03-24 20:46:56 Test Item Value Reference Range Interpretation Comments POCT GLU (test code = 3631816037) 123 mg/dL 70-110 H Lab Interpretation (test code = Abnormal 49189-1) [facility] GLUCOSE (AUTOMATED)2023-03-24 16:51:31 Test Item Value Reference Range Interpretation Comments POCT GLU (test code = 7042019654) 111 mg/dL 70-110 H Lab Interpretation (test code = Abnormal 08068-4) [facility] GLUCOSE (AUTOMATED)2023-03-24 13:25:21 Test Item Value Reference Range Interpretation Comments POCT GLU (test code = 0602512255) 129 mg/dL 70-110 H Lab Interpretation (test code = Abnormal 73274-9) [facility] METABOLIC PANEL (NA, K, CL, CO2, GLUCOSE, BUN, CREATININE, CA)2023-03-24 09:44:31 Test Item Value Reference Range Interpretation Comments NA (test code = 136 mmol/L 135-145 3949981919) K (test code = 4.1 mmol/L 3.5-5.0 Slight 4170929525) hemolysis CL (test code = 108 mmol/L 98-108 3639215944) CO2 TOTAL (test code 21 mmol/L 23-31 L = 6770802332) AGAP (test code = 7 2-16 3278819064) BUN (test code = 10 mg/dL 7-23 Slight 3753616563) hemolysis GLUCOSE (test code = 111 mg/dL 70-110 H 3702674991) CREATININE (test code 0.40 mg/dL 0.50-1.04 L = 1862339610) CALCIUM (test code = 7.6 mg/dL 8.6-10.6 L 2013983205) eGFR (test code = 159.7 mL/min/1.73m2 4639699074) EMANI (test code = EMANI) Association of [...] tests). Lab Interpretation Abnormal (test code = 05858-8) [facility]23[facility] 09:37:32 Test Item Value Reference Range Interpretation Comments PHOSPHORUS (test code = 2495017508) 3.2 mg/dL 2.5-5.0 Lab Interpretation (test code = Normal 33932-2) [facility]23-[facility] 09:37:32 Test Item Value Reference Range Interpretation Comments MAGNESIUM (test code = 4547066698) 1.8 mg/dL 1.7-2.4 Lab Interpretation (test code = Normal 40287-9) [facility] WITHOUT [id number] 09:32:46 Test Item Value Reference Range Interpretation Comments WBC (test code = 6690-2) 8.79 See_Comment [A utomated message] The system sailsquare generated this result transmit edna reference range : 4.30 - 11.10 10*3/?L. The reference range was not used to interpret this result as normal/abnormal . RBC (test code = 789-8) 3.37 See_Comment L [Au tomated message] The system sailsquare generated this result transmit edna reference range [...] 198 See_Comment [Au tomated message] The system sailsquare generated this result transmit edna reference range : 166 - 358 10*3/?L. The reference range was not used to interpret this result as normal/abnormal . MPV (test code = 10.6 fL 9.5-12.9 26184-8) RDW-CV (test code = 13.9 % 12.0-15.5 788-0) RDW-SD (test code = 45.3 fL 39.0-49.9 52813-1) NRBC x10^3 (test code = See_Comment [Au tomated message] 7655280013) The system sailsquare generated this result transmit edna reference range : 10*3/?L. The reference range was not used to interpret this result as normal/abnormal . NRBC/100 WBC (test code 0.0 See_Comment [Au tomated message] = 0498351532) The [facility] generated this result transmit edna reference range : 0.0 - 10.0 /100 WBC s. The reference r oralia was not used to interpret this result as normal/abnormal . IPF % (test code = 3709922236) Lab Interpretation (test Abnormal code = 99870-9) [facility] GLUCOSE (AUTOMATED)2023-03-24 02:09:59 Test Item Value Reference Range Interpretation Comments POCT GLU (test code = 5881254910) 120 mg/dL 70-110 H Lab Interpretation (test code = Abnormal 96079-9) [facility] GLUCOSE (AUTOMATED)2023-03-23 21:06:29 Test Item Value Reference Range Interpretation Comments POCT GLU (test code = 1355900897) 123 mg/dL 70-110 H Lab Interpretation (test code = Abnormal 31344-0) [facility] GLUCOSE (AUTOMATED)2023-03-23 16:44:08 Test Item Value Reference Range Interpretation Comments POCT GLU (test code = 3319466894) 133 mg/dL 70-110 H Lab Interpretation (test code = Abnormal 89025-6) [facility] GLUCOSE (AUTOMATED)2023-03-23 16:44:08 Test Item Value Reference Range Interpretation Comments POCT GLU (test code = 6451474338) 133 mg/dL 70-110 H Lab Interpretation (test code = Abnormal 28265-2) [facility] + Lactic [id number] 15:44:35 Test Item Value Reference Range Interpretation Comments PH (test code = 2) 7.39 7.35-7.45 PCO2 (test code = 35 See_Comment [Automate d 1546020347) message] The sy stem which generated this result transmitted reference range : 35 - 45 mmHg. The reference range was not used to interpret this result as normal/abnormal . PO2 (test code = 75 See_Comment L [Automated 7667004159) message] The sy stem which generated this result transmitted reference range : 80 - 100 mmHg. The reference range was not used to interpret this result as normal/abnormal . HCO3 (test code = 21 See_Comment L [Automate d 2334775470) message] The sy stem which generated this result transmitted reference range : 22 - 26 mEq/L. The reference range was not used to interpret this result as normal/abnormal . BE (test code = -3.5 See_Comment L [Automated 7092761631) message] The sy stem which generated this result transmitted reference range : -3.0 - 3.0 mEq/ L. The reference r oralia was not used to interpret this result as normal/abnormal . THB (test code = 14.5 g/dL 12.0-16.0 1369031057) %O2HB (test code = 94.1 % 94.0-99.0 9913877002) %COHB ART (test code = 1.4 % 0.0-1.5 7383154145) %METHB ART (test code = 0.0 % 0.4-1.5 L 1355845498) VOL%O2 ART (test code = 19.2 % 15.0-23.0 2281306956) NA (test code = 135 mmol/L 135-145 7975410847) K+ (test code = 3.6 mmol/L 3.5-5.0 6638036144) AC CA IONZ (test code = 4.60 mg/dL 4.50-5.30 1067153357) GLUCOSE (test code = 108 mg/dL 70-110 6429929194) LACTIC ACID (test code 0.99 mmol/L 0.50-2.20 = 2055658086) Lab Interpretation Abnormal (test code = 58203-8) [facility] + Lactic [id number] 15:44:35 Test Item Value Reference Range Interpretation Comments PH (test code = 2) 7.39 7.35-7.45 PCO2 (test code = 35 See_Comment [Automate d 7728173434) message] The sy stem which generated this result transmitted reference range : 35 - 45 mmHg. The reference range was not used to interpret this result as normal/abnormal . PO2 (test code = 75 See_Comment L [Automated 8346205596) message] The sy stem which generated this result transmitted reference range : 80 - 100 mmHg. The reference range was not used to interpret this result as normal/abnormal . HCO3 (test code = 21 See_Comment L [Automate d 7576261990) message] The sy stem which generated this result transmitted reference range : 22 - 26 mEq/L. The reference range was not used to interpret this result as normal/abnormal . BE (test code = -3.5 See_Comment L [Automated 5608325630) message] The sy stem which generated this result transmitted reference range : -3.0 - 3.0 mEq/ L. The reference r oralia was not used to interpret this result as normal/abnormal . THB (test code = 14.5 g/dL 12.0-16.0 5523841630) %O2HB (test code = 94.1 % 94.0-99.0 9270194476) %COHB ART (test code = 1.4 % 0.0-1.5 5069641431) %METHB ART (test code = 0.0 % 0.4-1.5 L 3796430035) VOL%O2 ART (test code = 19.2 % 15.0-23.0 6077253409) NA (test code = 135 mmol/L 135-145 8276006225) K+ (test code = 3.6 mmol/L 3.5-5.0 1645984362) AC CA IONZ (test code = 4.60 mg/dL 4.50-5.30 9332876401) GLUCOSE (test code = 108 mg/dL 70-110 2651997916) LACTIC ACID (test code 0.99 mmol/L 0.50-2.20 = 7399804739) Lab Interpretation Abnormal (test code = 15109-6) [facility]2023-03-23 13:17:53 Test Item Value Reference Range Interpretation Comments POCT GLU (test code = 6737427440) 139 mg/dL 70-110 H Lab Interpretation (test code = Abnormal 09610-4) [facility]23[facility] 11:15:05 Test Item Value Reference Range Interpretation Comments PHOSPHORUS (test code = 3035797576) 3.1 mg/dL 2.5-5.0 Lab Interpretation (test code = Normal 33352-3) [facility] 11:15:05 Test Item Value Reference Range Interpretation Comments MAGNESIUM (test code = 0940181963) 1.6 mg/dL 1.7-2.4 L Lab Interpretation (test code = Abnormal 67359-0) [facility] (NA, K, CL, CO2, GLUCOSE, BUN, CREATININE, CA)2023-03-23 11:15:05 Test Item Value Reference Range Interpretation Comments NA (test code = 137 mmol/L 135-145 3696527652) K (test code = 3.4 mmol/L 3.5-5.0 L 7684137544) CL (test code = 108 mmol/L 98-108 9529577754) CO2 TOTAL (test code = 20 mmol/L 23-31 L 5861810606) AGAP (test code = 9 2-16 1518868398) BUN (test code = 9 mg/dL 7-23 0558134375) GLUCOSE (test code = 122 mg/dL 70-110 H 3222536337) CREATININE (test code = 0.40 mg/dL 0.50-1.04 L 8522707822) CALCIUM (test code = 8.0 mg/dL 8.6-10.6 L 6091769396) eGFR (test code = 159.7 mL/min/1.73m2 8562358463) EMANI (test code = EMANI) Association of [...] tests). Lab Interpretation Abnormal (test code = 77103-1) [facility] METABOLIC PANEL (NA, K, CL, CO2, GLUCOSE, BUN, CREATININE, CA)2023-03-23 11:15:05 Test Item Value Reference Range Interpretation Comments NA (test code = 137 mmol/L 135-145 5664835163) K (test code = 3.4 mmol/L 3.5-5.0 L 5661677597) CL (test code = 108 mmol/L 98-108 9087762273) CO2 TOTAL (test code = 20 mmol/L 23-31 L 8683132970) AGAP (test code = 9 2-16 4505698409) BUN (test code = 9 mg/dL 7-23 4101956590) GLUCOSE (test code = 122 mg/dL 70-110 H 2214252127) CREATININE (test code = 0.40 mg/dL 0.50-1.04 L 7739653754) CALCIUM (test code = 8.0 mg/dL 8.6-10.6 L 1710399795) eGFR (test code = 159.7 mL/min/1.73m2 8752895456) EMANI (test code = EMANI) Association of [...] tests). Lab Interpretation Abnormal (test code = 19619-7) [facility] 11:15:05 Test Item Value Reference Range Interpretation Comments PHOSPHORUS (test code = 4829726929) 3.1 mg/dL 2.5-5.0 Lab Interpretation (test code = Normal 74794-1) [facility] 11:15:05 Test Item Value Reference Range Interpretation Comments MAGNESIUM (test code = 5657715838) 1.6 mg/dL 1.7-2.4 L Lab Interpretation (test code = Abnormal 15551-7) [facility] [id number] 10:45:03 Test Item Value Reference Range Interpretation [...] RDW-SD (test code = 45.1 fL 39.0-49.9 71137-1) RDW-CV (test code = 13.8 % 12.0-15.5 788-0) PLT (test code = 212 See_Comment [Automated 777-3) message] The sy stem which generated this result transmitted reference range : 166 - 358 10*3/ ?L. The reference r oralia was not used to interpret this result as normal/abnormal . MPV (test code = 10.4 fL 9.5-12.9 85046-3) NRBC/100 WBC (test 0.0 See_Comment [Automat ed code = 4158031213) message] The system which generated this result transmitted reference range : 0.0 - 10.0 /100 WBCs. The refer ence range was not u sed to interpret th is result as normal/abnormal . NRBC x10^3 (test code See_Comment [Auto mated = 3897181171) message] The s ystem which generated this result transmitted reference range : 10*3/?L. The reference range was not used to interpret this result as normal/abnormal . GRAN MAT (NEUT) % 77.8 % (test code = 770-8) IMM GRAN % (test code 0.30 % = 4607444164) LYMPH % (test code = 12.6 % 736-9) MONO % (test code = 8.9 % 5905-5) EOS % (test code = 0.1 % 713-8) BASO % (test code = 0.3 % 706-2) GRAN MAT x10^3(ANC) 8.48 10*3/uL 1.88-7.09 H (test code = 7829193515) IMM GRAN x10^3 (test 0.03 10*3/uL 0.00-0.06 code = 2896389923) LYMPH x10^3 (test code 1.37 10*3/uL 1.32-3.29 = 731-0) MONO x10^3 (test code 0.97 10*3/uL 0.33-0.92 H = 742-7) EOS x10^3 (test code = 0.03-0.39 L 711-2) BASO x10^3 (test code 0.03 10*3/uL 0.01-0.07 = 704-7) Lab Interpretation Abnormal (test code = 56629-2) [facility] WITH [id number] 10:45:03 Test Item Value Reference Range Interpretation [...] RDW-SD (test code = 45.1 fL 39.0-49.9 40677-8) RDW-CV (test code = 13.8 % 12.0-15.5 788-0) PLT (test code = 212 See_Comment [Automated 777-3) message] The sy stem which generated this result transmitted reference range : 166 - 358 10*3/ ?L. The reference r oralia was not used to interpret this result as normal/abnormal . MPV (test code = 10.4 fL 9.5-12.9 43117-7) NRBC/100 WBC (test 0.0 See_Comment [Automat ed code = 4797294807) message] The system which generated this result transmitted reference range : 0.0 - 10.0 /100 WBCs. The refer ence range was not u sed to interpret th is result as normal/abnormal . NRBC x10^3 (test code See_Comment [Auto mated = 9305235283) message] The s ystem which generated this result transmitted reference range : 10*3/?L. The reference range was not used to interpret this result as normal/abnormal . GRAN MAT (NEUT) % 77.8 % (test code = 770-8) IMM GRAN % (test code 0.30 % = 0603132424) LYMPH % (test code = 12.6 % 736-9) MONO % (test code = 8.9 % 5905-5) EOS % (test code = 0.1 % 713-8) BASO % (test code = 0.3 % 706-2) GRAN MAT x10^3(ANC) 8.48 10*3/uL 1.88-7.09 H (test code = 4021399552) IMM GRAN x10^3 (test 0.03 10*3/uL 0.00-0.06 code = 1683772341) LYMPH x10^3 (test code 1.37 10*3/uL 1.32-3.29 = 731-0) MONO x10^3 (test code 0.97 10*3/uL 0.33-0.92 H = 742-7) EOS x10^3 (test code = 0.03-0.39 L 711-2) BASO x10^3 (test code 0.03 10*3/uL 0.01-0.07 = 704-7) Lab Interpretation Abnormal (test code = 21933-4) [facility]2023-03-23 02:42:21 Test Item Value Reference Range Interpretation Comments POCT GLU (test code = 2344033301) 154 mg/dL 70-110 H Lab Interpretation (test code = Abnormal 08304-3) [facility] 21:32:56 Test Item Value Reference Range Interpretation Comments MAGNESIUM (test code = 7615895720) 1.9 mg/dL 1.7-2.4 Lab Interpretation (test code = Normal 08093-7) [facility] METABOLIC PANEL (NA, K, CL, CO2, GLUCOSE, BUN, CREATININE, CA)2023-03-22 21:21:57 Test Item Value Reference Range Interpretation Comments NA (test code = 137 mmol/L 135-145 1933356681) K (test code = 4.0 mmol/L 3.5-5.0 8077397722) CL (test code = 110 mmol/L 98-108 H 6758371492) CO2 TOTAL (test code = 21 mmol/L 23-31 L 0616722753) AGAP (test code = 6 2-16 8933970875) BUN (test code = 10 mg/dL 7-23 7117592501) GLUCOSE (test code = 123 mg/dL 70-110 H 2634479230) CREATININE (test code = 0.50 mg/dL 0.50-1.04 8897772935) CALCIUM (test code = 8.6 mg/dL 8.6-10.6 4449260678) eGFR (test code = 123.4 mL/min/1.73m2 6479858364) EMANI (test code = EMANI) Association of [...] tests). Lab Interpretation Abnormal (test code = 59484-5[facility] 21:11:14 Test Item Value Reference Range Interpretation Comments POCT GLU (test code = 9953998304) 122 mg/dL 70-110 H Lab Interpretation (test code = Abnormal 27390-9) [facility]2023-03-22 17:11:57 Test Item Value Reference Range Interpretation Comments POCT GLU (test code = 3473018277) 141 mg/dL 70-110 H Lab Interpretation (test code = Abnormal 15692-6) [facility] WITH [id number] 16:43:19 Test Item Value Reference Range Interpretation [...] RDW-SD (test code = 45.3 fL 39.0-49.9 85740-6) RDW-CV (test code = 14.1 % 12.0-15.5 788-0) PLT (test code = 222 See_Comment [Automated 777-3) message] The sy stem which generated this result transmitted reference range : 166 - 358 10*3/ ?L. The reference r oralia was not used to interpret this result as normal/abnormal . MPV (test code = 10.1 fL 9.5-12.9 83409-1) NRBC/100 WBC (test 0.0 See_Comment [Automat ed code = 7434266824) message] The system which generated this result transmitted reference range : 0.0 - 10.0 /100 WBCs. The refer ence range was not u sed to interpret th is result as normal/abnormal . NRBC x10^3 (test code See_Comment [Auto mated = 8043154186) message] The s ystem which generated this result transmitted reference range : 10*3/?L. The reference range was not used to interpret this result as normal/abnormal . GRAN MAT (NEUT) % 66.5 % (test code = 770-8) IMM GRAN % (test code 0.20 % = 8001861660) LYMPH % (test code = 26.0 % 736-9) MONO % (test code = 7.0 % 5905-5) EOS % (test code = 0.1 % 713-8) BASO % (test code = 0.2 % 706-2) GRAN MAT x10^3(ANC) 5.42 10*3/uL 1.88-7.09 (test code = 8807820585) IMM GRAN x10^3 (test 0.00-0.06 code = 0992504423) LYMPH x10^3 (test code 2.12 10*3/uL 1.32-3.29 = 731-0) MONO x10^3 (test code 0.57 10*3/uL 0.33-0.92 = 742-7) EOS x10^3 (test code = 0.03-0.39 L 711-2) BASO x10^3 (test code 0.01-0.07 = 704-7) Lab Interpretation Abnormal (test code = 87691-7) [facility] WITH [id number] 16:43:19 Test Item Value Reference Range Interpretation Comments WBC (test code = 8.16 See_Comment [Automated 4090-2) message] The sy stem which generated this result transmitted reference range : 4.30 - 11.10 10*3/?L. The reference range was not used to interpret this result as normal/abnormal . RBC (test code = 3.96 See_Comment [Automated 499-8) message] The sy stem which generated this [...] RDW-SD (test code = 45.3 fL 39.0-49.9 74404-4) RDW-CV (test code = 14.1 % 12.0-15.5 788-0) PLT (test code = 222 See_Comment [Automated 777-3) message] The sy stem which generated this result transmitted reference range : 166 - 358 10*3/ ?L. The reference r oralia was not used to interpret this result as normal/abnormal . MPV (test code = 10.1 fL 9.5-12.9 44003-8) NRBC/100 WBC (test 0.0 See_Comment [Automat ed code = 8913707284) message] The system which generated this result transmitted reference range : 0.0 - 10.0 /100 WBCs. The refer ence range was not u sed to interpret th is result as normal/abnormal . NRBC x10^3 (test code See_Comment [Auto mated = 1505813351) message] The s ystem which generated this result transmitted reference range : 10*3/?L. The reference range was not used to interpret this result as normal/abnormal . GRAN MAT (NEUT) % 66.5 % (test code = 770-8) IMM GRAN % (test code 0.20 % = 6492948598) LYMPH % (test code = 26.0 % 736-9) MONO % (test code = 7.0 % 5905-5) EOS % (test code = 0.1 % 713-8) BASO % (test code = 0.2 % 706-2) GRAN MAT x10^3(ANC) 5.42 10*3/uL 1.88-7.09 (test code = 4767435861) IMM GRAN x10^3 (test 0.00-0.06 code = 9275937070) LYMPH x10^3 (test code 2.12 10*3/uL 1.32-3.29 = 731-0) MONO x10^3 (test code 0.57 10*3/uL 0.33-0.92 = 742-7) EOS x10^3 (test code = 0.03-0.39 L 711-2) BASO x10^3 (test code 0.01-0.07 = 704-7) Lab Interpretation Abnormal (test code = 51566-4) [facility] GLUCOSE (AUTOMATED)2023-03-22 12:42:49 Test Item Value Reference Range Interpretation Comments POCT GLU (test code = 4029358217) 115 mg/dL 70-110 H Lab Interpretation (test code = Abnormal 57059-2) [facility] GLUCOSE (AUTOMATED)2023-03-22 12:42:49 Test Item Value Reference Range Interpretation Comments POCT GLU (test code = 9665036916) 115 mg/dL 70-110 H Lab Interpretation (test code = Abnormal 57867-6) [facility] WITH [id number] 11:26:21 Test Item Value Reference Range Interpretation Comments WBC (test code = 8.85 See_Comment [Automated 6690-2) message] The sy stem which generated this result transmitted reference range : 4.30 - 11.10 10*3/?L. The reference range was not used to interpret this result as normal/abnormal . RBC (test code = 3.62 See_Comment L [Automated 279-8) message] The sy stem which generated this [...] RDW-SD (test code = 45.7 fL 39.0-49.9 47717-1) RDW-CV (test code = 14.1 % 12.0-15.5 788-0) PLT (test code = 187 See_Comment [Automated 777-3) message] The sy stem which generated this result transmitted reference range : 166 - 358 10*3/ ?L. The reference r oralia was not used to interpret this result as normal/abnormal . MPV (test code = 10.1 fL 9.5-12.9 72885-4) IPF % (test code = 3.3 % 1.3-7.7 Platelet count 1653443566) measured by fluorescence method. NRBC/100 WBC (test 0.0 See_Comment [Automat ed code = 1947907903) message] The system which generated this result transmitted reference range : 0.0 - 10.0 /100 WBCs. The refer ence range was not u sed to interpret th is result as normal/abnormal . NRBC x10^3 (test code See_Comment [Auto mated = 8245772253) message] The s ystem which generated this result transmitted reference range : 10*3/?L. The reference range was not used to interpret this result as normal/abnormal . GRAN MAT (NEUT) % 72.3 % (test code = 770-8) IMM GRAN % (test code 0.30 % = 4130651335) LYMPH % (test code = 18.3 % 736-9) MONO % (test code = 8.7 % 5905-5) EOS % (test code = 0.1 % 713-8) BASO % (test code = 0.3 % 706-2) GRAN MAT x10^3(ANC) 6.39 10*3/uL 1.88-7.09 (test code = 9826087256) IMM GRAN x10^3 (test 0.03 10*3/uL 0.00-0.06 code = 5297490425) LYMPH x10^3 (test code 1.62 10*3/uL 1.32-3.29 = 731-0) MONO x10^3 (test code 0.77 10*3/uL 0.33-0.92 = 742-7) EOS x10^3 (test code = 0.03-0.39 L 711-2) BASO x10^3 (test code 0.03 10*3/uL 0.01-0.07 = 704-7) Lab Interpretation Abnormal (test code = 12146-7) [facility] METABOLIC PANEL (NA, K, CL, CO2, GLUCOSE, BUN, CREATININE, CA)2023-03-22 11:12:01 Test Item Value Reference Range Interpretation Comments NA (test code = 139 mmol/L 135-145 0022228774) K (test code = 3.0 mmol/L 3.5-5.0 L 6810331028) CL (test code = 112 mmol/L 98-108 H 4037991173) CO2 TOTAL (test code = 20 mmol/L 23-31 L 0127022818) AGAP (test code = 7 2-16 7279294753) BUN (test code = 15 mg/dL 7-23 4983097143) GLUCOSE (test code = 112 mg/dL 70-110 H 4070261084) CREATININE (test code = 0.40 mg/dL 0.50-1.04 L 5547591662) CALCIUM (test code = 7.4 mg/dL 8.6-10.6 L 4251750081) eGFR (test code = 159.7 mL/min/1.73m2 0872805619) EMANI (test code = EMANI) Association of [...] tests). Lab Interpretation Abnormal (test code = 66369-0) [facility] 11:12:01 Test Item Value Reference Range Interpretation Comments MAGNESIUM (test code = 2061905166) 1.5 mg/dL 1.7-2.4 L Lab Interpretation (test code = Abnormal 12454-9) [facility] 11:12:01 Test Item Value Reference Range Interpretation Comments PHOSPHORUS (test code = 6433321638) 3.0 mg/dL 2.5-5.0 Lab Interpretation (test code = Normal 84193-6) [facility] 11:12:01 Test Item Value Reference Range Interpretation Comments PHOSPHORUS (test code = 9705435600) 3.0 mg/dL 2.5-5.0 Lab Interpretation (test code = Normal 44993-1) [facility]:12[facility]01 Test Item Value Reference Range Interpretation Comments MAGNESIUM (test code = 5073264995) 1.5 mg/dL 1.7-2.4 L Lab Interpretation (test code = Abnormal 25843-3) [facility] (NA, K, CL, CO2, GLUCOSE, BUN, CREATININE, CA)2023-03-22 11:12:01 Test Item Value Reference Range Interpretation Comments NA (test code = 139 mmol/L 135-145 3049505069) K (test code = 3.0 mmol/L 3.5-5.0 L 2570472708) CL (test code = 112 mmol/L 98-108 H 9915512001) CO2 TOTAL (test code = 20 mmol/L 23-31 L 4876223430) AGAP (test code = 7 2-16 3987578190) BUN (test code = 15 mg/dL 02-09479) GLUCOSE (test code = 112 mg/dL 70-110 H 2611734599) CREATININE (test code = 0.40 mg/dL 0.50-1.04 L 1394538380) CALCIUM (test code = 7.4 mg/dL 8.6-10.6 L 0919041603) eGFR (test code = 159.7 mL/min/1.73m2 1745172717) EMANI (test code = EMANI) Association of [...] tests). Lab Interpretation Abnormal (test code = 50274-3) [facility] WITH [id number] 05:20:35 Test Item Value Reference Range Interpretation Comments WBC (test code = 12.93 See_Comment H [Szogyetmj 5009-2) message] The sy stem which generated this [...] RDW-SD (test code = 45.6 fL 39.0-49.9 37386-2) RDW-CV (test code = 14.3 % 12.0-15.5 788-0) PLT (test code = 230 See_Comment [Automated 777-3) message] The sy stem which generated this result transmitted reference range : 166 - 358 10*3/ ?L. The reference r oralia was not used to interpret this result as normal/abnormal . MPV (test code = 10.1 fL 9.5-12.9 45547-8) IPF % (test code = 3.3 % 1.3-7.7 Platelet count 0615949634) measured by fluorescence method. NRBC/100 WBC (test 0.0 See_Comment [Automat ed code = 5663811034) message] The system which generated this result transmitted reference range : 0.0 - 10.0 /100 WBCs. The refer ence range was not u sed to interpret th is result as normal/abnormal . NRBC x10^3 (test code See_Comment [Auto mated = 7663338722) message] The s ystem which generated this result transmitted reference range : 10*3/?L. The reference range was not used to interpret this result as normal/abnormal . GRAN MAT (NEUT) % 78.5 % (test code = 770-8) IMM GRAN % (test code 0.40 % = 4054725348) LYMPH % (test code = 14.2 % 736-9) MONO % (test code = 6.5 % 5905-5) EOS % (test code = 0.2 % 713-8) BASO % (test code = 0.2 % 706-2) GRAN MAT x10^3(ANC) 10.16 10*3/uL 1.88-7.09 H (test code = 5328429142) IMM GRAN x10^3 (test 0.05 10*3/uL 0.00-0.06 code = 2525798956) LYMPH x10^3 (test 1.84 10*3/uL 1.32-3.29 code = 731-0) MONO x10^3 (test code 0.84 10*3/uL 0.33-0.92 = 742-7) EOS x10^3 (test code 0.03-0.39 L = 711-2) BASO x10^3 (test code 0.01-0.07 = 704-7) Lab Interpretation Abnormal (test code = 64102-4) [facility]23-03-22 01:47:33 Test Item Value Reference Range Interpretation Comments POCT GLU (test code = 0992369115) 128 mg/dL 70-110 H Lab Interpretation (test code = Abnormal 59717-8) [facility]TTE[facility]2023-03-21 22:05:13 Test Item Value Reference Range Interpretation Comments Height (test code = 64 in 1292086610) Weight (test code = 147 lbs 4179916675) Systolic BP (test 140 mmHg code = 2413985086) Diastolic BP (test 54 mmHg code = 2556417426) Heart Rate (test code 50 bpm = 6221258450) BSA (test code = 1.72 m2 6180165933) Radiology Study observation (narrative) (test code = 34815-4) EMANI (test code = EMANI) ?Left?Atrium: PFO [...] DetailsA limited echocardiogram was performed using 2D. [facility] GLUCOSE (AUTOMATED)2023-03-21 20:45:43 Test Item Value Reference Range Interpretation Comments POCT GLU (test code = 8265085035) 139 mg/dL 70-110 H Lab Interpretation (test code = Abnormal 70969-3) [facility] Only[facility]2023-03-21 15:41:00 Test Item Value Reference Range Interpretation Comments ABO & RH (test code = 20) [facility] Only[facility]2023-03-21 15:41:00 Test Item Value Reference Range Interpretation Comments ABO & RH (test code = 20) A [facility] Confirm[facility] (Lab Only)2023-03-21 15:41:00 Test Item Value Reference Range Interpretation Comments ABO & RH (test code = 20) A Positive [facility] - ONCE [id number] 15:25:00 Test Item Value Reference Range Interpretation Comments ABO & RH (test code = 20) A POSITIVE IAT (test code = 1185) Negative [facility] [id number] 15:25:00 Test Item Value Reference Range Interpretation Comments ABO & RH (test code = 20) A POSITIVE IAT (test code = 1185) Negative [facility]CE [id number] 15:25:00 Test Item Value Reference Range Interpretation Comments ABO & RH (test code = 20) A POSITIVE IAT (test code = 1185) Negative [facility] Glucose (Age >30 Days) - Code Stroke 2023 14:07:00 Test Item Value Reference Range Interpretation Comments POCT Glu (age>30days) (test code = 112 mg/dL 70-110 A BMP 3342) Lab Interpretation (test code = Abnormal 02349-7) [facility] Glucose (Age >30 Days) - Code Stroke 2023 14:07:00 Test Item Value Reference Range Interpretation Comments POCT Glu (age>30days) (test code = 112 mg/dL 70-110 A BMP 3342) Lab Interpretation (test code = Abnormal 48843-3) [facility] Glucose (Age >30 Days) - Code Stroke 2023 14:07:00 Test Item Value Reference Range Interpretation Comments POCT Glu (age>30days) (test code = 112 mg/dL 70-110 A BMP 3342) Lab Interpretation (test code = Abnormal 90201-2) [facility] [id number] 13:35:07 Test Item Value Reference Range Interpretation Comments TROPONIN I (test code = 0.007 ng/mL <=0.034 9047576506) EMANI (test code = EMANI) Reference (Normal) [...] biotin. Lab Interpretation Normal (test code = 22499-2) [facility] I - Code [id number] 13:35:07 Test Item Value Reference Range Interpretation Comments TROPONIN I (test code = 0.007 ng/mL <=0.034 8633408973) EMANI (test code = EMANI) Reference (Normal) [...] biotin. Lab Interpretation Normal (test code = 09763-7) [facility] I - Code [id number] 13:35:07 Test Item Value Reference Range Interpretation Comments TROPONIN I (test code = 0.007 ng/mL <=0.034 5384349175) EMANI (test code = EMANI) Reference (Normal) [...] biotin. Lab Interpretation Normal (test code = 86929-0) [facility] [id number] 13:33:26 Test Item Value Reference Range Interpretation Comments APTT Patient (test 25 See_Comment [Automat ed code = 3173-2) message] The system which generated this result transmitted reference range : 23 - 38 Seconds . The reference range was not used to interpr et this result as normal/abnormal . EMANI (test code = EMANI) The [facility] patient population mean normal value for aPTT is 30 seconds. Lab Interpretation Normal (test code = 94979-1) [facility] - Code [id number] 13:33:26 Test Item Value Reference Range Interpretation Comments APTT Patient (test 25 See_Comment [Automat ed code = 3173-2) message] The system which generated this result transmitted reference range : 23 - 38 Seconds . The reference range was not used to interpr et this result as normal/abnormal . EMANI (test code = EMANI) The [facility] patient population mean normal value for aPTT is 30 seconds. Lab Interpretation Normal (test code = 80564-3) [facility] - Code [id number] 13:33:26 Test Item Value Reference Range Interpretation Comments APTT Patient (test 25 See_Comment [Automat ed code = 3173-2) message] The system which generated this result transmitted reference range : 23 - 38 Seconds . The reference range was not used to interpr et this result as normal/abnormal . EMANI (test code = EMANI) The [facility] patient population mean normal value for aPTT is 30 seconds. Lab Interpretation Normal (test code = 18540-1) [facility] / [facility]R - Code [id number] 13:31:29 Test Item Value Reference Range Interpretation Comments PROTIME PATIENT (test 12.4 See_Comment [Auto mated message] code = 5964-2) The system Code [employer] generated this result transmitted ref erence range: 12.0 - 1 4.7 Seconds. The re ference range was not u sed to interpret this result as normal/abnor mal. INR (test code = 6301-6) 1.0 Nor mal INR <1.1; Warfarin Therap eutic range 2.0 to 3. 0 or 2.5 to 3.5, dep ending upon the indica tions. Lab Interpretation (test Normal code = 77090-9) [facility] / INR - Code [id number] 13:31:29 Test Item Value Reference Range Interpretation Comments PROTIME PATIENT (test 12.4 See_Comment [Auto mated message] code = 5964-2) The system Code [employer] generated this result transmitted ref erence range: 12.0 - 1 4.7 Seconds. The re ference range was not u sed to interpret this result as normal/abnor mal. INR (test code = 6301-6) 1.0 Nor mal INR <1.1; Warfarin Therap eutic range 2.0 to 3. 0 or 2.5 to 3.5, dep ending upon the indica tions. Lab Interpretation (test Normal code = 39448-9) [facility] / [facility]R - Code [id number] 13:31:29 Test Item Value Reference Range Interpretation Comments PROTIME PATIENT (test 12.4 See_Comment [Auto mated message] code = 5964-2) The system Code [employer] generated this result transmitted ref erence range: 12.0 - 1 4.7 Seconds. The re ference range was not u sed to interpret this result as normal/abnor mal. INR (test code = 6301-6) 1.0 Nor mal INR <1.1; Warfarin Therap eutic range 2.0 to 3. 0 or 2.5 to 3.5, dep ending upon the indica tions. Lab Interpretation (test Normal code = 46124-7) [facility] Metabolic Panel (NA, K, CL, CO2, Glucose, BUN, Creatinine, CA) - Code [id number] 13:23:43 Test Item Value Reference Range Interpretation Comments NA (test code = 141 mmol/L 135-145 5912823993) K (test code = 4.2 mmol/L 3.5-5.0 6239290865) CL (test code = 110 mmol/L 98-108 H 5980232830) CO2 TOTAL (test code = 26 mmol/L 23-31 8944233774) AGAP (test code = 5 2-16 9594899352) BUN (test code = 21 mg/dL 7-23 8937476568) GLUCOSE (test code = 112 mg/dL 70-110 H 6600481475) CREATININE (test code = 0.48 mg/dL 0.50-1.04 L 4300912399) CALCIUM (test code = 9.4 mg/dL 8.6-10.6 0831399883) eGFR (test code = 129.4 mL/min/1.73m2 7906348707) EMANI (test code = EMANI) Association of [...] tests). Lab Interpretation Abnormal (test code = 11264-3) [facility] 13:23:43 Test Item Value Reference Range Interpretation Comments MAGNESIUM (test code = 8013006035) 2.0 mg/dL 1.7-2.4 Lab Interpretation (test code = Normal 54408-0) [facility] without [facility] - Code Rqnmpq3022-89-16 13:13:26 Test Item Value Reference Range Interpretation Comments WBC (test code = 8.45 See_Comment [Automated message] The 6690-2) system which [employer] nerated this result tra nsmitted reference range : 4.30 - 11.10 10*3/?L. The reference range was not used to interpr et this result as normal/abnormal . RBC (test code = 4.75 See_Comment [Automated message] The 789-8) system which [employer] nerated this result tra nsmitted reference range [...] See_Comment [Automated message] The 777-3) system which [employer] nerated this result tra nsmitted reference range : 166 - 358 10*3/?L. Th e reference range was not used to interpr et this result as normal/abnormal . MPV (test code = 9.7 fL 9.5-12.9 65590-6) RDW-CV (test code = 14.2 % 12.0-15.5 788-0) RDW-SD (test code = 46.9 fL 39.0-49.9 69430-6) NRBC x10^3 (test See_Comment [Automated message] The code = 9392043845) system [facility] generated this result tra nsmitted reference range : 10*3/?L. The reference r oralia was not used to int erpret this result as normal/abnormal . NRBC/100 WBC (test 0.0 See_Comment [Automat ed message] The code = 0943343136) system [facility] generated this result tra nsmitted reference range : 0.0 - 10.0 /100 WBCs. The reference range was not used to interpr et this result as normal/abnormal . IPF % (test code = 0696502510) [facility] without Diff - Code Ciklhk9208-19-10 13:13:26 Test Item Value Reference Range Interpretation [...] MPV (test code = 9.7 fL 9.5-12.9 40303-7) RDW-CV (test code = 14.2 % 12.0-15.5 788-0) RDW-SD (test code = 46.9 fL 39.0-49.9 54524-3) NRBC x10^3 (test See_Comment [Automated message] The code = 0229496800) system [facility] generated this result tra nsmitted reference range : 10*3/?L. The reference r oralia was not used to int erpret this result as normal/abnormal . NRBC/100 WBC (test 0.0 See_Comment [Automat ed message] The code = 8060870765) system [facility] generated this result tra nsmitted reference range : 0.0 - 10.0 /100 WBCs. The reference range was not used to interpr et this result as normal/abnormal . IPF % (test code = 8094052549) [facility] without Diff - Code Icengk7416-35-04 13:13:26 Test Item Value Reference Range Interpretation [...] MPV (test code = 9.7 fL 9.5-12.9 94606-0) RDW-CV (test code = 14.2 % 12.0-15.5 788-0) RDW-SD (test code = 46.9 fL 39.0-49.9 82327-8) NRBC x10^3 (test See_Comment [Automated message] The code = 2557542505) system ich generated this result tra nsmitted reference range : 10*3/?L. The reference r oralia was not used to int erpret this result as normal/abnormal . NRBC/100 WBC (test 0.0 See_Comment [Automat ed message] The code = 6719962121) system ich generated this result tra nsmitted reference range : 0.0 - 10.0 /100 WBCs. The reference range was not used to interpr et this result as normal/abnormal . IPF % (test code = 2166502605) [facility] Consult Notes Date/Time Note Provider Source 2023-03-22 15:04:00 3006-35-29K05:04:00Associated Order(s): [facility] CONSULT SPEECH Speech-Language PathologyClinical Swallow Re-Evaluation03/22/2023 Criss Figueroa : 1955 Age/Sex: 68 year old female Time IN/OUT: 1504-1516Referring Physician: AkhilDate of Referral: 03/22/2023 Reason for Referral: stroke activation (dysphagia, speech-language/cognitive-linguistic)Date of Admission/Onset: 2023SUBJECTIVE: Patient awake/alert, accompanied by family, agreeable to participate. Per RN, patient on CLD awaiting this evaluation. OBJECTIVE: is being seen for a clinical swallow evaluation. Per Hospital Course, "Patient is a 68 y/o woman with no concerning PMH history presenting for left-sided weakness onset 8/29 at 23:30. She was transferred from [facility] on 03/19 to main campus in [place], where she was admitted to stroke service. Imagining in [place] showed right ICA occlusion with right FILOMENA, MCA flow from left-sided collaterals. Started on DAPT, statin, and enoxaparin prophylactic. MRI showed multiple infarcts and right FILOMENA-MCA watershed cortical infarct. DSA aborted due to suspicion of aortic dissection which was confirmed and patient was transferred to SICU." This service re-consulted due to "patient with repeat stroke with significant deficits". Please see chart for more details. Pertinent Imaging: CT ANGIOGRAM ABDOMEN/PELVISResult Date: . 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 Superior mesenteric artery, left renal artery, celiac trunk and DALY arise from true lumen and are patent. The false lumen extends into the right renal artery leading to narrowing at the ostium but there is symmetric enhancement of the right kidney when compared to the left kidney. 3. Calcified and noncalcified arteriosclerotic plaques are visualized throughout the aorta and branch arteries resulting in approximately 50% luminal narrowing of the right common iliac artery. Left femoral arterial line terminates at the aortic bifurcation. 4. Two left hepatic lobe focal lesions are favored to represent hemangioma. The larger one measures 6.7 cm in largest dimension, is superficial, and surgical consultation is recommended. Post cholecystectomy. A 1.4 cm left adrenal adenoma. 5. Post procedural changes are seen in the groins bilaterally with fat stranding seen on the left side and a pelvic hematoma measuring about 6 cm seen on the right side without contrast extravasation (5:202). Findings were notified to Dr. Louis by Dr. Dimas around 11:00 AM. Preliminary Report Dictated by Resident: Palmira Dimas I, Carson Renteria MD., have reviewed this study and agree with the above report.MR STROKE BRAIN WO CONTRASTResult Date: 03/20/2023Restricted diffusion indicating acute infarctions in numerous aspect of the right centrum semiovale white matter as well as a right FILOMENA-MCA watershed cortical infarct. Thrombosed right ICA. Preliminary Report Dictated by Resident: David Wilson, Sal Zurita MD., have reviewed this study and agree with the above report.CT ACUTE STROKE ANGIOGRAM HEADResult Date: 2023Total occlusion of the right ICA at the bifurcation. Right FILOMENA and MCA fill through collaterals. discussed with Dr. Gould at 8:33am. Preliminary Report Dictated by Resident: Yogesh Middleton MD., have reviewed this study and agree with the above report.CT ACUTE STROKE ANGIOGRAM NECKResult Date: 2023Total occlusion of the right ICA at the bifurcation. Right FILOMENA and MCA fill through collaterals. discussed with Dr. Gould at 8:33am. Preliminary Report Dictated by Resident: Yogesh Middleton MD., have reviewed this study and agree with the above report.CT ACUTE STROKE HEAD WO CONTRASTResult Date: 2023No acute intracranial abnormality. Preliminary Report Dictated by Resident: Lesley Doll I, Sal Zurita MD., have reviewed this study and agree with the above report. Previous CAR RECORD CLERK Services/Swallow History: Patient seen for clinical swallow evaluation earlier this admission on 2023 at which time she appeared to present with safe, functional swallowing. CAR RECORD CLERK rec'd a regular-textured diet with thin liquids and swallow precautions with plan to follow-up for diet tolerance and completion of speech-language/cognitive evaluation in the coming days. Please see note for more details. No past medical history on file.No past surgical history on file. General Behavior: Alert and CooperativeHearing: WFL for speechRespiratory Status: room airOrientation/Cognition:- Patient oriented to: person, place, time, and situation- Response type: verbal- Follows 1-step commands: YesCurrent Diet Texture/Means of Nutrition: Clear liquid dietOral Motor Exam Dentition and Oral Cavity: natural dentition, moist oral mucosa, and clean oral cavity Face impaired function, characterized by Left facial droop Jaw within normal limits and symmetrical Lips impaired function, characterized by asymmetric labial spread and pucker Tongue impaired function, characterized by tongue deviates to the left slightly Palate Difficult to fully assess/visualize Vocal Quality clear Speech dysarthria CLINICAL SWALLOW EVALUATION Swallows on command: Yes Handles Secretions: Yes Volitional Cough: Did not test Spontaneous Cough: No PO trials were administered by patient and CAR RECORD CLERK. Patient was provided with multiple bites/sips of thin liquid (0), pudding (4), and regular solid (7) consistencies with the following observations: Oral Stage Anterior leakage of bolus not observed Pocketing of bolus not observed Subjectively prolonged [...] oz water challenge Did not test Patient/Family/Staff education: Provided verbally. Patient/family verbalized understanding and is in agreement with plan of care.Patient/Family goal: safe PO intakeASSESSMENT/IMPRESSIONS: Criss Figueroa presents with possible oropharyngeal dysphagia in the setting of multiple right-sided infarcts. Patient noted to have left-sided facial weakness, not seen during initial evaluation on 03/19, but demonstrated adequate bolus acceptance. Laryngeal elevation is subjectively adequate upon palpation and no overt s/sx of aspiration observed (note: aspiration cannot be confirmed nor r/o at bedside without imaging). Patient appears to be grossly safe for a PO diet as below given observations made today but is at some risk for dysphagia/aspiration due to multiple right-sided infarcts. She may eventually benefit from completion of instrumental swallow study (I.e., MBS/FEES), especially if any specific concerns for aspiration/aspiration-related complication arise. Patient may also eventually benefit from speech-language/cognitive evaluation. Patient and family members in agreement. She would benefit from continued CAR RECORD CLERK services while in-house. Prognosis is fair for safe po intake with adherence to texture modifications and adherence to swallow precautions due to above findings.RECOMMENDATIONS/GOALS:1. Recommend patient initiate a easy to chew (IDDSI level 7)-textured diet with thin liquids (IDDSI level 0) and swallow precautions: sit fully upright/in chair, small single bites/sips, alternate bites/sips, and remain upright after PO intake 2. Recommend pt be closely monitored for s/sx of aspiration or signs of a developing respiratory infection (i.e. Throat clearing/coughing with po, wet/gurgled voice, fever spikes 30-60 mins after meals, increased chest congestion, leukocytosis, etc). If observed or suspected, recommend pt be made NPO and notify CAR RECORD CLERK - may consider MBS vs FEES at that time 3. Recommend elevated head of bed and frequent, thorough oral hygiene care.4. Recommend CAR RECORD CLERK therapy 2-5x/wk for 15-45 min/session while in-house to address the following goals:Swallowing:- Patient will tolerate the safest, least restricted po diet texture without overt s/sx of aspiration or other negative effects on medical conditionSLP will also follow up for full speech-language/cognitive evaluation in the coming days as indicated. 5. Discharge rec: Nitish Rios MS, [facility]-SLPSpee Language PathologyOffice Number: [id number]: [phone] [id number] lzwkZT7972-46-58L22:32:49Consult noteTXT1.2.840.595087.1.13.104.2.7.2.34452 9|[id number] for patient oozo52747-1Pxyarem [address] Pj[id number] MXWNLQOOQVZBNHIY6147-77-19O57:32:491.2.840 .370586.1.72.3.15|1.2.840.420364.1.13.104. 2.7.2.727879_[id number] 2023-03-22 08:46:00 6335-34-26O29:46:00Associated Order(s): [facility] CONSULT ADULT OCCUPATIONAL THERAPY [id number] THERAPY NOTE:Duplicate consult. Please discontinue active bedrest order once patient cleared to participate with therapy. PUSHPA Fonseca, FELIPE, C/NDT 66921-7Wnpeuhv mfwlVA5249-52-36T91:56:43Consult noteTXT1.2.840.806013.1.13.104.2.7.2.62092 9|[id number] for patient qxux81290-5Jecesvv [id number] ICUZBMZJPZPHETGM0030-41-30F67:56:431.2.840 .839444.1.72.3.15|1.2.840.761050.1.13.104. 2.7.2.727879_[id number] 2023-03-22 08:45:00 9971-09-23H10:45:00Associated Order(s): [facility] CONSULT ADULT PHYSICAL THERAPY PHYSICAL THERAPY NOTE:Duplicate consult. Please discontinue active bedrest order once patient cleared to participate with therapy. Thank you.Maira Adam PT, DPTUnDriscoll Children's HospitalRehabilitation Services 20026-8Pzqqpyy bawuVK4401-63-02S19:05:02Consult noteTXT1.2.840.396421.1.13.104.2.7.2.00101 9|[id number] for patient czlq79205-3Xjxghmg [id number] WWHJRTHWINXMTVDM4372-37-71Z41:05:021.2.840 .793903.1.72.3.15|1.2.840.052233.1.13.104. 2.7.2.727879_[id number] 2023-03-21 12:08:34 9761-07-36I03:08:34Formatting of this note [facility] is different from the original.VASCULAR SURGERY CONSULTDate of Service: 03/21/2023Requesting Physician: Neuro IR Chief Complaint: aortic dissectionHPIMs. Figueroa is a 68 yo female who presents with aortic dissection. Patient initially presented to [place] with new onset L sided weakness LSN 23:30 on 03/18. Was found to have total right ICA occlusion with R FILOMENA and MCA fill through left-sided collaterals. Got ASA and plavix and was transferred to [place]. MRI showed multiple acute right-sided infarcts as well as right FILOMENA-MCA watershed cortical infarct. Patient went this AM for cerebral angiogram with neuro IR, however upon access to R NURSE CHARGE RN, the wire didn't advance and resistance was met. L NURSE CHARGE RN access was obtained however the wire was looping in the mid abdominal aorta and dissection was suspected at that point. A Lavell type B dissection was confirmed on CTA and we were consulted. Patient has minimal L sided abdominal pain but is otherwise asymptomatic. She says her L weakness has slightly improved since admission. CURRENT HOSPITAL MEDICATIONSCurrent Facility-Administered Medications Medication Dose Route Frequency Last Rate Last Admin atropine injection PRN 0.5 mg at 03/21/23 0952 FENTanyl PF (SUBLIMAZE (PF)) injection Slow IV Push PRN 50 mcg at 03/21/23 1004 heparin 1,000 unit/mL injection PRN 5,000 Units at 03/21/23 1007 lidocaine 1% (XYLOCAINE) 10 mg/mL (1 %) injection PRN 10 mL at 03/21/23 0915 niCARdipine (CARDENE I.V.) 40 mg in NaCL 200 mL (RTU) infusion 2.5-15 mg/hr IV Infusion TITRATE pantoprazole (PROTONIX) injection 40 mg 40 mg Slow IV Push Q24H acetaminophen (TYLENOL) tablet 650 mg 650 mg Oral Q6HPRN 650 mg at 03/20/23 0048 melatonin (MELATIN) tablet 3 mg 3 mg Oral QHS 3 mg at 03/20/23 2042 aspirin chewable tablet 81 mg 81 mg Oral DAILY 81 mg at 03/20/23 1355 atorvastatin (LIPITOR) tablet 40 mg 40 mg Oral QHS 40 mg at 03/20/23 204 clopidogreL (PLAVIX) 75 mg tablet 75 mg 75 mg Oral DAILY 75 mg at 03/20/23 0855 enoxaparin (LOVENOX) injection 40 mg 40 mg Subcutaneous DAILY AT 1700 famotidine (PEPCID AC) tablet 20 mg 20 mg Oral BID 20 mg at 03/20/23 204 labetaloL (NORMODYNE) injection 10 mg 10 mg Slow IV Push U05LUHD NaCl 0.9% (NS) IV infusion 1,000 mL 1,000 mL IV Infusion CONTINUOUS 50 mL/hr at 03/21/23 1156 1,000 mL at 03/21/23 1156 nicotine (NICODERM) 21 mg/24 hr patch 1 Patch 1 Patch Topical Q24H 1 Patch at 03/20/23 1644 Review of Systems(-)=Negative,(+)=PositiveConstituti onal: negativeHEENT: negativeCardio: negativeResp: negativeGI: (+) abdominal painGU: negativeMSS: (+) L weaknessNeuro: negativeHem/Lymphatic: negativeAllergic/Immunologic: negativeHISTORIESNo past medical history on file.No past surgical history on file.No family history on file.Social History Socioeconomic History Marital status: Tobacco Use Smoking status: Every Day Types: Cigarettes Passive exposure: Never Smokeless tobacco: Never Social Determinants of Health Financial Resource Strain: Low Risk (03/20/2023) Overall Financial Resource Strain (CARDIA) Difficulty of Paying Living Expenses: Not hard at all Food Insecurity: No Food Insecurity (03/20/2023) Hunger Vital Sign Worried About Running Out of Food in the Last Year: Never true Ran Out of Food in the Last Year: Never true Transportation Needs: No Transportation Needs (03/20/2023) PRAPARE - Transportation Lack of Transportation (Medical): No Lack of Transportation (Non-Medical): No Physical Activity: Sufficiently Active (03/20/2023) Exercise Vital Sign Days of Exercise per [...] Housing in the Last Year: No Physical ExamVitals: Vitals: 03/21/23 1050 03/21/23 1100 03/21/23 1110 03/21/23 1120 BP: (!) 157/71 (!) 173/70 (!) 183/62 (!) 148/66 BP Location: Patient Position: Pulse: Resp: 16 17 16 16 Temp: TempSrc: SpO2: 98% 98% 96% 98% Weight: Height: (-)=Negative,(+)=PositiveGeneral: awake, alertHEENT: normocephalic atraumaticRespiratory: clear to auscultation bilaterallyCardio: sinus bradycardia, HR 40-50 asymptomatic. BP systolic's 180's . Bilateral carotid pulses, bilateral palpable radial pulses, sheath still present on L femoral stick site sutured in place, R femoral pulse palpable, palpable DP pulses. Abdomen: negative and NT/NDRectal: not testedMusculoskeletal: weakness LUESkin: negativeNeurologic: no focal deficitsPsychiatric: alert, oriented, with appropriate affectLABORATORYLabs reviewedRADIOLOGYRadiology Reviewed PATHOLOGYN/aASSESSMENT/PLAN:Ms. Figueroa is a 68 yo female who presents with aortic dissection. Initially presented to [facility] with R ICA occlusive stroke and L sided weakness. Attempted to undergo cerebral angiogram with neuro IR this AM, however aortic dissection flap created during procedure (Lavell B). Patient has mild L abdominal pain but is otherwise asymptomatic with pulses intact. Neuro: monitor neuro exam, f/u neurology recs, continue ASA and plavix. Q1H neuro checks. CV: Systolic BP goal <120, started cardene gtt (held on BB given bradycardia down to 40's). Monitor bradycardia. Catheter still in L groin stick site - will remove and hold pressure. Resp: no acute concerns GI: NPO, gentle IVF. Liver mass seen on CT will f/u final read and discuss with patient. : kwan in place, monitor UOPEndo: no current concernsMSK: lie flat per neuro IR protocolHeme: q6h CBC, transfuse for Hgb >7 ID: no current concerns Dispo: SICU, transferred to vascular surgery serviceErin MD LeonardGeneral Surgery PGY-4 ssociated attestation - Tereso Membreno MD - 03/21/2023 1:00 PM CDT This is a patient who presents for iatrogenic aortic dissection. Patient was undergoing an arteriogram directed at evaluating for recent stroke and aortic dissection was noted. Patient continues to have palpable pulses in all 4 extremities and minimal complaints. CT scan demonstrates what amounts to a type B aortic dissection. There is no visceral malperfusion although the right renal artery appears to be somewhat narrowed by the dissection. We will admit her to the intensive care unit for blood pressure control and monitoring. We will plan on a repeat CAT scan if this is stable she will probably not need specific treatment.05417-6Grikqpx bzsrWV7170074Wnj, Mitchell1.2.840.096419.1.13.104.2.7.2.8369 68CzoTwcrcnrtQG4541-45-42H82:00:33Consult noteTXT1.2.840.650631.1.13.104.2.7.2.02767 9|[id number] for patient edam60190-7Xgmwcsr noteLNUT[address] NeuuWilepjociTipdxcyhkZGMG9091629822SVPNYW GXJVXCTXGUGSAMPK7814-09-06B94:00:331.2.840 .227533.1.72.3.15|1.2.840.679514.1.13.104. 2.7.2.727879_[id number] 2023-03-20 10:42:36 0239-83-00V16:42:36Associated Order(s): [facility] - Health CONSULT [place]-ADULT Medicare part A: [id number] delivered from materials mgmt requested, patient does not have DME coverage.HH with [facility] ([place]) [place] [address], P: [phone] / [phone], F: [phone] referral sent.Care Management Social Functional AssessmentPatient Name: Criss Figueroa Age: [age] year old Sex: female admit date: N/ACM spoke with patient/family to complete SFA. Role of Care Management explained. Initial CM screening and initial discharge plan established. CM anticipates patient to discharge to prior living situation and to be provided information on after care, medication management, and follow-ups prior to discharge. No discharge barriers identified. Current diagnosis and co-morbidities: CVA, old, hemiparesis [I69.359] Readmission Questions:Was patient discharged from any acute care hospital within the last 30 days: NoAlcohol Use Screening (AUDIT-C)Q1: How often do you have a drink containing alcohol?: NeverSCORE: 1Did patient elect to have resources provided: NoSocial Functional Assessment:Mental Status: Alert & Oriented to Person,Place & TimeInformation given by: SelfPatient's support system and landcare facilitator: Child;OtherName and phone number of primary caregiver/support system: TracyCatherine sibling [phone], Anthony Ibarra child [phone], Flo Benitezez child [phone], Feng palma [phone] Arrangement: Apartment: DownstairsIn the last 12 months, was there a time when you were not able to pay the mortgage or rent on time?: NoIn the last 12 months, how many places have you lived?: 2 (planned)In the last 12 months, was there a time when you did not have a steady place to sleep or slept in a senior care (including now)?: NoPersons living in home: OtherNames & numbers of persons living in home: Feng palma [phone] you , , , , never , or living with a partner?: WidowedIn a typical week, how many times do you talk on the phone with family, friends, or neighbors?: More than three times a weekBaseline functional assessment-ADLS: IndependentCurrent functional status same as prior: NoCurrent functional status- ambulation: IndependentCurrent functional status- personal care: IndependentCurrent functional status- driving: DependentCurrent functional status- grocery shopping: Requires minimal to moderate assistanceCurrent functional status-house keeping: Requires minimal to moderate assistanceCurrent functional status- meal preparation: Requires minimal to moderate assistanceOn average, how many days per week do you engage in moderate to strenuous exercise (like a brisk walk)?: 7 daysOn average, how many minutes do you engage in exercise at this level?: 150+ minDo you have a PCP?: NoRefered to: [facility]cp set up [facility] Care Agency: [facility] Services: Jairon Company: NoEquipment: NoneHemodialysis: NoCommunity resources utilized: SSA/SSI/MedicaidFunding Resources: Medicare A;CommercialPrescription coverage plan: CommercialHow hard is it for you to pay for the very basics like food, housing, medical care, and heating?: Not hard at allWithin the past 12 months, you worried that your food would run out before you got the money to buy more.: Never trueWithin the past 12 months, the food you bought just didn't last and you didn't have money to get more.: Never trueAnticipated services prior to disharge: Consult;Continue Medical Eval;IV Antibiotic Therapy;Lab Values;MRI/CT/US;PT/OT/ST;Reassess prior to discharge;ROCAEL/TTEExpected mode of discharge transportation: Personal vehicle;Same as support systemIn the past 12 months, has lack of transportation kept you from medical appointments or from getting medications?: NoIn the past 12 months, has lack of transportation kept you from meetings, work, or from getting things needed for daily living?: NoAdditional info required for discharge planning: Pending medical evaluation;Pending P/T O/T recommendationRecommended discharge plan: Home;Home with new Home Health;DME ReferralSFA Complete:Social Functional Assessment complete: KAYA Ferguson, RNCare [phone] F:[phone] Management Reshma Hancock Adult Inpatient Pager for weekends and holidays [phone] signed by Tirso Monsalve, RN at 03/20/2023 10:44 AM [id number] dicpNA5665-73-82D78:44:23Consult [id number] 9|[id number] for patient [id number] noteLNUT09 Carter [id number] WPNYFNRYYOEXOAUF3174-21-18M87:44:231.2.840 .391162.1.72.3.15|1.2.840.399613.1.13.104. [id number] 2023-03-20 09:10:00 [id number]:10:00Associated Order(s): [facility] - Health CONSULT ADULT OCCUPATIONAL THERAPY OT GENERAL EVALUATIONConsult received via [employer], EMR reviewed and evaluation completed 03/20/23. Patient referred to occupational therapy for evaluation and treatment secondary to L sided weakness. Patient agreeable to participate in occupational therapy.Discharge Recommendations: The patient would benefit from continued therapy post-discharge from hospital. The patient reports that she does not have reliable transportation to and from outpatient appointments, therefore OT recommending home health OT/PT if applicable.Therapy Needs and Potential:- Patient would benefit from continued skilled occupational therapy services to address: Decline in basic activities of daily living, Decline in instrumental activities of daily living, Decreased strength, Decreased range of motion, Decreased endurance, and Decreased coordination - Patient demonstrates good potential to improve and meet therapy goals with further skilled occupational therapy services.- Patient appears motivated to improve their B/IADLs and return to their previous level of function.- Patient demonstrates ability to tolerate at least 30-60 minutes of active participation in occupational therapy.- Patient able to follow commands: 1-step Yes, Multi-step Yes, Inconsistencies NoChallenges to Home Transition:- Requires physical assistance for BADLS- Requires physical assistance for IADLS- Requires supervision or verbal cues for BADLS- Requires supervision or verbal cues for IADLS- Limited caregiver availability- Increased risk of falls- Environmental barriersEquipment Recommendations:Bedside commode, Tub transfer bench, and Grab barsPLAN OF CARE: At least 3x/week Precautions: Weight bearing status: NAGeneral: PPE Utilized: Gloves, Fall, BP < 220/110 for first 24 hours;Bracing: N/ACurrent Occupational Performance and/or Treatment:AM-PAC 6 Clicks (Raw Score 0=Dependent, 24=Independent; Low function Raw Score 0= Dependent, 32=Independent):Raw Score - Daily Activity: 13T-Scale Score - Daily Activity: 32.03 Grooming: Supervision, to wipe face bed level with ragUB Dressing: Moderate Assistance, to doff gown by pulling over head bed level; to don new gown from front pending transportation to [facility] Dressing: Moderate Assistance, to don socks bed levelFeeding: Not Tested - The patient is NPO at this time secondary to pending imaging and procedure.Functional Mobility: Pt found semireclining in bed with HOB elevated. The patient reports that she just finished working with physical therapy staff and is feeling fatigued at this time with dizziness. Patient seen for bed level evaluation at this time secondary to these symptoms. Patient/caregiver educated on: Adaptive equipment, ADL training, AROM/Strengthening (of OMAR UE with more emphasis on L hand due to lack of fine motor coordination) Role of OT, and Safety awarenessPatient left semireclining in bed with call bradshaw in reach. Visitor present and OMRA LE elevated. Please, see full evaluation below for more detail. OT EVALUATION:68 year old female Admit date: 2023 Date of onset: 3Admit Diagnosis: CVA, old, hemiparesis [I69.359]OT Diagnosis: Impaired BADL independence, Impaired IADL independence, Weakness, Decreased endurance, and Limited joint ROMPMH: No past medical history on file.PSH: No past surgical history on file.PAIN: Denies pain before and after session. OCCUPATIONAL ROLES/HOME ENVIRONMENT:Home environment: Lives alone in a first floor apartment in [place]. The patient reports that her boyfriend stays with her often but works throughout the day therefore he is not available for support. The patient reports that she has a brother and sister but they do not live close to support her as needed. 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 The patient reports that in her free time she enjoys riding around and going to the movies with her boyfriend.Function prior to admission: Prior to onset of symptoms - Household ambulation, Community ambulation, Independent with BADLs, and Independent with IADLs Suspected ischemic or hemorraghic stroke patient: YES, Defer to PTEquipment prior to admission: NonePERFORMANCE SKILLS/FACTORS: Areas marked NT as patient reports she just finished working with physical therapy staff and is feeling dizzy at this time. The patient requests OT return at a later time for EOB/OOB activity.UE Muscle Tone: bilateral WNLUE ROM: bilateral AROM WFL except shoulder flexion limited bilaterally; pt reports possible rotator cuff injury to R shoulder from repetitive scrubbing of pots/grills at work causing pain. UE Strength: R UE (4-/5), L UE (3+/5)Hand dominance: right Dexterity/Coordination: left Fine motor skills Impaired - pt reports weakness in the left hand intermittently after working all day at [employer] The patient reports that when the weakness onsets, she drops objects and has trouble with her grasping.Endurance - Sitting: Fair+ Standing: NTSitting Balance - Static: Good against HOB Dynamic: NTStanding: Balance - Static NT Dynamic: NTDizziness: YesSkin Integrity: No breakdown noted, but defer full skin assessment to nursing staff.Sensation: bilateral Intact to light touch and Patient denies numbness and tinging.Oral Motor: WFL - pt was NPO pending procedure and MRI at time of OT evaluation.Communication: Able to verbalize needs Yes Other: N/AVision: WFL Yes Other: reading glassesHearing: good; no issues reportedCOGNITION: Orientation: person, place, date/time, and situationFollows Commands: 1-step Yes Multi-step Yes Inconsistencies NoSafety Awareness/Judgment: GoodPROBLEM LIST: Decreased independence with B/IADL, Decreased functional ROM, and Decreased strength/endurance for functional activityREHAB POTENTIAL/PROGNOSIS: goodPATIENT/FAMILY GOALS: The patient and her boyfriend report that they want the patient to have a resolution of symptoms and gained independence. The patient requests to speak to care management regarding her concerns with being out of work without her care home at this time.TREATMENT/INTERVENTION PLAN: Patient/Caregiver Education, Equipment recommendations, Daily living activities, and Therapeutic exercisesGOAL(S): By discharge, patient will increase independence in daily living skills as follows: 1 Patient will perform toilet transfer with minimal assistance.2 Patient will perform 1 grooming task while standing with supervision.3 Patient will perform simulated tub/shower transfer with supervision.4 Patient will don/doff UB clothing with supervision.5 Patient will don/doff LB clothing with supervision using adaptive equipment as needed.6 Patient will increase endurance for functional activity as evidenced by ability to sustain 30 minutes of active participation. 7 Patient/caregiver will verbalize/demonstrate understanding/proficiency in the following home programs: Adaptive equipment and 8 Dexterity/fine motor coordination//General StrengtheningPATIENT-FAMILY TEACHINGPatient provided with preferred teaching of verbal information and demonstration on Adaptive equipment, ADL training, AROM/Strengthening (of OMAR UE with more emphasis on L hand due to lack of fine motor coordination) Role of OT, and Safety awareness. Shows readiness to learn. Verbal instruction and Demonstration teaching provided. Individual is able to read and verbalizes understanding of teaching provided.Leyda Vazquez OTR, OTDPager #: [phone] Total Timed Treatment Codes: 8 MinTotal Treatment Time: 19 MinPatient Complexity Level Moderate - An occupational therapy evaluation of moderate complexity was completed using the above tests and measures. The following information was obtained: An occupational profile and medical and therapy history, including an expanded review of medical and/or therapy records and additional review of physical, cognitive, or psychosocial history related to current functional performance, Various standardized and non-standardized assessments were used to identify at least 3-5 performance deficits related to physical, cognitive, or psychosocial skills that result in activity limitations and/or participation restrictions, and Clinical decision making of moderate analytic complexity, which includes an analysis of the occupational profile, analysis of data from detailed assessment(s), and consideration of several treatment options. Patient may present with comorbidities that affect occupational performance. Minimal to moderate modification of tasks or assistance (e.g., physical or verbal) with assessment(s) is necessary to enable patient to complete evaluation component. [id number] [id number]:31:19Consult [id number] 9|[id number] for patient [id number] noteLNUT[address] Qn[id number] XQQUIFITQFYJIJSN4544-59-37D99:31:191.2.840 .108053.1.72.3.15|1.2.840.886667.1.13.104. [id number] 2023-03-20 08:40:00 4075-15-31Q73:40:00Associated Order(s): [facility] CONSULT ADULT PHYSICAL THERAPY Patient agreeable to working with physical therapy. Patient met supine.Recommend nursing staff utilize RW to safely assist patient with mobility out of the bed or chair.PHYSICAL THERAPY EVALUATIONConsult received, chart reviewed and evaluation complete this date. Patient is referred to PT for evaluation and treatment. Patient is a 68 year old female who presents to hospital for CVA, old, hemiparesis [I69.359] PMHx of the following stroke risk factors: smoking (25 pack year), who presented with left sided weakness, LSN: 23:30 03/18, NIHSS 2. Transferred from [facility]. In ED: CT head showed no acute intracranial abnormality, CTA head and neck showed total occlusion of right ICA at bifurcation and right FILOMENA and MCA fill through collaterals. Discharge Recommendations: Therapy Needs and Potential:Patient would benefit from continued physical therapy services to address: decline in bed mobility decline in transfers decline in gait and/or balance decreased strength decreased endurancePatient demonstrates good potential to improve and meet therapy goals with further physical therapy services.Patient appears motivated to improve their functional mobility and return to their previous level of function.Challenges to Home Transition: increased risk of fallsdecreased caregiver availabilityEquipment recommendations:rolling walkerRolling Walker or Rollator:I certify that Criss Figueroa is under my care and that I had a [id number]-rz-avec encounter with this patient on: 03/20/23 .The primary reason for the durable medical equipment: Difficulty in walking.I am ordering and certify that, based on my findings, the following is medically necessary durable medical equipment: Rolling walker . Patient has a mobility limitation that significantly impairs his/her ability to participate in one or more mobility-related activities of daily living (MRADL) in the home and the patient is able to safely use the walker and the functional mobility deficit can be sufficiently resolved with use of a walker. Height: Ht Readings from Last 1 Encounters: 03/19/23 5' 4" (1.626 m) Weight: Wt Readings from Last 1 Encounters: 03/19/23 147 lb (66.7 kg) Duration of need: 99 months. Current Functional Status and/or Treatment: AM-PAC 6 Clicks (Raw Score 0=Dependent, 24=Independent; Low function Raw Score 0= Dependent, 32=Independent):Raw Score - Basic Mobility : 16T-Scale Score - Basic Mobility : 38.32 Bed Mobility:Rolling: SupervisionSupine-sit: Minimal AssistanceScooting to edge of bed: Moderate AssistanceSit to supine: Minimal Assistance compensatory strategies to complete rolling without using side rails to simulate bed at homepatient given verbal cues for proper body mechanics during transition supine to sitprovided min assistance to swing both LE in/out of bedprovided min assistance for elevation of the upper body to complete transition to upright position Incorporated sitting balance activities while sitting on the EOB.Initiated with static sitting balance and progressed to dynamic sitting balance within FLAQUITA.Manual facilitation for postural correction and to maintain midline position in sitting position. Anterior cueing to reduce retropulsion Transfers: Sit to stand: Moderate Assistance using Rolling WalkerStand to sit: Moderate Assistance using Rolling WalkerStatic/dynamic standing balance: Poor+Verbal cueing provided for correct hand placement and correct use of AD Patient provided education on proper feet placement, and proper trunk movement for safety and stability during STS.Ambulation: Assisted patient with ambulation as follows: 20 feet using Rolling Walker and Moderate Assistance.Patient presenting with Step-to gait pattern. Patient has short step length with the left LE and needed mod assist for weight shifting, sequencing, and activation of LE muscles for safety and stability.Therapeutic exercise: patient educated in Fall prevention, General strengthening, Positioning, Relaxation/breathing techniques, and Safety awareness., instructed patient in the following: ankle pumps, glut sets, heel slides, hip abduction/adduction, long arc quads, seated marching, patient/caregiver instructed to perform HEP 1-2 times per day, 10 repetitions., and patient/caregiver demonstrates understanding of instructions.Patient educated on functional mobility and the importance/benefits of active and safe performance to help prevent BLE DVT's, PNA, overall decrease in mobility, strength, and endurance, skin breakdownWeight shifting in supine and sitting position with correct frequency and duration to help prevent any possible skin breakdown.Functional Outcome Measures: (Values within the past 12 hours) Tinetti Gait Score- # / 12Initiation of gait: No hesitancyStep length: Only on foot passes the otherFoot clearance: Both feet completely clear floorStep Symmetry: Step lengths not equalStep continuity: Stopping/dis-continuous stepsPath: Mild/moderate deviation or uses ADTrunk: Marked sway or uses ADWalking: Heels apartTinetti Gait Score: 5Tinetti Gait Score Interpretation: < 7 - Increased risk for fallsAfter session, patient semi reclined in bed. Call button provided. Nurse notified.PLAN OF CARE: While in the hospital, PT will follow patient at least 3-5 times per week,once or twice a day, per patient's tolerance and needs.See below for complete details. Admit Date: 2023 Hospital Diagnosis:CVA, old, hemiparesis [I69.359] PMHx of the following stroke risk factors: smoking (25 pack year), who presented with left sided weakness, LSN: 23:30 03/18, NIHSS 2. Transferred from [facility]. In ED: CT head showed no acute intracranial abnormality, CTA head and neck showed total occlusion of right ICA at bifurcation and right FILOMENA and MCA fill through collaterals. PT Diagnosis: Difficulty walking, Weakness, Abnormality of gait and balance, and dizzinessWeight Bearing Precaution: NA General Precautions: PPE used:Gloves, General, Fall,Bracing/Cast present or required:N/APMH: No past medical history on file.PSH: No past surgical history on file.Prior Living Situation: lives alone and in a apartment, has a boyfriend that comes and help herDME: No devicePrior level of Mobility: community ambulation, house hold ambulation Suspected ischemic or hemorraghic stroke:Yes, Pre-Stroke Modified Beaufort Score: 0 - No symptomsSubjective: "I need to go back to work"Patient/Family Goals: To go homePatient/Family verbalizes understanding of condition: Yes PAIN: -Pain Description: aching-Pain Location: right UE-Pain rating before treatment: does not rate, After treatment: does not rate-Pain Management: Nursing Notified and Repositioning ProvidedCOMMUNICATIONPrimary Language: Mexican Able to Verbalize needs: Yes Vision:good; no issues reported Hearing:good; no issues reported ORIENTATION/COGNITION:Oriented to: person, place, date/time, and situation Awake: Yes Alert: Yes Dizzy: Yes , while standing and walking but no LOB Follows Commands: Yes 1-Step Yes Multi-Step Yes Inconsistent: No NEUROLOGICALLight Touch: within functional limits bilateral LETone: intact BALANCE:Sitting: Static: Good Dynamic: GoodStanding: Static: Fair Dynamic: Poor+RANGE OF MOTION: within functional limits bilateral LE STRENGTH: 5/5 (Normal) right LE , 4/5 left LE ENDURANCE: Fair, Room air SKIN INTEGRITY: intact PROBLEM LIST: Decline in bed mobility, Decline in gait, Decline in transfers, Decreased strength, Decreased endurance, Decreased balance, and PainASSESSMENT: Patient is a 68 year old female seen secondary to the above listed diagnosis. Patient presents with left side weakness and decline in functional mobility. Patient requires physical assistance with bed mobility, transfers, balance and ambulation. Patient would benefit from continued PT services to address the above listed deficits to maximize independence and safety with functional mobility. Patient will also benefit from post acute Physical Therapy services in a Home health setting to continue therapeutic intervention to improve functional mobility with increased safety and return to PLOF . With patient's motivation and active participation, patient can reasonably make measurable improvement in functional mobility. Rehabilitation Potential: good Goals: The following goals are to maximize independence and safety with functional mobility to eventually return to prior living situation and prior functional status. Upon discharge, patient and/or family will demonstrate the followin. Rolling: IndependentSupine-sit: IndependentSit to supine: Independent2. sit-stand: Independent3. Independent with ambulation, Feet: 300 using least assistive device. 4. Demonstrate or verbalize understanding of home exercise program in order to continue with their rehab on their own.Treatment Plan: Gait training, Therapeutic exercise, Transfer training, Balance training, Bed mobility training, Equipment needs assessment, Safety education, patient/caregiver education, and Neuromuscular Re-EducationPATIENT EDUCATION: Patient provided with preferred teaching of verbal information on role of PT, plan of care, HEP. Shows readiness to learn. Verbal instruction teaching provided. Individual verbalizes understanding of teaching provided.Total Time Tx Codes in Minutes: 24 minTotal Treatment Time in Minutes: 34 minMaira Adam PT, DPTUnDriscoll Children's HospitalRehabilitation Services A physical therapy evaluation of moderate complexity was completed based on meeting the criteria below:A history of present problem with at least 1-2 personal factors (includes environmental factors) and/or comorbidities that impact the plan of careAn examination of body systems using standardized tests and measures in addressing at least 3 or more elements from any of the following: body structures and functions, activity limitations and/or participation restrictionsAn evolving clinical presentation with changing characteristics [id number] ucuiAC6905-18-01T51:52:11Consult [id number] 9|[id number] for patient pyrq35706-2Hvfblvz note[address] Iy[id number] SEHVFPMFDYEVXQEP3451-70-87J56:52:111.2.840 .160425.1.72.3.15|1.2.840.179558.1.13.104. [id number] 2023 15:16:00 9529-76-10S48:16:00Associated Order(s): [facility] CONSULT SPEECH Speech-Language PathologyClinical Swallow Evaluation2023 Criss Figueroa : 1955 Age/Sex: 68 year old female Time IN/OUT: 1516-1518Referring Physician: Chacorta Date of Referral: 2023Reason for Referral: stroke activation (dysphagia, speech-language/cognitive-linguistic)Date of Admission/Onset: 2023SUBJECTIVE: Patient awake/alert, accompanied by multiple family members, agreeable to participate. OBJECTIVE: is being seen for a clinical swallow evaluation. Per (incomplete, may be subject to change) Neurology note, "Criss Figueroa is a 68 year old female with the following stroke factors: current smoker (25 pack year hx, half packs a day) who presented with CC of left-sided weakness prompting stroke activation. CT head did not show any intracranial abnormality. CTA showed total occlusion of the right ICA at the bifurcation, and Right FILOMENA and MCA fill through collaterals" MRI has been ordered. Pertinent Imaging: CT ACUTE STROKE ANGIOGRAM HEADResult Date: 2023Total occlusion of the right ICA at the bifurcation. Right FILOMENA and MCA fill through collaterals. discussed with Dr. Gould at 8:33am. Preliminary Report Dictated by Resident: Yogesh Middleton MD., have reviewed this study and agree with the above report.CT ACUTE STROKE ANGIOGRAM NECKResult Date: 2023Total occlusion of the right ICA at the bifurcation. Right FILOMENA and MCA fill through collaterals. discussed with Dr. Gould at 8:33am. Preliminary Report Dictated by Resident: Yogesh Middleton MD., have reviewed this study and agree with the above report.CT ACUTE STROKE HEAD WO CONTRASTResult Date: 2023No acute intracranial abnormality. Preliminary Report Dictated by Resident: Sal Middleton MD., have reviewed this study and agree with the above report. Previous CAR RECORD CLERK Services/Swallow History: None documented or reported No past medical history on file.No past surgical history on file. General Behavior: Alert and CooperativeHearing: WFL for speechRespiratory Status: room airOrientation/Cognition:- Patient oriented to: person, place, time, and situation- Response type: verbal- Follows 1-step commands: YesCurrent Diet Texture/Means of Nutrition: NPO; per pt, OK to eat and snacks seen at bedsideOral Motor Exam Dentition and Oral Cavity: natural dentition, many missing teeth, moist oral mucosa, and clean oral cavity Face within normal limits and symmetrical Jaw within normal limits and symmetrical Lips within normal limits and symmetrical Tongue within normal limits and midline on protrusion Palate Difficult to fully assess/visualize Vocal Quality clear Speech clear/intelligible CLINICAL SWALLOW EVALUATION Swallows on command: Yes Handles Secretions: Yes Volitional Cough: strong Spontaneous Cough: No PO trials were administered by patient. Patient was provided with bites/sips of thin liquid (0) and regular solid (7) consistencies with the following observations: Oral Stage Anterior leakage of bolus not observed Pocketing of bolus not observed Subjectively prolonged [...] oz water challenge passed Patient/Family/Staff education: Provided verbally.Patient/Family goal: safe PO intakeASSESSMENT/IMPRESSIONS: Criss Figueroa appears to present with safe, functional swallowing c/b suspected timely swallow initiation with subjectively adequate laryngeal elevation and no overt s/sx of aspiration observed (Note: aspiration cannot be confirmed nor ruled out without instrumental study/imaging). Patient appears to be safe to continue a PO diet as below but would benefit from at-least 1 additional session, given stroke work-up, to assess diet tolerance and ensure no further CAR RECORD CLERK needs. Prognosis is favorable for safe po intake due to above findingsRECOMMENDATIONS/GOALS:1. Recommend patient continue a regular (IDDSI level 7)-textured diet with thin liquids (IDDSI level 0) and swallow precautions: sit fully upright/in chair and remain upright after PO intake 2. Recommend CAR RECORD CLERK therapy 2-5x/wk for 15-45 min/session while in-house to address the following goals:Swallowing:- Patient will tolerate the safest, least restricted po diet texture without overt s/sx of aspiration or other negative effects on medical condition*Patient may benefit from speech-language/cognitive evaluation in the coming days 3. Discharge recs: IGGY Rios MS, [facility]-SLPSpee Language PathologyOffice Number: [id number]: [phone] [id number] koptKR1309-82-72Q40:56:16Consult noteTXT1.2.840.492238.1.13.104.2.7.2.95901 9|[id number] for patient jijv47333-0Ihkudka note[address] Tn[id number] RECVZDPAEOBNTLIG1687-72-47L12:56:161.2.840 .349477.1.72.3.15|1.2.840.141424.1.13.104. 2.7.2.727879_[id number] History and Physical Notes Date/Time Note Provider Source 2023-03-21 13:23:24 [id number]:23:24Formatting of this [facility] note is different from the original.SICU ADMIT NOTEDate of Service: 03/21/2023 13:25Pre-operative/Admission Diagnosis: Type B Aortic DissectionMonitoring/Support: hemodynamic monitoringHPI: Ms. Figueroa is a 68 yo female who is admitted to SICU for hemodynamic monitoring after type B aortic dissection. Patient initially presented to [facility] with new onset L sided weakness 03/18. Was found to have total right ICA occlusion with R FILOMENA and MCA fill through left-sided collaterals. Got ASA and plavix and was transferred to [place]. MRI showed multiple acute right-sided infarcts as well as right FILOMENA-MCA watershed cortical infarct. Patient went this AM for cerebral angiogram with neuro IR, however upon access to R NURSE CHARGE RN, the wire didn't advance and resistance was met. L NURSE CHARGE RN access was obtained however the wire was [...] Running Out of Food in the Last Year: Never true Ran Out of Food in the Last Year: Never true Transportation Needs: No Transportation Needs (03/20/2023) PRAPARE - Transportation Lack of Transportation (Medical): No Lack of Transportation (Non-Medical): No Physical Activity: Sufficiently Active (03/20/2023) Exercise Vital Sign Days of Exercise per Week: 7 days Minutes of Exercise per Session: 150+ min Stress: Not on file Social Connections: Unknown (03/20/2023) Social Connection and Isolation Panel [NHANES] Frequency of Communication with Friends and Family: More than three times a week Frequency of Social Gatherings with Friends and Family: Not on file Attends Hoahaoism Services: Not on file Active Member of Clubs or Organizations: Not on file Attends Club or Organization Meetings: Not on file Marital Status: Intimate Partner Violence: Not on file Housing Stability: Low Risk (03/20/2023) Housing Stability Vital Sign Unable to Pay for Housing in the Last Year: No Number of Places Lived in the Last Year: 2 Unstable Housing in the Last Year: No CURRENT MEDICATIONS:IVniCARdipine infusion, Last Rate: 2.5 mg/hr (03/21/23 1323)NaCl 0.9% (NS), Last Rate: 1,000 mL (03/21/23 1156) Scheduledpantoprazole (PROTONIX) IV, 40 mg, T45Lyakmmggrr, 3 mg, QHSaspirin, 81 mg, DAILYatorvastatin, 40 mg, QHSclopidogreL, 75 mg, DAILYenoxaparin (LOVENOX) SC Syringe, 40 mg, DAILY AT 1700famotidine, 20 mg, BIDnicotine, 1 Patch, Q24H PRNniCARdipine infusion, 2.5-15 mg/hr, TITRATEacetaminophen, 650 mg, M9NELPedqbzhrdS, 10 mg, T97NIUW Pressors: None Feeds: Orders Placed This Encounter Procedures NPO Except Meds Diet. Vent Settings:SpO2 Av.3 % Min: 93 % Max: 100 %SpO2: 95 %Oxygen mode (O2 device): None (room air) Mechanical Ventilation: Lines/catheters locations:Peripheral IV 03/21/23 1029 Distal;Left;Superior Arm (Active) Peripheral IV 03/21/23 1115 Inferior;Left Arm (Active) Urethral Catheter Single-lumen;Temperature probe 16 fr (Active) Intake/Output:No intake or output data in the 24 hours ending 03/21/23 1325 Physical Exam:Vitals: 03/21/23 1255 BP: Pulse: 50 Resp: 12 Temp: 36.9 ?C (98.4 ?F) SpO2: 95% General: awake, alertHEENT: normocephalic atraumaticRespiratory: clear to auscultation bilaterallyCardio: sinus bradycardia. BP systolic's 180's . Bilateral carotid pulses, bilateral palpable radial pulses. R femoral pulse palpable, palpable DP pulses. Abdomen: negative and NT/NDMusculoskeletal: weakness LUESkin: negativeNeurologic: left lower extremity with some weakness. Strength 4/5 Psychiatric: alert, oriented, with appropriate affectLabs - reviewed, pertinent results as below:Cell countRecent Labs 03/21/2312 WBC 8.45 8.88 HGB 14.5 12.9 MCV 89.9 89.7 HCT 42.7 38.5 PLT 327 288 ChemistryRecent Labs 03/21/2312 NA 141 140 K 4.2 3.8 CL 110* 111* TCO2 26 22* AGAP 5 7 BUN 21 19 CREAT 0.48* 0.50 GLU 112* 109 PHOS -- 3.7 MG 2.0 1.8 CA 9.4 8.4* Coagulation Profile Recent Labs PTPAT 12.4 PTINR 1.0 APTTPAT 25 ImagingMR STROKE BRAIN WO CONTRASTResult Date: 03/20/2023Restricted diffusion indicating acute infarctions in numerous aspect of the right centrum semiovale white matter as well as a right FILOMENA-MCA watershed cortical infarct. Thrombosed right ICA. Preliminary Report Dictated by Resident: David Wilson, Sal Zurita MD., have reviewed this study and agree with the above report.Assessment/Plan:Ms. Figueroa is a 68 yo female who presents with type B aortic dissection. Initially presented to [facility] with R ICA occlusive stroke and L sided weakness. Attempted to undergo cerebral angiogram with neuro IR, however aortic dissection flap created during procedure (Jim Thorpe B). Patient is asymptomatic with pulses intact. NeuroASA 81 mg dailyClopidogrel 75 mg dailyMonitor neuro jyecM0Q neuro checks. 2. CardiovascularSystolic BP goal < 120 mmHgCardene gtt (held on BB given bradycardia down to 40's). Monitor bradycardia. MIVF low rate 50 cc/hr3. RespiratoryO2 per protrocol 4. GastrointestinalNPO5. GenitourinaryFoley in place, monitor UOP, replace electrolytes PRN6. MSK: Lie flat per neuro IR protocol7. KpleD5H CBC, transfuse for Hgb >7 8. IDNot indicated at this time. 9. PPXLovenox 40 mg daily Protonix 40 mg daily10. DispositionSICUPlan discussed with Dr. Maninder MD.Christine Acevedo MDGenemccullough-hyde [facility] Surgery Resident PGY-2 ssociated attestation - Miguel Dickens MD - 03/21/2023 2:32 PM CDT I personally examined the patient on March 21 [address] Acevedo's resident note as written . I actively participated in the decision-making process. Please see the resident's note for additional details. 76683-1Qxoykgb and physical [id number], Luis Diego1.2.840.632581.1.13.104.2.7.2.8369 47DbolmnoUnsrOzvjiNK8701-69-17H28:32:22 History and physical noteTXT1.2.840.772614.1.13.104.2.7.2.72 7879|[id number] for patient bbki26850-2Ibqsdlm and physical kcfeGWLID-RJJNJSZAOF-XZQAZDEEREMMFMH - Health[address] [employer] QxybLpaqpxijrPaskmjbroUXTJ7932410807QGZ YBNNRCIRYEZSRMKIWWU7232-59-64X58:32:221 .2.840.811960.1.72.3.15|1.2.840.632862. 1.13.104.2.7.2.727879_[id number] 2023 11:17:06 4368-05-39N61:17:06Formatting of this [facility] note is different from the original.STROKE SERVICE HISTORY AND PHYSICALDATE OF SERVICE: 2023 18:31CHIEF COMPLAINT: Left sided weaknessHISTORY OF PRESENT ILLNESS Criss Figueroa is a 68 year old female right handed with the following stroke factors: current smoker (25 pack year hx, half packs a day) and no other PMHx presented with CC of Left sided weakness. LSN: 10/16 23:30. Patient says she was walking in her house when all of a sudden she felt heavy in her left leg and left arm. She felt like she was "going sideways" while walking. She slept and woke up at 3:30 am to walk her dog. She had difficulty walking even then. She slept again and woke up at 5:30 for work but felt that she wont be able to go to work. She called her boyfriend to take her to the hospital. She was subsequently brought to [facility] ED. In ED at [facility]: Arrival BP: 171/60, B, CT head did not show any intracranial abnormality. CTA showed total occlusion of the right ICA at the bifurcation, and Right FILOMENA and MCA fill through collaterals.Of note, patient says that 2 weeks ago she had difficulty holding cup on left hand, which later improved later. She also has Intermittent right-sided hemianopia for a year now, which lasts 2-3 mins, occurs "every other day". Thought was allergies and never seeked medical attention. Feels like air bubbles coming out of right ear and also endorses hearing loss on right side. Antiplatelets: No Anticoagulations: No Tobacco abuse: Yes half a pack a day. (25 pack year hx) Alcohol abuse: No Drug abuse: No Previous stroke: No Body mass index is 25.23 kg/m?.STROKE DOCUMENTATION Stroke Activation - Date: 03/19/23Stroke Activation - Time: (not recorded)Physician arrival at bedside - Date: (not recorded)Physician arrival at bedside - Time: (not recorded)CT-Head without contrast read by Neurology: (not recorded) Transfer from [facility] seen normal: Last known well - Date: (not recorded) Last known well - Time: (not recorded) Wake up stroke: NoNIH STROKE SCALENIHSS TOTAL: 2NIHSS Interval: AdmissionLOC: 0 Alert: Keenly ResponsiveLOC QUESTIONS: 0 Answers Both Questions CorrectlyLOC COMMANDS: 0 Performs Both Tasks CorrectlyBEST GAZE: 0 NormalVISUAL: 0 No Visual LossFACIAL PALSY: 0 NormalMOTOR ARM-LEFT: 1 DriftMOTOR ARM-RIGHT: 0 No DriftMOTOR LEG-LEFT: 1 DriftMOTOR LEG-RIGHT: 0 No DriftLIMB ATAXIA: 0 AbsentSENSORY: 0 NormalBEST LANGUAGE: 0 No AphasiaDYSARTHRIA: 0 NormalEXTINCTION AND INATTENTION (FORMERLY NEGLECT): 0 No AbnormaltyDysphagia Screen:Dysphagia Screen Step 1 (Exclusion Criteria): Pass (none of the above) Dysphagia Screen Step 2 (Management of secretions): Pass (none of the above)Dysphagia Screen Step 3 (3-ounce water swallow challenge): Pass (none of the above) IV Alteplase: If IV Thrombolytic therapy was indicated and given as a standard of care was the patient/family informed of benefits of treatment and risk such as hemorrhage and/or angioedema?: (not recorded)Was there a delay in door to IV thrombolytic over 30 minutes?: (not recorded) Reason (s): (not recorded)ICH/SAH Endovascular Intervention: PRE- ADMISSION MODIFIED TALAT SCORE2 - Slight disability; unable to carry out all previous activities; but able to look after own affairs without assistance PAST MEDICAL HISTORY No past medical history on file.PAST SURGICAL HISTORY Laparoscopic cholecystitisFAMILY HISTORY Stroke in familySOCIAL HISTORY Social History Socioeconomic History Marital status: Tobacco Use Smoking status: Every Day Types: Cigarettes Passive exposure: Never Smokeless tobacco: Never Lives with her boyfriendReviewed patient's family, surgical and social hx. HOME MEDICATIONS No medications prior to admission. HOSPITAL MEDICATIONS Current Facility-Administered Medications Medication Dose Route Frequency Last Rate Last Admin [START ON 03/20/2023] aspirin chewable tablet 81 mg 81 mg Oral DAILY atorvastatin (LIPITOR) tablet 40 mg 40 mg Oral QHS [START ON 03/20/2023] clopidogreL (PLAVIX) 75 mg tablet 75 mg 75 mg Oral DAILY enoxaparin (LOVENOX) injection 40 mg 40 mg Subcutaneous DAILY AT 1700 famotidine (PEPCID AC) tablet 20 mg 20 mg Oral BID labetaloL (NORMODYNE) injection 10 mg 10 mg Slow IV Push G69HANG NaCl 0.9% (NS) IV infusion 1,000 mL 1,000 mL IV Infusion CONTINUOUS nicotine (NICODERM) 21 mg/24 hr patch 1 Patch 1 Patch Topical Q24H 1 Patch at 03/19/23 1641 ALLERGY No Known AllergiesREVIEW OF SYSTEMS See HPIPHYSICAL EXAM Vitals: 03/19/23 1103 03/19/23 1247 03/19/23 1400 03/19/23 1607 BP: (!) 184/78 (!) 183/77 (!) [...] 4") General: Alert and oriented x 4 (time, person, place and situation); no apparent distress. Mental Status: Consciousness, attention, concentration: normal, Stays focused and on task while being questioned.Speech/ Language: intact to comprehension, fluency, repetition and naming.Fund of knowledge: is congruent with level of education.Remote and recent memory: normal, can recall recent and distant memories Cranial Nerves:I. Not tested.II. PERRL. FOV full to confrontation.III. IV., . Extraocular movements intact without nystagmus.V. Normal sensation in V1-3 distributions.VII. No facial droop noted.VIII. Reduced hearing on right side.IX., X. Palatal elevation present symmetrically.XI. Normal Strength of sternocleidomastoid and trapezius muscles bilaterally.XII. Tongue in midline.Motor: Tone: normalBulk: normalSTRENGTH Right Left Deltoid 5 4 Biceps 5 5- Triceps 5 5- Wrist extensors 5 5- Interossei 5 4 Hip flexors 5 4+ Knee flexors (hamstring) 5 4+ Knee extensors (quadriceps) 5 4+ Ankle dorsiflexors 5 5- Ankle plantar flexors 5 5- DTR's: Right Left Biceps 2+ 2+ Triceps 2+ 2+ Brachioradialis 2+ 3+ Patella 2+ 3+ Achilles 1+ 1+ Pathologic reflexes and signs:Mccallum: absent Babinski: absent Cerebellar: Nystagmus: neg, FTN: nl, HTS:nl, Tremors: neg, Dysdiadochokinesia: neg Sensory:LT: intact, temperature: intact, PP: intact, proprioception: intact, Vibration: intactGait: antalgic gaitHEENT: pupils equal, round, reactive to light; extraocular movements intact; oropharynx clear; moist mucous membranesLungs: clear to auscultation bilaterallyCardio: S1, S2 normalExtremities:no cyanosis,clubbing or edemaNeck:supple,no carotid bruit,no JVDLABS Recent Results (from the past 24 hour(s)) [...] 0.007 <=0.034 ng/mL Basic Metabolic Panel (NA, K, CL, CO2, Glucose, [...] Negative Negative SQ EPITH 1 HPF STROKE LABSNo results found for: "HGBA1C"No results found for: "LDL"No results found for: "CHOL"No results found for: "TSH"Recent Labs TROPNI 0.[address] ACUTE STROKE ANGIOGRAM HEADResult Date: 2023Total occlusion of the right ICA at the bifurcation. Right FILOMENA and MCA fill through collaterals. discussed with Dr. Gould at 8:33am. Preliminary Report Dictated by Resident: Lesley Doll I, Yogesh Hunt MD., have reviewed this study and agree with the above report.CT ACUTE STROKE ANGIOGRAM NECKResult Date: 2023Total occlusion of the right ICA at the bifurcation. Right FILOMENA and MCA fill through collaterals. discussed with Dr. Gould at 8:33am. Preliminary Report Dictated by Resident: Lesley Doll I, Yogesh Hunt MD., have reviewed this study and agree with the above report.CT ACUTE STROKE HEAD WO CONTRASTResult Date: 2023No acute intracranial abnormality. Preliminary Report Dictated by Resident: Lesley Doll I, Sal Zurita MD., have reviewed this study and agree with the above report. ASSESSMENT AND PLAN Criss Figueroa is a 68 year old female with PMHx of the following stroke risk factors: smoking (25 pack year), who presented with left sided weakness, LSN: 23:30 03/18, NIHSS 2. Transferred from [facility]. In ED: CT head showed no acute intracranial abnormality, CTA head and neck showed total occlusion of right ICA at bifurcation and right FILOMENA and MCA fill through collaterals. Arrival BP 171/60, BG 112. On exam patient has left sided weakness in both UE and LE. 4/5. Plan to start DAPT. DSA on 03/20 to investigate cerebral vessels. Anatomic localization: Right MCA and FILOMENA Stroke etiology: Large vessel OcclusionList of Problems: Tobacco abuse- Admission under neurology stroke service - Aspirin 81 daily - Plavix 75 mg daily- Lipitor 40mg daily if LDL>70, will adjust according to fasting lipid panel- <220/110 for ischemic stroke first 24h, then resume home anti-hypertensive medications for goal normo-tension- Telemetry monitoring- DSA on 03/20 - NPO pMN- Frequent Neurochecks - Avoid hyperthermia, pain and constipation- POCT for BG and sliding scale insulin - Fall precautions- Consult PT/OT/ Speech pathology/Primary swallowing screen- Control Officer Manager on stroke education, smoking cessation, healthy diet, physical activity, weight lossImaging: - MRI brain without contrast ordered STAT- Cerebral angiogram on 03/20Labs: - Check fasting Lipid panel, HgA1C, TSH. - Check CBC, BMP, Pt, PTT, cardiac enzymes x 1, EKG- GI Prophylaxis: famotidine - DVT Prophylaxis: enoxaparin- Code status: Full code Discussed with Dr. Chatterjee, Neurology Faculty RHONDA ClarkeBSNeurology PGY-2 ssociated attestation - Abel Chatterjee MD - 03/20/2023 1:09 PM CDT Vascular Neurology attending note I personally examined the patient on 03/19/23 and agree with resident's note as written. I actively participated in the decision making process and edited the note as needed. Please see the resident's note for additional details.68 year old female with PMHx of the following stroke risk factors: smoking (25 pack year), HTN who presented with left sided weakness, LSN: 23:30 03/18, NIHSS 2. Transferred from [facility]. In ED: CT head showed no acute intracranial abnormality, CTA head and neck showed total occlusion of right ICA at bifurcation and right FILOMENA and MCA fill through collaterals.Left ICA moderate stenosis also, Arrival BP 171/60, BG 112. On exam patient has left sided weakness in both UE and LE. 4/5. Stroke etiology: Large vessel atherosclerosis with artery to artery emboliDAPTHigh dose statin Permissive HTNDSA Abel Chatterjee MD34117-2History and physical [id number] Chatterjee1.2.840.273643.1.13.104.2.7.2.83 1903KwqvmJkcigwomJznktapCV6746-49-94G30 :09:26History and physical noteTXT1.2.840.456752.1.13.104.2.7.2.72 7879|[id number] for patient zjfu61311-4Epowaro and physical noteLNUT[address] Uf[id number] OEXSGHDOCQQJYERTYFB4437-37-75Q32:09:261 .2.840.873249.1.72.3.15|1.2.840.445912. 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 Procedure: No cerebral angiogram was performed. Findings: None. Complications: Rt NURSE CHARGE RN access, however failed as the wire didn't advance and resistance was meet. We then removed the RFA access and held manual compression till hemostasis. L NURSE CHARGE RN access was obtained, however the wire was looping in the mid abdominal aorta and did not advance. Dissection was suspected, and the procedure was stopped. Vascular interventional radiology as well as vascular surgery were consulted. Patient was taken to the CT scanner to evaluate and Lav[place] type B dissection was noted in the thoracic aorta. Patient and her family were informed and verbalized understanding. Subsequently the patient was transferred to vascular surgery service and admitted to SICU. Condition: Fair. Estimated blood loss: 300 mlFull dictated note to follow in PACS. ssociated attestation - Abel Chatterjee MD - 03/23/2023 10:35 PM CDT Vascular Neurology attending note I agree with Dr.Barghash payne as written. I actively participated in the decision making process and edited the note as needed. Please see the resident's note for additional details. Abel Chatterjee MD28570-0Procedure [id number].13.104.2.7.2.12202 6PndurRxzdilmmHfiskgsSX7509-75-35M58:35:40 Procedure noteTXT1.2.840.769151.1.13.104.2.7.2.35492 9|[id number] for patient obwp89374-8Zwsydzoun noteLNUT[address] Gdj[id number] MAPAMOOYFJDBQRST7276-72-12C66:35:401.2.840 .053759.1.72.3.15|1.2.840.482601.1.13.104. 2.7.2.727879_[id number]
--- NOTE | 2023-04-25 11:18 | RAD REPORT ---
EXAM DESCRIPTION: CT - CTHCSPWOC - 04/25/2023 10:35 am CLINICAL HISTORY: fall, head injury COMPARISON: No comparisons TECHNIQUE: Axial thin cut noncontrast CT images of the head were obtained. Axial thin cut noncontrast CT images of the cervical spine were obtained. Multiplanar reformatted images were generated and reviewed. All CT scans are performed using dose optimization technique as appropriate and may include automated exposure control or mA/KV adjustment according to patient size. FINDINGS: CT HEAD WITHOUT CONTRAST: No acute hemorrhage, hydrocephalus or extra-axial collection is identified.Right frontal encephalomal acia as well as adjacent subcortical and more posterior frontoparietal and centrum semiovale white ma tter hypodensities. Asymmetric volume loss within the right cerebral hemisphere. No areas of brain ed sylvia or midline shift. The paranasal sinuses and mastoids are clear.The calvarium is intact. CT CERVICAL SPINE WITHOUT CONTRAST: No fracture or subluxation.Mild degenerative changes most pronounced at C5-6, contributing to mild-to -moderate neural foraminal narrowing, worse on the right.No prevertebral soft tissues swelling is ligia ntified. Ovoid well-circumscribed cystic lesion related to the crown of the posterior-most right max illary molar, with overlying cortical thinning, may represent 2D dentigerous cyst. IMPRESSION: No acute traumatic intracranial or cervical spine findings. Chronic findings of encephalomalacia, white matter hypodensities, and an symmetric volume loss within the right cerebral hemisphere, nonspecific, but suggestive of sequelae of remote ischemia. Mild cervical spine degenerative changes. 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
--- NOTE | 2023-04-25 12:25 | RAD REPORT ---
[facility] CLINICAL HISTORY: fall COMPARISON: No comparisons TECHNIQUE: Portable AP view of the chest. FINDINGS: The lungs are clear. No pneumothorax or effusion. The cardiomediastinal contours are unre markable. IMPRESSION: No acute cardiopulmonary process.
--- NOTE | 2023-04-25 12:25 | RAD REPORT ---
EXAM DESCRIPTION: RAD - Pelvis - 04/25/2023 12:08 pm CLINICAL HISTORY: fall COMPARISON: No comparisons TECHNIQUE: Single AP view of the pelvis. FINDINGS: The visualized pelvic ring is intact. No suspicious osseous lesions. No significant degene rative changes or erosions of the hip joints. Other pelvic joints are unremarkable. At least moderate degenerative changes of the lower lumbar spine. Visualized aspects of the abdomen and soft tissues a re unremarkable. IMPRESSION: No acute osseous abnormality of the bony pelvis. At least mild degenerative changes of t he lower lumbar spine.
--- NOTE | 2023-04-25 12:26 | RAD REPORT ---
EXAM DESCRIPTION: RAD - Shoulder Left 2 View - 04/25/2023 12:07 pm CLINICAL HISTORY: fall COMPARISON: No comparisons TECHNIQUE: Internal and external rotation views of the left shoulder were obtained. FINDINGS: There is no fracture or dislocation. AC joint shows mild degenerative changes. . No acute or suspicious findings. IMPRESSION: Negative two-view left shoulder examination.
[2023-04-25 13:04] LABS: Absolute Lymphocytes (CBC) 1.4 K/uL (0.7-4.9); Hematocrit 35.6 % (36.0-45.0); Lymphocytes % 22.6 % (15.3-44.8); MCV 90.6 fL (80-100); MPV 8.1 fL (7.6-11.3); Platelets 277 thou/uL (152-406); RBC Red Blood Cell Count 3.93 M/uL (3.86-4.86)
[2023-04-25 13:08] LABS: Protime INR 1.13
[2023-04-25 13:16] LABS: Potassium 3.7 mEq/L (3.5-5.1)
--- NOTE | 2023-04-25 13:28 | ER ---
Nurse's Notes [facility] Name: Criss Figueroa Age: 68 yrs Sex: Female : 1955 Arrival Date: 04/25/2023 Time: 10:11 Bed 2 Private MD: Diagnosis: Repeated falls;Contusion of unspecified part of head, initial encounter;Contusion of left shoulder Presentation: 04/25 10:15 Chief complaint: EMS states: called to [facility] for patient fall. She has been there ko for 2 weeks for post CVA rehab. She has had a couple of falls since she has been there. Coronavirus screen: At this time, the client does not indicate any symptoms associated with coronavirus-19. Ebola Screen: No symptoms or risks identified at this time. Initial Sepsis Screen: Does the patient meet any 2 criteria? No. Patient's initial sepsis screen is negative. Does the patient have a suspected source of infection? No. Patient's initial sepsis screen is negative. Risk Assessment: Do you want to hurt yourself or someone else? Patient reports no desire to harm self or others. Onset of symptoms was April 25, 2023. 10:15 Method Of Arrival: EMS: [facility] ko1 10:15 Acuity: PAWEL 3 ko1 Triage Assessment: 10:15 General: Appears in no apparent distress. uncomfortable, Behavior is calm, cooperative, ko1 appropriate for age. Pain: Complains of pain in anterior aspect of left shoulder and posterior aspect of left shoulder. Historical: - Allergies: 10:15 No Known Allergies; ph - PMHx: 10:15 CVA; Hypertensive disorder; ph - Immunization history:: Adult Immunizations unknown. - Social history:: Smoking status: unknown. - Family history:: not pertinent. - Hospitalizations: : No recent hospitalization is reported. Screenin:16 [facility] ED Fall Risk Assessment (Adult) History of falling in the last 3 months, ph including since admission Yes- fall prone (multiple falls) (3 pts) Confusion or Disorientation No (0 pts) Intoxicated or Sedated No (0 pts) Impaired Gait Yes (1 pt). Abuse screen: Denies threats or abuse. Denies injuries from another. Nutritional screening: No deficits noted. Tuberculosis screening: No symptoms or risk factors identified. Assessment: 11:00 General: Appears in no apparent distress. Behavior is calm, cooperative. Pain: ph Complains of pain in left arm and posterior aspect of left shoulder and anterior aspect of left shoulder. Pain: Complains of pain in left eye. Neuro: Level of Consciousness is awake, alert, obeys commands, Oriented to person, place, time, situation. Cardiovascular: Capillary refill < 3 seconds in bilateral fingers Patient's skin is warm and dry. Respiratory: Airway is patent Respiratory effort is even, unlabored. Derm: Skin is pink, warm \T\ dry. Musculoskeletal: Circulation, motion, and sensation intact. Range of motion: limited in left arm and left leg r/t previous CVA. Vital Signs: 10:15 BP 191 / 69; Pulse 60; Resp 18; Temp 98.4; Pulse Ox 100% on R/A; Weight 67.59 kg; ph Height 5 ft. 4 in. ; 11:30 BP 182 / 64; Pulse 62; Resp 18; Pulse Ox 98% on R/A; ph 13:09 BP 187 / 68; Pulse 64; Resp 18; Pulse Ox 98% on R/A; ph 14:02 BP 182 / 72; Pulse 60; Resp 16; Pulse Ox 99% ; ko1 10:15 Body Mass Index 25.58 (67.59 kg, 162.56 cm) ph ED Course: 10:14 Patient arrived in ED. ko1 10:14 Jesus Gordon MD is Attending Physician. rn 10:14 Cierar Godinez RN is Primary Nurse. ph 10:16 Patient has correct armband on for positive identification. Bed in low position. Call ph light in reach. Side rails up X2. Pulse ox on. NIBP on. Door closed. Noise minimized. Warm blanket given. 10:17 Triage completed. ko1 10:17 Arm band placed on Patient placed in an exam room. ph 10:35 CT Head C Spine In Process Unspecified. EDMS 11:03 Initial lab(s) drawn, by me, sent to lab. Missed attempt(s): 22 gauge in right ph antecubital area. Bleeding controlled, band aid applied, catheter tip intact. Inserted saline lock: 22 gauge in right antecubital area, using aseptic technique. Blood collected. 12:07 XRAY Shoulder LEFT 2 view In Process Unspecified. EDMS 12:07 XRAY Chest (1 view) In Process Unspecified. EDMS 12:07 XRAY Pelvis In Process Unspecified. EDMS 14:02 Provided Education on: na. ko1 14:02 No provider procedures requiring assistance completed. IV discontinued, intact, ko1 bleeding controlled, No redness/swelling at site. Pressure dressing applied. Administered Medications: No medications were administered Medication: 11:04 VIS not applicable for this client. ph Outcome: 13:28 Discharge ordered by . rn 14:02 Discharged to home via wheelchair, with family, ko1 14:02 Condition: stable 14:02 Discharge instructions given to patient, family, Instructed on discharge instructions, follow up and referral plans. medication usage, Demonstrated understanding of instructions, follow-up care, medications, Prescriptions given X 4, 14:03 Patient left the ED. ko1 Signatures: Dispatcher [employer] Jesus Beavers MD MD rn Hall, Patricia, RN RN Korin Banerjee RN RN ko1
--- NOTE | 2023-04-25 13:28 | EDPHYS ---
Physician Documentation [facility] Name: Criss Figueroa Age: 68 yrs Sex: Female : 1955 Arrival Date: 04/25/2023 Time: 10:11 Bed 2 Private MD: ED Physician Jesus Gordon HPI: 04/25 10:22 This 68 yrs old Female presents to ER via EMS with complaints of fall. rn 10:22 Details of fall: The patient fell from seated position, Toilet. Onset: The rn symptoms/episode began/occurred just prior to arrival. Associated injuries: The patient sustained injury to the head, neck injury, Left shoulder. Severity of symptoms: At their worst the symptoms were mild, in the emergency department the symptoms are unchanged. The patient has experienced similar episodes in the past. Patient reports stroke in February, leaving left side of her body week, was left unattended at residential today while on the toilet and fell onto the left side. Reports head and neck pain as well has left shoulder pain. No LOC. Takes apixaban.. Historical: - Allergies: 10:15 No Known Allergies; ph - PMHx: 10:15 CVA; Hypertensive disorder; ph - Immunization history:: Adult Immunizations unknown. - Social history:: Smoking status: unknown. - Family history:: not pertinent. - Hospitalizations: : No recent hospitalization is reported. ROS: 10:22 Constitutional: Negative for fever, chills, and weight loss, Neck: Positive for neck rn pain Cardiovascular: Negative for chest pain, palpitations, and edema, Respiratory: Negative for shortness of breath, cough, wheezing, and pleuritic chest pain, Abdomen/GI: Negative for abdominal pain, nausea, vomiting, diarrhea, and constipation, Back: Negative for injury and pain, MS/Extremity: Positive for left shoulder injury Skin: Negative for injury, rash, and discoloration, Neuro: Negative for weakness, numbness, tingling, and seizure, positive for headache Exam: 10:22 Constitutional: This is a well developed, well nourished patient who is awake, alert, rn and in no acute distress. Head/Face: Normocephalic Eyes: Contusion left upper brow, no laceration Neck: No midline cervical tenderness Chest/axilla: Normal chest wall appearance and motion. Nontender with no deformity. No lesions are appreciated. Cardiovascular: Regular rate and rhythm. No pulse deficits. Respiratory: No increased work of breathing, no retractions or nasal flaring. Abdomen/GI: Soft, non-tender Back: No spinal tenderness. MS/ Extremity: Pulses equal, no cyanosis. Neurovascular intact. Full passive range of motion without tenderness of bilateral lower extremities and right upper extremity. Mild painful range of motion left shoulder without deformity. Neuro: Awake and alert, GCS 15, left-sided hemiparesis, sensation intact Vital Signs: 10:15 BP 191 / 69; Pulse 60; Resp 18; Temp 98.4; Pulse Ox 100% on R/A; Weight 67.59 kg; ph Height 5 ft. 4 in. ; 11:30 BP 182 / 64; Pulse 62; Resp 18; Pulse Ox 98% on R/A; ph 13:09 BP 187 / 68; Pulse 64; Resp 18; Pulse Ox 98% on R/A; ph 14:02 BP 182 / 72; Pulse 60; Resp 16; Pulse Ox 99% ; ko1 10:15 Body Mass Index 25.58 (67.59 kg, 162.56 cm) ph MDM: 10:14 Patient medically screened. rn 13:26 Differential diagnosis: abrasion, closed head injury, contusion, fracture, sprain, rn strain. Data reviewed: vital signs, nurses notes, lab test result(s), radiologic studies, CT scan, plain films, and as a result, I will discharge patient. Counseling: I had a detailed discussion with the patient and/or guardian regarding the historical points, exam findings, and any diagnostic results supporting the discharge/admit diagnosis, lab results, radiology results, the need for outpatient follow up, to return to the emergency department if symptoms worsen or persist or if there are any questions or concerns that arise at home. Special discussion: I discussed with the patient/guardian in detail that at this point there is no indication for admission to the hospital. It is understood, however, that if the symptoms persist or worsen the patient needs to return immediately for re-evaluation. ED course: I have personally reviewed all of the results, including but not limited to blood tests and imaging deemed necessary to safely discharge this patient at this time. All results given to and printed out for patient. I personally went over all the results with the patient and answered all questions. Patient will follow-up with PCP and or specialist as discussed. Return precautions given and understood.. ED course: Daughter requests prescriptions for her important medication because she does not want to go back to the residential she wants to go home instead. Daughter not happy that she is fallen several times in residential in their care. Will refill her important medications and the majority of her others are [id number] or as needed medications anyway.. 04/25 10:21 Order name: CBC with Diff; Complete Time: 13:19 rn 04/25 10:21 Order name: Basic Metabolic Panel; Complete Time: 13:19 rn 04/25 10:21 Order name: Protime (+inr); Complete Time: 13:19 rn 04/25 10:21 Order name: Ptt, Activated; Complete Time: 13:19 rn 04/25 10:21 Order name: CT Head C Spine; Complete Time: 11:39 rn 04/25 10:21 Order name: XRAY Shoulder LEFT 2 view; Complete Time: 12:35 rn 04/25 10:21 Order name: XRAY Chest (1 view); Complete Time: 12:35 rn 04/25 10:21 Order name: XRAY Pelvis; Complete Time: 12:35 rn 04/25 10:21 Order name: IV Start; Complete Time: 11:03 rn Administered Medications: No medications were administered Disposition Summary: 04/25/23 13:28 Discharge Ordered Notes: Location: Home rn Problem: new rn Symptoms: have improved rn Condition: Stable rn Diagnosis - Repeated falls rn - Contusion of unspecified part of head, initial encounter rn - Contusion of left shoulder rn Followup: rn - With: Private Physician - When: As needed - Reason: Recheck today's complaints, Re-evaluation by your physician Discharge Instructions: - Discharge Summary Sheet rn - Facial or Scalp Contusion rn - Fall Prevention in the Home, Adult rn Forms: - Medication Reconciliation Form rn - Thank You Letter rn - Antibiotic learning solutions specialist - Prescription Opioid Use rn - Patient Portal Instructions rn - Leadership Thank You Letter rn Prescriptions: - apixaban 2.5 mg Oral tablet - take 1 tablet ORAL route 2 times per day; 120 tablet; Refills: 0, Product rn Selection Permitted - atorvastatin 40 mg Oral tablet - take 1 tablet ORAL route every evening; 60 tablet; Refills: 0, Product rn Selection Permitted - gabapentin 300 mg Oral capsule - take 1 capsule ORAL route 2 times per day; 120 capsule; Refills: 0, Product rn Selection Permitted - Lisinopril 5 mg Oral tablet - take 1 tablet ORAL route once daily; 60 tablet; Refills: 0, Product Selection rn Permitted Signatures: Dispatcher [employer] Jesus Beavers MD MD rn GodinezCierra RN RN ph
[2023-04-25 14:08] VITALS: TEMP 98.4
[2023-04-25 14:10] VITALS: BP 182/72; O2SAT 99
== END 2023-04-25 14:03 | disposition home or self-care (01) ==
LOC: ER 10:11
DX: S00.83XA Contusion of other part of head, initial encounter (principal); S40.012A Contusion of left shoulder, initial encounter; R29.6 Repeated falls; I10 Essential (primary) hypertension; Z86.73 Personal history of transient ischemic attack (TIA), and cerebral infarction without residual deficits
CPT/HCPCS: 36415; 70450; 71045; 72125; 72170; 80048; 85025; 85610; 85730; 99284

== ENCOUNTER 2023-08-12 08:50 | Inpatient (IN) | payer BC, OTHER ==
--- OUTSIDE RECORDS SUMMARY | 2023-08-12 09:05 | XMS REPORT | Continuity of Care Document ---
Author Name Unknown Address [address] [place] [address] [facility] thconnect Address [address] [place] [address] Care Team Providers Care Geriatric Physical Therapist Name Role Phone Tin Armendariz Primary Care Physician [phone] Claire Hanson Attending Clinician Ilda Greene RN, Julia Gurrola Attending Clinician [phone] PIYUSH PEARL Attending Clinician Unavailable Carlos DUBOIS, Piyush Attending Clinician [phone] Tin Armendariz Attending Clinician [phone] bAel Echeverria MD Attending Clinician + LISA CRANE Attending Clinician UnavailLISA Rebollar Attending Clinician Unavailmanish rapp Doctor Unassigned, [place] Attending Clinician U Chayo Barajas Attending Clinician [phone] ESTEVAN VILLALBA Attending Clinician Unavail able ESTEVAN VILLALBA Attending Clinician Unavail able TIN HINSON Attending Clinician Unavailable SEVEN AMBROSIO Attending Clinician Unavailable Seven Aiken Attending Clinician [phone] Elizabeth Bella LMSW R Attending Clinician Conrado Alexandre LBSW, Kate Shepherd Attending Clinician UnaABEL Vázquez Attending Clinician Martin Coy BRUSHER MACHINE, Jocelyn Ashby Attending Clinician [phone] ANA NOVA Attending Clinician Unavailable Tereso Pan MD Attending Clinician [phone] Abel Bhagat MD Attending Clinician [phone] Ana Nova MD Attending Clinician [phone] DEREK PLASCENCIA Attending Clinician Unavailable Derek Plascencia MD Attending Clinician [phone] PIYUSH PEARL Admitting Clinician Unavailable SEVEN AMBROSIO Admitting Clinician Unavailable ABEL BHAGAT Admitting Clinician Unavailab le Payers Payer Name Policy Type Policy Number Effective Date Expirati on Date Source Problems Condition Name Condition Details Condition Category Status Onset Date Resolution Date Last Treatment Date Treating Clinician Comments Source Cerebral infarction due to occlusion of right internal carotid artery Cerebral infarction due to occlusion of right internal carotid artery Disease Active 2022-07 00:00: 00 [facility] Stenosis of left carotid artery Stenosis of left carotid artery Disease Active 2022-07 00:00: 00 [facility] Encounter to establish care Encounter to establish care Disease Active 2022-07 00:00: 00 [facility] Pulmonary nodules Pulmonary nodules Disease Active 2022-0718 00:00: 00 [facility] Ovarian mass, right Ovarian mass, right Disease Active 2022-07 00:00: 00 [facility] Hepatic hemangioma Hepatic hemangioma Disease Active 2022-07 00:00: 00 [facility] Hx of smoking Hx of smoking Disease Active 2022-07 0 00:00: 00 [facility] Hyperlipid emia, unspecifie d hyperlipid emia type Hyperlipid emia, unspecifie d hyperlipid emia type Disease Active 2022-07 018 00:00: 00 [facility] Left hemiparesi s Left hemiparesi s Disease Active 2022-0718 00:00: 00 [facility] Aortic valve stenosis, etiology of cardiac valve disease unspecifie d Aortic valve stenosis, etiology of cardiac valve disease unspecifie d Disease Active 2022-07 018 00:00: 00 [facility] Acute ischemic stroke Acute ischemic stroke Disease Active 03-25 00:00: 00 [facility] Aortic dissection Aortic dissection Disease Active 03-25 00:00: 00 [facility] Essential hypertensi on Essential hypertensi on Disease Active 03-25 00:00: 00 [facility] ICAO (internal carotid artery occlusion) , right ICAO (internal carotid artery occlusion) , right Disease Active 03-20 00:00: 00 [facility] Allergies, Adverse Reactions, Alerts Allergy Name Allergy Type Status Severity Reaction(s) Onset Date Inactive Date Treating Clinician Comments Source NO KNOWN ALLERGIE S Drug Class Active [facility] Social History Social Habit Start Date Stop Date Quantity Comments Source Sexual orientation U [facility] Gender identity [facility] History of Social function 2023-06-24 00:00:00 2023-06-24 00:00:00 [facility] Tobacco use and exposure 2023-05-15 00:00:00 2023-05-15 00:00:00 Smokeless tobacco non-user [facility] History of tobacco use 2023 00:00:00 Cigarette Smoker [facility] Sex Assigned At 1955 00:00:00 1955 00:00:00 [facility] Smoking Status Start Date Stop Date Source Tobacco smoking consumption unknown [facility] Ex-smoker 2023-05-15 00:00:00 2023-05-15 00:00:00 [facility] Smokes tobacco daily 2023 00:00:00 [facility] Medications Ordered Medication Name Filled Medication Name Start Date Stop Date Current Medication? Ordering Clinician Indication Dosage Frequency Signature (SIG) Comments Components Source lisinopriL 20 mg tablet 1-16 00:00: 00 Yes [id number] 20mg TAKE 1 TABLET BY MOUTH IN THE MORNING [facility] lisinopriL 20 mg tablet -16 00:00: 00 Yes [id number] 20mg TAKE 1 TABLET BY MOUTH IN THE MORNING [facility] lisinopriL 20 mg tablet 16 00:00: 00 Yes [id number] 20mg TAKE 1 TABLET BY MOUTH IN THE MORNING [facility] lisinopriL 20 mg tablet 08-05 00:00: 00 Yes [id number] 20mg TAKE 1 TABLET BY MOUTH IN THE MORNING [facility] lisinopriL 20 mg tablet 08-05 00:00: 00 Yes [id number] 20mg TAKE 1 TABLET BY MOUTH IN THE MORNING [facility] lisinopriL 20 mg tablet 2022-07 00:00: 00 Yes [id number] 20mg Take 1 tablet by mouth in the morning. [facility] lisinopriL 20 mg tablet 2022-07 00:00: 00 Yes [id number] 20mg Take 1 tablet by mouth in the morning. [facility] lisinopriL 20 mg tablet 2022-07 00:00: 00 Yes [id number] 20mg Take 1 tablet by mouth in the morning. [facility] lisinopriL 20 mg tablet 2022-07 00:00: 00 Yes [id number] 20mg Take 1 tablet by mouth in the morning. [facility] lisinopriL 20 mg tablet 2022-07 00:00: 00 Yes [id number] 20mg Take 1 tablet by mouth in the morning. [facility] lisinopriL 5 mg tablet 2022-07 00:00: 00 Yes [id number] 10mg Take 2 tablets by mouth in the morning. [facility] lisinopriL 5 mg tablet 2022-07 00:00: 00 Yes [id number] 10mg Take 2 tablets by mouth in the morning. [facility] lidocaine 5 % (700 mg/patch) patch 2022-07-17 00:00: 00 Yes [id number] 1{patch } Apply 1 Patch to area(s) in the morning. [facility] lidocaine 5 % (700 mg/patch) patch 2022-07 00:00: 00 Yes [id number] 1{patch } Apply 1 Patch to area(s) in the morning. [facility] lidocaine 5 % (700 mg/patch) patch 2022-07 00:00: 00 Yes [id number] 1{patch } Apply 1 Patch to area(s) in the morning. [facility] lidocaine 5 % (700 mg/patch) patch 2022-07 00:00: 00 Yes [id number] 1{patch } Apply 1 Patch to area(s) in the morning. [facility] lidocaine 5 % (700 mg/patch) patch 2022-07 00:00: 00 Yes [id number] 1{patch } Apply 1 Patch to area(s) in the morning. [facility] (700 [facility]/patch) patch 2022-07 00:00: 00 Yes [id number] 1{patch } Apply 1 Patch to area(s) in the morning. [facility]aine 5 % (700 mg/patch) patch 2022-07 00:00: 00 Yes [id number] 1{patch } Apply 1 Patch to area(s) in the morning. [facility] % (700 mg/patch) patch 2022-07 00:00: 00 Yes [id number] 1{patch } Apply 1 Patch to area(s) in the morning. [facility] lidocaine 5 % (700 mg/patch) patch 2022-07 00:00: 00 Yes [id number] 1{patch } Apply 1 Patch to area(s) in the morning. [facility] lidocaine 5 % (700 mg/patch) patch 2022-07 00:00: 00 Yes [id number] 1{patch } Apply 1 Patch to area(s) in the morning. [facility] lidocaine 5 % (700 mg/patch) patch 2022-07 00:00: 00 Yes [id number] 1{patch } Apply 1 Patch to area(s) in the morning. [facility] lidocaine 5 % (700 mg/patch) patch 2022-07 00:00: 00 Yes [id number] 1{patch } Apply 1 Patch to area(s) in the morning. [facility] lidocaine 5 % (700 mg/patch) patch 2022-07 00:00: 00 Yes [id number] 1{patch } Apply 1 Patch to area(s) in the morning. [facility] lidocaine 5 % (700 mg/patch) patch 2022-07 00:00: 00 Yes [id number] 1{patch } Apply 1 Patch to area(s) in the morning. [facility] lidocaine 5 % (700 mg/patch) patch 2022-07 00:00: 00 Yes [id number] 1{patch } Apply 1 Patch to area(s) in the morning. [facility] % (700 mg/patch) patch 2022-07 00:00: 00 Yes [id number] 1{patch } Apply 1 Patch to area(s) in the morning. [facility]aine 5 % (700 mg/patch) patch 2022-07 00:00: 00 Yes [id number] 1{patch } Apply 1 Patch to area(s) in the morning. [facility] % (700 mg/patch) patch 2022-07 00:00: 00 Yes [id number] 1{patch } Apply 1 Patch to area(s) in the morning. [facility] lidocaine 5 % (700 mg/patch) patch 2022-07 00:00: 00 Yes [id number] 1{patch } Apply 1 Patch to area(s) in the morning. [facility] lidocaine 5 % (700 mg/patch) patch 2022-07 00:00: 00 Yes [id number] 1{patch } Apply 1 Patch to area(s) in the morning. [facility] lidocaine 5 % (700 mg/patch) patch 2022-07 00:00: 00 Yes [id number] 1{patch } Apply 1 Patch to area(s) in the morning. [facility] lidocaine 5 % (700 mg/patch) patch 2022-07 00:00: 00 Yes [id number] 1{patch } Apply 1 Patch to area(s) in the morning. [facility] lidocaine 5 % (700 mg/patch) patch 2022-07 00:00: 00 Yes [id number] 1{patch } Apply 1 Patch to area(s) in the morning. [facility] lidocaine 5 % (700 mg/patch) patch 2022-07 00:00: 00 Yes [id number] 1{patch } Apply 1 Patch to area(s) in the morning. [facility] clopidogreL 75 mg tablet 2022-07 14:59: 13 05-21 00:00 :00 No 75mg Take 1 tablet by mouth in the morning. [facility] DULoxetine 30 mg [facility] 2022-07 14:59: 13 05-21 00:00 :00 No Take by mouth. [facility] Sennosides (SENNA) 8.6 mg Cap 2022-07 14:59: 13 05-21 00:00 :00 No Take by mouth. [facility] pantoprazol e 40 mg EC tablet 2022-07 14:59: 13 05-21 00:00 :00 No 40mg Take 1 tablet by mouth in the morning. [facility] magnesium oxide 400 mg magnesium capsule 2022-07 14:59: 13 05-21 00:00 :00 No Take by mouth. [facility] traZODone 50 mg tablet 2022-07 14:59: 13 05-21 00:00 :00 No 50mg Take 1 tablet by mouth at bedtime. [facility] clopidogreL 75 mg tablet 2022-07 14:59: 13 05-21 00:00 :00 No 75mg Take 1 tablet by mouth in the morning. [facility] DULoxetine 30 mg [facility] 2022-07 14:59: 13 05-21 00:00 :00 No Take by mouth. [facility] Sennosides (SENNA) 8.6 mg Cap 2022-07 14:59: 13 05-21 00:00 :00 No Take by mouth. [facility] pantoprazol e 40 mg EC tablet 2022-07 14:59: 13 05-21 00:00 :00 No 40mg Take 1 tablet by mouth in the morning. [facility] magnesium oxide 400 mg magnesium capsule 2022-07 14:59: 13 05-21 00:00 :00 No Take by mouth. [facility] traZODone 50 mg tablet 2022-07 14:59: 13 05-21 00:00 :00 No 50mg Take 1 tablet by mouth at bedtime. [facility] melatonin 3 mg tablet 2022-07 00:00: 00 Yes [id number] 3mg Take 1 tablet by mouth at bedtime. [facility] atorvastati n 40 mg tablet 2022-07 00:00: 00 Yes [id number] 40mg Take 1 tablet by mouth at bedtime. [facility] gabapentin 300 mg capsule 2022-07 00:00: 00 Yes 300mg Take 1 capsule by mouth in the morning and 1 capsule in the evening. [facility] traZODone 50 mg tablet 2022-07 00:00: 00 Yes 50mg Take 1 tablet by mouth at bedtime. [facility] Sennosides (SENNA) 8.6 mg Cap 2022-07 00:00: 00 Yes 8.6mg Take 8.6 mg by mouth in the morning. [facility] pantoprazol e 40 mg EC tablet 2022-07 00:00: 00 Yes 40mg Take 1 tablet by mouth in the morning. [facility] magnesium oxide 400 mg magnesium capsule 2022-07 00:00: 00 Yes 400mg Take 1 capsule by mouth in the morning. [facility] DULoxetine 30 mg CDRS 2022-07 00:00: 00 Yes 30mg Take 30 mg by mouth in the morning and 30 mg in the evening. [facility] clopidogreL 75 mg tablet 2022-07 00:00: 00 Yes 75mg Take 1 tablet by mouth in the morning. [facility] melatonin 3 mg tablet 2022-07 00:00: 00 Yes [id number] 3mg Take 1 tablet by mouth at bedtime. [facility] atorvastati n 40 mg tablet 2022-07 00:00: 00 Yes [id number] 40mg Take 1 tablet by mouth at bedtime. [facility] gabapentin 300 mg capsule 2022-07 00:00: 00 Yes 300mg Take 1 capsule by mouth in the morning and 1 capsule in the evening. [facility] traZODone 50 mg tablet 2022-07 00:00: 00 Yes 50mg Take 1 tablet by mouth at bedtime. [facility] Sennosides (SENNA) 8.6 mg Cap 2022-07 00:00: 00 Yes 8.6mg Take 8.6 mg by mouth in the morning. [facility] pantoprazol e 40 mg EC tablet 2022-07 00:00: 00 Yes 40mg Take 1 tablet by mouth in the morning. [facility] magnesium oxide 400 mg magnesium capsule 2022-07 00:00: 00 Yes 400mg Take 1 capsule by mouth in the morning. [facility] DULoxetine 30 mg CDRS 2022-07 00:00: 00 Yes 30mg Take 30 mg by mouth in the morning and 30 mg in the evening. [facility] clopidogreL 75 mg tablet 2022-07 00:00: 00 Yes 75mg Take 1 tablet by mouth in the morning. [facility] melatonin 3 mg tablet 2022-07 00:00: 00 Yes [id number] 3mg Take 1 tablet by mouth at bedtime. [facility] atorvastati n 40 mg tablet 2022-07 00:00: 00 Yes [id number] 40mg Take 1 tablet by mouth at bedtime. [facility] gabapentin 300 mg capsule 2022-07 00:00: 00 Yes 300mg Take 1 capsule by mouth in the morning and 1 capsule in the evening. [facility] traZODone 50 mg tablet 2022-07 00:00: 00 Yes 50mg Take 1 tablet by mouth at bedtime. [facility] Sennosides (SENNA) 8.6 mg Cap 2022-07 00:00: 00 Yes 8.6mg Take 8.6 mg by mouth in the morning. [facility] pantoprazol e 40 mg EC tablet 2022-07 00:00: 00 Yes 40mg Take 1 tablet by mouth in the morning. [facility] magnesium oxide 400 mg magnesium capsule 2022-07 00:00: 00 Yes 400mg Take 1 capsule by mouth in the morning. [facility] DULoxetine 30 mg CDRS 2022-07 00:00: 00 Yes 30mg Take 30 mg by mouth in the morning and 30 mg in the evening. [facility] clopidogreL 75 mg tablet 2022-07 00:00: 00 Yes 75mg Take 1 tablet by mouth in the morning. [facility] melatonin 3 mg tablet 2022-07 00:00: 00 Yes [id number] 3mg Take 1 tablet by mouth at bedtime. [facility] atorvastati n 40 mg tablet 2022-07 00:00: 00 Yes [id number] 40mg Take 1 tablet by mouth at bedtime. [facility] gabapentin 300 mg capsule 2022-07 00:00: 00 Yes 300mg Take 1 capsule by mouth in the morning and 1 capsule in the evening. [facility] traZODone 50 mg tablet 2022-07 00:00: 00 Yes 50mg Take 1 tablet by mouth at bedtime. [facility] Sennosides (SENNA) 8.6 mg Cap 2022-07 00:00: 00 Yes 8.6mg Take 8.6 mg by mouth in the morning. [facility] pantoprazol e 40 mg EC tablet 2022-07 00:00: 00 Yes 40mg Take 1 tablet by mouth in the morning. [facility] magnesium oxide 400 mg magnesium capsule 2022-07 00:00: 00 Yes 400mg Take 1 capsule by mouth in the morning. [facility] DULoxetine 30 mg CDRS 2022-07 00:00: 00 Yes 30mg Take 30 mg by mouth in the morning and 30 mg in the evening. [facility] clopidogreL 75 mg tablet 2022-07 00:00: 00 Yes 75mg Take 1 tablet by mouth in the morning. [facility] melatonin 3 mg tablet 2022-07 00:00: 00 Yes [id number] 3mg Take 1 tablet by mouth at bedtime. [facility] atorvastati n 40 mg tablet 2022-07 00:00: 00 Yes [id number] 40mg Take 1 tablet by mouth at bedtime. [facility] gabapentin 300 mg capsule 2022-07 00:00: 00 Yes 300mg Take 1 capsule by mouth in the morning and 1 capsule in the evening. [facility] traZODone 50 mg tablet 2022-07 00:00: 00 Yes 50mg Take 1 tablet by mouth at bedtime. [facility] Sennosides (SENNA) 8.6 mg Cap 2022-07 00:00: 00 Yes 8.6mg Take 8.6 mg by mouth in the morning. [facility] pantoprazol e 40 mg EC tablet 2022-07 00:00: 00 Yes 40mg Take 1 tablet by mouth in the morning. [facility] magnesium oxide 400 mg magnesium capsule 2022-07 00:00: 00 Yes 400mg Take 1 capsule by mouth in the morning. [facility] DULoxetine 30 mg CDRS 2022-07 00:00: 00 Yes 30mg Take 30 mg by mouth in the morning and 30 mg in the evening. [facility] clopidogreL 75 mg tablet 2022-07 00:00: 00 Yes 75mg Take 1 tablet by mouth in the morning. [facility] melatonin 3 mg tablet 2022-07 00:00: 00 Yes [id number] 3mg Take 1 tablet by mouth at bedtime. [facility] atorvastati n 40 mg tablet 2022-07 00:00: 00 Yes [id number] 40mg Take 1 tablet by mouth at bedtime. [facility] gabapentin 300 mg capsule 2022-07 00:00: 00 Yes 300mg Take 1 capsule by mouth in the morning and 1 capsule in the evening. [facility] traZODone 50 mg tablet 2022-07 00:00: 00 Yes 50mg Take 1 tablet by mouth at bedtime. [facility] Sennosides (SENNA) 8.6 mg Cap 2022-07 00:00: 00 Yes 8.6mg Take 8.6 mg by mouth in the morning. [facility] pantoprazol e 40 mg EC tablet 2022-07 00:00: 00 Yes 40mg Take 1 tablet by mouth in the morning. [facility] magnesium oxide 400 mg magnesium capsule 2022-07 00:00: 00 Yes 400mg Take 1 capsule by mouth in the morning. [facility] DULoxetine 30 mg [facility]RS 2022-07 00:00: 00 Yes 30mg Take 30 mg by mouth in the morning and 30 mg in the evening. [facility] clopidogreL 75 mg tablet 2022-07 00:00: 00 Yes 75mg Take 1 tablet by mouth in the morning. [facility] melatonin 3 mg tablet 2022-07 00:00: 00 Yes [id number] 3mg Take 1 tablet by mouth at bedtime. [facility] atorvastati n 40 mg tablet 2022-07 00:00: 00 Yes [id number] 40mg Take 1 tablet by mouth at bedtime. [facility] gabapentin 300 mg capsule 2022-07 00:00: 00 Yes 300mg Take 1 capsule by mouth in the morning and 1 capsule in the evening. [facility] traZODone 50 mg tablet 2022-07 00:00: 00 Yes 50mg Take 1 tablet by mouth at bedtime. [facility] Sennosides (SENNA) 8.6 mg Cap 2022-07 00:00: 00 Yes 8.6mg Take 8.6 mg by mouth in the morning. [facility] pantoprazol e 40 mg EC tablet 2022-07 00:00: 00 Yes 40mg Take 1 tablet by mouth in the morning. [facility] magnesium oxide 400 mg magnesium capsule 2022-07 00:00: 00 Yes 400mg Take 1 capsule by mouth in the morning. [facility] DULoxetine 30 mg CDRS 2022-07 00:00: 00 Yes 30mg Take 30 mg by mouth in the morning and 30 mg in the evening. [facility] clopidogreL 75 mg tablet 2022-07 00:00: 00 Yes 75mg Take 1 tablet by mouth in the morning. [facility] melatonin 3 mg tablet 2022-07 00:00: 00 Yes [id number] 3mg Take 1 tablet by mouth at bedtime. [facility] atorvastati n 40 mg tablet 2022-07 00:00: 00 Yes [id number] 40mg Take 1 tablet by mouth at bedtime. [facility] gabapentin 300 mg capsule 2022-07 00:00: 00 Yes 300mg Take 1 capsule by mouth in the morning and 1 capsule in the evening. [facility] traZODone 50 mg tablet 2022-07 00:00: 00 Yes 50mg Take 1 tablet by mouth at bedtime. [facility] Sennosides (SENNA) 8.6 mg Cap 2022-07 00:00: 00 Yes 8.6mg Take 8.6 mg by mouth in the morning. [facility] pantoprazol e 40 mg EC tablet 2022-07 00:00: 00 Yes 40mg Take 1 tablet by mouth in the morning. [facility] magnesium oxide 400 mg magnesium capsule 2022-07 00:00: 00 Yes 400mg Take 1 capsule by mouth in the morning. [facility] DULoxetine 30 mg CDRS 2022-07 00:00: 00 Yes 30mg Take 30 mg by mouth in the morning and 30 mg in the evening. [facility] clopidogreL 75 mg tablet 2022-07 00:00: 00 Yes 75mg Take 1 tablet by mouth in the morning. [facility] melatonin 3 mg tablet 2022-07 00:00: 00 Yes [id number] 3mg Take 1 tablet by mouth at bedtime. [facility] atorvastati n 40 mg tablet 2022-07 00:00: 00 Yes [id number] 40mg Take 1 tablet by mouth at bedtime. [facility] gabapentin 300 mg capsule 2022-07 00:00: 00 Yes 300mg Take 1 capsule by mouth in the morning and 1 capsule in the evening. [facility] traZODone 50 mg tablet 2022-07 00:00: 00 Yes 50mg Take 1 tablet by mouth at bedtime. [facility] Sennosides (SENNA) 8.6 mg Cap 2022-07 00:00: 00 Yes 8.6mg Take 8.6 mg by mouth in the morning. [facility] pantoprazol e 40 mg EC tablet 2022-07 00:00: 00 Yes 40mg Take 1 tablet by mouth in the morning. [facility] magnesium oxide 400 mg magnesium capsule 2022-07 00:00: 00 Yes 400mg Take 1 capsule by mouth in the morning. [facility] DULoxetine 30 mg CDRS 2022-07 00:00: 00 Yes 30mg Take 30 mg by mouth in the morning and 30 mg in the evening. [facility] clopidogreL 75 mg tablet 2022-07 00:00: 00 Yes 75mg Take 1 tablet by mouth in the morning. [facility] melatonin 3 mg tablet 2022-07 00:00: 00 Yes [id number] 3mg Take 1 tablet by mouth at bedtime. [facility] atorvastati n 40 mg tablet 2022-07 00:00: 00 Yes [id number] 40mg Take 1 tablet by mouth at bedtime. [facility] gabapentin 300 mg capsule 2022-07 00:00: 00 Yes 300mg Take 1 capsule by mouth in the morning and 1 capsule in the evening. [facility] traZODone 50 mg tablet 2022-07 00:00: 00 Yes 50mg Take 1 tablet by mouth at bedtime. [facility] Sennosides (SENNA) 8.6 mg Cap 2022-07 00:00: 00 Yes 8.6mg Take 8.6 mg by mouth in the morning. [facility] pantoprazol e 40 mg EC tablet 2022-07 00:00: 00 Yes 40mg Take 1 tablet by mouth in the morning. [facility] magnesium oxide 400 mg magnesium capsule 2022-07 00:00: 00 Yes 400mg Take 1 capsule by mouth in the morning. [facility] DULoxetine 30 mg CDRS 2022-07 00:00: 00 Yes 30mg Take 30 mg by mouth in the morning and 30 mg in the evening. [facility] clopidogreL 75 mg tablet 2022-07 00:00: 00 Yes 75mg Take 1 tablet by mouth in the morning. [facility] melatonin 3 mg tablet 2022-07 00:00: 00 Yes [id number] 3mg Take 1 tablet by mouth at bedtime. [facility] atorvastati n 40 mg tablet 2022-07 00:00: 00 Yes [id number] 40mg Take 1 tablet by mouth at bedtime. [facility] gabapentin 300 mg capsule 2022-07 00:00: 00 Yes 300mg Take 1 capsule by mouth in the morning and 1 capsule in the evening. [facility] traZODone 50 mg tablet 2022-07 00:00: 00 Yes 50mg Take 1 tablet by mouth at bedtime. [facility] Sennosides (SENNA) 8.6 mg Cap 2022-07 00:00: 00 Yes 8.6mg Take 8.6 mg by mouth in the morning. [facility] pantoprazol e 40 mg EC tablet 2022-07 00:00: 00 Yes 40mg Take 1 tablet by mouth in the morning. [facility] magnesium oxide 400 mg magnesium capsule 2022-07 00:00: 00 Yes 400mg Take 1 capsule by mouth in the morning. [facility] DULoxetine 30 mg CDRS 2022-07 00:00: 00 Yes 30mg Take 30 mg by mouth in the morning and 30 mg in the evening. [facility] clopidogreL 75 mg tablet 2022-07 00:00: 00 Yes 75mg Take 1 tablet by mouth in the morning. [facility] melatonin 3 mg tablet 2022-07 00:00: 00 Yes [id number] 3mg Take 1 tablet by mouth at bedtime. [facility] atorvastati n 40 mg tablet 2022-07 00:00: 00 Yes [id number] 40mg Take 1 tablet by mouth at bedtime. [facility] gabapentin 300 mg capsule 2022-07 00:00: 00 Yes 300mg Take 1 capsule by mouth in the morning and 1 capsule in the evening. [facility] traZODone 50 mg tablet 2022-07 00:00: 00 Yes 50mg Take 1 tablet by mouth at bedtime. [facility] Sennosides (SENNA) 8.6 mg Cap 2022-07 00:00: 00 Yes 8.6mg Take 8.6 mg by mouth in the morning. [facility] pantoprazol e 40 mg EC tablet 2022-07 00:00: 00 Yes 40mg Take 1 tablet by mouth in the morning. [facility] magnesium oxide 400 mg magnesium capsule 2022-07 00:00: 00 Yes 400mg Take 1 capsule by mouth in the morning. [facility] DULoxetine 30 mg CDRS 2022-07 00:00: 00 Yes 30mg Take 30 mg by mouth in the morning and 30 mg in the evening. [facility] clopidogreL 75 mg tablet 2022-07 00:00: 00 Yes 75mg Take 1 tablet by mouth in the morning. [facility] melatonin 3 mg tablet 2022-07 00:00: 00 Yes [id number] 3mg Take 1 tablet by mouth at bedtime. [facility] atorvastati n 40 mg tablet 2022-07 00:00: 00 Yes [id number] 40mg Take 1 tablet by mouth at bedtime. [facility] gabapentin 300 mg capsule 2022-07 00:00: 00 Yes 300mg Take 1 capsule by mouth in the morning and 1 capsule in the evening. [facility] traZODone 50 mg tablet 2022-07 00:00: 00 Yes 50mg Take 1 tablet by mouth at bedtime. [facility] Sennosides (SENNA) 8.6 mg Cap 2022-07 00:00: 00 Yes 8.6mg Take 8.6 mg by mouth in the morning. [facility] pantoprazol e 40 mg EC tablet 2022-07 00:00: 00 Yes 40mg Take 1 tablet by mouth in the morning. [facility] magnesium oxide 400 mg magnesium capsule 2022-07 00:00: 00 Yes 400mg Take 1 capsule by mouth in the morning. [facility] DULoxetine 30 mg CDRS 2022-07 00:00: 00 Yes 30mg Take 30 mg by mouth in the morning and 30 mg in the evening. [facility] clopidogreL 75 mg tablet 2022-07 00:00: 00 Yes 75mg Take 1 tablet by mouth in the morning. [facility] melatonin 3 mg tablet 2022-07 00:00: 00 Yes [id number] 3mg Take 1 tablet by mouth at bedtime. [facility] atorvastati n 40 mg tablet 2022-07 00:00: 00 Yes [id number] 40mg Take 1 tablet by mouth at bedtime. [facility] gabapentin 300 mg capsule 2022-07 00:00: 00 Yes 300mg Take 1 capsule by mouth in the morning and 1 capsule in the evening. [facility] traZODone 50 mg tablet 2022-07 00:00: 00 Yes 50mg Take 1 tablet by mouth at bedtime. [facility] Sennosides (SENNA) 8.6 mg Cap 2022-07 00:00: 00 Yes 8.6mg Take 8.6 mg by mouth in the morning. [facility] pantoprazol e 40 mg EC tablet 2022-07 00:00: 00 Yes 40mg Take 1 tablet by mouth in the morning. [facility] magnesium oxide 400 mg magnesium capsule 2022-07 00:00: 00 Yes 400mg Take 1 capsule by mouth in the morning. [facility] DULoxetine 30 mg CDRS 2022-07 00:00: 00 Yes 30mg Take 30 mg by mouth in the morning and 30 mg in the evening. [facility] clopidogreL 75 mg tablet 2022-07 00:00: 00 Yes 75mg Take 1 tablet by mouth in the morning. [facility] melatonin 3 mg tablet 2022-07 00:00: 00 Yes [id number] 3mg Take 1 tablet by mouth at bedtime. [facility] lisinopriL 5 mg tablet 2022-07 00:00: 00 Yes [id number] 5mg Take 1 tablet by mouth in the morning. [facility] atorvastati n 40 mg tablet 2022-07 00:00: 00 Yes [id number] 40mg Take 1 tablet by mouth at bedtime. [facility] gabapentin 300 mg capsule 2022-07 00:00: 00 Yes 300mg Take 1 capsule by mouth in the morning and 1 capsule in the evening. [facility] traZODone 50 mg tablet 2022-07 00:00: 00 Yes 50mg Take 1 tablet by mouth at bedtime. [facility] Sennosides (SENNA) 8.6 mg Cap 2022-07 00:00: 00 Yes 8.6mg Take 8.6 mg by mouth in the morning. [facility] pantoprazol e 40 mg EC tablet 2022-07 00:00: 00 Yes 40mg Take 1 tablet by mouth in the morning. [facility] magnesium oxide 400 mg magnesium capsule 2022-07 00:00: 00 Yes 400mg Take 1 capsule by mouth in the morning. [facility] DULoxetine 30 mg CDRS 2022-07 00:00: 00 Yes 30mg Take 30 mg by mouth in the morning and 30 mg in the evening. [facility] clopidogreL 75 mg tablet 2022-07 00:00: 00 Yes 75mg Take 1 tablet by mouth in the morning. [facility] melatonin 3 mg tablet 2022-07 00:00: 00 Yes [id number] 3mg Take 1 tablet by mouth at bedtime. [facility] lisinopriL 5 mg tablet 2022-07 00:00: 00 Yes [id number] 5mg Take 1 tablet by mouth in the morning. [facility] atorvastati n 40 mg tablet 2022-07 00:00: 00 Yes [id number] 40mg Take 1 tablet by mouth at bedtime. [facility] gabapentin 300 mg capsule 2022-07 00:00: 00 Yes 300mg Take 1 capsule by mouth in the morning and 1 capsule in the evening. [facility] traZODone 50 mg tablet 2022-07 00:00: 00 Yes 50mg Take 1 tablet by mouth at bedtime. [facility] Sennosides (SENNA) 8.6 mg Cap 2022-07 00:00: 00 Yes 8.6mg Take 8.6 mg by mouth in the morning. [facility] pantoprazol e 40 mg EC tablet 2022-07 00:00: 00 Yes 40mg Take 1 tablet by mouth in the morning. [facility] magnesium oxide 400 mg magnesium capsule 2022-07 00:00: 00 Yes 400mg Take 1 capsule by mouth in the morning. [facility] DULoxetine 30 mg CDRS 2022-07 00:00: 00 Yes 30mg Take 30 mg by mouth in the morning and 30 mg in the evening. [facility] clopidogreL 75 mg tablet 2022-07 00:00: 00 Yes 75mg Take 1 tablet by mouth in the morning. [facility] melatonin 3 mg tablet 2022-07 00:00: 00 Yes [id number] 3mg Take 1 tablet by mouth at bedtime. [facility] lisinopriL 5 mg tablet 2022-07 00:00: 00 Yes [id number] 5mg Take 1 tablet by mouth in the morning. [facility] atorvastati n 40 mg tablet 2022-07 00:00: 00 Yes [id number] 40mg Take 1 tablet by mouth at bedtime. [facility] gabapentin 300 mg capsule 2022-07 00:00: 00 Yes 300mg Take 1 capsule by mouth in the morning and 1 capsule in the evening. [facility] traZODone 50 mg tablet 2022-07 00:00: 00 Yes 50mg Take 1 tablet by mouth at bedtime. [facility] Sennosides (SENNA) 8.6 mg Cap 2022-07 00:00: 00 Yes 8.6mg Take 8.6 mg by mouth in the morning. [facility] pantoprazol e 40 mg EC tablet 2022-07 00:00: 00 Yes 40mg Take 1 tablet by mouth in the morning. [facility] magnesium oxide 400 mg magnesium capsule 2022-07 00:00: 00 Yes 400mg Take 1 capsule by mouth in the morning. [facility] DULoxetine 30 mg CDRS 2022-07 00:00: 00 Yes 30mg Take 30 mg by mouth in the morning and 30 mg in the evening. [facility] clopidogreL 75 mg tablet 2022-07 00:00: 00 Yes 75mg Take 1 tablet by mouth in the morning. [facility] melatonin 3 mg tablet 2022-07 00:00: 00 Yes [id number] 3mg Take 1 tablet by mouth at bedtime. [facility] lisinopriL 5 mg tablet 2022-07 00:00: 00 Yes [id number] 5mg Take 1 tablet by mouth in the morning. [facility] atorvastati n 40 mg tablet 2022-07 00:00: 00 Yes [id number] 40mg Take 1 tablet by mouth at bedtime. [facility] gabapentin 300 mg capsule 2022-07 00:00: 00 Yes 300mg Take 1 capsule by mouth in the morning and 1 capsule in the evening. [facility] traZODone 50 mg tablet 2022-07 00:00: 00 Yes 50mg Take 1 tablet by mouth at bedtime. [facility] Sennosides (SENNA) 8.6 mg Cap 2022-07 00:00: 00 Yes 8.6mg Take 8.6 mg by mouth in the morning. [facility] pantoprazol e 40 mg EC tablet 2022-07 00:00: 00 Yes 40mg Take 1 tablet by mouth in the morning. [facility] magnesium oxide 400 mg magnesium capsule 2022-07 00:00: 00 Yes 400mg Take 1 capsule by mouth in the morning. [facility] DULoxetine 30 mg CDRS 2022-07 00:00: 00 Yes 30mg Take 30 mg by mouth in the morning and 30 mg in the evening. [facility] clopidogreL 75 mg tablet 2022-07 00:00: 00 Yes 75mg Take 1 tablet by mouth in the morning. [facility] melatonin 3 mg tablet 2022-07 00:00: 00 Yes [id number] 3mg Take 1 tablet by mouth at bedtime. [facility] lisinopriL 5 mg tablet 2022-07 00:00: 00 Yes [id number] 5mg Take 1 tablet by mouth in the morning. [facility] atorvastati n 40 mg tablet 2022-07 00:00: 00 Yes [id number] 40mg Take 1 tablet by mouth at bedtime. [facility] gabapentin 300 mg capsule 2022-07 00:00: 00 Yes 300mg Take 1 capsule by mouth in the morning and 1 capsule in the evening. [facility] traZODone 50 mg tablet 2022-07 00:00: 00 Yes 50mg Take 1 tablet by mouth at bedtime. [facility] Sennosides (SENNA) 8.6 mg Cap 2022-07 00:00: 00 Yes 8.6mg Take 8.6 mg by mouth in the morning. [facility] pantoprazol e 40 mg EC tablet 2022-07 00:00: 00 Yes 40mg Take 1 tablet by mouth in the morning. [facility] magnesium oxide 400 mg magnesium capsule 2022-07 00:00: 00 Yes 400mg Take 1 capsule by mouth in the morning. [facility] DULoxetine 30 mg CDRS 2022-07 00:00: 00 Yes 30mg Take 30 mg by mouth in the morning and 30 mg in the evening. [facility] clopidogreL 75 mg tablet 2022-07 00:00: 00 Yes 75mg Take 1 tablet by mouth in the morning. [facility] melatonin 3 mg tablet 2022-07 00:00: 00 Yes [id number] 3mg Take 1 tablet by mouth at bedtime. [facility] lisinopriL 5 mg tablet 2022-07 00:00: 00 Yes [id number] 5mg Take 1 tablet by mouth in the morning. [facility] atorvastati n 40 mg tablet 2022-07 00:00: 00 Yes [id number] 40mg Take 1 tablet by mouth at bedtime. [facility] gabapentin 300 mg capsule 2022-07 00:00: 00 Yes 300mg Take 1 capsule by mouth in the morning and 1 capsule in the evening. [facility] traZODone 50 mg tablet 2022-07 00:00: 00 Yes 50mg Take 1 tablet by mouth at bedtime. [facility] Sennosides (SENNA) 8.6 mg Cap 2022-07 00:00: 00 Yes 8.6mg Take 8.6 mg by mouth in the morning. [facility] pantoprazol e 40 mg EC tablet 2022-07 00:00: 00 Yes 40mg Take 1 tablet by mouth in the morning. [facility] magnesium oxide 400 mg magnesium capsule 2022-07 00:00: 00 Yes 400mg Take 1 capsule by mouth in the morning. [facility] DULoxetine 30 mg CDRS 2022-07 00:00: 00 Yes 30mg Take 30 mg by mouth in the morning and 30 mg in the evening. [facility] clopidogreL 75 mg tablet 2022-07 00:00: 00 Yes 75mg Take 1 tablet by mouth in the morning. [facility] melatonin 3 mg tablet 2022-07 00:00: 00 Yes [id number] 3mg Take 1 tablet by mouth at bedtime. [facility] lisinopriL 5 mg tablet 2022-07 00:00: 00 Yes [id number] 5mg Take 1 tablet by mouth in the morning. [facility] atorvastati n 40 mg tablet 2022-07 00:00: 00 Yes [id number] 40mg Take 1 tablet by mouth at bedtime. [facility] gabapentin 300 mg capsule 2022-07 00:00: 00 Yes 300mg Take 1 capsule by mouth in the morning and 1 capsule in the evening. [facility] traZODone 50 mg tablet 2022-07 00:00: 00 Yes 50mg Take 1 tablet by mouth at bedtime. [facility] Sennosides (SENNA) 8.6 mg Cap 2022-07 00:00: 00 Yes 8.6mg Take 8.6 mg by mouth in the morning. [facility] pantoprazol e 40 mg EC tablet 2022-07 00:00: 00 Yes 40mg Take 1 tablet by mouth in the morning. [facility] magnesium oxide 400 mg magnesium capsule 2022-07 00:00: 00 Yes 400mg Take 1 capsule by mouth in the morning. [facility] DULoxetine 30 mg CDRS 2022-07 00:00: 00 Yes 30mg Take 30 mg by mouth in the morning and 30 mg in the evening. [facility] clopidogreL 75 mg tablet 2022-07 00:00: 00 Yes 75mg Take 1 tablet by mouth in the morning. [facility] melatonin 3 mg tablet 2022-07 00:00: 00 Yes [id number] 3mg Take 1 tablet by mouth at bedtime. [facility] lisinopriL 5 mg tablet 2022-07 00:00: 00 Yes [id number] 5mg Take 1 tablet by mouth in the morning. [facility] atorvastati n 40 mg tablet 2022-07 00:00: 00 Yes [id number] 40mg Take 1 tablet by mouth at bedtime. [facility] gabapentin 300 mg capsule 2022-07 00:00: 00 Yes 300mg Take 1 capsule by mouth in the morning and 1 capsule in the evening. [facility] traZODone 50 mg tablet 2022-07 00:00: 00 Yes 50mg Take 1 tablet by mouth at bedtime. [facility] Sennosides (SENNA) 8.6 mg Cap 2022-07 00:00: 00 Yes 8.6mg Take 8.6 mg by mouth in the morning. [facility] pantoprazol e 40 mg EC tablet 2022-07 00:00: 00 Yes 40mg Take 1 tablet by mouth in the morning. [facility] magnesium oxide 400 mg magnesium capsule 2022-07 00:00: 00 Yes 400mg Take 1 capsule by mouth in the morning. [facility] DULoxetine 30 mg CDRS 2022-07 00:00: 00 Yes 30mg Take 30 mg by mouth in the morning and 30 mg in the evening. [facility] clopidogreL 75 mg tablet 2022-07 00:00: 00 Yes 75mg Take 1 tablet by mouth in the morning. [facility] melatonin 3 mg tablet 2022-07 00:00: 00 Yes [id number] 3mg Take 1 tablet by mouth at bedtime. [facility] lisinopriL 5 mg tablet 2022-07 00:00: 00 Yes [id number] 5mg Take 1 tablet by mouth in the morning. [facility] atorvastati n 40 mg tablet 2022-07 00:00: 00 Yes [id number] 40mg Take 1 tablet by mouth at bedtime. [facility] gabapentin 300 mg capsule 2022-07 00:00: 00 Yes 300mg Take 1 capsule by mouth in the morning and 1 capsule in the evening. [facility] traZODone 50 mg tablet 2022-07 00:00: 00 Yes 50mg Take 1 tablet by mouth at bedtime. [facility] Sennosides (SENNA) 8.6 mg Cap 2022-07 00:00: 00 Yes 8.6mg Take 8.6 mg by mouth in the morning. [facility] pantoprazol e 40 mg EC tablet 2022-07 00:00: 00 Yes 40mg Take 1 tablet by mouth in the morning. [facility] magnesium oxide 400 mg magnesium capsule 2022-07 00:00: 00 Yes 400mg Take 1 capsule by mouth in the morning. [facility] DULoxetine 30 mg CDRS 2022-07 00:00: 00 Yes 30mg Take 30 mg by mouth in the morning and 30 mg in the evening. [facility] clopidogreL 75 mg tablet 2022-07 00:00: 00 Yes 75mg Take 1 tablet by mouth in the morning. [facility] melatonin 3 mg tablet 2022-07 00:00: 00 Yes [id number] 3mg Take 1 tablet by mouth at bedtime. [facility] lisinopriL 5 mg tablet 2022-07 00:00: 00 Yes [id number] 5mg Take 1 tablet by mouth in the morning. [facility] atorvastati n 40 mg tablet 2022-07 00:00: 00 Yes [id number] 40mg Take 1 tablet by mouth at bedtime. [facility] gabapentin 300 mg capsule 2022-07 00:00: 00 Yes 300mg Take 1 capsule by mouth in the morning and 1 capsule in the evening. [facility] traZODone 50 mg tablet 2022-07 00:00: 00 Yes 50mg Take 1 tablet by mouth at bedtime. [facility] Sennosides (SENNA) 8.6 mg Cap 2022-07 00:00: 00 Yes 8.6mg Take 8.6 mg by mouth in the morning. [facility] pantoprazol e 40 mg EC tablet 2022-07 00:00: 00 Yes 40mg Take 1 tablet by mouth in the morning. [facility] magnesium oxide 400 mg magnesium capsule 2022-07 00:00: 00 Yes 400mg Take 1 capsule by mouth in the morning. [facility] DULoxetine 30 mg CDRS 2022-07 00:00: 00 Yes 30mg Take 30 mg by mouth in the morning and 30 mg in the evening. [facility] clopidogreL 75 mg tablet 2022-07 00:00: 00 Yes 75mg Take 1 tablet by mouth in the morning. [facility] melatonin 3 mg tablet 2022-07 00:00: 00 Yes [id number] 3mg Take 1 tablet by mouth at bedtime. [facility] lisinopriL 5 mg tablet 2022-07 00:00: 00 Yes [id number] 5mg Take 1 tablet by mouth in the morning. [facility] atorvastati n 40 mg tablet 2022-07 00:00: 00 Yes [id number] 40mg Take 1 tablet by mouth at bedtime. [facility] gabapentin 300 mg capsule 2022-07 00:00: 00 Yes 300mg Take 1 capsule by mouth in the morning and 1 capsule in the evening. [facility] traZODone 50 mg tablet 2022-07 00:00: 00 Yes 50mg Take 1 tablet by mouth at bedtime. [facility] Sennosides (SENNA) 8.6 mg Cap 2022-07 00:00: 00 Yes 8.6mg Take 8.6 mg by mouth in the morning. [facility] pantoprazol e 40 mg EC tablet 2022-07 00:00: 00 Yes 40mg Take 1 tablet by mouth in the morning. [facility] magnesium oxide 400 mg magnesium capsule 2022-07 00:00: 00 Yes 400mg Take 1 capsule by mouth in the morning. [facility] DULoxetine 30 mg CDRS 2022-07 00:00: 00 Yes 30mg Take 30 mg by mouth in the morning and 30 mg in the evening. [facility] clopidogreL 75 mg tablet 2022-07 00:00: 00 Yes 75mg Take 1 tablet by mouth in the morning. [facility] melatonin 3 mg tablet 2022-07 00:00: 00 Yes [id number] 3mg Take 1 tablet by mouth at bedtime. [facility] lisinopriL 5 mg tablet 2022-07 00:00: 00 Yes [id number] 5mg Take 1 tablet by mouth in the morning. [facility] atorvastati n 40 mg tablet 2022-07 00:00: 00 Yes [id number] 40mg Take 1 tablet by mouth at bedtime. [facility] gabapentin 300 mg capsule 2022-07 00:00: 00 Yes 300mg Take 1 capsule by mouth in the morning and 1 capsule in the evening. [facility] traZODone 50 mg tablet 2022-07 00:00: 00 Yes 50mg Take 1 tablet by mouth at bedtime. [facility] Sennosides (SENNA) 8.6 mg Cap 2022-07 00:00: 00 Yes 8.6mg Take 8.6 mg by mouth in the morning. [facility] pantoprazol e 40 mg EC tablet 2022-07 00:00: 00 Yes 40mg Take 1 tablet by mouth in the morning. [facility] magnesium oxide 400 mg magnesium capsule 2022-07 00:00: 00 Yes 400mg Take 1 capsule by mouth in the morning. [facility] DULoxetine 30 mg CDRS 2022-07 00:00: 00 Yes 30mg Take 30 mg by mouth in the morning and 30 mg in the evening. [facility] clopidogreL 75 mg tablet 2022-07 00:00: 00 Yes 75mg Take 1 tablet by mouth in the morning. [facility] melatonin 3 mg tablet 2022-07 00:00: 00 Yes [id number] 3mg Take 1 tablet by mouth at bedtime. [facility] lisinopriL 5 mg tablet 2022-07 00:00: 00 Yes [id number] 5mg Take 1 tablet by mouth in the morning. [facility] atorvastati n 40 mg tablet 2022-07 00:00: 00 Yes [id number] 40mg Take 1 tablet by mouth at bedtime. [facility] gabapentin 300 mg capsule 2022-07 00:00: 00 Yes 300mg Take 1 capsule by mouth in the morning and 1 capsule in the evening. [facility] traZODone 50 mg tablet 2022-07 00:00: 00 Yes 50mg Take 1 tablet by mouth at bedtime. [facility] Sennosides (SENNA) 8.6 mg Cap 2022-07 00:00: 00 Yes 8.6mg Take 8.6 mg by mouth in the morning. [facility] pantoprazol e 40 mg EC tablet 2022-07 00:00: 00 Yes 40mg Take 1 tablet by mouth in the morning. [facility] magnesium oxide 400 mg magnesium capsule 2022-07 00:00: 00 Yes 400mg Take 1 capsule by mouth in the morning. [facility] DULoxetine 30 mg CDRS 2022-07 00:00: 00 Yes 30mg Take 30 mg by mouth in the morning and 30 mg in the evening. [facility] clopidogreL 75 mg tablet 2022-07 00:00: 00 Yes 75mg Take 1 tablet by mouth in the morning. [facility] melatonin 3 mg tablet 2022-07 00:00: 00 Yes [id number] 3mg Take 1 tablet by mouth at bedtime. [facility] lisinopriL 5 mg tablet 2022-07 00:00: 00 Yes [id number] 5mg Take 1 tablet by mouth in the morning. [facility] atorvastati n 40 mg tablet 2022-07 00:00: 00 Yes [id number] 40mg Take 1 tablet by mouth at bedtime. [facility] gabapentin 300 mg capsule 2022-07 00:00: 00 Yes 300mg Take 1 capsule by mouth in the morning and 1 capsule in the evening. [facility] traZODone 50 mg tablet 2022-07 00:00: 00 Yes 50mg Take 1 tablet by mouth at bedtime. [facility] Sennosides (SENNA) 8.6 mg Cap 2022-07 00:00: 00 Yes 8.6mg Take 8.6 mg by mouth in the morning. [facility] pantoprazol e 40 mg EC tablet 2022-07 00:00: 00 Yes 40mg Take 1 tablet by mouth in the morning. [facility] magnesium oxide 400 mg magnesium capsule 2022-07 00:00: 00 Yes 400mg Take 1 capsule by mouth in the morning. [facility] DULoxetine 30 mg CDRS 2022-07 00:00: 00 Yes 30mg Take 30 mg by mouth in the morning and 30 mg in the evening. [facility] clopidogreL 75 mg tablet 2022-07 00:00: 00 Yes 75mg Take 1 tablet by mouth in the morning. [facility] melatonin 3 mg tablet 2022-07 00:00: 00 Yes [id number] 3mg Take 1 tablet by mouth at bedtime. [facility] lisinopriL 5 mg tablet 2022-07 00:00: 00 Yes [id number] 5mg Take 1 tablet by mouth in the morning. [facility] atorvastati n 40 mg tablet 2022-07 00:00: 00 Yes [id number] 40mg Take 1 tablet by mouth at bedtime. [facility] gabapentin 300 mg capsule 2022-07 00:00: 00 Yes 300mg Take 1 capsule by mouth in the morning and 1 capsule in the evening. [facility] traZODone 50 mg tablet 2022-07 00:00: 00 Yes 50mg Take 1 tablet by mouth at bedtime. [facility] Sennosides (SENNA) 8.6 mg Cap 2022-07 00:00: 00 Yes 8.6mg Take 8.6 mg by mouth in the morning. [facility] pantoprazol e 40 mg EC tablet 2022-07 00:00: 00 Yes 40mg Take 1 tablet by mouth in the morning. [facility] magnesium oxide 400 mg magnesium capsule 2022-07 00:00: 00 Yes 400mg Take 1 capsule by mouth in the morning. [facility] DULoxetine 30 mg CDRS 2022-07 00:00: 00 Yes 30mg Take 30 mg by mouth in the morning and 30 mg in the evening. [facility] clopidogreL 75 mg tablet 2022-07 00:00: 00 Yes 75mg Take 1 tablet by mouth in the morning. [facility] melatonin 3 mg tablet 2022-07 00:00: 00 Yes [id number] 3mg Take 1 tablet by mouth at bedtime. [facility] lisinopriL 5 mg tablet 2022-07 00:00: 00 Yes [id number] 5mg Take 1 tablet by mouth in the morning. [facility] atorvastati n 40 mg tablet 2022-07 00:00: 00 Yes [id number] 40mg Take 1 tablet by mouth at bedtime. [facility] gabapentin 300 mg capsule 2022-07 00:00: 00 Yes 300mg Take 1 capsule by mouth in the morning and 1 capsule in the evening. [facility] traZODone 50 mg tablet 2022-07 00:00: 00 Yes 50mg Take 1 tablet by mouth at bedtime. [facility] Sennosides (SENNA) 8.6 mg Cap 2022-07 00:00: 00 Yes 8.6mg Take 8.6 mg by mouth in the morning. [facility] pantoprazol e 40 mg EC tablet 2022-07 00:00: 00 Yes 40mg Take 1 tablet by mouth in the morning. [facility] magnesium oxide 400 mg magnesium capsule 2022-07 00:00: 00 Yes 400mg Take 1 capsule by mouth in the morning. [facility] DULoxetine 30 mg CDRS 2022-07 00:00: 00 Yes 30mg Take 30 mg by mouth in the morning and 30 mg in the evening. [facility] clopidogreL 75 mg tablet 2022-07 00:00: 00 Yes 75mg Take 1 tablet by mouth in the morning. [facility] melatonin 3 mg tablet 2022-07 00:00: 00 Yes [id number] 3mg Take 1 tablet by mouth at bedtime. [facility] lisinopriL 5 mg tablet 2022-07 00:00: 00 Yes [id number] 5mg Take 1 tablet by mouth in the morning. [facility] atorvastati n 40 mg tablet 2022-07 00:00: 00 Yes [id number] 40mg Take 1 tablet by mouth at bedtime. [facility] gabapentin 300 mg capsule 2022-07 00:00: 00 Yes 300mg Take 1 capsule by mouth in the morning and 1 capsule in the evening. [facility] traZODone 50 mg tablet 2022-07 00:00: 00 Yes 50mg Take 1 tablet by mouth at bedtime. [facility] Sennosides (SENNA) 8.6 mg Cap 2022-07 00:00: 00 Yes 8.6mg Take 8.6 mg by mouth in the morning. [facility] pantoprazol e 40 mg EC tablet 2022-07 00:00: 00 Yes 40mg Take 1 tablet by mouth in the morning. [facility] magnesium oxide 400 mg magnesium capsule 2022-07 00:00: 00 Yes 400mg Take 1 capsule by mouth in the morning. [facility] DULoxetine 30 mg CDRS 2022-07 00:00: 00 Yes 30mg Take 30 mg by mouth in the morning and 30 mg in the evening. [facility] clopidogreL 75 mg tablet 2022-07 00:00: 00 Yes 75mg Take 1 tablet by mouth in the morning. [facility] melatonin 3 mg tablet 2022-07 00:00: 00 Yes [id number] 3mg Take 1 tablet by mouth at bedtime. [facility] lisinopriL 5 mg tablet 2022-07 00:00: 00 Yes [id number] 5mg Take 1 tablet by mouth in the morning. [facility] atorvastati n 40 mg tablet 2022-07 00:00: 00 Yes [id number] 40mg Take 1 tablet by mouth at bedtime. [facility] gabapentin 300 mg capsule 2022-07 00:00: 00 Yes 300mg Take 1 capsule by mouth in the morning and 1 capsule in the evening. [facility] traZODone 50 mg tablet 2022-07 00:00: 00 Yes 50mg Take 1 tablet by mouth at bedtime. [facility] Sennosides (SENNA) 8.6 mg Cap 2022-07 00:00: 00 Yes 8.6mg Take 8.6 mg by mouth in the morning. [facility] pantoprazol e 40 mg EC tablet 2022-07 00:00: 00 Yes 40mg Take 1 tablet by mouth in the morning. [facility] magnesium oxide 400 mg magnesium capsule 2022-07 00:00: 00 Yes 400mg Take 1 capsule by mouth in the morning. [facility] DULoxetine 30 mg CDRS 2022-07 00:00: 00 Yes 30mg Take 30 mg by mouth in the morning and 30 mg in the evening. [facility] clopidogreL 75 mg tablet 2022-07 00:00: 00 Yes 75mg Take 1 tablet by mouth in the morning. [facility] melatonin 3 mg tablet 2022-07 00:00: 00 Yes [id number] 3mg Take 1 tablet by mouth at bedtime. [facility] lisinopriL 5 mg tablet 2022-07 00:00: 00 Yes [id number] 5mg Take 1 tablet by mouth in the morning. [facility] atorvastati n 40 mg tablet 2022-07 00:00: 00 Yes [id number] 40mg Take 1 tablet by mouth at bedtime. [facility] gabapentin 300 mg capsule 2022-07 00:00: 00 Yes 300mg Take 1 capsule by mouth in the morning and 1 capsule in the evening. [facility] traZODone 50 mg tablet 2022-07 00:00: 00 Yes 50mg Take 1 tablet by mouth at bedtime. [facility] Sennosides (SENNA) 8.6 mg Cap 2022-07 00:00: 00 Yes 8.6mg Take 8.6 mg by mouth in the morning. [facility] pantoprazol e 40 mg EC tablet 2022-07 00:00: 00 Yes 40mg Take 1 tablet by mouth in the morning. [facility] magnesium oxide 400 mg magnesium capsule 2022-07 00:00: 00 Yes 400mg Take 1 capsule by mouth in the morning. [facility] DULoxetine 30 mg CDRS 2022-07 00:00: 00 Yes 30mg Take 30 mg by mouth in the morning and 30 mg in the evening. [facility] clopidogreL 75 mg tablet 2022-07 00:00: 00 Yes 75mg Take 1 tablet by mouth in the morning. [facility] melatonin 3 mg tablet 2022-07 00:00: 00 Yes [id number] 3mg Take 1 tablet by mouth at bedtime. [facility] lisinopriL 5 mg tablet 2022-07 00:00: 00 Yes [id number] 5mg Take 1 tablet by mouth in the morning. [facility] atorvastati n 40 mg tablet 2022-07 00:00: 00 Yes [id number] 40mg Take 1 tablet by mouth at bedtime. [facility] gabapentin 300 mg capsule 2022-07 00:00: 00 Yes 300mg Take 1 capsule by mouth in the morning and 1 capsule in the evening. [facility] traZODone 50 mg tablet 2022-07 00:00: 00 Yes 50mg Take 1 tablet by mouth at bedtime. [facility] Sennosides (SENNA) 8.6 mg Cap 2022-07 00:00: 00 Yes 8.6mg Take 8.6 mg by mouth in the morning. [facility] pantoprazol e 40 mg EC tablet 2022-07 00:00: 00 Yes 40mg Take 1 tablet by mouth in the morning. [facility] magnesium oxide 400 mg magnesium capsule 2022-07 00:00: 00 Yes 400mg Take 1 capsule by mouth in the morning. [facility] DULoxetine 30 mg CDRS 2022-07 00:00: 00 Yes 30mg Take 30 mg by mouth in the morning and 30 mg in the evening. [facility] clopidogreL 75 mg tablet 2022-07 00:00: 00 Yes 75mg Take 1 tablet by mouth in the morning. [facility] melatonin 3 mg tablet 2022-07 00:00: 00 Yes [id number] 3mg Take 1 tablet by mouth at bedtime. [facility] lisinopriL 5 mg tablet 2022-07 00:00: 00 Yes [id number] 5mg Take 1 tablet by mouth in the morning. [facility] atorvastati n 40 mg tablet 2022-07 00:00: 00 Yes [id number] 40mg Take 1 tablet by mouth at bedtime. [facility] gabapentin 300 mg capsule 2022-07 00:00: 00 Yes 300mg Take 1 capsule by mouth in the morning and 1 capsule in the evening. [facility] traZODone 50 mg tablet 2022-07 00:00: 00 Yes 50mg Take 1 tablet by mouth at bedtime. [facility] Sennosides (SENNA) 8.6 mg Cap 2022-07 00:00: 00 Yes 8.6mg Take 8.6 mg by mouth in the morning. [facility] pantoprazol e 40 mg EC tablet 2022-07 00:00: 00 Yes 40mg Take 1 tablet by mouth in the morning. [facility] magnesium oxide 400 mg magnesium capsule 2022-07 00:00: 00 Yes 400mg Take 1 capsule by mouth in the morning. [facility] DULoxetine 30 mg CDRS 2022-07 00:00: 00 Yes 30mg Take 30 mg by mouth in the morning and 30 mg in the evening. [facility] clopidogreL 75 mg tablet 2022-07 00:00: 00 Yes 75mg Take 1 tablet by mouth in the morning. [facility] melatonin 3 mg tablet 2022-07 00:00: 00 Yes [id number] 3mg Take 1 tablet by mouth at bedtime. [facility] lisinopriL 5 mg tablet 2022-07 00:00: 00 Yes [id number] 5mg Take 1 tablet by mouth in the morning. [facility] atorvastati n 40 mg tablet 2022-07 00:00: 00 Yes [id number] 40mg Take 1 tablet by mouth at bedtime. [facility] gabapentin 300 mg capsule 2022-07 00:00: 00 Yes 300mg Take 1 capsule by mouth in the morning and 1 capsule in the evening. [facility] traZODone 50 mg tablet 2022-07 00:00: 00 Yes 50mg Take 1 tablet by mouth at bedtime. [facility] Sennosides (SENNA) 8.6 mg Cap 2022-07 00:00: 00 Yes 8.6mg Take 8.6 mg by mouth in the morning. [facility] pantoprazol e 40 mg EC tablet 2022-07 00:00: 00 Yes 40mg Take 1 tablet by mouth in the morning. [facility] magnesium oxide 400 mg magnesium capsule 2022-07 00:00: 00 Yes 400mg Take 1 capsule by mouth in the morning. [facility] DULoxetine 30 mg CDRS 2022-07 00:00: 00 Yes 30mg Take 30 mg by mouth in the morning and 30 mg in the evening. [facility] clopidogreL 75 mg tablet 2022-07 00:00: 00 Yes 75mg Take 1 tablet by mouth in the morning. [facility] melatonin 3 mg tablet 2022-07 00:00: 00 Yes [id number] 3mg Take 1 tablet by mouth at bedtime. [facility] atorvastati n 40 mg tablet 2022-07 00:00: 00 Yes [id number] 40mg Take 1 tablet by mouth at bedtime. [facility] gabapentin 300 mg capsule 2022-07 00:00: 00 Yes 300mg Take 1 capsule by mouth in the morning and 1 capsule in the evening. [facility] traZODone 50 mg tablet 2022-07 00:00: 00 Yes 50mg Take 1 tablet by mouth at bedtime. [facility] Sennosides (SENNA) 8.6 mg Cap 2022-07 00:00: 00 Yes 8.6mg Take 8.6 mg by mouth in the morning. [facility] pantoprazol e 40 mg EC tablet 2022-07 00:00: 00 Yes 40mg Take 1 tablet by mouth in the morning. [facility] magnesium oxide 400 mg magnesium capsule 2022-07 00:00: 00 Yes 400mg Take 1 capsule by mouth in the morning. [facility] DULoxetine 30 mg [facility] 2022-07 00:00: 00 Yes 30mg Take 30 mg by mouth in the morning and 30 mg in the evening. [facility] clopidogreL 75 mg tablet 2022-07 00:00: 00 Yes 75mg Take 1 tablet by mouth in the morning. [facility] lisinopriL 5 mg tablet 2022-07 00:00: 00 07-02 00:00 :00 No [id number] 5mg Take 1 tablet by mouth in the morning. [facility] vitamin B complex (SUPER B COMPLEX-B-1 2 ORAL) 2022-07 0 12:20: 15 Yes Take by mouth. [facility] vitamin B complex (SUPER B COMPLEX-B-1 2 ORAL) 2022-07 0 12:20: 15 Yes Take by mouth. [facility] vitamin B complex (SUPER B COMPLEX-B-1 2 ORAL) 2022-07 0 12:20: 15 Yes Take by mouth. [facility] vitamin B complex (SUPER B COMPLEX-B-1 2 ORAL) 2022-07 0 12:20: 15 Yes Take by mouth. [facility] vitamin B complex (SUPER B COMPLEX-B-1 2 ORAL) 2022-07 0 12:20: 15 Yes Take by mouth. [facility] vitamin B complex (SUPER B COMPLEX-B-1 2 ORAL) 2022-07 0 12:20: 15 Yes Take by mouth. [facility] vitamin B complex (SUPER B COMPLEX-B-1 2 ORAL) 2022-07 0 12:20: 15 Yes Take by mouth. [facility] vitamin B complex (SUPER B COMPLEX-B-1 2 ORAL) 2022-07 12:20: 15 Yes Take by mouth. [facility] vitamin B complex (SUPER B COMPLEX-B-1 2 ORAL) 2022-07 12:20: 15 Yes Take by mouth. [facility] vitamin B complex (SUPER B COMPLEX-B-1 2 ORAL) 2022-07 0 12:20: 15 Yes Take by mouth. [facility] (SUPER B COMPLEX-B-1 2 ORAL) 2022-07 0 12:20: 15 Yes Take by mouth. [facility] vitamin B complex (SUPER B COMPLEX-B-1 2 ORAL) 2022-07 0 12:20: 15 Yes Take by mouth. [facility] (SUPER B COMPLEX-B-1 2 ORAL) 2022-07 0 12:20: 15 Yes Take by mouth. [facility] vitamin B complex (SUPER B COMPLEX-B-1 2 ORAL) 2022-07 12:20: 15 Yes Take by mouth. [facility] clopidogreL 75 mg tablet 2022-07 12:20: 15 Yes 75mg Take 1 tablet by mouth in the morning. [facility] DULoxetine 30 mg CDRS 2022-07 12:20: 15 Yes Take by mouth. [facility] vitamin B complex (SUPER B COMPLEX-B-1 2 ORAL) 2022-07 12:20: 15 Yes Take by mouth. [facility] Sennosides (SENNA) 8.6 mg Cap 2022-07 12:20: 15 Yes Take by mouth. [facility] pantoprazol e 40 mg EC tablet 2022-07 12:20: 15 Yes 40mg Take 1 tablet by mouth in the morning. [facility] magnesium oxide 400 mg magnesium capsule 2022-07 12:20: 15 Yes Take by mouth. [facility] traZODone 50 mg tablet 2022-07 12:20: 15 Yes 50mg Take 1 tablet by mouth at bedtime. [facility] clopidogreL 75 mg tablet 2022-07 12:20: 15 Yes 75mg Take 1 tablet by mouth in the morning. [facility] DULoxetine 30 mg CDRS 2022-07 12:20: 15 Yes Take by mouth. [facility] vitamin B complex (SUPER B COMPLEX-B-1 2 ORAL) 2022-07 12:20: 15 Yes Take by mouth. [facility] Sennosides (SENNA) 8.6 mg Cap 2022-07 12:20: 15 Yes Take by mouth. [facility] pantoprazol e 40 mg EC tablet 2022-07 12:20: 15 Yes 40mg Take 1 tablet by mouth in the morning. [facility] magnesium oxide 400 mg magnesium capsule 2022-07 12:20: 15 Yes Take by mouth. [facility] traZODone 50 mg tablet 2022-07 12:20: 15 Yes 50mg Take 1 tablet by mouth at bedtime. [facility] clopidogreL 75 mg tablet 2022-07 12:20: 15 Yes 75mg Take 1 tablet by mouth in the morning. [facility] DULoxetine 30 mg CDRS 2022-07 12:20: 15 Yes Take by mouth. [facility] vitamin B complex (SUPER B COMPLEX-B-1 2 ORAL) 2022-07 12:20: 15 Yes Take by mouth. [facility] Sennosides (SENNA) 8.6 mg Cap 2022-07 12:20: 15 Yes Take by mouth. [facility] pantoprazol e 40 mg EC tablet 2022-07 12:20: 15 Yes 40mg Take 1 tablet by mouth in the morning. [facility] magnesium oxide 400 mg magnesium capsule 2022-07 12:20: 15 Yes Take by mouth. [facility] traZODone 50 mg tablet 2022-07 12:20: 15 Yes 50mg Take 1 tablet by mouth at bedtime. [facility] vitamin B complex (SUPER B COMPLEX-B-1 2 ORAL) 2022-07 12:20: 15 Yes Take by mouth. [facility] vitamin B complex (SUPER B COMPLEX-B-1 2 ORAL) 2022-07 12:20: 15 Yes Take by mouth. [facility] vitamin B complex (SUPER B COMPLEX-B-1 2 ORAL) 2022-07 12:20: 15 Yes Take by mouth. [facility] vitamin B complex (SUPER B COMPLEX-B-1 2 ORAL) 2022-07 12:20: 15 Yes Take by mouth. [facility] vitamin B complex (SUPER B COMPLEX-B-1 2 ORAL) 2022-07 12:20: 15 Yes Take by mouth. [facility] vitamin B complex (SUPER B COMPLEX-B-1 2 ORAL) 2022-07 12:20: 15 Yes Take by mouth. [facility] vitamin B complex (SUPER B COMPLEX-B-1 2 ORAL) 2022-07 0 12:20: 15 Yes Take by mouth. [facility] vitamin B complex (SUPER B COMPLEX-B-1 2 ORAL) 2022-07 0 12:20: 15 Yes Take by mouth. [facility] vitamin B complex (SUPER B COMPLEX-B-1 2 ORAL) 2022-07 0 12:20: 15 Yes Take by mouth. [facility] vitamin B complex (SUPER B COMPLEX-B-1 2 ORAL) 2022-07 0 12:20: 15 Yes Take by mouth. [facility] vitamin B complex (SUPER B COMPLEX-B-1 2 ORAL) 2022-07 0 12:20: 15 Yes Take by mouth. [facility] vitamin B complex (SUPER B COMPLEX-B-1 2 ORAL) 2022-07 0 12:20: 15 Yes Take by mouth. [facility] vitamin B complex (SUPER B COMPLEX-B-1 2 ORAL) 2022-07 0 12:20: 15 Yes Take by mouth. [facility] vitamin B complex (SUPER B COMPLEX-B-1 2 ORAL) 2022-07 0 12:20: 15 Yes Take by mouth. [facility] vitamin B complex (SUPER B COMPLEX-B-1 2 ORAL) 2022-07 0 12:20: 15 Yes Take by mouth. [facility] vitamin B complex (SUPER B COMPLEX-B-1 2 ORAL) 2022-07 0 12:20: 15 Yes Take by mouth. [facility] vitamin B complex (SUPER B COMPLEX-B-1 2 ORAL) 2022-07 0 12:20: 15 Yes Take by mouth. [facility] vitamin B complex (SUPER B COMPLEX-B-1 2 ORAL) 2022-07 0 12:20: 15 Yes Take by mouth. [facility] vitamin B complex (SUPER B COMPLEX-B-1 2 ORAL) 2022-07 12:20: 15 Yes Take by mouth. [facility] vitamin B complex (SUPER B COMPLEX-B-1 2 ORAL) 2022-07 12:20: 15 Yes Take by mouth. [facility] vitamin B complex (SUPER B COMPLEX-B-1 2 ORAL) 2022-07 12:20: 15 Yes Take by mouth. [facility] vitamin B complex (SUPER B COMPLEX-B-1 2 ORAL) 2022-07 12:20: 15 Yes Take by mouth. [facility] vitamin B complex (SUPER B COMPLEX-B-1 2 ORAL) 2022-07 12:20: 15 Yes Take by mouth. [facility] vitamin B complex (SUPER B COMPLEX-B-1 2 ORAL) 2022-07 12:20: 15 Yes Take by mouth. [facility] ELIQUIS 2.5 mg tablet 2022-07 0- 00:00: 00 Yes 2.5mg Take 1 tablet by mouth in the morning and 1 tablet in the evening. [facility] gabapentin 300 mg capsule 2022-07 0- 00:00: 00 Yes 300mg Take 1 capsule by mouth in the morning and 1 capsule in the evening. [facility] ELIQUIS 2.5 mg tablet 2022-07 0- 00:00: 00 Yes 2.5mg Take 1 tablet by mouth in the morning and 1 tablet in the evening. [facility] gabapentin 300 mg capsule 2022-07 0- 00:00: 00 Yes 300mg Take 1 capsule by mouth in the morning and 1 capsule in the evening. [facility] ELIQUIS 2.5 mg tablet 2022-07 0- 00:00: 00 Yes 2.5mg Take 1 tablet by mouth in the morning and 1 tablet in the evening. [facility] gabapentin 300 mg capsule 2022-07 0- 00:00: 00 Yes 300mg Take 1 capsule by mouth in the morning and 1 capsule in the evening. [facility] ELIQUIS 2.5 mg tablet 2022-07 0- 00:00: 00 Yes 2.5mg Take 1 tablet by mouth in the morning and 1 tablet in the evening. [facility] gabapentin 300 mg capsule 2022-07 0- 00:00: 00 Yes 300mg Take 1 capsule by mouth in the morning and 1 capsule in the evening. [facility] ELIQUIS 2.5 mg tablet 2022-07 0- 00:00: 00 Yes 2.5mg Take 1 tablet by mouth in the morning and 1 tablet in the evening. [facility] gabapentin 300 mg capsule 2022-07 0- 00:00: 00 Yes 300mg Take 1 capsule by mouth in the morning and 1 capsule in the evening. [facility] ELIQUIS 2.5 mg tablet 2022-07 0- 00:00: 00 Yes 2.5mg Take 1 tablet by mouth in the morning and 1 tablet in the evening. [facility] gabapentin 300 mg capsule 2022-07 0- 00:00: 00 Yes 300mg Take 1 capsule by mouth in the morning and 1 capsule in the evening. [facility] ELIQUIS 2.5 mg tablet 2022-07 0- 00:00: 00 Yes 2.5mg Take 1 tablet by mouth in the morning and 1 tablet in the evening. [facility] gabapentin 300 mg capsule 2022-07 0- 00:00: 00 Yes 300mg Take 1 capsule by mouth in the morning and 1 capsule in the evening. [facility] ELIQUIS 2.5 mg tablet 2022- 0- 00:00: 00 Yes 2.5mg Take 1 tablet by mouth in the morning and 1 tablet in the evening. [facility] gabapentin 300 mg capsule 2022-07 0- 00:00: 00 Yes 300mg Take 1 capsule by mouth in the morning and 1 capsule in the evening. [facility] ELIQUIS 2.5 mg tablet 2022-07 0- 00:00: 00 Yes 2.5mg Take 1 tablet by mouth in the morning and 1 tablet in the evening. [facility] gabapentin 300 mg capsule 2022- 0- 00:00: 00 Yes 300mg Take 1 capsule by mouth in the morning and 1 capsule in the evening. [facility] ELIQUIS 2.5 mg tablet 2022- 0-06 00:00: 00 Yes 2.5mg Take 1 tablet by mouth in the morning and 1 tablet in the evening. [facility] gabapentin 300 mg capsule 2022- 0-06 00:00: 00 Yes 300mg Take 1 capsule by mouth in the morning and 1 capsule in the evening. [facility] ELIQUIS 2.5 mg tablet 2022- 0-06 00:00: 00 05-21 00:00 :00 No 2.5mg Take 1 tablet by mouth in the morning and 1 tablet in the evening. [facility] gabapentin 300 mg capsule 2022-07 0-06 00:00: 00 05-21 00:00 :00 No 300mg Take 1 capsule by mouth in the morning and 1 capsule in the evening. [facility] ELIQUIS 2.5 mg tablet 2022-07 0-06 00:00: 00 05-21 00:00 :00 No 2.5mg Take 1 tablet by mouth in the morning and 1 tablet in the evening. [facility] gabapentin 300 mg capsule 2022-07 0-06 00:00: 00 05-21 00:00 :00 No 300mg Take 1 capsule by mouth in the morning and 1 capsule in the evening. [facility] aspirin 81 mg chewable tablet 2022-0 03-29 00:00: 00 03-29 04:59 :00 No [id number] 81mg Take 1 tablet by mouth in the morning. [facility] aspirin 81 mg chewable tablet 2022-0 03-29 00:00: 00 03-29 04:59 :00 No [id number] 81mg Take 1 tablet by mouth in the morning. [facility] aspirin 81 mg chewable tablet 2022-0 03-29 00:00: 00 03-29 04:59 :00 No [id number] 81mg Take 1 tablet by mouth in the morning. [facility] aspirin 81 mg chewable tablet 2022-0 03-29 00:00: 00 03-29 04:59 :00 No [id number] 81mg Take 1 tablet by mouth in the morning. [facility] aspirin 81 mg chewable tablet 3-0 03-29 00:00: 00 03-29 04:59 :00 No [id number] 81mg Take 1 tablet by mouth in the morning. [facility] aspirin 81 mg chewable tablet 3-0 03-29 00:00: 00 03-29 04:59 :00 No [id number] 81mg Take 1 tablet by mouth in the morning. [facility] aspirin 81 mg chewable tablet 2022-0 03-29 00:00: 00 03-29 04:59 :00 No [id number] 81mg Take 1 tablet by mouth in the morning. [facility] aspirin 81 mg chewable tablet 0 03-29 00:00: 00 03-29 04:59 :00 No [id number] 81mg Take 1 tablet by mouth in the morning. [facility] aspirin 81 mg chewable tablet 2022-0 03-29 00:00: 00 03-29 04:59 :00 No [id number] 81mg Take 1 tablet by mouth in the morning. [facility] aspirin 81 mg chewable tablet 30 03-29 00:00: 00 03-29 04:59 :00 No [id number] 81mg Take 1 tablet by mouth in the morning. [facility] aspirin 81 mg chewable tablet 0 03-29 00:00: 00 03-29 04:59 :00 No [id number] 81mg Take 1 tablet by mouth in the morning. [facility] aspirin 81 mg chewable tablet 0 03-29 00:00: 00 03-29 04:59 :00 No [id number] 81mg Take 1 tablet by mouth in the morning. [facility] aspirin 81 mg chewable tablet 3-0 03-29 00:00: 00 03-29 04:59 :00 No [id number] 81mg Take 1 tablet by mouth in the morning. [facility] aspirin 81 mg chewable tablet 3-0 03-29 00:00: 00 03-29 04:59 :00 No [id number] 81mg Take 1 tablet by mouth in the morning. [facility] aspirin 81 mg chewable tablet 3-0 03-29 00:00: 00 03-29 04:59 :00 No [id number] 81mg Take 1 tablet by mouth in the morning. [facility] aspirin 81 mg chewable tablet 2022-0 03-29 00:00: 00 03-29 04:59 :00 No [id number] 81mg Take 1 tablet by mouth in the morning. [facility] clopidogreL 75 mg tablet 03-29 00:00: 00 03-29 04:59 :00 No [id number] 75mg Take 1 tablet by mouth in the morning. [facility] aspirin 81 mg chewable tablet 0 03-29 00:00: 00 03-29 04:59 :00 No [id number] 81mg Take 1 tablet by mouth in the morning. [facility] clopidogreL 75 mg tablet 2022-03-29 00:00: 00 03-29 04:59 :00 No [id number] 75mg Take 1 tablet by mouth in the morning. [facility] aspirin 81 mg chewable tablet 0 03-29 00:00: 00 03-29 04:59 :00 No [id number] 81mg Take 1 tablet by mouth in the morning. [facility] aspirin 81 mg chewable tablet 2022-0 03-29 00:00: 00 03-29 04:59 :00 No [id number] 81mg Take 1 tablet by mouth in the morning. [facility] aspirin 81 mg chewable tablet 2022-0 03-29 00:00: 00 03-29 04:59 :00 No [id number] 81mg Take 1 tablet by mouth in the morning. [facility] aspirin 81 mg chewable tablet 3-0 03-29 00:00: 00 03-29 04:59 :00 No [id number] 81mg Take 1 tablet by mouth in the morning. [facility] aspirin 81 mg chewable tablet 2022-0 03-29 00:00: 00 03-29 04:59 :00 No [id number] 81mg Take 1 tablet by mouth in the morning. [facility] aspirin 81 mg chewable tablet 2022-0 03-29 00:00: 00 03-29 04:59 :00 No [id number] 81mg Take 1 tablet by mouth in the morning. [facility] aspirin 81 mg chewable tablet 03-29 00:00: 00 03-29 04:59 :00 No [id number] 81mg Take 1 tablet by mouth in the morning. [facility] aspirin 81 mg chewable tablet 0 03-29 00:00: 00 03-29 04:59 :00 No [id number] 81mg Take 1 tablet by mouth in the morning. [facility] aspirin 81 mg chewable tablet 03-29 00:00: 00 03-29 04:59 :00 No [id number] 81mg Take 1 tablet by mouth in the morning. [facility] aspirin 81 mg chewable tablet 0 03-29 00:00: 00 03-29 04:59 :00 No [id number] 81mg Take 1 tablet by mouth in the morning. [facility] aspirin 81 mg chewable tablet 03-29 00:00: 00 03-29 04:59 :00 No [id number] 81mg Take 1 tablet by mouth in the morning. [facility] aspirin 81 mg chewable tablet 0 03-29 00:00: 00 03-29 04:59 :00 No [id number] 81mg Take 1 tablet by mouth in the morning. [facility] aspirin 81 mg chewable tablet 2022-0 03-29 00:00: 00 03-29 04:59 :00 No [id number] 81mg Take 1 tablet by mouth in the morning. [facility] aspirin 81 mg chewable tablet 2022-0 03-29 00:00: 00 03-29 04:59 :00 No [id number] 81mg Take 1 tablet by mouth in the morning. [facility] aspirin 81 mg chewable tablet 0 03-29 00:00: 00 03-29 04:59 :00 No [id number] 81mg Take 1 tablet by mouth in the morning. [facility] 3-0 03-29 00:00: 00 03-29 04:59 :00 No [id number] 81mg Take 1 tablet by mouth in the morning. [facility] aspirin 81 mg chewable tablet 3-0 03-29 00:00: 00 03-29 04:59 :00 No [id number] 81mg Take 1 tablet by mouth in the morning. [facility] aspirin 81 mg chewable tablet 2022-0 03-29 00:00: 00 03-29 04:59 :00 No [id number] 81mg Take 1 tablet by mouth in the morning. [facility] aspirin 81 mg chewable tablet 3-0 03-29 00:00: 00 03-29 04:59 :00 No [id number] 81mg Take 1 tablet by mouth in the morning. [facility] aspirin 81 mg chewable tablet 0 03-29 00:00: 00 03-29 04:59 :00 No [id number] 81mg Take 1 tablet by mouth in the morning. [facility] aspirin 81 mg chewable tablet 0 03-29 00:00: 00 03-29 04:59 :00 No [id number] 81mg Take 1 tablet by mouth in the morning. [facility] aspirin 81 mg chewable tablet 2022-0 03-29 00:00: 00 03-29 04:59 :00 No [id number] 81mg Take 1 tablet by mouth in the morning. [facility] aspirin 81 mg chewable tablet 3-0 03-29 00:00: 00 03-29 04:59 :00 No [id number] 81mg Take 1 tablet by mouth in the morning. [facility] aspirin 81 mg chewable tablet 3-0 03-29 00:00: 00 03-29 04:59 :00 No [id number] 81mg Take 1 tablet by mouth in the morning. [facility] aspirin 81 mg chewable tablet 3-0 03-29 00:00: 00 03-29 04:59 :00 No [id number] 81mg Take 1 tablet by mouth in the morning. [facility] aspirin 81 mg chewable tablet 2022-0 03-29 00:00: 00 03-29 04:59 :00 No [id number] 81mg Take 1 tablet by mouth in the morning. [facility] aspirin 81 mg chewable tablet 2022-0 03-29 00:00: 00 03-29 04:59 :00 No [id number] 81mg Take 1 tablet by mouth in the morning. [facility] aspirin 81 mg chewable tablet 2022-0 03-29 00:00: 00 03-29 04:59 :00 No [id number] 81mg Take 1 tablet by mouth in the morning. [facility] aspirin 81 mg chewable tablet 2022-0 03-29 00:00: 00 03-29 04:59 :00 No [id number] 81mg Take 1 tablet by mouth in the morning. [facility] aspirin 81 mg chewable tablet 0 03-29 00:00: 00 03-29 04:59 :00 No [id number] 81mg Take 1 tablet by mouth in the morning. [facility] aspirin 81 mg chewable tablet 0 03-29 00:00: 00 03-29 04:59 :00 No [id number] 81mg Take 1 tablet by mouth in the morning. [facility] aspirin 81 mg chewable tablet 0 03-29 00:00: 00 03-29 04:59 :00 No [id number] 81mg Take 1 tablet by mouth in the morning. [facility] aspirin 81 mg chewable tablet 3-0 03-29 00:00: 00 03-29 04:59 :00 No [id number] 81mg Take 1 tablet by mouth in the morning. [facility] aspirin 81 mg chewable tablet 2022-0 03-29 00:00: 00 03-29 04:59 :00 No [id number] 81mg Take 1 tablet by mouth in the morning. [facility] lisinopriL 5 mg tablet 3-0 03-29 00:00: 00 09-25 05:59 :00 No [id number] 5mg Take 1 tablet by mouth in the morning for 180 days. [facility] lisinopriL 5 mg tablet 3-0 03-29 00:00: 00 09-25 05:59 :00 No [id number] 5mg Take 1 tablet by mouth in the morning for 180 days. [facility] lisinopriL 5 mg tablet 2022-0 03-29 00:00: 00 09-25 05:59 :00 No [id number] 5mg Take 1 tablet by mouth in the morning for 180 days. [facility] lisinopriL 5 mg tablet 3-0 03-29 00:00: 00 09-25 05:59 :00 No [id number] 5mg Take 1 tablet by mouth in the morning for 180 days. [facility] lisinopriL 5 mg tablet 2022-0 03-29 00:00: 00 09-25 05:59 :00 No [id number] 5mg Take 1 tablet by mouth in the morning for 180 days. [facility] lisinopriL 5 mg tablet 2022-0 03-29 00:00: 00 09-25 05:59 :00 No [id number] 5mg Take 1 tablet by mouth in the morning for 180 days. [facility] lisinopriL 5 mg tablet 3-0 03-29 00:00: 00 09-25 05:59 :00 No [id number] 5mg Take 1 tablet by mouth in the morning for 180 days. [facility] lisinopriL 5 mg tablet 3-0 03-29 00:00: 00 09-25 05:59 :00 No [id number] 5mg Take 1 tablet by mouth in the morning for 180 days. [facility] lisinopriL 5 mg tablet 3-0 03-29 00:00: 00 09-25 05:59 :00 No [id number] 5mg Take 1 tablet by mouth in the morning for 180 days. [facility] lisinopriL 5 mg tablet 03-29 00:00: 00 09-25 05:59 :00 No [id number] 5mg Take 1 tablet by mouth in the morning for 180 days. [facility] lisinopriL 5 mg tablet 03-29 00:00: 00 09-25 05:59 :00 No [id number] 5mg Take 1 tablet by mouth in the morning for 180 days. [facility] lisinopriL 5 mg tablet 03-29 00:00: 00 09-25 05:59 :00 No [id number] 5mg Take 1 tablet by mouth in the morning for 180 days. [facility] lisinopriL 5 mg tablet 03-29 00:00: 00 05-21 00:00 :00 No [id number] 5mg Take 1 tablet by mouth in the morning for 180 days. [facility] lisinopriL 5 mg tablet 03-29 00:00: 00 05-21 00:00 :00 No [id number] 5mg Take 1 tablet by mouth in the morning for 180 days. [facility] clopidogreL 75 mg tablet 03-29 00:00: 00 05-07 00:00 :00 No [id number] 75mg Take 1 tablet by mouth in the morning. [facility] clopidogreL 75 mg tablet 03-29 00:00: 00 05-07 00:00 :00 No [id number] 75mg Take 1 tablet by mouth in the morning. [facility] clopidogreL 75 mg tablet 03-29 00:00: 00 05-07 00:00 :00 No [id number] 75mg Take 1 tablet by mouth in the morning. [facility] clopidogreL 75 mg tablet 03-29 00:00: 00 05-07 00:00 :00 No [id number] 75mg Take 1 tablet by mouth in the morning. [facility] amoxicillin -clavulanat e (AUGMENTIN) 875-125 mg per tablet 03-29 00:00: 00 04-01 04:59 :00 No [id number] 1{tbl} Take 1 tablet by mouth in the morning and 1 tablet in the evening. Do all this for 2 days. [facility] atorvastati n 40 mg tablet 0 03-28 00:00: 00 03-28 04:59 :00 No [id number] 40mg Take 1 tablet by mouth at bedtime. [facility] atorvastati n 40 mg tablet 03-28 00:00: 00 03-28 04:59 :00 No [id number] 40mg Take 1 tablet by mouth at bedtime. [facility] atorvastati n 40 mg tablet 03-28 00:00: 00 03-28 04:59 :00 No [id number] 40mg Take 1 tablet by mouth at bedtime. [facility] atorvastati n 40 mg tablet 03-28 00:00: 00 03-28 04:59 :00 No [id number] 40mg Take 1 tablet by mouth at bedtime. [facility] atorvastati n 40 mg tablet 0 03-28 00:00: 00 03-28 04:59 :00 No [id number] 40mg Take 1 tablet by mouth at bedtime. [facility] atorvastati n 40 mg tablet 03-28 00:00: 00 03-28 04:59 :00 No [id number] 40mg Take 1 tablet by mouth at bedtime. [facility] atorvastati n 40 mg tablet 03-28 00:00: 00 03-28 04:59 :00 No [id number] 40mg Take 1 tablet by mouth at bedtime. [facility] atorvastati n 40 mg tablet 03-28 00:00: 00 03-28 04:59 :00 No [id number] 40mg Take 1 tablet by mouth at bedtime. [facility] atorvastati n 40 mg tablet 0 03-28 00:00: 00 03-28 04:59 :00 No [id number] 40mg Take 1 tablet by mouth at bedtime. [facility] atorvastati n 40 mg tablet 2022-0 03-28 00:00: 00 03-28 04:59 :00 No [id number] 40mg Take 1 tablet by mouth at bedtime. [facility] atorvastati n 40 mg tablet 0 03-28 00:00: 00 03-28 04:59 :00 No [id number] 40mg Take 1 tablet by mouth at bedtime. [facility] atorvastati n 40 mg tablet 0 03-28 00:00: 00 03-28 04:59 :00 No [id number] 40mg Take 1 tablet by mouth at bedtime. [facility] melatonin 3 mg tablet 0 03-28 00:00: 00 09-24 05:59 :00 No [id number] 3mg Take 1 tablet by mouth at bedtime for 180 days. [facility] melatonin 3 mg tablet 0 03-28 00:00: 00 09-24 05:59 :00 No [id number] 3mg Take 1 tablet by mouth at bedtime for 180 days. [facility] melatonin 3 mg tablet 0 03-28 00:00: 00 09-24 05:59 :00 No [id number] 3mg Take 1 tablet by mouth at bedtime for 180 days. [facility] melatonin 3 mg tablet 0 03-28 00:00: 00 09-24 05:59 :00 No [id number] 3mg Take 1 tablet by mouth at bedtime for 180 days. [facility] melatonin 3 mg tablet 2022-0 03-28 00:00: 00 09-24 05:59 :00 No [id number] 3mg Take 1 tablet by mouth at bedtime for 180 days. [facility] melatonin 3 mg tablet 2022-0 03-28 00:00: 00 09-24 05:59 :00 No [id number] 3mg Take 1 tablet by mouth at bedtime for 180 days. [facility] melatonin 3 mg tablet 2022-0 08 00:00: 00 09-24 05:59 :00 No [id number] 3mg Take 1 tablet by mouth at bedtime for 180 days. [facility] melatonin 3 mg tablet 0 03-28 00:00: 00 09-24 05:59 :00 No [id number] 3mg Take 1 tablet by mouth at bedtime for 180 days. [facility] melatonin 3 mg tablet 03-28 00:00: 00 09-24 05:59 :00 No [id number] 3mg Take 1 tablet by mouth at bedtime for 180 days. [facility] melatonin 3 mg tablet 03-28 00:00: 00 09-24 05:59 :00 No [id number] 3mg Take 1 tablet by mouth at bedtime for 180 days. [facility] melatonin 3 mg tablet 03-28 00:00: 00 09-24 05:59 :00 No [id number] 3mg Take 1 tablet by mouth at bedtime for 180 days. [facility] melatonin 3 mg tablet 0 03-28 00:00: 00 09-24 05:59 :00 No [id number] 3mg Take 1 tablet by mouth at bedtime for 180 days. [facility] atorvastati n 40 mg tablet 0 03-28 00:00: 00 05-21 00:00 :00 No [id number] 40mg Take 1 tablet by mouth at bedtime. [facility] melatonin 3 mg tablet 0 03-28 00:00: 00 05-21 00:00 :00 No [id number] 3mg Take 1 tablet by mouth at bedtime for 180 days. [facility] atorvastati n 40 mg tablet 0 03-28 00:00: 00 05-21 00:00 :00 No [id number] 40mg Take 1 tablet by mouth at bedtime. [facility] melatonin 3 mg tablet 2022-0 03-28 00:00: 00 05-21 00:00 :00 No [id number] 3mg Take 1 tablet by mouth at bedtime for 180 days. [facility] Lidocaine (LIDOCARE) 4 % patch 1 Patch 03-27 17:00: 00 03-28 06:24 :00 No 1{patch } 1 Patch, Topical, Administer over 12 Hours, ONCE, 1 dose, On Fri03/27/23 at 1200, Routine [facility] lisinopriL (PRINIVIL,Z ESTRIL) tablet 5 mg 03-27 14:00: 00 Yes 5mg 5 mg, Oral, DAILY, First dose on Fri03/27/23 at 0900, Until Discontinu ed, Routine [facility] labetaloL (NORMODYNE) injection 10 mg 03-27 11:36: 17 Yes 10mg 10 mg, Slow IV Push, [id number], 5 doses, Starting on Fri03/27/23 at 0636, Until Discontinu ed, Routine, Hypertensi on SBP> 180, DBP > 110 [facility] Lidocaine (LIDOCARE) 4 % patch 1 Patch 03-26 16:45: 00 03-27 04:50 :00 No 1{patch } 1 Patch, Topical, Administer over 12 Hours, ONCE, 1 dose, On Fri03/26/23 at 1145, Routine [facility] cefTRIAXone (ROCEPHIN) 1,000 mg in NaCl 0.9% (NS) 100 mL MINI-BAG 03-26 13:30: 00 03-31 13:29 :00 No 1000mg 1,000 mg, IV Piggyback, Q24H ABX, 5 doses, First dose on Fri03/26/23 at 0830, Last dose on Fri03/30/23 at 0830, Administer over 30 Minutes, 100 mL
Reas on for Anti-Infec tive: Documented Infection< br>Documen edna Infection Site: Urine
D uration of Therapy: Other (see Comments) [facility] barium sulfate (VARIBAR THIN LIQUID) 81 % (w/w) oral powder 20 g 03-25 21:45: 00 03-25 21:45 :00 No [id number] 20g 20 g, Oral, ONCE, 1 dose, On Fri03/25/23 at 1645, Routine [facility] barium sulfate-NO CHARGE- (VARIBAR NECTOR) 40 % (w/v) oral suspension 20 mL 03-25 21:45: 00 03-25 21:45 :00 No [id number] 20mL 20 mL, Oral, ONCE, 1 dose, On Fri03/25/23 at 1645, Routine [facility] NaCl 0.9% (NS) IV infusion 1,000 mL 03-25 06:30: 00 03-25 16:50 :18 No 1000mL at 50 mL/hr, IV Infusion, CONTINUOUS , Starting on Fri03/25/23 at 0130, Until Fri03/25/23 at 1150, Routine [facility] iopamidol (ISOVUE 370-500 mL) injection 100 mL 03-24 17:30: 00 03-24 17:30 :00 No [id number] 100mL 100 mL, Intravenou s, ONCE, 1 dose, On Fri03/24/23 at 1230, [facility]PLAVIX[facility] 75 mg tablet 75 mg 03-24 14:00: 00 Yes 75mg 75 mg, Oral, DAILY, First dose on Fri03/24/23 at 0900, Until Discontinu ed, Routine [facility] aspirin chewable tablet 81 mg 03-24 14:00: 00 Yes 81mg 81 mg, Oral, DAILY, First dose on Fri03/24/23 at 0900, Until Discontinu ed, Routine [facility] acetaminoph en (TYLENOL) 160 mg/5 mL oral liquid 650 mg 03-23 22:03: 12 Yes 650mg 650 mg, Oral, Q4HPRN, Starting on Fri03/23/23 at 1703, Until Discontinu ed, Routine, Temp > 38.5 C [facility] polyethylen e glycol 3350 powder 17 g 03-23 19:30: 00 Yes 17g 17 g, Oral, DAILY, First dose on Fri03/23/23 at 1430, Until Discontinu ed, Routine [facility] sennosides- docusate sodium (SENOKOT-S) 8.6-50 mg per tablet 1 tablet 03-23 19:30: 00 Yes 1{tbl} 1 tablet, Oral, DAILY, First dose on Fri03/23/23 at 1430, Until Discontinu ed, Routine [facility] iopamidol (ISOVUE 370-500 mL) injection 80 mL 03-23 15:45: 00 03-23 15:45 :00 No [id number] 80mL 80 mL, Intravenou s, ONCE, 1 dose, On 03/23/23 at 1045, Routine [facility] KCL (KLOR-CON M20) tablet 40 mEq 03-23 13:30: 00 03-23 13:15 :00 No 40meq 40 mEq, Oral, ONCE, 1 dose, On Fri03/23/23 at 0830, Routine [facility] potassium chloride in water (KCL) 20 mEq/100 mL RTU IVPB 20 mEq 03-23 12:15: 00 03-23 17:58 :07 No 20meq 20 mEq, IV Piggyback, ONCE, 1 dose, On 03/23/23 at 0715, 100 mL [facility] magnesium sulfate in water 4 gram/50 mL (8 %) IV Piggyback 4 g 03-23 12:15: 00 03-23 13:50 :00 No 4g 4 g, IV Piggyback, at 25 mL/hr Administer over 120 Minutes, ONCE, 1 dose, On 03/23/23 at 0715, Routine [facility] calcium gluconate 2 g in NaCl 100 mL (ISO-OSM) RTU IV infusion 2 g 03-22 13:45: 00 03-22 15:25 :00 No 2g 2 g, IV Infusion, at 200 mL/hr Administer over 30 Minutes, ONCE, 1 dose, On [facility] 03/22/23 at 0845, Routine [facility] KCL (KLOR-CON M20) tablet 40 mEq 03-22 13:30: 00 03-22 13:33 :00 No 40meq 40 mEq, Oral, ONCE, 1 dose, On 03/22/23 at 0830, Routine [facility] potassium chloride in water (KCL) 20 mEq/100 mL RTU IVPB 20 mEq 03-22 13:30: 00 03-22 19:14 :17 No 20meq 20 mEq, IV Piggyback, ONCE, 1 dose, On 03/22/23 at 0830, 100 mL [facility] [facility] magnesium sulfate in water 2 gram/50 mL (4 %) infusion 2 g 03-22 13:15: 00 03-22 14:36 :00 No 2g 2 g, IV Piggyback, Administer over 60 Minutes, ONCE, 1 dose, On 03/22/23 at 0815, [facility]ocarb[facility]L (ROBAXIN) injection 1,000 mg 03-22 03:00: 00 03-22 21:09 :32 No 1000mg 1,000 mg, Intravenou s, Q8H, 9 doses, First dose (after last modificati on) on Fri03/21/23 at 2200, Last dose on Fri03/24/23 at 1400, Routine [facility] heparin (porcine) injection 5,000 Units 03-22 01:00: 00 Yes 5000U 5,000 Units, Subcutaneo us, Q12H, First dose on Fri03/21/23 at 2000, Until Discontinu ed, Routine [facility] acetaminoph en (TYLENOL) tablet 650 mg 03-21 23:00: 00 Yes 650mg 650 mg, Oral, Q6H, First dose (after last modificati on) on Fri03/21/23 at 1800, Until Discontinu ed, Routine [facility] D5W 0.9% NaCl (NS) IV infusion 1,000 mL 03-21 22:00: 00 03-25 05:26 :25 No 1000mL at 50 mL/hr, 1,000 mL, IV Infusion, CONTINUOUS , Starting on Fri03/21/23 at 1700, Until Fri03/25/23 at 0026, Routine [facility] dextrose 10% (D10W) bolus infusion 250 mL 03-21 20:57: 14 Yes 250mL 250 mL, IV Infusion, PRN - SEE INSTRUCTIO NS, Administer over 60 Minutes, Other, If blood [...] blood glucose is < 80 mg/dL, repeat.
[facility] glucagon (GLUCAGEN DIAGNOSTIC KIT) injection 1 mg 03-21 20:57: 10 Yes 1mg 1 mg, Intramuscu lar, PRN, Starting on Fri03/21/23 at 1557, Until Discontinu ed, [facility], Blood Glucose < or = 70 mg/dL and patient is NPO, unable to swallow or has mental changes. [facility] niCARdipine (CARDENE I.V.) 40 mg in NaCL 200 mL (RTU) infusion 03-21 19:19: 08 03-26 12:10 :44 No 2.5mg/h 2.5-15 mg/hr (12.5-75 mL/hr), IV Infusion, TITRATE, SBP 120 - 140, Starting on Fri03/21/23 at 1419
In itiate infusion at 2.5 mg/hr.&nbs p; Ti trate by 2.5 mg/hr every 5 minutes to 15 minutes as needed to achieve and maintain goal blood pressure. Maximum dose = 15 mg/hr. If goal not maintained at maximum allowed dose, contact prescriber .
[facility] niCARdipine (CARDENE I.V.) 40 mg in NaCL 200 mL (RTU) infusion 03-21 17:50: 58 03-21 19:19 :22 No 2.5mg/h 2.5-15 mg/hr (12.5-75 mL/hr), IV Infusion, TITRATE, SBP <120, Starting on Fri03/21/23 at 1250
In itiate infusion at 2.5 mg/hr.&nbs p; Ti trate by 2.5 mg/hr every 5 minutes to 15 minutes as needed to achieve and maintain goal blood pressure. Maximum dose = 15 mg/hr. If goal not maintained at maximum allowed dose, contact prescriber .
[facility] niCARdipine (CARDENE I.V.) 40 mg in NaCL 200 mL (RTU) infusion 03-21 17:50: 58 03-21 17:05 :07 No 2.5mg/h 2.5-15 mg/hr (12.5-75 mL/hr), IV Infusion, TITRATE, SBP Goal < 180 mmHg, <140, Starting on Fri03/21/23 at 1250
In itiate infusion at 2.5 mg/hr.&nbs p; Ti trate by 2.5 mg/hr every 5 minutes to 15 minutes as needed to achieve and maintain goal blood pressure. Maximum dose = 15 mg/hr. If goal not maintained at maximum allowed dose, contact prescriber .
[facility] iopamidol (ISOVUE 370-500 mL) injection 80 mL 03-21 16:30: 00 03-21 15:27 :00 No [id number] 80mL 80 mL, Intravenou s, ONCE, 1 dose, On Fri03/21/23 at 1130, Routine [facility] pantoprazol e (PROTONIX) injection 40 mg 03-21 16:00: 00 03-24 15:59 :00 No 40mg 40 mg, Slow IV Push, Q24H, 3 doses, First dose on Fri03/21/23 at 1100, Last dose on Fri03/23/23 at 1100 [facility] heparin 1,000 unit/mL injection 03-21 15:07: 57 03-21 15:07 :57 No PRN, Starting on Fri03/21/23 at 1007, Until Fri03/21/23 at 1007, Routine, Intra-op [facility] atropine injection 03-21 14:52: 58 03-21 14:52 :58 No PRN, Starting on Fri03/21/23 at 0952, Until Fri03/21/23 at 0952, Routine, Intra-op [facility] iopamidol (ISOVUE 300-100 mL) injection 50 mL 03-21 14:30: 00 03-21 14:30 :00 No [id number] 50mL 50 mL, Intravenou s, ONCE, 1 dose, On Fri03/21/23 at 0930, Routine [facility] lidocaine 1% (XYLOCAINE) 10 mg/mL (1 %) injection 03-21 14:15: 00 03-21 14:15 :00 No PRN, Starting on Fri03/21/23 at 0915, Until Fri03/21/23 at 0915, Routine, Intra-op [facility] FENTanyl PF (SUBLIMAZE (PF)) injection 03-21 14:12: 24 03-21 15:04 :44 No Slow IV Push, PRN, Starting on Fri03/21/23 at 0912, Until Fri03/21/23 at 1004, Routine, Intra-op [facility] melatonin (MELATIN) tablet 3 mg 03-21 02:00: 00 Yes 3mg 3 mg, Oral, QHS, First dose on Fri03/20/23 at 2100, Until Discontinu ed, Routine [facility] aspirin chewable tablet 81 mg 03-20 17:15: 00 03-23 14:09 :55 No 81mg 81 mg, Oral, DAILY, First dose on Fri03/20/23 at 1215, Until Discontinu ed, Routine [facility] clopidogreL (PLAVIX) 75 mg tablet 75 mg 03-20 14:00: 00 03-23 14:09 :55 No 75mg 75 mg, Oral, DAILY, First dose on Fri03/20/23 at 0900, Until Discontinu ed, Routine [facility] acetaminoph en (TYLENOL) tablet 650 mg 03-20 05:40: 47 03-21 18:46 :27 No 650mg 650 mg, Oral, Q6HPRN, Starting on Fri03/20/23 at 0040, Until Fri03/21/23 at 1346, Routine, Pain (scale 1-3), Pain (scale 4-6), Temp > 38 C [facility] atorvastati n (LIPITOR) tablet 40 mg 03-20 02:00: 00 Yes 40mg 40 mg, Oral, QHS, First dose on Fri03/19/23 at 2100, Until Discontinu ed, Routine [facility] famotidine (PEPCID AC) tablet 20 mg 03-20 01:00: 00 Yes 20mg 20 mg, Oral, BID, First dose on Fri03/19/23 at 2000, Until Discontinu ed, Routine [facility] nicotine (NICODERM) 21 mg/24 hr patch 1 Patch 03-19 22:45: 00 Yes 1{patch } 1 Patch, Topical, Administer over 24 Hours, Q24H, First dose on Fri03/19/23 at 1745, Until Discontinu ed, Routine [facility] NaCl 0.9% (NS) IV infusion 1,000 mL 03-19 22:42: 00 03-24 14:56 :34 No 1000mL at 50 mL/hr, IV Infusion, CONTINUOUS , Starting on Fri03/19/23 at 1745, Until Fri03/24/23 at 0956, Routine [facility] NaCl 0.9% (NS) bolus infusion 1,000 mL 03-19 15:30: 00 03-19 15:00 :00 No 1000mL at 999 mL/hr, 1,000 mL, IV Infusion, ONCE, 1 dose, On Fri03/19/23 at 1030, STAT [facility] clopidogreL (PLAVIX) 300 mg tablet 300 mg 03-19 15:15: 00 03-19 14:24 :00 No 300mg 300 mg, Oral, ONCE, 1 dose, On Fri03/19/23 at 1015, [facility] aspirin tablet 325 mg 03-19 14:30: 00 03-19 14:24 :00 No 325mg 325 mg, Oral, ONCE, 1 dose, On Fri03/19/23 at 0930, STAT [facility] iopamidol (ISOVUE 370-500 mL) injection 80 mL 03-19 13:16: 00 03-19 13:30 :00 No [id number] 80mL 80 mL, Intravenou s, ONCE, 1 dose, On Fri03/19/23 at 0830, Routine [facility] NaCl 0.9% (NS) injection 5 mL 03-19 13:01: 36 Yes 5mL 5 mL, Slow IV Push, PRN - SEE INSTRUCTIO NS, Starting on Fri03/19/23 at 0801, Until Discontinu ed, 10 mL [facility] Immunizations Ordered Immunization Name Filled Immunization Name Date Status Comments Source Moderna COVID-19 Vaccine Moderna COVID-19 Vaccine 2021-03-17 00:00:00 Completed Moderna COVID-19 Vaccine Moderna COVID-19 Vaccine 2021-02-17 00:00:00 Completed Vital Signs Vital Name Observation Time Observation Value Comments S ource Systolic blood pressure 2023-07-03 02:56:00 157 mm[Hg] [facility] Diastolic blood pressure 2023-07-03 02:56:00 92 mm[Hg] [facility] Heart rate 2023-07-03 02:56:00 63 /min [facility] Oxygen saturation in Arterial blood by Pulse oximetry 2023-07-03 02:56:00 98 /min [facility] Respiratory rate 2023-07-03 02:29:00 20 /min [facility] Body temperature 2023-07-03 00:22:00 37.28 Nohemy [facility] Systolic blood pressure 2023-06-07 04:13:00 118 mm[Hg] [facility] Diastolic blood pressure 2023-06-07 04:13:00 67 mm[Hg] [facility] Heart rate 2023-06-07 04:13:00 75 /min [facility] Body temperature 2023-06-07 04:13:00 36.94 Nohemy [facility] Respiratory rate 2023-06-07 04:13:00 16 /min [facility] Oxygen saturation in Arterial blood by Pulse oximetry 2023-06-07 04:13:00 98 /min [facility] Body height 2023-06-07 00:22:00 162.6 cm [facility] Body weight 2023-06-07 00:22:00 72.576 kg [facility] BMI 2023-06-07 00:22:00 27.46 kg/m2 [facility] Systolic blood pressure 2023-05-15 16:29:00 130 mm[Hg] [facility] Diastolic blood pressure 2023-05-15 16:29:00 78 mm[Hg] [facility] Heart rate 2023-05-15 16:29:00 52 /min [facility] Body temperature 2023-05-15 16:29:00 36.89 Nohemy [facility] Respiratory rate 2023-05-15 16:29:00 20 /min [facility] Body height 2023-05-15 16:29:00 162.6 cm [facility] Body weight 2023-05-15 16:29:00 67.586 kg [facility] BMI 2023-05-15 16:29:00 25.58 kg/m2 [facility] Oxygen saturation in Arterial blood by Pulse oximetry 2023-05-15 16:29:00 97 /min [facility] Systolic blood pressure 2023-05-07 13:30:00 131 mm[Hg] [facility] Diastolic blood pressure 2023-05-07 13:30:00 66 mm[Hg] [facility] Heart rate 2023-05-07 13:30:00 74 /min [facility] Body temperature 2023-05-07 13:30:00 36.56 Nohemy [facility] Body height 2023-05-07 13:30:00 162.6 cm [facility] Body weight 2023-05-07 13:30:00 63.957 kg patient stated [facility] BMI 2023-05-07 13:30:00 24.20 kg/m2 [facility] Oxygen saturation in Arterial blood by Pulse oximetry 2023-05-07 13:30:00 99 /min [facility] Respiratory rate 2023-03-28 20:39:00 16 /min [facility] Oxygen saturation in Arterial blood by Pulse oximetry 2023-03-28 20:39:00 96 /min [facility] Systolic blood pressure 2023-03-28 20:39:00 149 mm[Hg] [facility] Diastolic blood pressure 2023-03-28 20:39:00 73 mm[Hg] [facility] Heart rate 2023-03-28 20:39:00 59 /min [facility] Body temperature 2023-03-28 20:39:00 36.5 Nohemy [facility] Body height 2023 21:07:00 162.6 cm [facility] Body weight 2023 21:07:00 66.679 kg [facility] BMI 2023 21:07:00 25.23 kg/m2 [facility] Systolic blood pressure 2023 14:30:00 196 mm[Hg] [facility] Diastolic blood pressure 2023 14:30:00 78 mm[Hg] [facility] Heart rate 2023 14:30:00 51 /min [facility] Respiratory rate 2023 14:30:00 24 /min [facility] Oxygen saturation in Arterial blood by Pulse oximetry 2023 14:30:00 97 /min [facility] Body temperature 2023 14:06:36 37.06 Nohemy [facility] Body height 2023 12:52:00 162.6 cm [facility] Body weight 2023 12:52:00 66.724 kg [facility] BMI 2023 12:52:00 25.25 kg/m2 [facility] Systolic blood pressure 2023-03-23 16:00:00 140 mm[Hg] [facility] Diastolic blood pressure 2023-03-23 16:00:00 51 mm[Hg] [facility] Heart rate 2023-03-23 16:00:00 71 /min [facility] Body temperature 2023-03-23 16:00:00 37.72 Nohemy [facility] Respiratory rate 2023-03-23 16:00:00 20 /min [facility] Oxygen saturation in Arterial blood by Pulse oximetry 2023-03-23 16:00:00 98 /min [facility] Systolic blood pressure 2023-03-22 16:00:00 138 mm[Hg] [facility] Diastolic blood pressure 2023-03-22 16:00:00 67 mm[Hg] [facility] Heart rate 2023-03-22 16:00:00 58 /min [facility] Body temperature 2023-03-22 16:00:00 37.28 Nohemy [facility] Respiratory rate 2023-03-22 16:00:00 16 /min [facility] Oxygen saturation in Arterial blood by Pulse oximetry 2023-03-22 16:00:00 97 /min [facility] Body height 2023 21:07:00 162.6 cm [facility] Body weight 2023 21:07:00 66.679 kg [facility] BMI 2023 21:07:00 25.23 kg/m2 [facility] Procedures Procedure Date / Time Performed Performing Clinician Source XR CHEST 1 VW 2023-07-03 01:07:42 Piyush Pearl [facility] TROPONIN I 2023-07-03 00:58:00 Piyush Pearl [facility] COMP. METABOLIC PANEL (58579) 2023-07-03 00:58:00 Piyush Pearl [facility] CBC WITH DIFF 2023-07-03 00:58:00 [facility]-BNP 2023-07-03 00:58:00 Jermaine Pearl [facility] CONSENT/REFUSAL FOR DIAGNOSIS AND TREATMENT 2023-07-03 00:12:03 Doctor Unassigned, [place] [facility] HOME HEALTH - OTHER 2023-06-20 06:01:00 Doctor U nassigned, [place] [facility] XR CERVICAL SPINE 3 VW 2023-06-07 02:39:42 Sam Ambrosio [facility] XR HUMERUS 2 VW LEFT 2023-06-07 02:39:42 Bernard Ambrosio [facility] XR SHOULDER 2+ VW LEFT 2023-06-07 02:39:42 Sam Ambrosio [facility] CONSENT/REFUSAL FOR DIAGNOSIS AND TREATMENT 2023-06-06 23:49:55 Doctor Unassigned, [place] [facility] INSURANCE CORRESPONDENCE 2023-05-23 05:01:00 Doc tor Unassigned, [place] [facility] HOME HEALTH 485 2023-05-01 05:01:00 Doctor Unass igned, [place] [facility] MAGNESIUM 2023-03-28 06:09:00 Elías Flowers [facility] BASIC METABOLIC PANEL (NA, K, CL, CO2, GLUCOSE, BUN, CREATININE, CA) 2023-03-28 06:09:00 Kristie [facility] MR BRAIN WO CONTRAST 2023-03-27 20:27:00 Silvio Flowers [facility] MAGNESIUM 2023-03-27 07:46:00 [facility] BASIC METABOLIC PANEL (NA, K, CL, CO2, GLUCOSE, BUN, CREATININE, CA) 2023-03-27 07:46:00 Elías Flowers [facility] CBC WITHOUT DIFF 2023-03-27 07:46:00 Lauren Flowers [facility] POCT GLUCOSE (AUTOMATED) 2023-03-26 21:24:00 Carlie Pan [facility] POCT GLUCOSE (AUTOMATED) 2023-03-26 16:54:00 Pan, [facility] POCT GLUCOSE (AUTOMATED) 2023-03-26 12:40:00 Haseeb [facility] MAGNESIUM 2023-03-26 09:52:00 Perry Collins Uni [facility] BASIC METABOLIC PANEL (NA, K, CL, CO2, GLUCOSE, BUN, CREATININE, CA) 2023-03-26 09:52:00 Perry Collins [facility] CBC WITH DIFF 2023-03-26 09:52:00 [facility] 2023-03-26 01:22:00 Haseeb [facility] XR CHEST 1 VW 2023-03-25 21:59:00 [facility]IS 2023-03-25 21:55:00 Perry Collins Uni [facility] POCT GLUCOSE (AUTOMATED) 2023-03-25 16:47:00 Haseeb [facility] POCT GLUCOSE (AUTOMATED) 2023-03-25 12:46:00 Haseeb [facility] PHOSPHORUS 2023-03-25 08:35:00 Fartun Butterfieldzabeth [facility] MAGNESIUM 2023-03-25 08:35:00 Fartun Butterfield [facility] THYROID STIMULATING HORMONE 2023-03-25 08:35:00 Serena Mendoza [facility] BASIC METABOLIC PANEL (NA, K, CL, CO2, GLUCOSE, BUN, CREATININE, CA) 2023-03-25 08:35:00 Larry Watts [facility] CBC WITHOUT DIFF 2023-03-25 08:35:00 Larry medina [facility] POCT GLUCOSE (AUTOMATED) 2023-03-25 02:22[facility] 2023-03-24 20:37[facility] 2023-03-24 16:49:00 Haseeb [facility] CT ANGIOGRAM CHEST 2023-03-24 16:40:56 Allison [facility] ABDOMEN PELVIS W CONTRAST 2023-03-24 16:40:56 Allison Valle [facility] POCT GLUCOSE (AUTOMATED) 2023-03-24 12:49:00 Haseeb [facility] PHOSPHORUS 2023-03-24 09:07:00 Fartun Butterfield [facility] MAGNESIUM 2023-03-24 09:07:00 Fartun Butterfield [facility] BASIC METABOLIC PANEL (NA, K, CL, CO2, GLUCOSE, BUN, CREATININE, CA) 2023-03-24 09:07:00 Amber [facility] CBC WITHOUT DIFF 2023-03-24 09:07:00 Amber [facility] POCT GLUCOSE (AUTOMATED) 2023-03-24 02:09:00 Haseeb [facility] POCT GLUCOSE (AUTOMATED) 2023-03-23 21:05:00 Haseeb [facility] POCT GLUCOSE (AUTOMATED) 2023-03-23 16:43[facility] 2023-03-23 16:43:00 Haseeb [facility] AC PANEL 20 + LACTIC ACID 2023-03-23 15:21:00 Amber [facility] AC PANEL 20 + LACTIC ACID 2023-03-23 15:21:00 Amber [facility] CT ANGIOGRAM HEAD 2023-03-23 14:57:00 Maria Isabel Harmon [facility] CT HEAD WO CONTRAST 2023-03-23 14:57:00 Forrest Clark [facility] CT ANGIOGRAM NECK 2023-03-23 14:57:00 Maria Isabel Harmon [facility] POCT GLUCOSE (AUTOMATED) 2023-03-23 13:16:00 Haseeb [facility] POCT GLUCOSE (AUTOMATED) 2023-03-23 13:16:00 Haseeb [facility] CBC WITH DIFF 2023-03-23 10:19:00 Jered Saez [facility] BASIC METABOLIC PANEL (NA, K, CL, CO2, GLUCOSE, BUN, CREATININE, CA) 2023-03-23 10:19:00 Jered Saez [facility] PHOSPHORUS 2023-03-23 10:19:00 Fartun Butterfield [facility] MAGNESIUM 2023-03-23 10:19:00 Fartun Butterfield [facility] PHOSPHORUS 2023-03-23 10:19:00 Fartun Butterfield [facility] MAGNESIUM 2023-03-23 10:19:00 Fartun Butterfield [facility] BASIC METABOLIC PANEL (NA, K, CL, CO2, GLUCOSE, BUN, CREATININE, CA) 2023-03-23 10:19:00 Jered Saez [facility] CBC WITH DIFF 2023-03-23 10:19:00 Jered Saez [facility] POCT GLUCOSE (AUTOMATED) 2023-03-23 02:41[facility]00 [facility] 2023-03-23 02:41[facility] 2023-03-22 21:10:00 [facility] 2023-03-22 21:10:00 [facility] BASIC MET[facility]OLIC PANEL (NA, K, CL, CO2, GLUCOSE, BUN, CREATININE, CA) 2023-03-22 20:59:00 Jered Saez [facility] MAGNESIUM 2023-03-22 20:59:00 Jered Saez [facility] MAGNESIUM 2023-03-22 20:59:00 Jered Saez [facility] BASIC METABOLIC PANEL (NA, K, CL, CO2, GLUCOSE, BUN, CREATININE, CA) 2023-03-22 20:59:00 Jered Saez [facility] POCT GLUCOSE (AUTOMATED) 2023-03-22 17:10:00 Haseeb [facility] POCT GLUCOSE (AUTOMATED) 2023-03-22 17:10:00 Haseeb [facility] CBC WITH DIFF 2023-03-22 16:23[facility] 2023-03-22 16:23:00 Leonard [facility] POCT GLUCOSE (AUTOMATED) 2023-03-22 12:41:00 Haseeb [facility] POCT GLUCOSE (AUTOMATED) 2023-03-22 12:41:00 Haseeb [facility] CBC WITH DIFF 2023-03-22 10:33:00 Leonard Allison [facility] BASIC METABOLIC PANEL (NA, K, CL, CO2, GLUCOSE, BUN, CREATININE, CA) 2023-03-22 10:33:00 [place], [facility] MAGNESIUM 2023-03-22 10:33:00 [place], [facility] PHOSPHORUS 2023-03-22 10:33:00 [place], [facility] PHOSPHORUS 2023-03-22 10:33:00 [place], [facility] MAGNESIUM 2023-03-22 10:33:00 [place], [facility] BASIC METABOLIC PANEL (NA, K, CL, CO2, GLUCOSE, BUN, CREATININE, CA) 2023-03-22 10:33:00 [place], [facility] CBC WITH DIFF 2023-03-22 10:33:00 Allison Valle [facility] CBC WITH DIFF 2023-03-22 04:28:00 Allison Valle [facility] CBC WITH DIFF 2023-03-22 04:28:00 Leonard [facility] POCT GLUCOSE (AUTOMATED) 2023-03-22 01:46:00 Haseeb [facility] POCT GLUCOSE (AUTOMATED) 2023-03-22 01:46:00 Haseeb [facility] CBC WITH DIFF 2023-03-21 22:45:00 Asilinn Fitzgerald [facility] CBC WITH DIFF 2023-03-21 22:45:00 NateAislinn lindsey [facility] POCT GLUCOSE (AUTOMATED) 2023-03-21 20:43:00 Haseeb [facility] POCT GLUCOSE (AUTOMATED) 2023-03-21 20:43[facility]00 [facility] TRAN[facility]HORACIC ECHO (TTE) LIMITED 2023-03-21 19:58:09 Chacorta [facility] TRANSTHORACIC ECHO (TTE) LIMITED 2023-03-21 19:58:09 Chacorta [facility] BASIC METABOLIC PANEL (NA, K, CL, CO2, GLUCOSE, BUN, CREATININE, CA) 2023-03-21 17:41:00 Alexy Benson [facility] MAGNESIUM 2023-03-21 17:41:00 Alexy Benson [facility] PHOSPHORUS 2023-03-21 17:41:00 Alexy Benson [facility] PHOSPHORUS 2023-03-21 17:41:00 Alexy Benson [facility] MAGNESIUM 2023-03-21 17:41:00 Alexy Benson [facility] BASIC METABOLIC PANEL (NA, K, CL, CO2, GLUCOSE, BUN, CREATININE, CA) 2023-03-21 17:41:00 Alexy Benson [facility] MRSA / MSSA SCREEN BY PCR, [facility] 2023-03-21 17:04:00 Leonard [facility] CBC WITH DIFF 2023-03-21 17:04:00 Allison Valle [facility] CBC WITH DIFF 2023-03-21 17:04:00 Leonard [facility] MRSA / MSSA SCREEN BY PCR, [facility] 2023-03-21 17:04:00 Leonard [facility] CT ANGIOGRAM ABDOMEN/PELVIS 2023-03-21 15:44:44 Bradly Louis [facility] CT ANGIOGRAM ABDOMEN/PELVIS 2023-03-21 15:44:44 Bradly Louis [facility] CT ANGIOGRAM CHEST 2023-03-21 15:43:51 Bradly Louis [facility] ABORH CONFIRMATION (LAB ONLY) 2023-03-21 15:37:00 Abel Echeverria [facility] ABORH CONFIRMATION (LAB ONLY) 2023-03-21 15:37:00 Abel Echeverriaeshan [facility] HB ABO GROUPING 2023-03-21 15:15:00 Brandee Echeverria Nikko [facility] HB ABO GROUPING 2023-03-21 15:15:00 Brandee Echeverria Nikko [facility] LIPID PANEL ([id number])(TOTAL CHOLESTEROL, TRIGLYCERIDES, HDL) 2023-03-21 09:53:00 Chacorta [facility] GLYCOSYLATED HEMOGLOBIN (A1C) 2023-03-21 09:53:00 Chacorta [facility] VERIFYNOW PRUTEST (P2Y12) 2023-03-21 09:53:00 Betina Watts [facility] LIPID PANEL ([id number])(TOTAL CHOLESTEROL, TRIGLYCERIDES, HDL) 2023-03-21 09:53:00 Chacorta [facility] GLYCOSYLATED HEMOGLOBIN (A1C) 2023-03-21 09:53:00 Chacorta [facility] VERIFYNOW ASPIRIN TEST 2023-03-21 09:53:00 Amena Watts [facility] TRANSTHORACIC ECHO (TTE) COMPLETE 2023-03-20 20:44:32 Chacorta [facility] TRANSTHORACIC ECHO (TTE) COMPLETE 2023-03-20 20:44:32 Chacorta [facility] MR STROKE BRAIN WO CONTRAST 2023-03-20 17:35:00 Ch[facility]orta [facility] MR STROKE BRAIN WO CONTRAST 2023-03-20 17:35:00 Chacorta [facility] URINALYSIS 2023 14:52:00 Derek Plascencia [facility] POCT GLUCOSE(AGE >30DAYS) 2023 14:07:00 Derek Plascencia [facility] POCT GLUCOSE(AGE >30DAYS) 2023 14:07:00 Derek Plascencia [facility] CT STROKE ANGIOGRAM NECK 2023 13:21:28 Keenan Plascencia [facility] CT STROKE ANGIOGRAM HEAD 2023 13:21:28 Keenan Plascencia [facility] CT STROKE HEAD WO CONTRAST 2023 13:16:00 Derek Plascencia [facility] CT STROKE HEAD WO CONTRAST 2023 13:16:00 Derek Plascencia [facility] CBC WITHOUT DIFF 2023 13:07:00 Derek Plascencia [facility] CBC WITHOUT DIFF 2023 13:07:00 Derek Plascencia [facility] PROTHROMBIN TIME / INR 2023 13:05:00 Cam Plascencia [facility] ACTIVATED PARTIAL THRMPLAS FORTINO 2023 13:05:00 Derek Plascencia [facility] TROPONIN I 2023 13:05:00 Derek Palscencia [facility] BASIC METABOLIC PANEL (NA, K, CL, CO2, GLUCOSE, BUN, CREATININE, CA) 2023 13:05:00 Derek Plascencia [facility] MAGNESIUM 2023 13:05:00 Derek Plascencia [facility] MAGNESIUM 2023 13:05:00 Derek Plascencia [facility] TROPONIN I 2023 13:05:00 [facility] BASIC METABOLIC PANEL (NA, K, CL, CO2, GLUCOSE, BUN, CREATININE, CA) 2023 13:05:00 Derek Plascencia [facility] PROTHROMBIN TIME / INR 2023 13:05:00 Cam Plascencia [facility] ACTIVATED PARTIAL THRMPLAS FORTINO 2023 13:05:00 Derek Plascencia [facility] HB ECG ROUTINE & RHYTHM STRIP 2023 13:00:52 Derek Plascencia [facility] NOTICE OF PRIVACY PRACTICES 2023 12:46:28 Doctor Unassigned, [place] [facility] NOTICE OF PRIVACY PRACTICES 2023 12:46:28 Doctor Unassigned, [place] [facility] CONSENT/REFUSAL FOR DIAGNOSIS AND TREATMENT 2023 12:44:58 Doctor Unassigned, [place] [facility] AGREEMENTS AUTHORIZATIONS AND IRREVOCABLE ASSIGNMENTS (FORM 2001) 2023 05:01:00 Doctor Unassigned, [place] [facility] AGREEMENTS AUTHORIZATIONS AND IRREVOCABLE ASSIGNMENTS (FORM 2000) 2023 05:01:00 Doctor Unassigned, [place] [facility] HOSPITAL ADMISSION 2023 05:01:00 Doctor Un assigned, [place] [facility] EXTERNAL PROVIDER RECORDS Do ctor Unassigned, [place] [facility] Encounters Start Date/Time End Date/Time Encounter Type Admission Type Attending [facility] Care Facility Care Department Encounter ID Source 2023-08-11 00:00:00 2023-08-11 00:00:00 Patient Outreach Claire Mondragon 1.2.840.114 350.1.13.10 4.2.7.2.686 [id number] 403 [id number] [facility] 2023-08-08 00:00:00 2023-08-08 00:00:00 Patient Outreach Claire Mondragon 1.2.840.114 350.1.13.10 4.2.7.2.686 [id number] [facility] 2023-08-08 00:00:00 2023-08-08 00:00:00 Patient Outreach Claire Mondragon 1.2.840.114 350.1.13.10 4.2.7.2.686 [id number] [facility] 2023-08-06 00:00:00 2023-08-06 00:00:00 Patient Outreach Claire Mondragon 1.2.840.114 350.1.13.10 4.2.7.2.686 [id number] 403 [id number] [facility] 2023-08-01 00:00:00 2023-08-01 00:00:00 Patient Outreach Claire Mondragon 1.2.840.114 350.1.13.10 4.2.7.2.686 [id number] [facility] 2023-07-29 00:00:00 2023-07-29 00:00:00 Case Management Julia Greene MILLICENTSilvio ARNOLDSushil GARDNER 1.2.840.114 350.1.13.10 4.2.7.2.686 [id number] [facility] 2023-07-25 00:00:00 2023-07-25 00:00:00 Patient Outreach Claire Mondragon 1.2.840.114 350.1.13.10 4.2.7.2.686 [id number] [facility] 2023-07-16 00:00:00 2023-07-16 00:00:00 Patient Outreach Claire MondragonSilvio CATALINA GARDNER 1.2.840.114 350.1.13.10 4.2.7.2.686 [id number] [facility] 2023-07-11 00:00:00 2023-07-11 00:00:00 Patient Outreach Claire MondragonSilvio CATALINA GARDNER 1.2.840.114 350.1.13.10 4.2.7.2.686 [id number] [facility] 2023-07-10 14:45:00 2023-07-10 15:30:00 Patient Outreach Carolina Mondragoncelduy GARDNER 1.2.840.114 350.1.13.10 4.2.7.2.686 [id number] [facility] 2023-07-07 00:00:00 2023-07-07 00:00:00 Patient Outreach Claire Mondragon 1.2.840.114 350.1.13.10 4.2.7.2.686 [id number] [facility] 2023-07-02 18:26:00 2023-07-02 21:05:00 Emergency X [facility] ERT [id number] [facility] 2023-07-02 18:26:00 2023-07-02 21:05:00 Emergency [facility] 1.2.840.114 350.1.13.10 4.2.7.2.686 [id number] [facility] 2023-07-01 00:00:00 2023-07-01 00:00:00 Telephone Tin Hinson [facility] 1.2840.114 350.1.13.10 4.2.7.2.686 [id number] [facility] 2023-06-27 00:00:00 2023-06-27 00:00:00 Patient Outreach Claire Mondragon 1.2.840.114 350.1.13.10 4.2.7.2.686 [id number] [facility] 2023-06-25 00:00:00 2023-06-25 00:00:00 Refill Abel Echeverria [facility] 1.2.840.114 350.1.13.10 4.2.7.2.686 [id number] [facility] 2023-06-24 00:00:00 2023-06-24 00:00:00 Patient Outreach Claire Mondragon MONIQUEJOSE 1.2.840.114 350.1.13.10 4.2.7.2.686 [id number] 403 [id number] [facility] 2023-06-23 10:00:00 2023-06-23 11:00:00 Patient Outreach Julia Greene Galileo RICKSSilvio ARNOLD PLAJOSE 1.2.840.114 350.1.13.10 4.2.7.2.686 [id number] [facility] 2023-06-23 10:00:00 2023-06-23 10:45:00 Patient Outreach Claire MondragonSilvio ARNOLD MONIQUEJOSE 1.2.840.114 350.1.13.10 4.2.7.2.686 [id number] [facility] 2023-06-20 10:15:00 2023-06-20 10:15:00 Outpatient LISA MOTLEY CRAIG [facility] [id number] [facility] 2023-06-20 00:00:00 2023-06-20 00:00:00 Orders Only Doctor Unassigned, [place] [facility] 1.2.840.114 350.1.13.10 4.2.7.2.686 [id number] [facility] 2023-06-20 00:00:00 2023-06-20 00:00:00 Patient Outreach Carolina Mondragoncelduy RICKSSilvio ARNOLD MONIQUEJOSE 1.2.840.114 350.1.13.10 4.2.7.2.686 [id number] [facility] 2023-06-18 00:00:00 2023-06-18 00:00:00 Patient Outreach Chayo Meza ARNOLDSushil GARDNER 1.2.840.114 350.1.13.10 4.2.7.2.686 [id number] [facility] 2023-06-17 00:00:00 2023-06-17 00:00:00 Telephone Tin Hinson [facility] 1..114 350.1.13.10 4.2.7.2.686 [id number] [facility] 2023-06-10 09:30:00 2023-06-10 09:30:00 Outpatient R TIN HINSON [facility] [id number] [facility] 2023-06-06 18:24:00 2023-06-06 22:17:00 Emergency [facility] [id number] [facility] 2023-06-06 18:24:00 2023-06-06 22:17:00 Emergency Seven Ambrosio [facility] 1..114 350.1.13.10 4.2.7.2.686 [id number] [facility] 2023-06-06 00:00:00 2023-06-06 00:00:00 Patient Outreach Julia Greene 1..114 350.1.13.10 4.2.7.2.686 [id number] [facility] 2023-05-28 00:00:00 2023-05-28 00:00:00 Patient Outreach Elizabeth Bella [facility] 1.114 350.1.13.10 4.2.7.2.686 [id number] [facility] 2023-05-28 00:00:00 2023-05-28 00:00:00 Patient Outreach Kate Alexandre [facility] 1.114 350.1.13.10 4.2.7.2.686 [id number] [facility] 2023-05-23 00:00:00 2023-05-23 00:00:00 Orders Only Doctor Unassigned, [place] [facility] 1.2.840.114 350.1.13.10 4.2.7.2.686 [id number] [id number] [facility] 2023-05-23 00:00:00 2023-05-23 00:00:00 Telephone Joya [facility] 1.2.840.114 350.1.13.10 4.2.7.2.686 [id number] [id number] [facility] 2023-05-22 00:00:00 2023-05-22 00:00:00 [facility] 1.2.840.114 350.1.13.10 4.2.7.2.686 [id number] [facility] 2023-05-19 00:00:00 2023-05-19 00:00:00 Telephone Abel Echeverria [facility] 1.2.840.114 350.1.13.10 4.2.7.2.686 [id number] [facility] 2023-05-19 00:00:00 2023-05-19 00:00:00 Patient Secure Msg Abel Echeverria [facility] 1.2.840.114 350.1.13.10 4.2.7.2.686 [id number] [facility] 2023-05-15 11:00:00 2023-05-15 12:32:05 Outpatient R ABEL ECHEVERRIA MUHAMMAD [facility] [id number] [facility] 2023-05-15 11:00:00 2023-05-15 12:32:05 Office Visit Abel Echeverria [facility] 1.2.840.114 350.1.13.10 4.2.7.2.686 [id number] [facility] 2023-05-07 09:00:00 2023-05-07 09:26:30 Outpatient R ANGELITOGalileo TIN [facility] [id number] [facility] 2023-05-07 09:00:00 2023-05-07 09:26:30 Office Visit JoyaTin [facility] 1.2.840.114 350.1.13.10 4.2.7.2.686 [id number] [facility] 2023-05-07 00:00:00 2023-05-07 00:00:00 Patient Outreach Jocelyn Coy [facility] 1.2.840.114 350.1.13.10 4.2.7.2.686 [id number] [facility] 2023-05-01 00:00:00 2023-05-01 00:00:00 Orders Only Doctor Unassigned, [place] [facility] 1.2.840.114 350.1.13.10 4.2.7.2.686 [id number] [facility] 2023-04-07 00:00:00 2023-04-07 00:00:00 Telephone Abel Echeverria [facility] 1.2.840.114 350.1.13.10 4.2.7.2.686 [id number] [id number] [facility] 2023 11:02:00 2023-03-28 20:00:00 Inpatient X ANA [facility] IRINA [id number] [facility] 2023 11:02:00 2023-03-28 20:00:00 Hospital Encounter Abel Echeverria Mitchell Hafeez, Muhammad U Shaltoni, Hashem [facility] 1.2.840.114 350.1.13.10 4.2.7.2.686 [id number] [facility] 2023 07:55:00 2023 09:58:00 Emergency [facility] [id number] [facility] 2023 07:55:00 2023 09:58:00 Emergency Derek Plascencia 1.2.840.1 86685.1.1 3.104.2.7 .3.949269 .8 [id number] [facility] 2023 00:00:00 2023 00:00:00 Travel 1.2.840.1 66183.1.1 3.104.2.7 .[id number] .8 1.2.840.114 350.1.13.10 4.2.7.3.698 [id number] [facility] 2023 00:00:00 2023 00:00:00 Orders Only Doctor Unassigned, [place] 1.2.840.1 77039.1.1 3.104.2.7 .3.339967 .8 [id number] [facility] 2021-03-17 00:00:00 2021-03-17 00:00:00 Outpatient GCCOVIDV [facility] [id number] [facility] 2021-02-17 00:00:00 2021-02-17 00:00:00 Outpatient GCCOVIDV GCCOVIDV [id number] [facility] V Orders Only Doctor Unassigned, [place] [facility] 1.2.840.114 350.1.13.10 4.2.7.2.686 [id number] [facility] Results Test Description Test Time Test Comments Results Result Co mments Source [facility] GLUCOSE (AUTOMATED)2023-03-26 16:54:59* Test Item Value Reference Range Interpretation Comme nts POCT GLU (test code = 9511914163) 125 mg/dL 70-110 H Lab Interpretation (test cod e = 91649-9) Abnormal [facility] GLUCOSE (AUTOMATED)2023-03-26 12:41:41* Test Item Value Reference Range Interpretation Comme nts POCT GLU (test code = 5955611537) 125 mg/dL 70-110 H Lab Interpretation (test cod e = 73682-9) [facility] 10:55:12* Test Item Value Reference Range Interpretation Comme nts MAGNESIUM (test code = 9141802285) 1.9 mg/dL 1.7-2.4 Lab Interpretation (test cod e = 88488-7) [facility] (NA, K, CL, CO2, GLUCOSE, BUN, CREATININE, CA)2023-03-26 10:55:12* Test Item Value Reference Range Interpretation Comme nts NA (test code = 9969649149) 137 mmol/L 135-145 K (test code = 0906328769) 3.8 mmol/L 3.5-5.0 CL (test code = 4539999459) 101 mmol/L 98-108 CO2 TOTAL (test code = 4923749781) 26 mmol/L 23-31 AGAP (test code = 7823256756) 10 2-16 BUN (test code = 3000837248) 18 mg/dL 7-23 GLUCOSE (test code = 2980115071) 118 mg/dL 70-110 H CREATININE (test code = 9239890428) 0.40 mg/dL 0.50-1.04 L CALCIUM (test code = 5376174085) 9.2 mg/dL 8.6-10.6 eGFR (test code = 4587015563) 159.7 mL/min/1.73m2 EMANI (test code = EMANI) Association of [...] or abnormalities in imaging tests). Lab Interpretation (test code = 22047-8) Abnormal [facility] WITH [id number] 10:33:28* Test Item Value Reference Range Interpretation Comme nts WBC (test code = 6690-2) 9.79 See_Comment [[employer]] The system which generated this result transmitted reference range: 4.30 - 11.10 10*3/?L. The reference range was not used to interpret this result as normal/abnormal. RBC (test code = 789-8) 3.93 See_Comment [[employer]] The system which generated this result transmitted reference range: 3.93 - 5.25 10*6/?L. The reference range was not used to interpret this result as normal/abnormal. HGB (test code = 718-7) 11.7 g/dL 11.6-15.0 HCT (test code = 4544-3) 34.2 % 35.7-45.2 L MCV (test code = 787-2) 87.0 fL 80.6-95.5 MCH (test code = 785-6) 29.8 pg 25.9-32.8 MCHC (test code = 786-4) 34.2 g/dL 31.6-35.1 RDW-SD (test code = 35799-4) 42.7 fL 39.0-49.9 RDW-CV (test code = 788-0) 13.4 % 12.0-15.5 PLT (test code = 777-3) 289 See_Comment [Automated messa ge] The system which generated this result transmitted reference range: 166 - 358 10*3/?L. The reference range was not used to interpret this result as normal/abnormal. MPV (test code = 36348-4) 9.7 fL 9.5-12.9 NRBC/100 WBC (test code = 4002126816) 0.0 See_Comment [[employer]age] The system which generated this result transmitted reference range: 0.0 - 10.0 /100 WBCs. The reference range was not used to interpret this result as normal/abnormal. NRBC x10^3 (test code = 1058924907) See_Comment [Automated messa ge] The system which generated this result transmitted reference range: 10*3/?L. The reference range was not used to interpret this result as normal/abnormal. GRAN MAT (NEUT) % (test code = 770-8) 71.2 % IMM GRAN % (test code = 7828098011) 0.30 % LYMPH % (test code = 736-9) 19.0 % MONO % (test code = 5905-5) 8.9 % EOS % (test code = 713-8) 0.2 % BASO % (test code = 706-2) 0.4 % GRAN MAT x10^3(ANC) (test code = 0705398603) 6.97 10*3/uL 1.88-7.09 IMM GRAN x10^3 (test code = 1007249988) 0.03 10*3/uL 0.00-0.06 LYMPH x10^3 (test code = 731-0) 1.86 10*3/uL 1.32-3.29 MONO x10^3 (test code = 742-7) 0.87 10*3/uL 0.33-0.92 EOS x10^3 (test code = 711-2) 0.03-0.39 L BASO x10^3 (test code = 704-7) 0.04 10*3/uL 0.01-0.07 Lab Interpretation (test code = 71834-0) Abnormal [facility] GLUCOSE (AUTOMATED)2023-03-26 01:23:00* Test Item Value Reference Range Interpretation Comme nts POCT GLU (test code = 7971058391) 124 mg/dL 70-110 H Lab Interpretation (test cod e = 02484-1) Abnormal [facility] GLUCOSE (AUTOMATED)2023-03-25 16:48:49* Test Item Value Reference Range Interpretation Comme nts POCT GLU (test code = 0446672970) 109 mg/dL 70-110 Lab Interpretation (test cod e = 90324-9) [facility] [id number] 16:29:48 * Test Item Value Reference Range Interpretation Comme nts TSH (test code = 4942547724) 2.05 See_Comment Biotin has been reported to cause a negative bias, interpret results relative to patient's use of biotin. [Automated message] The system which generated this result transmitted reference range: 0.45 - 4.70 mIU/L. The reference range was not used to interpret this result as normal/abnormal. Lab Interpretation (test code = 93599-2) Normal [facility] GLUCOSE (AUTOMATED)2023-03-25 12:47:02* Test Item Value Reference Range Interpretation Comme nts POCT GLU (test code = 2486893585) 121 mg/dL 70-110 H Lab Interpretation (test cod e = 25072-7) [facility] 09:13:39* Test Item Value Reference Range Interpretation Comme nts PHOSPHORUS (test code = 5080258685) 4.1 mg/dL 2.5-5.0 Lab Interpretation (test cod e = 36574-9) [facility] 09:13:39* Test Item Value Reference Range Interpretation Comme nts MAGNESIUM (test code = 5857916781) 1.9 mg/dL 1.7-2.4 Lab Interpretation (test cod e = 45521-9) Normal [facility] METABOLIC PANEL (NA, K, CL, CO2, GLUCOSE, BUN, CREATININE, CA)2023-03-25 09:13:39* Test Item Value Reference Range Interpretation Comme nts NA (test code = 5071837575) 137 mmol/L 135-145 K (test code = 9939394516) 4.1 mmol/L 3.5-5.0 Slight hemolysis CL (test code = 7246272105) 103 mmol/L 98-108 CO2 TOTAL (test code = 5170203909) 25 mmol/L 23-31 AGAP (test code = 0237438112) 9 2-16 BUN (test code = 9999666191) 12 mg/dL 7-23 Slight hemolysis GLUCOSE (test code = 7365447791) 118 mg/dL 70-110 H CREATININE (test code = 9518557478) 0.40 mg/dL 0.50-1.04 L CALCIUM (test code = 7375675314) 8.9 mg/dL 8.6-10.6 eGFR (test code = 6581699144) 159.7 mL/min/1.73m2 EMANI (test code = EMANI) Association of [...] or abnormalities in imaging tests). Lab Interpretation (test code = 58554-3) Abnormal [facility] WITHOUT [id number] 08:57:39* Test Item Value Reference Range Interpretation Comme nts WBC (test code = 6690-2) 10.13 See_Comment [Automated message] The system which generated this result transmitted reference range: 4.30 - 11.10 10*3/?L. The reference range was not used to interpret this result as normal/abnormal. RBC (test code = 789-8) 3.69 See_Comment L [Automated message] The system which generated this result transmitted reference range: 3.93 - 5.25 10*6/?L. The reference range was not used to interpret this result as normal/abnormal. HGB (test code = 718-7) 11.3 g/dL 11.6-15.0 L HCT (test code = 4544-3) 32.5 % 35.7-45.2 L MCH (test code = 785-6) 30.6 pg 25.9-32.8 MCV (test code = 787-2) 88.1 fL 80.6-95.5 MCHC (test code = 786-4) 34.8 g/dL 31.6-35.1 PLT (test code = 777-3) 240 See_Comment [Automated message] The system which generated this result transmitted reference range: 166 - 358 10*3/?L. The reference range was not used to interpret this result as normal/abnormal. MPV (test code = 94926-5) 10.5 fL 9.5-12.9 RDW-CV (test code = 788-0) 13.6 % 12.0-15.5 RDW-SD (test code = 11224-7) 44.0 fL 39.0-49.9 NRBC x10^3 (test code = 3022415276) See_Comment [Automated messa ge] The system which generated this result transmitted reference range: 10*3/?L. The reference range was not used to interpret this result as normal/abnormal. NRBC/100 WBC (test code = 1775936565) 0.0 See_Comment [Automated [employer]] The system which generated this result transmitted reference range: 0.0 - 10.0 /100 WBCs. The reference range was not used to interpret this result as normal/abnormal. IPF % (test code = 7030496356) Lab Interpretation (test code = 58342-8) Abnormal [facility] GLUCOSE (AUTOMATED)2023-03-25 02:32:46* Test Item Value Reference Range Interpretation Comme nts POCT GLU (test code = 9349299248) 143 mg/dL 70-110 H Lab Interpretation (test cod e = 02948-5) Abnormal [facility] GLUCOSE (AUTOMATED)2023-03-24 20:46:56* Test Item Value Reference Range Interpretation Comme nts POCT GLU (test code = 7206741908) 123 mg/dL 70-110 H Lab Interpretation (test cod e = 29505-7) Abnormal [facility] GLUCOSE (AUTOMATED)2023-03-24 16:51:31* Test Item Value Reference Range Interpretation Comme nts POCT GLU (test code = 4243465672) 111 mg/dL 70-110 H Lab Interpretation (test cod e = 87072-7) Abnormal [facility] GLUCOSE (AUTOMATED)2023-03-24 13:25:21* Test Item Value Reference Range Interpretation Comme nts POCT GLU (test code = 8355388308) 129 mg/dL 70-110 H Lab Interpretation (test cod e = 04829-5) Abnormal [facility] METABOLIC PANEL (NA, K, CL, CO2, GLUCOSE, BUN, CREATININE, CA)2023-03-24 09:44:31* Test Item Value Reference Range Interpretation Comme nts NA (test code = 3218144700) 136 mmol/L 135-145 K (test code = 9879478932) 4.1 mmol/L 3.5-5.0 Slight hemolysis CL (test code = 8429336330) 108 mmol/L 98-108 CO2 TOTAL (test code = 0321761342) 21 mmol/L 23-31 L AGAP (test code = 8345777157) 7 2-16 BUN (test code = 4097167475) 10 mg/dL 7-23 Slight hemolysis GLUCOSE (test code = 9528577220) 111 mg/dL 70-110 H CREATININE (test code = 4341082833) 0.40 mg/dL 0.50-1.04 L CALCIUM (test code = 7894936830) 7.6 mg/dL 8.6-10.6 L eGFR (test code = 3848823510) 159.7 mL/min/1.73m2 EMANI (test code = EMANI) Association of [...] or abnormalities in imaging tests). Lab Interpretation (test code = 19064-6) [facility] 09:37:32* Test Item Value Reference Range Interpretation Comme nts PHOSPHORUS (test code = 7408616964) 3.2 mg/dL 2.5-5.0 Lab Interpretation (test cod e = 50210-3) [facility]* Test Item Value Reference Range Interpretation Comme nts MAGNESIUM (test code = 3319143211) 1.8 mg/dL 1.7-2.4 Lab Interpretation (test cod e = 51491-1) [facility] [id number] 09:32:46* Test Item Value Reference Range Interpretation Comme nts WBC (test code = 6690-2) 8.79 See_Comment [Automated message] The system which generated this result transmitted reference range: 4.30 - 11.10 10*3/?L. The reference range was not used to interpret this result as normal/abnormal. RBC (test code = 789-8) 3.37 See_Comment L [Automated message] The system which generated this result transmitted reference range: 3.93 - 5.25 10*6/?L. The reference range was not used to interpret this result as normal/abnormal. HGB (test code = 718-7) 10.2 g/dL 11.6-15.0 L HCT (test code = 4544-3) 30.3 % 35.7-45.2 L MCH (test code = 785-6) 30.3 pg 25.9-32.8 MCV (test code = 787-2) 89.9 fL 80.6-95.5 MCHC (test code = 786-4) 33.7 g/dL 31.6-35.1 PLT (test code = 777-3) 198 See_Comment [Automated message] The system which generated this result transmitted reference range: 166 - 358 10*3/?L. The reference range was not used to interpret this result as normal/abnormal. MPV (test code = 14707-7) 10.6 fL 9.5-12.9 RDW-CV (test code = 788-0) 13.9 % 12.0-15.5 RDW-SD (test code = 35916-1) 45.3 fL 39.0-49.9 NRBC x10^3 (test code = 6831794044) See_Comment [Automated messa ge] The system which generated this result transmitted reference range: 10*3/?L. The reference range was not used to interpret this result as normal/abnormal. NRBC/100 WBC (test code = 1207821137) 0.0 See_Comment [Automated messa ge] The system which generated this result transmitted reference range: 0.0 - 10.0 /100 WBCs. The reference range was not used to interpret this result as normal/abnormal. IPF % (test code = 6351534597) Lab Interpretation (test code = 14092-8) Abnormal [facility] GLUCOSE (AUTOMATED)2023-03-24 02:09:59* Test Item Value Reference Range Interpretation Comme nts POCT GLU (test code = 1185806480) 120 mg/dL 70-110 H Lab Interpretation (test cod e = 95931-8) Abnormal [facility] GLUCOSE (AUTOMATED)2023-03-23 21:06:29* Test Item Value Reference Range Interpretation Comme nts POCT GLU (test code = 6073808691) 123 mg/dL 70-110 H Lab Interpretation (test cod e = 04361-9) Abnormal [facility] GLUCOSE (AUTOMATED)2023-03-23 16:44:08* Test Item Value Reference Range Interpretation Comme nts POCT GLU (test code = 1664887103) 133 mg/dL 70-110 H Lab Interpretation (test cod e = 81132-7) Abnormal [facility] GLUCOSE (AUTOMATED)2023-03-23 16:44:08* Test Item Value Reference Range Interpretation Comme nts POCT GLU (test code = 4720116314) 133 mg/dL 70-110 H Lab Interpretation (test cod e = 34509-4) [facility] L[facility] [id number] 15:44:35* Test Item Value Reference Range Interpretation Comme nts PH (test code = 2) 7.39 7.35-7.45 PCO2 (test code = 9948928620) 35 See_Comment [Automated messa ge] The system which generated this result transmitted reference range: 35 - 45 mmHg. The reference range was not used to interpret this result as normal/abnormal. PO2 (test code = 6662414960) 75 See_Comment L [Automated messa ge] The system which generated this result transmitted reference range: 80 - 100 mmHg. The reference range was not used to interpret this result as normal/abnormal. HCO3 (test code = 5709092715) 21 See_Comment L [Automated messa ge] The system which generated this result transmitted reference range: 22 - 26 mEq/L. The reference range was not used to interpret this result as normal/abnormal. BE (test code = 6448207811) -3.5 See_Comment L [Automated messa ge] The system which generated this result transmitted reference range: -3.0 - 3.0 mEq/L. The reference range was not used to interpret this result as normal/abnormal. THB (test code = 6527085249) 14.5 g/dL 12.0-16.0 %O2HB (test code = 9611563721) 94.1 % 94.0-99.0 %COHB ART (test code = 4189573112) 1.4 % 0.0-1.5 %METHB ART (test code = 7609939251) 0.0 % 0.4-1.5 L VOL%O2 ART (test code = 9119594701) 19.2 % 15.0-23.0 NA (test code = 8760517842) 135 mmol/L 135-145 K+ (test code = 8552193821) 3.6 mmol/L 3.5-5.0 AC CA IONZ (test code = 5171456743) 4.60 mg/dL 4.50-5.30 GLUCOSE (test code = 0234116854) 108 mg/dL 70-110 LACTIC ACID (test code = 3901842928) 0.99 mmol/L 0.50-2.20 Lab Interpretation (test code = 39514-4) [facility] Lactic [id number] 15:44:35* Test Item Value Reference Range Interpretation Comme nts PH (test code = 2) 7.39 7.35-7.45 PCO2 (test code = 8447557773) 35 See_Comment [Automated messa ge] The system which generated this result transmitted reference range: 35 - 45 mmHg. The reference range was not used to interpret this result as normal/abnormal. PO2 (test code = 2330210117) 75 See_Comment L [Automated messa ge] The system which generated this result transmitted reference range: 80 - 100 mmHg. The reference range was not used to interpret this result as normal/abnormal. HCO3 (test code = 3999175422) 21 See_Comment L [Automated messa ge] The system which generated this result transmitted reference range: 22 - 26 mEq/L. The reference range was not used to interpret this result as normal/abnormal. BE (test code = 1676655336) -3.5 See_Comment L [Automated messa ge] The system which generated this result transmitted reference range: -3.0 - 3.0 mEq/L. The reference range was not used to interpret this result as normal/abnormal. THB (test code = 9754444738) 14.5 g/dL 12.0-16.0 %O2HB (test code = 8916526489) 94.1 % 94.0-99.0 %COHB ART (test code = 8468082087) 1.4 % 0.0-1.5 %METHB ART (test code = 3372717522) 0.0 % 0.4-1.5 L VOL%O2 ART (test code = 9153763179) 19.2 % 15.0-23.0 NA (test code = 2471298134) 135 mmol/L 135-145 K+ (test code = 0636304693) 3.6 mmol/L 3.5-5.0 AC CA IONZ (test code = 8188851123) 4.60 mg/dL 4.50-5.30 GLUCOSE (test code = 7999242073) 108 mg/dL 70-110 LACTIC ACID (test code = 3453111102) 0.99 mmol/L 0.50-2.20 Lab Interpretation (test code = 68799-2) [facility] 13:17:53* Test Item Value Reference Range Interpretation Comme nts POCT GLU (test code = 4564679856) 139 mg/dL 70-110 H Lab Interpretation (test cod e = 17283-1) [facility] 11:15:05* Test Item Value Reference Range Interpretation Comme nts PHOSPHORUS (test code = 2016106771) 3.1 mg/dL 2.5-5.0 Lab Interpretation (test cod e = 22297-3) [facility] 11:15:05* Test Item Value Reference Range Interpretation Comme nts MAGNESIUM (test code = 9863942274) 1.6 mg/dL 1.7-2.4 L Lab Interpretation (test cod e = 26159-1) Abnormal [facility] METABOLIC PANEL (NA, K, CL, CO2, GLUCOSE, BUN, CREATININE, CA)2023-03-23 11:15:05* Test Item Value Reference Range Interpretation Comme nts NA (test code = 0129186968) 137 mmol/L 135-145 K (test code = 8269248935) 3.4 mmol/L 3.5-5.0 L CL (test code = 6959000837) 108 mmol/L 98-108 CO2 TOTAL (test code = 4141272978) 20 mmol/L 23-31 L AGAP (test code = 4258711786) 9 2-16 BUN (test code = 0055058507) 9 mg/dL 7-23 GLUCOSE (test code = 1995340582) 122 mg/dL 70-110 H CREATININE (test code = 8445515855) 0.40 mg/dL 0.50-1.04 L CALCIUM (test code = 7468866998) 8.0 mg/dL 8.6-10.6 L eGFR (test code = 3996437383) 159.7 mL/min/1.73m2 EMANI (test code = EMANI) Association of [...] or abnormalities in imaging tests). Lab Interpretation (test code = 91990-4) Abnormal [facility] METABOLIC PANEL (NA, K, CL, CO2, GLUCOSE, BUN, CREATININE, CA)2023-03-23 11:15:05* Test Item Value Reference Range Interpretation Comme nts NA (test code = 9705241175) 137 mmol/L 135-145 K (test code = 4977907707) 3.4 mmol/L 3.5-5.0 L CL (test code = 1443497805) 108 mmol/L 98-108 CO2 TOTAL (test code = 9398693135) 20 mmol/L 23-31 L AGAP (test code = 1000052637) 9 2-16 BUN (test code = 6922109555) 9 mg/dL 7-23 GLUCOSE (test code = 2723489650) 122 mg/dL 70-110 H CREATININE (test code = 2287744695) 0.40 mg/dL 0.50-1.04 L CALCIUM (test code = 6942820268) 8.0 mg/dL 8.6-10.6 L eGFR (test code = 9835450748) 159.7 mL/min/1.73m2 EMANI (test code = EMANI) Association of [...] or abnormalities in imaging tests). Lab Interpretation (test code = 01153-8) [facility] 11:15:05* Test Item Value Reference Range Interpretation Comme nts PHOSPHORUS (test code = 2113332952) 3.1 mg/dL 2.5-5.0 Lab Interpretation (test cod e = 59892-5) [facility] 11:15:05* Test Item Value Reference Range Interpretation Comme nts MAGNESIUM (test code = 0040332546) 1.6 mg/dL 1.7-2.4 L Lab Interpretation (test cod e = 95915-4) Abnormal [facility] WITH [id number] 10:45:03* Test Item Value Reference Range Interpretation Comme nts WBC (test code = 6690-2) 10.89 See_Comment [Automated messa ge] The system which generated this result transmitted reference range: 4.30 - 11.10 10*3/?L. The reference range was not used to interpret this result as normal/abnormal. RBC (test code = 789-8) 3.70 See_Comment L [Automated messa ge] The system which generated this result transmitted reference range: 3.93 - 5.25 10*6/?L. The reference range was not used to interpret this result as normal/abnormal. HGB (test code = 718-7) 11.0 g/dL 11.6-15.0 L HCT (test code = 4544-3) 33.2 % 35.7-45.2 L MCV (test code = 787-2) 89.7 fL 80.6-95.5 MCH (test code = 785-6) 29.7 pg 25.9-32.8 MCHC (test code = 786-4) 33.1 g/dL 31.6-35.1 RDW-SD (test code = 82998-8) 45.1 fL 39.0-49.9 RDW-CV (test code = 788-0) 13.8 % 12.0-15.5 PLT (test code = 777-3) 212 See_Comment [Automated [employer]] The system which generated this result transmitted reference range: 166 - 358 10*3/?L. The reference range was not used to interpret this result as normal/abnormal. MPV (test code = 01538-5) 10.4 fL 9.5-12.9 NRBC/100 WBC (test code = 4266319775) 0.0 See_Comment [Automated [employer] ssage] The system which generated this result transmitted reference range: 0.0 - 10.0 /100 WBCs. The reference range was not used to interpret this result as normal/abnormal. NRBC x10^3 (test code = 6029893340) See_Comment [Automated [employer]] The system which generated this result transmitted reference range: 10*3/?L. The reference range was not used to interpret this result as normal/abnormal. GRAN MAT (NEUT) % (test code = 770-8) 77.8 % IMM GRAN % (test code = 3529327381) 0.30 % LYMPH % (test code = 736-9) 12.6 % MONO % (test code = 5905-5) 8.9 % EOS % (test code = 713-8) 0.1 % BASO % (test code = 706-2) 0.3 % GRAN MAT x10^3(ANC) (test code = 9522807957) 8.48 10*3/uL 1.88-7.09 H IMM GRAN x10^3 (test code = 3364516972) 0.03 10*3/uL 0.00-0.06 LYMPH x10^3 (test code = 731-0) 1.37 10*3/uL 1.32-3.29 MONO x10^3 (test code = 742-7) 0.97 10*3/uL 0.33-0.92 H EOS x10^3 (test code = 711-2) 0.03-0.39 L BASO x10^3 (test code = 704-7) 0.03 10*3/uL 0.01-0.07 Lab Interpretation (test code = 63259-2) Abnormal [facility] WITH [id number] 10:45:03* Test Item Value Reference Range Interpretation Comme nts WBC (test code = 6690-2) 10.89 See_Comment [Automated messa ge] The system which generated this result transmitted reference range: 4.30 - 11.10 10*3/?L. The reference range was not used to interpret this result as normal/abnormal. RBC (test code = 789-8) 3.70 See_Comment L [Automated messa ge] The system which generated this result transmitted reference range: 3.93 - 5.25 10*6/?L. The reference range was not used to interpret this result as normal/abnormal. HGB (test code = 718-7) 11.0 g/dL 11.6-15.0 L HCT (test code = 4544-3) 33.2 % 35.7-45.2 L MCV (test code = 787-2) 89.7 fL 80.6-95.5 MCH (test code = 785-6) 29.7 pg 25.9-32.8 MCHC (test code = 786-4) 33.1 g/dL 31.6-35.1 RDW-SD (test code = 40858-5) 45.1 fL 39.0-49.9 RDW-CV (test code = 788-0) 13.8 % 12.0-15.5 PLT (test code = 777-3) 212 See_Comment [Automated messa ge] The system which generated this result transmitted reference range: 166 - 358 10*3/?L. The reference range was not used to interpret this result as normal/abnormal. MPV (test code = 85539-6) 10.4 fL 9.5-12.9 NRBC/100 WBC (test code = 0170235812) 0.0 See_Comment [Automated me ssage] The system which generated this result transmitted reference range: 0.0 - 10.0 /100 WBCs. The reference range was not used to interpret this result as normal/abnormal. NRBC x10^3 (test code = 6971566625) See_Comment [Automated messa ge] The system which generated this result transmitted reference range: 10*3/?L. The reference range was not used to interpret this result as normal/abnormal. GRAN MAT (NEUT) % (test code = 770-8) 77.8 % IMM GRAN % (test code = 2150596196) 0.30 % LYMPH % (test code = 736-9) 12.6 % MONO % (test code = 5905-5) 8.9 % EOS % (test code = 713-8) 0.1 % BASO % (test code = 706-2) 0.3 % GRAN MAT x10^3(ANC) (test code = 7679840456) 8.48 10*3/uL 1.88-7.09 H IMM GRAN x10^3 (test code = 7744499611) 0.03 10*3/uL 0.00-0.06 LYMPH x10^3 (test code = 731-0) 1.37 10*3/uL 1.32-3.29 MONO x10^3 (test code = 742-7) 0.97 10*3/uL 0.33-0.92 H EOS x10^3 (test code = 711-2) 0.03-0.39 L BASO x10^3 (test code = 704-7) 0.03 10*3/uL 0.01-0.07 Lab Interpretation (test code = 07110-8) [facility] 02:42:21* Test Item Value Reference Range Interpretation Comme nts POCT GLU (test code = 6306310552) 154 mg/dL 70-110 H Lab Interpretation (test cod e = 52600-9) [facility] 21:32:56* Test Item Value Reference Range Interpretation Comme nts MAGNESIUM (test code = 5857699137) 1.9 mg/dL 1.7-2.4 Lab Interpretation (test cod e = 82465-7) Normal [facility] METABOLIC PANEL (NA, K, CL, CO2, GLUCOSE, BUN, CREATININE, CA)2023-03-22 21:21:57* Test Item Value Reference Range Interpretation Comme nts NA (test code = 1431521527) 137 mmol/L 135-145 K (test code = 4927750127) 4.0 mmol/L 3.5-5.0 CL (test code = 5778863744) 110 mmol/L 98-108 H CO2 TOTAL (test code = 0423310382) 21 mmol/L 23-31 L AGAP (test code = 8333285087) 6 2-16 BUN (test code = 0843617603) 10 mg/dL 7-23 GLUCOSE (test code = 7482769353) 123 mg/dL 70-110 H CREATININE (test code = 9567289919) 0.50 mg/dL 0.50-1.04 CALCIUM (test code = 8353337578) 8.6 mg/dL 8.6-10.6 eGFR (test code = 1399927348) 123.4 mL/min/1.73m2 EMANI (test code = EMANI) Association of [...] or abnormalities in imaging tests). Lab Interpretation (test code = 34714-5) Abnormal [facility] GLUCOSE (AUTOMATED)2023-03-22 21:11:14* Test Item Value Reference Range Interpretation Comme nts POCT GLU (test code = 4158406790) 122 mg/dL 70-110 H Lab Interpretation (test cod e = 26811-3) Abnormal [facility] GLUCOSE (AUTOMATED)2023-03-22 17:11:57* Test Item Value Reference Range Interpretation Comme nts POCT GLU (test code = 9262932865) 141 mg/dL 70-110 H Lab Interpretation (test cod e = 24397-2) Abnormal [facility] WITH [id number] 16:43:19* Test Item Value Reference Range Interpretation Comme nts WBC (test code = 6690-2) 8.16 See_Comment [Automated messa ge] The system which generated this result transmitted reference range: 4.30 - 11.10 10*3/?L. The reference range was not used to interpret this result as normal/abnormal. RBC (test code = 789-8) 3.96 See_Comment [Automated messa ge] The system which generated this result transmitted reference range: 3.93 - 5.25 10*6/?L. The reference range was not used to interpret this result as normal/abnormal. HGB (test code = 718-7) 11.8 g/dL 11.6-15.0 HCT (test code = 4544-3) 35.5 % 35.7-45.2 L MCV (test code = 787-2) 89.6 fL 80.6-95.5 MCH (test code = 785-6) 29.8 pg 25.9-32.8 MCHC (test code = 786-4) 33.2 g/dL 31.6-35.1 RDW-SD (test code = 21305-3) 45.3 fL 39.0-49.9 RDW-CV (test code = 788-0) 14.1 % 12.0-15.5 PLT (test code = 777-3) 222 See_Comment [Automated messa ge] The system which generated this result transmitted reference range: 166 - 358 10*3/?L. The reference range was not used to interpret this result as normal/abnormal. MPV (test code = 03730-0) 10.1 fL 9.5-12.9 NRBC/100 WBC (test code = 9127489757) 0.0 See_Comment [[employer] ssage] The system which generated this result transmitted reference range: 0.0 - 10.0 /100 WBCs. The reference range was not used to interpret this result as normal/abnormal. NRBC x10^3 (test code = 8325343007) See_Comment [Automated messa ge] The system which generated this result transmitted reference range: 10*3/?L. The reference range was not used to interpret this result as normal/abnormal. GRAN MAT (NEUT) % (test code = 770-8) 66.5 % IMM GRAN % (test code = 7134101352) 0.20 % LYMPH % (test code = 736-9) 26.0 % MONO % (test code = 5905-5) 7.0 % EOS % (test code = 713-8) 0.1 % BASO % (test code = 706-2) 0.2 % GRAN MAT x10^3(ANC) (test code = 0632294381) 5.42 10*3/uL 1.88-7.09 IMM GRAN x10^3 (test code = 8620363041) 0.00-0.06 LYMPH x10^3 (test code = 731-0) 2.12 10*3/uL 1.32-3.29 MONO x10^3 (test code = 742-7) 0.57 10*3/uL 0.33-0.92 EOS x10^3 (test code = 711-2) 0.03-0.39 L BASO x10^3 (test code = 704-7) 0.01-0.07 Lab Interpretation (test code = 14189-9) Abnormal [facility] WITH [id number] 16:43:19* Test Item Value Reference Range Interpretation Comme nts WBC (test code = 6690-2) 8.16 See_Comment [Automated messa ge] The system which generated this result transmitted reference range: 4.30 - 11.10 10*3/?L. The reference range was not used to interpret this result as normal/abnormal. RBC (test code = 789-8) 3.96 See_Comment [Automated messa ge] The system which generated this result transmitted reference range: 3.93 - 5.25 10*6/?L. The reference range was not used to interpret this result as normal/abnormal. HGB (test code = 718-7) 11.8 g/dL 11.6-15.0 HCT (test code = 4544-3) 35.5 % 35.7-45.2 L MCV (test code = 787-2) 89.6 fL 80.6-95.5 MCH (test code = 785-6) 29.8 pg 25.9-32.8 MCHC (test code = 786-4) 33.2 g/dL 31.6-35.1 RDW-SD (test code = 80382-7) 45.3 fL 39.0-49.9 RDW-CV (test code = 788-0) 14.1 % 12.0-15.5 PLT (test code = 777-3) 222 See_Comment [Automated messa ge] The system which generated this result transmitted reference range: 166 - 358 10*3/?L. The reference range was not used to interpret this result as normal/abnormal. MPV (test code = 47908-1) 10.1 fL 9.5-12.9 NRBC/100 WBC (test code = 0681720502) 0.0 See_Comment [[employer] ssage] The system which generated this result transmitted reference range: 0.0 - 10.0 /100 WBCs. The reference range was not used to interpret this result as normal/abnormal. NRBC x10^3 (test code = 9111246951) See_Comment [Automated messa ge] The system which generated this result transmitted reference range: 10*3/?L. The reference range was not used to interpret this result as normal/abnormal. GRAN MAT (NEUT) % (test code = 770-8) 66.5 % IMM GRAN % (test code = 8542978657) 0.20 % LYMPH % (test code = 736-9) 26.0 % MONO % (test code = 5905-5) 7.0 % EOS % (test code = 713-8) 0.1 % BASO % (test code = 706-2) 0.2 % GRAN MAT x10^3(ANC) (test code = 4943989069) 5.42 10*3/uL 1.88-7.09 IMM GRAN x10^3 (test code = 7028998398) 0.00-0.06 LYMPH x10^3 (test code = 731-0) 2.12 10*3/uL 1.32-3.29 MONO x10^3 (test code = 742-7) 0.57 10*3/uL 0.33-0.92 EOS x10^3 (test code = 711-2) 0.03-0.39 L BASO x10^3 (test code = 704-7) 0.01-0.07 Lab Interpretation (test code = 99927-9) Abnormal [facility] GLUCOSE (AUTOMATED)2023-03-22 12:42:49* Test Item Value Reference Range Interpretation Comme nts POCT GLU (test code = 0506095928) 115 mg/dL 70-110 H Lab Interpretation (test cod e = 56539-0) Abnormal [facility] GLUCOSE (AUTOMATED)2023-03-22 12:42:49* Test Item Value Reference Range Interpretation Comme nts POCT GLU (test code = 5597701950) 115 mg/dL 70-110 H Lab Interpretation (test cod e = 34983-3) Abnormal [facility] WITH [id number] 11:26:21* Test Item Value Reference Range Interpretation Comme nts WBC (test code = 6690-2) 8.85 See_Comment [Automated messa ge] The system which generated this result transmitted reference range: 4.30 - 11.10 10*3/?L. The reference range was not used to interpret this result as normal/abnormal. RBC (test code = 789-8) 3.62 See_Comment L [Automated messa ge] The system which generated this result transmitted reference range: 3.93 - 5.25 10*6/?L. The reference range was not used to interpret this result as normal/abnormal. HGB (test code = 718-7) 10.8 g/dL 11.6-15.0 L HCT (test code = 4544-3) 31.9 % 35.7-45.2 L MCV (test code = 787-2) 88.1 fL 80.6-95.5 MCH (test code = 785-6) 29.8 pg 25.9-32.8 MCHC (test code = 786-4) 33.9 g/dL 31.6-35.1 RDW-SD (test code = 69226-4) 45.7 fL 39.0-49.9 RDW-CV (test code = 788-0) 14.1 % 12.0-15.5 PLT (test code = 777-3) 187 See_Comment [Automated [employer]] The system which generated this result transmitted reference range: 166 - 358 10*3/?L. The reference range was not used to interpret this result as normal/abnormal. MPV (test code = 59746-6) 10.1 fL 9.5-12.9 IPF % (test code = 5635443115) 3.3 % 1.3-7.7 Platelet count measured by fluorescence method. NRBC/100 WBC (test code = 6800131576) 0.0 See_Comment [[employer] ssage] The system which generated this result transmitted reference range: 0.0 - 10.0 /100 WBCs. The reference range was not used to interpret this result as normal/abnormal. NRBC x10^3 (test code = 4118557444) See_Comment [Automated [employer]] The system which generated this result transmitted reference range: 10*3/?L. The reference range was not used to interpret this result as normal/abnormal. GRAN MAT (NEUT) % (test code = 770-8) 72.3 % IMM GRAN % (test code = 1351337261) 0.30 % LYMPH % (test code = 736-9) 18.3 % MONO % (test code = 5905-5) 8.7 % EOS % (test code = 713-8) 0.1 % BASO % (test code = 706-2) 0.3 % GRAN MAT x10^3(ANC) (test code = 2660178479) 6.39 10*3/uL 1.88-7.09 IMM GRAN x10^3 (test code = 2399371867) 0.03 10*3/uL 0.00-0.06 LYMPH x10^3 (test code = 731-0) 1.62 10*3/uL 1.32-3.29 MONO x10^3 (test code = 742-7) 0.77 10*3/uL 0.33-0.92 EOS x10^3 (test code = 711-2) 0.03-0.39 L BASO x10^3 (test code = 704-7) 0.03 10*3/uL 0.01-0.07 Lab Interpretation (test code = 10874-5) Abnormal [facility] METABOLIC PANEL (NA, K, CL, CO2, GLUCOSE, BUN, CREATININE, CA)2023-03-22 11:12:01* Test Item Value Reference Range Interpretation Comme nts NA (test code = 3039541215) 139 mmol/L 135-145 K (test code = 7839476659) 3.0 mmol/L 3.5-5.0 L CL (test code = 3269882492) 112 mmol/L 98-108 H CO2 TOTAL (test code = 4004801887) 20 mmol/L 23-31 L AGAP (test code = 0695750209) 7 2-16 BUN (test code = 6209247825) 15 mg/dL 7-23 GLUCOSE (test code = 8256325335) 112 mg/dL 70-110 H CREATININE (test code = 2821900075) 0.40 mg/dL 0.50-1.04 L CALCIUM (test code = 3570235965) 7.4 mg/dL 8.6-10.6 L eGFR (test code = 2763830420) 159.7 mL/min/1.73m2 EMANI (test code = EMANI) Association of [...] or abnormalities in imaging tests). Lab Interpretation (test code = 03048-1) Abnormal [facility]2023-09-02 11:12:01* Test Item Value Reference Range Interpretation Comme nts MAGNESIUM (test code = 9325757117) 1.5 mg/dL 1.7-2.4 L Lab Interpretation (test cod e = 12013-7) Abnormal [facility]2023-09-02 11:12:01* Test Item Value Reference Range Interpretation Comme nts PHOSPHORUS (test code = 7171339902) 3.0 mg/dL 2.5-5.0 Lab Interpretation (test cod e = 47998-1) Normal [facility]2023-09-02 11:12:01* Test Item Value Reference Range Interpretation Comme nts PHOSPHORUS (test code = 4619569952) 3.0 mg/dL 2.5-5.0 Lab Interpretation (test cod e = 30739-8) Normal [facility]2023-09-02 11:12:01* Test Item Value Reference Range Interpretation Comme nts MAGNESIUM (test code = 5107238600) 1.5 mg/dL 1.7-2.4 L Lab Interpretation (test cod e = 19347-2) [facility]NA, K, CL, CO2, GLUCOSE, BUN, CREATININE, CA)2023-03-22 11:12:01* Test Item Value Reference Range Interpretation Comme nts NA (test code = 7814636943) 139 mmol/L 135-145 K (test code = 3679011437) 3.0 mmol/L 3.5-5.0 L CL (test code = 1785671602) 112 mmol/L 98-108 H CO2 TOTAL (test code = 8031686361) 20 mmol/L 23-31 L AGAP (test code = 2480320071) 7 2-16 BUN (test code = 0793315605) 15 mg/dL 7-23 GLUCOSE (test code = 3459385951) 112 mg/dL 70-110 H CREATININE (test code = 5107626797) 0.40 mg/dL 0.50-1.04 L CALCIUM (test code = 8983401067) 7.4 mg/dL 8.6-10.6 L eGFR (test code = 1498900961) 159.7 mL/min/1.73m2 EMANI (test code = EMANI) Association of [...] or abnormalities in imaging tests). Lab Interpretation (test code = 16738-6) Abnormal [facility] WITH QUMJ6910-29-22 05:20:35* Test Item Value Reference Range Interpretation Comme nts WBC (test code = 6690-2) 12.93 See_Comment H [Automated [employer]] The system which generated this result transmitted reference range: 4.30 - 11.10 10*3/?L. The reference range was not used to interpret this result as normal/abnormal. RBC (test code = 789-8) 4.19 See_Comment [Automated [employer]] The system which generated this result transmitted reference range: 3.93 - 5.25 10*6/?L. The reference range was not used to interpret this result as normal/abnormal. HGB (test code = 718-7) 12.4 g/dL 11.6-15.0 HCT (test code = 4544-3) 36.7 % 35.7-45.2 MCV (test code = 787-2) 87.6 fL 80.6-95.5 MCH (test code = 785-6) 29.6 pg 25.9-32.8 MCHC (test code = 786-4) 33.8 g/dL 31.6-35.1 RDW-SD (test code = 93573-3) 45.6 fL 39.0-49.9 RDW-CV (test code = 788-0) 14.3 % 12.0-15.5 PLT (test code = 777-3) 230 See_Comment [Automated [employer]] The system which generated this result transmitted reference range: 166 - 358 10*3/?L. The reference range was not used to interpret this result as normal/abnormal. MPV (test code = 89184-4) 10.1 fL 9.5-12.9 IPF % (test code = 1930566108) 3.3 % 1.3-7.7 Platelet count measured by fluorescence method. NRBC/100 WBC (test code = 9323250407) 0.0 See_Comment [Automated me ssage] The system which generated this result transmitted reference range: 0.0 - 10.0 /100 WBCs. The reference range was not used to interpret this result as normal/abnormal. NRBC x10^3 (test code = 7596260346) See_Comment [Automated messa ge] The system which generated this result transmitted reference range: 10*3/?L. The reference range was not used to interpret this result as normal/abnormal. GRAN MAT (NEUT) % (test code = 770-8) 78.5 % IMM GRAN % (test code = 3763032840) 0.40 % LYMPH % (test code = 736-9) 14.2 % MONO % (test code = 5905-5) 6.5 % EOS % (test code = 713-8) 0.2 % BASO % (test code = 706-2) 0.2 % GRAN MAT x10^3(ANC) (test code = 5930930516) 10.16 10*3/uL 1.88-7.09 H IMM GRAN x10^3 (test code = 1947876000) 0.05 10*3/uL 0.00-0.06 LYMPH x10^3 (test code = 731-0) 1.84 10*3/uL 1.32-3.29 MONO x10^3 (test code = 742-7) 0.84 10*3/uL 0.33-0.92 EOS x10^3 (test code = 711-2) 0.03-0.39 L BASO x10^3 (test code = 704-7) 0.01-0.07 Lab Interpretation (test code = 04445-2) [facility] 01:47:33* Test Item Value Reference Range Interpretation Comme nts POCT GLU (test code = 5335059165) 128 mg/dL 70-110 H Lab Interpretation (test cod e = 59542-8) Abnormal [facility]2023-03-21 22:05:13* Test Item Value Reference Range Interpretation Comme nts Height (test code = 6048802793) 64 in Weight (test code = 2163949586) 147 lbs Systolic BP (test code = 5026760744) 140 mmHg Diastolic BP (test code = 9624889972) 54 mmHg Heart Rate (test code = 2030288612) 50 bpm BSA (test code = 4309921624) 1.72 m2 Radiology Study observation (narrative) (test code = 91473-0) EMANI (test code = EMANI) ?Left?Atrium: PFO [...] DetailsA limited echocardiogram was performed using 2D. [facility] GLUCOSE (AUTOMATED)2023-03-21 20:45:43* Test Item Value Reference Range Interpretation Comme nts POCT GLU (test code = 0400154317) 139 mg/dL 70-110 H Lab Interpretation (test cod e = 86243-9) [facility]Lab Only)2023-03-21 15:41:00* Test Item Value Reference Range Interpretation Comme nts ABO & RH (test code = 20) [facility] Only[facility]2023-03-21 15:41:00* Test Item Value Reference Range Interpretation Comme nts ABO & RH (test code = 20) A [facility] (Lab Only)2023-03-21 15:41:00* Test Item Value Reference Range Interpretation Comme nts ABO & RH (test code = 20) [facility] - ONCE Idhqpov4809-11-01 15:25:00* Test Item Value Reference Range Interpretation Comme nts ABO & RH (test code = 20) A POSITIVE IAT (test code = 1185) Negative [facility] Fyxmtdn9715-35-26 15:25:00* Test Item Value Reference Range Interpretation Comme nts ABO & RH (test code = 20) A POSITIVE IAT (test code = 1185) Negative [facility] - ONCE Wpfnnwl4879-25-24 15:25:00* Test Item Value Reference Range Interpretation Comme nts ABO & RH (test code = 20) A POSITIVE IAT (test code = 1185) Negative [facility] Glucose (Age >30 Days) - Code Stroke 2023 14:07:00* Test Item Value Reference Range Interpretation Comme nts POCT Glu (age>30days) (test code = 3342) 112 mg/dL 70-110 A BMP Lab Interpretation (test cod e = 99282-8) Abnormal [facility] Glucose (Age >30 Days) - Code Stroke 2023 14:07:00* Test Item Value Reference Range Interpretation Comme nts POCT Glu (age>30days) (test code = 3342) 112 mg/dL 70-110 A BMP Lab Interpretation (test cod e = 75286-7) Abnormal [facility] Glucose (Age >30 Days) - Code Stroke 2023 14:07:00* Test Item Value Reference Range Interpretation Comme nts POCT Glu (age>30days) (test code = 3342) 112 mg/dL 70-110 A BMP Lab Interpretation (test cod e = 86005-4) [facility]normal [facility] - Code Xmtsnd8820-37-78 13:35:07* Test Item Value Reference Range Interpretation Comme nts TROPONIN I (test code = 3040368789) 0.007 ng/mL <=0.034 EMANI (test code = EMANI) Reference (Normal) [...] to patient's use of biotin. Lab Interpretation (test code = 82994-9) [facility] - Code Cvsoos7624-09-73 13:35:07* Test Item Value Reference Range Interpretation Comme nts TROPONIN I (test code = 7899736639) 0.007 ng/mL <=0.034 EMANI (test code = EMANI) Reference (Normal) [...] to patient's use of biotin. Lab Interpretation (test code = 76900-6) Normal [facility] - Code Gvwbsm5432-02-07 13:35:07* Test Item Value Reference Range Interpretation Comme nts TROPONIN I (test code = 1794088655) 0.007 ng/mL <=0.034 EMANI (test code = EMANI) Reference (Normal) [...] to patient's use of biotin. Lab Interpretation (test code = 86630-3) Normal [facility] - Code Mehnyh1741-44-89 13:33:26* Test Item Value Reference Range Interpretation Comme nts APTT Patient (test code = 3173-2) 25 See_Comment [Automated message] The system which generated this result transmitted reference range: 23 - 38 Seconds. The reference range was not used to interpret this result as normal/abnormal. EMANI (test code = EMANI) [facility] patient population mean normal value for aPTT is 30 seconds. Lab Interpretation (test code = 99599-7) Normal [facility] - Code Libzwh9127-13-26 13:33:26* Test Item Value Reference Range Interpretation Comme nts APTT Patient (test code = 3173-2) 25 See_Comment [Automated message] The system which generated this result transmitted reference range: 23 - 38 Seconds. The reference range was not used to interpret this result as normal/abnormal. EMANI (test code = EMANI) [facility] patient population mean normal value for aPTT is 30 seconds. Lab Interpretation (test code = 11467-1) Normal [facility] - Code Kadiaz3648-35-58 13:33:26* Test Item Value Reference Range Interpretation Comme [facility] APTT Patient (test code = 3173-2) 25 See_Comment [Automated message] The system which generated this result transmitted reference range: 23 - 38 Seconds. The reference range was not used to interpret this result as normal/abnormal. EMANI (test code = EMANI) [facility] patient population mean normal value for aPTT is 30 seconds. Lab Interpretation (test code = 44852-5) Normal [facility] Hospital[facility] Time / INR - Code Jjvxqn2867-67-37 13:31:29* Test Item Value Reference Range Interpretation Comme [facility] PROTIME PATIENT (test code = 5964-2) 12.4 See_Comment [Automated [employer]] The system which generated this result transmitted reference range: 12.0 - 14.7 Seconds. The reference range was not used to interpret this result as normal/abnormal. INR (test code = 6301-6) 1.0 Normal INR <1.1; Warfarin Therapeutic range 2.0 to 3.0 or 2.5 to 3.5, depending upon the indications. Lab Interpretation (test code = 33912-7) Normal [facility] Hospital[facility] Time / INR - Code Nqxtjn4828-64-10 13:31:29* Test Item Value Reference Range Interpretation Comme nts PROTIME PATIENT (test code = 5964-2) 12.4 See_Comment [Automated [employer] ge] The system which generated this result transmitted reference range: 12.0 - 14.7 Seconds. The reference range was not used to interpret this result as normal/abnormal. INR (test code = 6301-6) 1.0 Normal INR <1.1; Warfarin Therapeutic range 2.0 to 3.0 or 2.5 to 3.5, depending upon the indications. Lab Interpretation (test code = 53184-1) Normal [facility] Hospital[facility] Time / INR - Code Fqvwdd1383-85-01 13:31:29* Test Item Value Reference Range Interpretation Comme [facility] PROTIME PATIENT (test code = 5964-2) 12.4 See_Comment [Automated [employer] ge] The system which generated this result transmitted reference range: 12.0 - 14.7 Seconds. The reference range was not used to interpret this result as normal/abnormal. INR (test code = 6301-6) 1.0 Normal INR <1.1; Warfarin Therapeutic range 2.0 to 3.0 or 2.5 to 3.5, depending upon the indications. Lab Interpretation (test code = 06656-4) Normal [facility] Hospital[facility]asi Metabolic Panel (NA, K, CL, CO2, Glucose, BUN, Creatinine, CA) - Code Kmdzoa8450-03-33 13:23:43* Test Item Value Reference Range Interpretation Comme [facility] NA (test code = 5365910061) 141 mmol/L 135-145 K (test code = 3599661372) 4.2 mmol/L 3.5-5.0 CL (test code = 5032746297) 110 mmol/L 98-108 H CO2 TOTAL (test code = 2341428811) 26 mmol/L 23-31 AGAP (test code = 9392640477) 5 2-16 BUN (test code = 0226107931) 21 mg/dL 7-23 GLUCOSE (test code = 7167810903) 112 mg/dL 70-110 H CREATININE (test code = 2084259944) 0.48 mg/dL 0.50-1.04 L CALCIUM (test code = 6244265393) 9.4 mg/dL 8.6-10.6 eGFR (test code = 1286526139) 129.4 mL/min/1.73m2 EMANI (test code = EMANI) Association of [...] or abnormalities in imaging tests). Lab Interpretation (test code = 20623-0) [facility]normal [facility]2023-[facility]-30 13:23:43* Test Item Value Reference Range Interpretation Comme nts MAGNESIUM (test code = 7359439835) 2.0 mg/dL 1.7-2.4 Lab Interpretation (test cod e = 35457-1) Normal [facility] without Diff - Code Abfwme4551-25-63 13:13:26* Test Item Value Reference Range Interpretation Comme nts WBC (test code = 6690-2) 8.45 See_Comment [Automated [employer]] The system which generated this result transmitted reference range: 4.30 - 11.10 10*3/?L. The reference range was not used to interpret this result as normal/abnormal. RBC (test code = 789-8) 4.75 See_Comment [Automated [employer]] The system which generated this result transmitted reference range: 3.93 - 5.25 10*6/?L. The reference range was not used to interpret this result as normal/abnormal. HGB (test code = 718-7) 14.5 g/dL 11.6-15.0 HCT (test code = 4544-3) 42.7 % 35.7-45.2 MCH (test code = 785-6) 30.5 pg 25.9-32.8 MCV (test code = 787-2) 89.9 fL 80.6-95.5 MCHC (test code = 786-4) 34.0 g/dL 31.6-35.1 PLT (test code = 777-3) 327 See_Comment [Automated messa ge] The system which generated this result transmitted reference range: 166 - 358 10*3/?L. The reference range was not used to interpret this result as normal/abnormal. MPV (test code = 55333-0) 9.7 fL 9.5-12.9 RDW-CV (test code = 788-0) 14.2 % 12.0-15.5 RDW-SD (test code = 82113-2) 46.9 fL 39.0-49.9 NRBC x10^3 (test code = 9143908903) See_Comment [Automated me ssage] The system which generated this result transmitted reference range: 10*3/?L. The reference range was not used to interpret this result as normal/abnormal. NRBC/100 WBC (test code = 5705134712) 0.0 See_Comment [Automated me ssage] The system which generated this result transmitted reference range: 0.0 - 10.0 /100 WBCs. The reference range was not used to interpret this result as normal/abnormal. IPF % (test code = 3789044518) [facility] without Diff - Code Ghbesy6537-81-38 13:13:26* Test Item Value Reference Range Interpretation Comme nts WBC (test code = 6690-2) 8.45 See_Comment [Automated messa ge] The system which generated this result transmitted reference range: 4.30 - 11.10 10*3/?L. The reference range was not used to interpret this result as normal/abnormal. RBC (test code = 789-8) 4.75 See_Comment [Automated messa ge] The system which generated this result transmitted reference range: 3.93 - 5.25 10*6/?L. The reference range was not used to interpret this result as normal/abnormal. HGB (test code = 718-7) 14.5 g/dL 11.6-15.0 HCT (test code = 4544-3) 42.7 % 35.7-45.2 MCH (test code = 785-6) 30.5 pg 25.9-32.8 MCV (test code = 787-2) 89.9 fL 80.6-95.5 MCHC (test code = 786-4) 34.0 g/dL 31.6-35.1 PLT (test code = 777-3) 327 See_Comment [Automated messa ge] The system which generated this result transmitted reference range: 166 - 358 10*3/?L. The reference range was not used to interpret this result as normal/abnormal. MPV (test code = 83285-0) 9.7 fL 9.5-12.9 RDW-CV (test code = 788-0) 14.2 % 12.0-15.5 RDW-SD (test code = 67525-4) 46.9 fL 39.0-49.9 NRBC x10^3 (test code = 4851469019) See_Comment [Automated me ssage] The system which generated this result transmitted reference range: 10*3/?L. The reference range was not used to interpret this result as normal/abnormal. NRBC/100 WBC (test code = 9200114641) 0.0 See_Comment [Automated me ssage] The system which generated this result transmitted reference range: 0.0 - 10.0 /100 WBCs. The reference range was not used to interpret this result as normal/abnormal. IPF % (test code = 3001718188) [facility] without Diff - Code Gxkzfc1204-28-59 13:13:26* Test Item Value Reference Range Interpretation Comme nts WBC (test code = 6690-2) 8.45 See_Comment [Automated messa ge] The system which generated this result transmitted reference range: 4.30 - 11.10 10*3/?L. The reference range was not used to interpret this result as normal/abnormal. RBC (test code = 789-8) 4.75 See_Comment [Automated messa ge] The system which generated this result transmitted reference range: 3.93 - 5.25 10*6/?L. The reference range was not used to interpret this result as normal/abnormal. HGB (test code = 718-7) 14.5 g/dL 11.6-15.0 HCT (test code = 4544-3) 42.7 % 35.7-45.2 MCH (test code = 785-6) 30.5 pg 25.9-32.8 MCV (test code = 787-2) 89.9 fL 80.6-95.5 MCHC (test code = 786-4) 34.0 g/dL 31.6-35.1 PLT (test code = 777-3) 327 See_Comment [Automated messa ge] The system which generated this result transmitted reference range: 166 - 358 10*3/?L. The reference range was not used to interpret this result as normal/abnormal. MPV (test code = 52362-0) 9.7 fL 9.5-12.9 RDW-CV (test code = 788-0) 14.2 % 12.0-15.5 RDW-SD (test code = 36198-2) 46.9 fL 39.0-49.9 NRBC x10^3 (test code = 0681273857) See_Comment [Automated me ssage] The system which generated this result transmitted reference range: 10*3/?L. The reference range was not used to interpret this result as normal/abnormal. NRBC/100 WBC (test code = 6919645788) 0.0 See_Comment [Automated me ssage] The system which generated this result transmitted reference range: 0.0 - 10.0 /100 WBCs. The reference range was not used to interpret this result as normal/abnormal. IPF % (test code = 7686706393) [facility] Consult Notes Date/Time Note Provider Source 2023-03-22 15:04:00 gGIrManXTcooJoAnxaZa Kr+1sCDN4AS0ylxco/wUko +PsWu93Zedd0JYvicvuoD53242-60-43L77:04:00A ssociated Order(s): CONSULT SPEECH Speech-Language PathologyClinical Swallow Re-Evaluation03/22/2023 Criss Figueroa : 1955 Age/Sex: 68 year old female Time IN/OUT: 1504-1516Referring Physician: Nickolaste of Referral: 03/22/2023 Reason for Referral: stroke [...] 03/18 at 23:30. She was transferred from [facility] on 03/19 to main campus in [place], where she was admitted to stroke service. Imagining in [facility] showed right ICA occlusion with right FILOMENA, [...] Pertinent Imaging: CT ANGIOGRAM ABDOMEN/PELVISResult Date: . Stella type B aortic dissection extending up to [...] and agree with the above report. Previous [employer] Services/Swallow History: Patient seen for clinical swallow evaluation earlier this admission on 2023 at which time she appeared to present with safe, functional swallowing. [employer] rec'd a regular-textured diet with thin liquids [...] PO trials were administered by patient and [employer]. Patient was provided with multiple bites/sips of [...] in agreement. She would benefit from continued [employer] services while in-house. Prognosis is fair for [...] recommend pt be made NPO and notify [employer] - may consider MBS vs FEES at that time 3. Recommend elevated head of bed and frequent, thorough oral hygiene care.4. Recommend [employer] therapy 2-5x/wk for 15-45 min/session while in-house to address the following goals:Swallowing:- Patient will tolerate the safest, least restricted po diet texture without overt s/sx of aspiration or other negative effects on medical conditionSLP will also follow up for full speech-language/cognitive evaluation in the coming days as indicated. 5. Discharge rec: Nitish Rios MS, [facility]-SLPSpeech Language PathologyOffice Number: [id number]: [phone] 86752-7Pwkobnn bqrrUB9352-30-76B05:32:49Consult noteTXT1.2.840.961837.1.13.104.2.7.2.76687 9|[id number] for patient rcmi69953-9Akrrnmm noteUT[address] TnqaPfzxzyaytGjhargyrnAPTD9476330384RSPUGO IFGBEMOEHXRUZMOX5165-03-02G46:32:491.2.840 .794439.1.72.3.15|1.2.840.954102.1.13.104. 2.7.2.727879_[id number] [facility] 2023-03-22 08:46:00 JsR4VAyyp+ssuFzAXL76 rsv9QChO+3A21zRwj5c9My e8wfgwUXZ2OQDPhso3/xu19465-83-92N10:46:00A ssociated Order(s): CONSULT ADULT OCCUPATIONAL THERAPY [id number] THERAPY NOTE:Duplicate consult. Please discontinue active bedrest order once patient cleared to participate with therapy. Trudy Allen OTR, OTD, C/NDT 89575-3Qtsqhzl inlfGB7608-10-54F90:56:43Consult noteTXT1.2.840.964344.1.13.104.2.7.2.46852 9|[id number] for patient pkwh28315-6Jfskoej noteUT[address] LperAeznfkgfqKqclzfkuyKIVA6698467528HHDUJF FFAGYMKRLZPTBSCN2076-09-08Y80:56:431.2.840 .465357.1.72.3.15|1.2.840.319194.1.13.104. 2.7.2.727879_[id number] [facility] 2023-03-22 08:45:00 pzBRGD42hBIc0qlB8VLZ iJSujED1B9KJ8bfJm/pm6K k4/ijKyoyw9IGgRRSeBb+u2104-71-63P80:45:00A ssociated Order(s): CONSULT ADULT PHYSICAL THERAPY PHYSICAL THERAPY NOTE:Duplicate consult. Please discontinue active bedrest order once patient cleared to participate with therapy. Thank you.Maira Adam PT, DPTUnThe University of Texas M.D. Anderson Cancer CenterRehabilitation Services 52520-6Qkfyool mggeDG8243-69-73C45:05:02Consult noteTXT1.2.840.393798.1.13.104.2.7.2.84120 9|[id number] for patient bsir74722-6Pcipjyr noteLNUT[address] XhrtRkxohkhqnEzvppunwdGTGK2625722142RTEGHM VVVIWUNRSXZBZYJO2932-93-71D85:05:021.2.840 .314661.1.72.3.15|1.2.840.611798.1.13.104. 2.7.2.727879_[id number] [facility] 2023-03-21 12:08:34 uv19d6jzEUxSQquDwXFc vXmR2uCXB3CSn7RkhPgy/G 6xgIuwpkG2prv10+vqgSYL1607-01-37S74:08:34F ormatting of this note is different from the original.VASCULAR SURGERY CONSULTDate of Service: 03/21/2023Requesting Physician: Neuro IR Chief Complaint: aortic dissectionHPIMs. Figueroa is a 68 yo female who presents with aortic dissection. Patient initially presented to [facility] with new onset L sided weakness LSN 23:30 on 03/18. Was found to have total right ICA occlusion with R FILOMENA and MCA fill through left-sided collaterals. Got ASA and plavix and was transferred to [place]. MRI showed multiple acute right-sided infarcts as well as right FILOMENA-MCA watershed cortical infarct. 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 L [employer] access was obtained however the wire was looping in the mid abdominal aorta and dissection was suspected at that point. 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 Initially presented to [facility] with R ICA occlusive stroke and L sided weakness. Attempted to undergo cerebral angiogram with neuro IR this AM, however aortic dissection flap created during procedure (Stella B). Patient has mild L abdominal pain [...] LeonardGeneral Surgery PGY-4 ssociated attestation - Tereso Pan MD - 03/21/2023 1:00 PM CDT This [...] stable she will probably not need specific treatment.05609-4Duasfis bemkAF7729887Ogg, Mitchell1.2.840.264861.1.13.104.2.7.2.8369 45AidFhbjrclnQK9685-68-15C46:00:33Consult noteTXT1.2.840.263372.1.13.104.2.7.2.62188 9|[id number] for patient wrkr12279-8Knlsuov noteLNUTMB[address] QgniOqmcqvaazIfsgjjjtnORDT8539437479HJQCQP TDKYQYYPVXTUVUEM7384-85-77Q23:00:331.2.840 .012546.1.72.3.15|1.2.840.338558.1.13.104. 2.7.2.727879_[id number] [facility] 2023-03-20 10:42:36 oPqHxQJPChML1z3skQql ziHk5jvwaPbvnhxa2Tbekz RB+bos1zL0hhsltOKOhoXD6542-03-38X08:42:36A ssociated Order(s): CONSULT DROP CLIPPER-ADULT Medicare part A: [id number] delivered from materials mgmt requested, patient does not have DME coverage.[facility] [place] [address] [place] [address], P: [phone] / [phone], F: [phone] referral sent.Care Management Social Functional AssessmentPatient Name: Criss Figureoa Age: [age] year old Sex: female admit [...] TimeInformation given by: SelfPatient's support system and grounds caretaker: Child;OtherName and phone number of primary caregiver/support system: Catherine Abdi sibling [phone], Anthony Ibarra child [phone], Flo Figueroa child [phone], Feng palma [phone] Arrangement: Apartment: DownstairsIn the last 12 months, was there a time when you were not able to pay the mortgage or rent on time?: NoIn the last 12 months, how many places have you lived?: 2 (planned)In the last 12 months, was there a time when you did not have a steady place to sleep or slept in a mcfp (including now)?: NoPersons living in home: OtherNames & numbers of persons living in home: Feng palma [phone] you , , , , never , [...] minDo you have a PCP?: NoRefered to: [facility] Agency: NoProalessandra Services: J[employer] Company: NoEquipment: NoneHemodialysis: NoCommunity resources [...] Complete:Social Functional Assessment complete: KAYA Ferguson, RNCare [email or web address] hospitalO:[phone] F:[phone] Management Reshma Santi Adult Inpatient Pager for weekends and holidays [phone] signed by Tirso Monsalve, RN at 03/20/2023 10:44 AM QTM36499-0Ikauihl eefkJF2093-58-48D87:44:23Consult noteTXT1.2.840.304777.1.13.104.2.7.2.26191 9|[id number] for patient xnwj85763-8Vjfrcks noteUT[address] OwllKixmwriptZbbsckvorDXVT4021155791VXZZBB FFCKPMLYQWZGKXWD0393-41-62F83:44:231.2.840 .205451.1.72.3.15|1.2.840.890539.1.13.104. 2.7.2.727879_[id number] [facility] 2023-03-20 09:10:00 y9vVAJarnCO6RMOxBf1n IIiWJiBy6D1TuPJ2VIRe3L IqOfnb+/G6y5bITVnDrRpf8919-50-89M54:10:00A ssociated Order(s): CONSULT ADULT OCCUPATIONAL THERAPY OT GENERAL EVALUATIONConsult received via [employer], EMR reviewed and evaluation completed 03/20/23. Patient [...] new gown from front pending transportation to [facility] Dressing: Moderate Assistance, to don socks bed [...] female Admit date: 2023 Date of onset: 2023dmit Diagnosis: CVA, old, hemiparesis [I69.359]OT Diagnosis: Impaired BADL independence, Impaired IADL independence, Weakness, Decreased endurance, and Limited joint ROMPMH: No past medical history on file.PSH: No past surgical history on file.PAIN: Denies pain before and after session. OCCUPATIONAL ROLES/HOME ENVIRONMENT:Home environment: Lives alone in a first floor apartment in [place]. The patient reports that her boyfriend stays with her often but works throughout the day therefore he is not available for support. The patient reports that she has a brother and sister but they do not live close to support her as needed. 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 The patient reports that in her free [...] hand intermittently after working all day at [employer]. The patient reports that when the weakness [...] with being out of work without her assisted at this time.TREATMENT/INTERVENTION PLAN: Patient/Caregiver Education, Equipment [...] read and verbalizes understanding of teaching provided.Leyda Vazquez, OTR, OTDPager #: [phone] Total Timed Treatment Codes: 8 MinTotal Treatment [...] to enable patient to complete evaluation component. 53433-6Hwmdejz hkcaIU9152-16-70X35:31:19Consult noteTXT1.2.840.561258.1.13.104.2.7.2.48304 9|[id number] for patient llnw77110-2Vohfpsq [address] Xe[id number] PJDPRFLKWICJNLJZ1842-59-07F56:31:191.2.840 .349096.1.72.3.15|1.2.840.551165.1.13.104. 2.7.2.727879_[id number] [facility] 2023-03-20 08:40:00 8vLMcute3YxdHneq0TL3 5RLFp6bDCR7cvwlndjtIVN T+eHshO18ZoUa2c+RsQHMt5320-89-07M38:40:00A ssociated Order(s): CONSULT ADULT PHYSICAL THERAPY Patient agreeable to [...] LSN: 23:30 08, NIHSS 2. Transferred from [facility]. In ED: CT head showed [...] my care and that I had a pmei-ap-aplr encounter with this patient on: 03/20/23 .The [...] LSN: 23:30 03/18, NIHSS 2. Transferred from [facility]. In ED: CT head showed [...] Suspected ischemic or hemorraghic stroke:Yes, Pre-Stroke Modified [place] Score: 0 - No symptomsSubjective: "I need to go back to work"Patient/Family Goals: To go homePatient/Family verbalizes understanding of condition: Yes PAIN: -Pain Description: aching-Pain Location: right UE-Pain rating before treatment: does not rate, After treatment: does not rate-Pain Management: Nursing Notified and Repositioning ProvidedCOMMUNICATIONPrimary Language: Welsh Able to Verbalize needs: Yes Vision:good; no [...] Time in Minutes: 34 minMaira Adam PT, DPTUnThe University of Texas M.D. Anderson Cancer CenterRehabilitation Services A physical therapy evaluation of moderate [...] restrictionsAn evolving clinical presentation with changing characteristics 62728-1Vwhwycy llkaYB1213-71-44W31:52:11Consult noteTXT1.2.840.351642.1.13.104.2.7.2.61598 9|[id number] for patient ukmz77687-1Bcqrmfl noteLNUT[address] YkzlEamvukeicKbwneebujYZWP0617250691RQLKWG ZLWXUJTSNZJFDXUI6274-78-87K31:52:111.2.840 .261677.1.72.3.15|1.2.840.964504.1.13.104. 2.7.2.727879_[id number] [facility] 2023 15:16:00 vjNWTir1Tba6p8wWSB8m RsJACKSON [facility]/K9YOPoa1IkwxApYi 2pF1Mw3WgQnX8MNToSTWZ57529-97-88E00:16:00A ssociated Order(s): CONSULT SPEECH Speech-Language PathologyClinical Swallow Evaluation2023 Criss [...] and agree with the above report. Previous MEMBER OF PARLIAMENT Services/Swallow History: None documented or reported No [...] assess diet tolerance and ensure no further MEMBER OF PARLIAMENT needs. Prognosis is favorable for safe po intake due to above findingsRECOMMENDATIONS/GOALS:1. Recommend patient continue a regular (IDDSI level 7)-textured diet with thin liquids (IDDSI level 0) and swallow precautions: sit fully upright/in chair and remain upright after PO intake 2. Recommend MEMBER OF PARLIAMENT therapy 2-5x/wk for 15-45 min/session while in-house to address the following goals:Swallowing:- Patient will tolerate the safest, least restricted po diet texture without overt s/sx of aspiration or other negative effects on medical condition*Patient may benefit from speech-language/cognitive evaluation in the coming days 3. Discharge recs: TBD Perla Rios MS, [facility]-SLPSpeech Language PathologyOffice Number: [id number]: [phone] 86630-3Mtmtazq tcmgUE9184-01-41S17:56:16Consult noteTXT1.2.840.521925.1.13.104.2.7.2.73867 9|[id number] for patient bmnq57200-3Vbhnetn noteLNUTSANTA FE INDIAN HOSPITAL - [address] AbaqLewacknhaJgtciabseGTQE3445160533JNGXVK LLJERCTIYUJKRKJB5188-28-93V95:56:161.2.840 .451778.1.72.3.15|1.2.840.718614.1.13.104. 2.7.2.727879_[id number] [facility] - Health History and Physical Notes Date/Time Note Provider Source 2023-03-21 13:23:24 mBgJBcXvn5wmPxxc6KcU 4SgLLoQWHVg2ecOmWJq mCcwFYrB8SscxEKDiuDhV7S/B2897-74-05B77: 23:24 SICU ADMIT NOTEDate of Service: 03/21/2023 13:25Pre-operative/Admission Diagnosis: Type B Aortic DissectionMonitoring/Support: hemodynamic monitoringHPI: Ms. Figueroa is a 68 yo female who is admitted to SICU for hemodynamic monitoring after type B aortic dissection. Patient initially presented to [place] with new onset L sided weakness 03/18. Was found to have total right ICA occlusion with R FILOMENA and MCA fill through left-sided collaterals. Got ASA and plavix and was transferred to [place]. MRI showed multiple acute right-sided infarcts as well as right FILOMENA-MCA watershed cortical infarct. 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 L LEAN MANUFACTURING SPECIALIST access was obtained however the wire was [...] Friends and Family: Not on file Attends Yazidi Services: Not on file Active Member of [...] (03/21/23 1156) Scheduledpantoprazole (PROTONIX) IV, 40 mg, I29Lmbjyzkedi, 3 mg, QHSaspirin, 81 mg, DAILYatorvastatin, 40 mg, QHSclopidogreL, 75 mg, DAILYenoxaparin (LOVENOX) SC Syringe, 40 mg, DAILY AT 1700famotidine, 20 mg, BIDnicotine, 1 Patch, Q24H PRNniCARdipine infusion, 2.5-15 mg/hr, TITRATEacetaminophen, 650 mg, G5MCVZpjowmxmcH, 10 mg, M66OEYR Pressors: None Feeds: Orders Placed This Encounter [...] type B aortic dissection. Initially presented to [facility] with R ICA occlusive stroke and L sided weakness. Attempted to undergo cerebral angiogram with neuro IR, however aortic dissection flap created during procedure (Stella B). Patient is asymptomatic with pulses intact. NeuroASA 81 mg dailyClopidogrel 75 mg dailyMonitor neuro yoltL6Y neuro checks. 2. CardiovascularSystolic BP goal < 120 mmHgCardene gtt (held on BB given bradycardia down to 40's). Monitor bradycardia. MIVF low rate 50 cc/hr3. RespiratoryO2 per protrocol 4. GastrointestinalNPO5. GenitourinaryFoley in place, monitor UOP, replace electrolytes PRN6. MSK: Lie flat per neuro IR protocol7. UlccV4B CBC, transfuse for Hgb >7 8. IDNot indicated at this time. 9. PPXLovenox 40 mg daily Protonix 40 mg daily10. DispositionSICUPlan discussed with Dr. Maninder MD.Christine Acevedo MDGeneadena regional medical center Surgery Resident PGY-2 ssociated attestation - Miguel Dickens MD - 03/21/2023 2:32 PM CDT I personally examined the patient on March 21 [address] Acevedo's resident note as written . I actively participated in the decision-making process. Please see the resident's note for additional details. 06625-1Qejqzjx and physical mmufDH4005425Itopidc, Luis Diego1.2.840.190057.1.13.104.2.7.2.8369 01CyjmbyqOdwwHqbnwBH0341-61-42W63:32:22 History and physical noteTXT1.2.840.342223.1.13.104.2.7.2.72 7879|[id number] for patient mtcb23099-3Lzsstim and physical ltupPBOYX-PCNADIESIU-ZXLGCHEQGMUUIHO - Health[address] [employer] UpsqCcpyujmxfBjkdbigfwDXUW9501881527EWJ TWWEGXYFYJLDBSRRKKQ3431-76-22W76:32:221 .2.840.676809.1.72.3.15|1.2.840.842041. 1.13.104.2.7.2.727879_[id number] SHAYE-SURGERY [facility] 2023 11:17:06 6JDc0bHlBNwrWYbbc3z6 n+pIvWhnKzlphKHQQSz nZmcXXnAAZTvsJYIf7GAFlIdk0670-68-85E01: 17:06 STROKE SERVICE HISTORY AND PHYSICALDATE OF SERVICE: 2023 [...] the hospital. She was subsequently brought to [facility] ED. In ED at [facility]: Arrival BP: 171/60, B, CT head did [...] read by Neurology: (not recorded) Transfer from [facility] seen normal: Last known well - [...] 10 mg 10 mg Slow IV Push Z64RYGJ NaCl 0.9% (NS) IV infusion 1,000 mL [...] LSN: 23:30 03/18, NIHSS 2. Transferred from [facility]. In ED: CT head showed [...] precautions- Consult PT/OT/ Speech pathology/Primary swallowing screen- Business Development Recruiter on stroke education, smoking cessation, healthy diet, physical activity, weight lossImaging: - MRI brain without contrast ordered STAT- Cerebral angiogram on 03/20Labs: - Check fasting Lipid panel, HgA1C, TSH. - Check CBC, BMP, Pt, PTT, cardiac enzymes x 1, EKG- GI Prophylaxis: famotidine - DVT Prophylaxis: enoxaparin- Code status: Full code Discussed with Dr. Echeverria, Neurology Faculty RHONDA ClarkeBSNeurology PGY-2 ssociated attestation - Abel Echeverria MD - 03/20/2023 1:09 PM CDT Vascular [...] LSN: 23:30 03/18, NIHSS 2. Transferred from [facility]. In ED: CT head showed [...] artery emboliDAPTHigh dose statin Permissive HTNDSA Abel Echeverria MD34117-2History and physical jtehPC1664988DaprjAbel Echeverria1.2.840.641770.1.13.104.2.7.2.83 4259ZakfrKatahmvnXdbzjnhDP4393-87-91X69 :09:26History and physical noteTXT1.2.840.408973.1.13.104.2.7.2.72 7879|[id number] for patient uuqr15644-0Azkltae and physical noteLNUT[address] TjfzEgkcqvnrkCxdstfhgoBPOH9219272906YAN NOPEXJIUJIMQIEAZZEW1064-98-48X14:09:261 .2.840.149518.1.72.3.15|1.2.840.341823. 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 Procedure: No cerebral angiogram was performed. Findings: None. Complications: Rt LEAN MANUFACTURING SPECIALIST access, however failed as the wire didn't advance and resistance was meet. We then removed the RFA access and held manual compression till hemostasis. L LEAN MANUFACTURING SPECIALIST access was obtained, however the wire was looping in the mid abdominal aorta and did not advance. Dissection was suspected, and the procedure was stopped. Vascular interventional radiology as well as vascular surgery were consulted. 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 Patient and her family were informed and verbalized understanding. Subsequently the patient was transferred to vascular surgery service and admitted to SICU. Condition: Fair. Estimated blood loss: 300 mlFull dictated note to follow in PACS. ssociated attestation - Abel Echeverria MD - 03/23/2023 10:35 PM CDT Vascular Neurology attending note I agree with Dr.Barghash payne as written. I actively participated in the decision making process and edited the note as needed. Please see the resident's note for additional details. Abel Echeverria MD28570-0Procedure izswZV6900460OwgjvAbel mclaughlin1.2.840.427254.1.13.104.2.7.2.89660 2HnnpmYhpojrlhHnrlccsSA1345-54-07I77:35:40 Procedure noteTXT1.2.840.824224.1.13.104.2.7.2.61121 9|[id number] for patient cbrs48876-2Zbccpystj note[address] StreetTXTX[address]5577555USUSGA ILCUYXVAOXMTLUBN0320-06-50Z52:35:401.2.840 .244535.1.72.3.15|1.2.840.766708.1.13.104. 2.7.2.727879_[id number] [facility] Notes Date/Time Note Provider Source 2023-04-08 13:18:46 GUfRiHHbNnjhcrFAegyB FXGn/3BJJya XjATs5gVEqcpkMwY77jpDJKjqQW30jp CX1050-27-84D78:18:46 I have called the son Anthony and discussed the [place] [address]-5Qxswvvmhr encounter EammUL1646-62-62D41:19:22Teleph one encounter NoteTXT1.2.840.488069.1.13.104. 2.7.2.857167|[id number] ble for patient ghbc77720-3TxpoFJUO-HIYEZUBJR STAFFPN-NEUROLOGY STAFF[address]TXTX[address] 03103FJRUPBKDXKGTCIRKKAFMNI9574 -09-19T13:19:221.2.840.794855.1 .72.3.15|1.2.840.352090.1.13.10 4.2.7.2.727879_[id number] PN-NEUROLOGY STAFF [facility] 2023-04-07 15:50:13 iLq3HMDQEo8vOU8SRSmr YFa7kQphVjQ g/jGKWLExRdThSXw6NLnkzrZXESP3e7 kD0726-00-78Q06:50:13 Dr. Echeverria please review and advise, Thank you. 35783-6Qshweyvsv encounter PyovCH2287-42-55R01:53:11Teleph one encounter NoteTXT1.2.840.906009.1.13.104. 2.7.2.539921|9415329700NCUixoej ble for patient abkt21924-9YasoWU289865315Sbaql n K Marrs RN[address]TXTX[address] 24081ANNEPJVCWVMKNCOSUKXTSH0678 -09-18T15:53:111.2.840.125262.1 .72.3.15|1.2.840.817292.1.13.10 4.2.7.2.727879_[id number] Terra Tripp RN [facility] 2023-04-07 14:49:14 vjjdtE6iF4Pb+P4O9+lT UPFD1at5Ebn b6tdLzfdtEaX9H03LPG1X2MW4DtnsGm uw8922-04-15U38:49:14 Criss Figueroa is a 68 year old femalePatient son calling wanting to speak with Dr. Echeverria in regards to the patient stent procedure that was supposed to be done while she was in the hospital. He scheduled patient for HFU for 05/15/23. He is requesting a call back from nurse or Dr. Echeverria to discuss plan of care fr the patient. Please advise 86884-1Mtlxhlpkn encounter MyuaAF1558-22-95M93:51:15Teleph one encounter NoteTXT1.2.840.574760.1.13.104. 2.7.2.823206|1154065849LOUoytex ble for patient urmt90971-7XdeyNE717830024Xzhze Danielle[address]TXTX[address] 84349RKSDKMIYUMEARZRCKSXTBX7412 -09-18T14:51:151.2.840.688578.1 .72.3.15|1.2.840.121754.1.13.10 4.2.7.2.727879_[id number] Tiffany Osorio [facility] 2023-03-28 18:31:36 v8DbWNWw0P1j3AMXWTn7 Ompy2//cv42 aGUnwHJupgyOnJ08Htqe5Gl3/9rib5X 1m9119-18-40S43:31:36 Problem: Discharge PlanningGoal: Able to perform ADL03/28/20231830 by Elizabeth Cueva RNOutcome: Resolved03/28/20231830 by Elizabeth Cueva RNOutcome: Progressing as expectedGoal: Knowledge of medication management03/28/20231830 by Elizabeth Cueva RNOutcome: Resolved03/28/20231830 by Elizabeth Cueva RNOutcome: Progressing as expectedGoal: Knowledge of need for follow-up care03/28/20231830 by Elizabeth Cueva RNOutcome: Resolved03/28/20231830 by Elizabeth Cueva RNOutcome: Progressing as expectedGoal: Knowledge of personal stroke risk factors03/28/20231830 by Elizabeth Cueva RNOutcome: Resolved03/28/20231830 by Elizabeth Cueva RNOutcome: Progressing as expectedGoal: Knowledge of stroke warning signs03/28/20231830 by Elizabeth Cueva RNOutcome: Resolved03/28/20231830 by Elizabeth Cueva RNOutcome: Progressing as expected Problem: Falls, Risk ofGoal: Absence of falls03/28/20231830 by Elizabeth Cueva RNOutcome: Resolved03/28/20231830 by Elizabeth Cueva RNOutcome: Progressing as expected Problem: Mobility - ImpairedGoal: Able to achieve maximum mobility level03/28/20231830 by Elizabeth Cueva RNOutcome: Resolved03/28/20231830 by Elizabeth Cueva RNOutcome: Progressing as expectedGoal: Able to use ambulatory assistive device appropriately03/28/20231830 by Elizabeth Cueva RNOutcome: Resolved03/28/20231830 by Elizabeth Cueva RNOutcome: Progressing as expected Problem: PainGoal: Control of pain at or below patient's documented comfort goal03/28/20231830 by Elizabeth Cueva RNOutcome: Resolved03/28/20231830 by Elizabeth Cueva RNOutcome: Progressing as expectedGoal: Reduction in pain sensation03/28/20231830 by Elizabeth Cueva RNOutcome: Resolved03/28/20231830 by Elizabeth Cueva RNOutcome: Progressing as expected 17531-8Bqka of care ycedEW7261-83-77V14:31:42Plan of care noteTXT1.2.840.125190.1.13.104. 2.7.2.296760|7300378716QFRckshk [facility] for patient xjez68545-2JnptIF154608874Grnoe sa R Pharis RN[address]TXTX[address] 65506ZDREEJMWWEZIUWFHXZMDOU4886 -09-08T18:31:421.2.840.179107.1 .72.3.15|1.2.840.139028.1.13.10 4.2.7.2.727879_[id number] Elizabeth Cueva RN [facility] 2023-03-28 04:22:48 +yp9krLSUA9tswLOLjEf WKBMfOmF5wu zEglv515U6/7/WQWcvxDOBHRg8xkyq1 N+7664-41-72T44:22:48 Problem: Discharge PlanningGoal: Able to perform ADLOutcome: Progressing as expectedGoal: Knowledge of medication managementOutcome: Progressing as expectedGoal: Knowledge of need for follow-up careOutcome: Progressing as expectedGoal: Knowledge of personal stroke risk factorsOutcome: Progressing as expectedGoal: Knowledge of stroke warning signsOutcome: Progressing as expected Problem: Falls, Risk ofGoal: Absence of fallsOutcome: Progressing as expected Problem: Mobility - ImpairedGoal: Able to achieve maximum mobility levelOutcome: Progressing as expectedGoal: Able to use ambulatory assistive device appropriatelyOutcome: Progressing as expected Problem: PainGoal: Control of pain at or below patient's documented comfort goalOutcome: Progressing as expectedGoal: Reduction in pain sensationOutcome: Progressing as expected 24042-8Ajlp of care wlptFU3975-62-08V93:22:51Plan of care noteTXT1.2.840.240185.1.13.104. 2.7.2.583942|5974898628YJZefplj [facility] for patient ikkb15182-4DeptCR797096030Oboym White RN[address] MiqbLlnmvegtwIrjizyldkGUEJ24154 16468NCPVIDNCORBDSHTVWMSNLG7691 -09-08T04:22:511.2.840.354895.1 .72.3.15|1.2.840.910101.1.13.10 4.2.7.2.727879_[id number] Maritza Monsalve RN [facility] 2023-03-27 18:46:27 rZX4fZ/SWzjjyrmvQrHt NuT86Umnhs+ aIV9lumB5Ee5o/FI2u0MBXrTfPjJqeu /M1156-54-99Z17:46:27 Problem: Discharge PlanningGoal: Able to perform ADLOutcome: Progressing as expectedGoal: Knowledge of medication managementOutcome: Progressing as expectedGoal: Knowledge of need for follow-up careOutcome: Progressing as expectedGoal: Knowledge of personal stroke risk factorsOutcome: Progressing as expectedGoal: Knowledge of stroke warning signsOutcome: Progressing as expected Problem: Falls, Risk ofGoal: Absence of fallsOutcome: Progressing as expected Problem: Mobility - ImpairedGoal: Able to achieve maximum mobility levelOutcome: Progressing as expectedGoal: Able to use ambulatory assistive device appropriatelyOutcome: Progressing as expected 97133-9Fors of care wztzEM1495-06-21M61:46:30Plan of care noteTXT1.2.840.283987.1.13.104. 2.7.2.350949|2257940766YQYibytl [facility] for patient glpz66920-2AwrhVMMVBMNYVG[address]vdGalvestonGalvestonTXTX[address] 95952IGXICMHEPJNPLMSUVDPTCS7307 -09-07T18:46:301.2.840.321813.1 .72.3.15|1.2.840.134003.1.13.10 4.2.7.2.727879_[id number] [facility] 2023-03-25 03:49:35 svIm8NxScbcDuB078bAQ 0RJg6QZbj3C gXTzdM/SU5dko21KnYhaOY/dFoCNZuF kI1874-46-90M11:49:35 Problem: Discharge PlanningGoal: Able to perform ADLOutcome: Progressing as expectedGoal: Knowledge of medication managementOutcome: Progressing as expectedGoal: Knowledge of need for follow-up careOutcome: Progressing as expectedGoal: Knowledge of personal stroke risk factorsOutcome: Progressing as expectedGoal: Knowledge of stroke warning signsOutcome: Progressing as expected Problem: Falls, Risk ofGoal: Absence of fallsOutcome: Progressing as expected Problem: Mobility - ImpairedGoal: Able to achieve maximum mobility levelOutcome: Progressing as expectedGoal: Able to use ambulatory assistive device appropriatelyOutcome: Progressing as expected Problem: PainGoal: Control of pain at or below patient's documented comfort goalOutcome: Progressing as expectedGoal: Reduction in pain sensationOutcome: Progressing as expected 62530-9Peho of care guksTM7212-95-12S82:49:39Plan of care noteTXT1.2.840.117746.1.13.104. 2.7.2.354559|7752396907SBOktoix ble for patient uyqp39328-3SsvpDW658442482Ujzaz tte M [place] RNUT[address] StreetTXTX[address] 66811UYIVNHMDIVMKTTGYJHHXSP5871 -09-05T03:49:391.2.840.663704.1 .72.3.15|1.2.840.814939.1.13.10 4.2.7.2.727879_[id number] Yohana Jeff RN [facility] 2023-03-24 16:45:21 7G5i4x3EUrt6n9QwIICO OGPJdMGX+Je jLXPsBFTY0EvxvKzR1ZAMIqDn6uU75W vO6580-81-57B02:45:21 Problem: Discharge PlanningGoal: Able to perform ADLOutcome: Progressing as expectedGoal: Knowledge of medication managementOutcome: Progressing as expectedGoal: Knowledge of need for follow-up careOutcome: Progressing as expectedGoal: Knowledge of personal stroke risk factorsOutcome: Progressing as expectedGoal: Knowledge of stroke warning signsOutcome: Progressing as expected Problem: Falls, Risk ofGoal: Absence of fallsOutcome: Progressing as expected Problem: Mobility - ImpairedGoal: Able to achieve maximum mobility levelOutcome: Progressing as expectedGoal: Able to use ambulatory assistive device appropriatelyOutcome: Progressing as expected Problem: PainGoal: Control of pain at or below patient's documented comfort goalOutcome: Progressing as expectedGoal: Reduction in pain sensationOutcome: Progressing as expected 89062-1Hwka of care ubriZJ3202-80-28F16:45:25Plan of care noteTXT1.2.840.349217.1.13.104. 2.7.2.426609|3565984138ZLKbbpfc ble for patient tmzj34124-5QqixRA844180995Vkcci r Truly [address]TXTX[address] 59875BGEJOODKHJRQDNWAUSUVAB0323 -09-04T16:45:251.2.840.623976.1 .72.3.15|1.2.840.313201.1.13.10 4.2.7.2.727879_[id number] Johanna Domingo RN [facility] 2023-03-24 06:00:00 9dvgoqUxqW77gsYTSYG0 0Y0ZAis8jaP e44pruEfpeXdvz1pFLWZV5poDlvH8hJ gA3004-83-26X64:00:00 Problem: Discharge PlanningGoal: Able to perform ADLOutcome: Progressing as expected Problem: Falls, Risk ofGoal: Absence of fallsOutcome: Progressing as expected Problem: Mobility - ImpairedGoal: Able to achieve maximum mobility levelOutcome: Progressing as expected Problem: PainGoal: Control of pain at or below patient's documented comfort goalOutcome: Progressing as expected 98774-7Rvlq of care swsiZE6519-39-95C77:24:13Plan of care noteTXT1.2.840.551799.1.13.104. 2.7.2.859867|8507902343BGTbspia ble for patient tiyq49076-4NixwUM246920814Amogy y Mii [address]TXTX[address] 85287GNQPUBGRZYDMXRZGQFMSMW9601 -09-04T19:24:131.2.840.212283.1 .72.3.15|1.2.840.742883.1.13.10 4.2.7.2.727879_[id number] Friday Bonita GUILLEN [facility] 2023-03-23 00:09:38 mCdpVKW5fpz4jAfA28xQ tNX0k/J9Jr6 DUETzCvbwW1Ao066uQehIXIZipSKG3J IU2277-36-44B87:09:38 Problem: Discharge PlanningGoal: Able to perform ADLOutcome: Progressing as expectedGoal: Knowledge of medication managementOutcome: Progressing as expectedGoal: Knowledge of need for follow-up careOutcome: Progressing as expectedGoal: Knowledge of personal stroke risk factorsOutcome: Progressing as expectedGoal: Knowledge of stroke warning signsOutcome: Progressing as expected Problem: Falls, Risk ofGoal: Absence of fallsOutcome: Progressing as expected Problem: Mobility - ImpairedGoal: Able to achieve maximum mobility levelOutcome: Progressing as expectedGoal: Able to use ambulatory assistive device appropriatelyOutcome: Progressing as expected Problem: PainGoal: Control of pain at or below patient's documented comfort goalOutcome: Progressing as expectedGoal: Reduction in pain sensationOutcome: Progressing as expected 62388-7Luie of care qvmcLX9077-89-52N40:09:44Plan of care noteTXT1.2.840.999734.1.13.104. 2.7.2.190467|0911159214OVTljliv ble for patient [id number] giuliano Tinoco RN[address] Sr[id number] 38162YKRSALDDAESWMZSROQNGGC1144 -09-03T00:09:441.2.840.623721.1 .72.3.15|1.2.840.365585.1.13.10 4.2.7.2.727879_[id number] Huma Tinoco RN [facility] 2023-03-22 01:44:35 J2fx6xNO5lkUDtlyCpLb 1rAgiL1kdem Ba0odSI6L7PoC76UeP7/0H3DoMwl8mO kF7514-61-59P22:44:35 Problem: Discharge PlanningGoal: Able to perform ADLOutcome: Progressing as expectedGoal: Knowledge of medication managementOutcome: Progressing as expectedGoal: Knowledge of need for follow-up careOutcome: Progressing as expectedGoal: Knowledge of personal stroke risk factorsOutcome: Progressing as expectedGoal: Knowledge of stroke warning signsOutcome: Progressing as expected Problem: Falls, Risk ofGoal: Absence of fallsOutcome: Progressing as expected Problem: Mobility - ImpairedGoal: Able to achieve maximum mobility levelOutcome: Progressing as expectedGoal: Able to use ambulatory assistive device appropriatelyOutcome: Progressing as expected Problem: PainGoal: Control of pain at or below patient's documented comfort goalOutcome: Progressing as expectedGoal: Reduction in pain sensationOutcome: Progressing as expected 61081-0Pywi of care rdicQE2222-79-82H90:44:39Plan of care noteTXT1.2.840.848461.1.13.104. 2.7.2.060915|[id number] ble for patient qhff64505-4GuzoOX449806180Bfpx Cole RNUT[address] YdtbUdwqarfwgQhyiusjevIGPZ24550 52228XPACWQYUMDNYKLGYRNBRUD0243 -09-02T01:44:391.2.840.479448.1 .72.3.15|1.2.840.847012.1.13.10 4.2.7.2.727879_[id number] Akilah Maria RN [facility] 2023-03-21 19:27:36 da+kvhf96KJvc6FzP43K hGsZ4tGrVve bP2pYIFjrgEk/Q8iia4rSbSZnq2AK2i Jp3609-11-61A08:27:36 Problem: Discharge PlanningGoal: Able to perform ADLOutcome: Progressing as expectedGoal: Knowledge of medication managementOutcome: Progressing as expectedGoal: Knowledge of need for follow-up careOutcome: Progressing as expectedGoal: Knowledge of personal stroke risk factorsOutcome: Progressing as expectedGoal: Knowledge of stroke warning signsOutcome: Progressing as expected Problem: Falls, Risk ofGoal: Absence of fallsOutcome: Progressing as expected Problem: Mobility - ImpairedGoal: Able to achieve maximum mobility levelOutcome: Progressing as expectedGoal: Able to use ambulatory assistive device appropriatelyOutcome: Progressing as expected Problem: PainGoal: Control of pain at or below patient's documented comfort goalOutcome: Progressing as expectedGoal: Reduction in pain sensationOutcome: Progressing as expected 65062-1Yxxb of care wowlMR7981-63-72M49:27:40Plan of care noteTXT1.2.840.006162.1.13.104. 2.7.2.550301|[id number] [facility] for patient hjek45326-2GiaaHO070739137Fwlqz Sustaita RN[address] TwdiHswmyxakfLlwowrvgnQPDS97701 19703WDGWOXGNTOIPBUOEDYWMNG3157 -09-01T19:27:401.2.840.547067.1 .72.3.15|1.2.840.063672.1.13.10 4.2.7.2.727879_[id number] Segundo Escobedo RN [facility] 2023-03-21 11:12:00 PSQUG9G00xwNzQ9ElPTY Rpf+g7HlKpk NMtmuKoMBh7QRngH4kDiLfwn3g/VKhf D15573-38-46M58:12:00 Report called to segundo rn for icu bed 854 12328-6Wtasx NgwpTC9777-70-13R45:19:45Nurse NoteTXT1.2.840.413181.1.13.104. 2.7.2.735589|[id number] ble for patient jque15559-5Yksfr EmdpLH363165728Aqfcgrug M Ailyn RN[address]TX[address] 98821QMDQJLQPOZORGFBWIGVEAE2513 -09-01T12:19:451.2.840.487563.1 .72.3.15|1.2.840.919880.1.13.10 4.2.7.2.727879_[id number] Carla Robertson RN [facility] 2023-03-21 10:50:00 dT3A3Qo43sNA1yyfiC+T ttpAsGomw7l 5ldyK4ZaLMP/Q1Rh0a4l6Meb8KdEvQo c11890-98-54A84:50:00 Dr echeverria, dr devine with neuro and dr pan all at bedside updating pt on status and plan of care; [place] go [place] surgical icu 26644-6Mutxx LvsgBO8237-12-80Y93:14:38Nurse NoteTXT1.2.840.230353.1.13.104. 2.7.2.398943|[id number] ble for patient jofr88908-7Hcohb Note[address] 97920FDWAUSHRJPUVMGATODUQQZ5464 -09-01T12:14:381.2.840.045781.1 .72.3.15|1.2.840.779366.1.13.10 4.2.7.2.727879_[id number] [facility] 2023-03-21 10:13:29 2RZ34BrtTf4ZDme/AlJQ maz8xzBEPQf vCemj7R2q2uB0i8F9PP5y8m5MbxfbQ0 S25872-86-20O69:13:[address] [place] [address]-7Pikjp PekcYZ3115-17-27R62:13:41Nurse NoteTXT1.2.840.817301.1.13.104. 2.7.2.371527|[id number] ble for patient qagq64208-1Lvuat NdllTF712216942Zbwlnwhs D Barnett RN[address] LqxyNhomhevhpZkdenshuaYCOH66304 85112DBMRQOYJVLXPRMXBUMRFLE6862 -09-01T10:13:411.2.840.579330.1 .72.3.15|1.2.840.041907.1.13.10 4.2.7.2.727879_[id number] Koki Woods RN [facility] 2023-03-21 10:06:00 vyoR5nr+fzwTHqtWi5p8 1n/tE+beIGO ZusMIposZCWzOPMCV6jzwJln22zRZyW qw3723-58-48G57:06:00 Dr mcneil came into procedure room [address] the [address] Echeverria 89439-7Lsvbu EiybMM6617-51-99F24:31:19Nurse NoteTXT1.2.840.659539.1.13.104. 2.7.2.258095|[id number] ble for patient kazp98418-8Ulsba [address] 21941OFMUWXACLEEJZBPPKXVWGH3042 -09-01T12:31:191.2.840.878026.1 .72.3.15|1.2.840.590733.1.13.10 4.2.7.2.727879_[id number] [facility] 2023-03-21 05:15:16 /W15Endq/Wii1q7oO9hX nOPfRrYoxYm wHAfJjxM+dy3gRLiDCrEK+veIxvfokg 9+5663-89-26K61:15:16 Problem: Discharge PlanningGoal: Able to perform ADLOutcome: Progressing as expectedGoal: Knowledge of medication managementOutcome: Progressing as expectedGoal: Knowledge of need for follow-up careOutcome: Progressing as expectedGoal: Knowledge of personal stroke risk factorsOutcome: Progressing as expectedGoal: Knowledge of stroke warning signsOutcome: Progressing as expected Problem: Falls, Risk ofGoal: Absence of fallsOutcome: Progressing as expected Problem: Mobility - ImpairedGoal: Able to achieve maximum mobility levelOutcome: Progressing as expectedGoal: Able to use ambulatory assistive device appropriatelyOutcome: Progressing as expected Problem: PainGoal: Control of pain at or below patient's documented comfort goalOutcome: Progressing as expectedGoal: Reduction in pain sensationOutcome: Progressing as expected 00894-6Daqk of care lylwUB5084-08-67A92:15:20Plan of care noteTXT1.2.840.212388.1.13.104. 2.7.2.317962|[id number] ble for patient bmta58550-8YhujRL829721110Dcedt nd G Domingo RN[address]TX[address] 80690PPWKMBDLEXOIINAVFXSWJB0333 -09-01T05:15:201.2.840.923023.1 .72.3.15|1.2.840.008415.1.13.10 4.2.7.2.727879_[id number] Tommy Virgen RN [facility] 2023-03-20 13:25:38 3u2zlJpl6XGgC5zeAFFG qInAMfK08LE aEqAeX5I/w5+18grrriOMMChS1Wdm71 ce5269-12-07R43:25:38 Problem: Discharge PlanningGoal: Able to perform ADLOutcome: Progressing as expectedGoal: Knowledge of medication managementOutcome: Progressing as expectedGoal: Knowledge of need for follow-up careOutcome: Progressing as expectedGoal: Knowledge of personal stroke risk factorsOutcome: Progressing as expectedGoal: Knowledge of stroke warning signsOutcome: Progressing as expected Problem: Falls, Risk ofGoal: Absence of fallsOutcome: Progressing as expected Problem: Mobility - ImpairedGoal: Able to achieve maximum mobility levelOutcome: Progressing as expectedGoal: Able to use ambulatory assistive device appropriatelyOutcome: Progressing as expected Problem: PainGoal: Control of pain at or below patient's documented comfort goalOutcome: Progressing as expectedGoal: Reduction in pain sensationOutcome: Progressing as expected 15360-0Ixnf of care tcwgOK6776-32-29U19:25:46Plan of care noteTXT1.2.840.805343.1.13.104. 2.7.2.275606|[id number] ble for patient fjls80508-0UvvpRJ483431667Enex Y Workman RN[address]TXTX[address] 50755FXDIYREUTFDYJPMREVROUQ6056 -08-31T13:25:461.2.840.268955.1 .72.3.15|1.2.840.440531.1.13.10 4.2.7.2.727879_[id number] Odalis Queveod RN [facility] 2023-03-20 05:52:48 HeoTdvbqlsbo7bkiR3qi RI9n0H+M7zX 3adQ/xm0Y6zRPudpOzoB4HVYugzCfLG yE0929-07-02M37:52:48 Problem: Falls, Risk ofGoal: Absence of fallsOutcome: Progressing as expected Problem: Mobility - ImpairedGoal: Able to achieve maximum mobility levelOutcome: Progressing as expectedGoal: Able to use ambulatory assistive device appropriatelyOutcome: Progressing as expected Problem: PainGoal: Control of pain at or below patient's documented comfort goalOutcome: Progressing as expectedGoal: Reduction in pain sensationOutcome: Progressing as expected 43338-8Muxg of care pugqFN6317-40-51E73:52:54Plan of care noteTXT1.2.840.315472.1.13.104. 2.7.2.207104|[id number] [facility] for patient rbsb39586-1JnwlIHPWRNWRCN[address] ZudgJuvquwthgDhjbuodaaDAQE12150 56521NDEZHQYQEBHCEECFIMSDNP7586 -08-31T05:52:541.2.840.134108.1 .72.3.15|1.2.840.946808.1.13.10 4.2.7.2.727879_[id number] [facility] 2023 17:10:52 8/Lf6xpRhGg5T+YcAjgR XCrmVI/BLux v3c5WOUHVRpKNuEZvOLC4CO6/LT4bht Dw9713-93-73E62:10:52 Problem: Discharge PlanningGoal: Able to perform ADLOutcome: Progressing as expectedGoal: Knowledge of medication managementOutcome: Progressing as expectedGoal: Knowledge of need for follow-up careOutcome: Progressing as expectedGoal: Knowledge of personal stroke risk factorsOutcome: Progressing as expectedGoal: Knowledge of stroke warning signsOutcome: Progressing as expected Problem: Falls, Risk ofGoal: Absence of fallsOutcome: Progressing as expected Problem: Mobility - ImpairedGoal: Able to achieve maximum mobility levelOutcome: Progressing as expectedGoal: Able to use ambulatory assistive device appropriatelyOutcome: Progressing as expected Problem: PainGoal: Control of pain at or below patient's documented comfort goalOutcome: Progressing as expectedGoal: Reduction in pain sensationOutcome: Progressing as expected 84090-8Ntjj of care maeqRO5026-99-02E21:10:58Plan of care noteTXT1.2.840.520808.1.13.104. 2.7.2.768682|[id number] ble for patient msau13464-1KufxKNTXIGSKTN[address] 76198PBXCJPYYSAJSCQNSKRHVHI2930 -08-30T17:10:581.2.840.037496.1 .72.3.15|1.2.840.751181.1.13.10 4.2.7.2.727879_[id number] [facility] 2023 15:48:20 Sx8uYfLgRn3Pm36HMNSW tbAD7JViCYB tAm6OeGyvFjbe09iPNG88XZgcfvKajS SS6397-61-80W15:48:20 Pt transported to [facility] with transporter and tech 50467-3Uwwdmvyvd department CcodPV3775-91-08B55:49:19[facility] NoteTXT1.2.840.546955.1.13.104. 2.7.2.369836|[id number] ble for patient uuee01024-7WjfxMW981614384Ikxbs sushil Marrero RN[address] 15620ZGINNWDZQIXLPORLQXUUFG9827 -08-30T15:49:191.2.840.240493.1 .72.3.15|1.2.840.721107.1.13.10 4.2.7.2.727879_[id number] Alba Marrero RN [facility] 2023 15:23:27 gmr4nGRpweE6x68qP0RN v/Sz8WvOr8f NTvglCnGg/FmOaHGRA3qY/FT7Zz0g0P kG7386-96-31I54:23:27 Report given to Jazmine GUILLEN 25745-7Tjcsxkusm department OtxvDW4912-17-35Z76:23:38[facility] NoteTXT1.2.840.902627.1.13.104. 2.7.2.112104|[id number] ble for patient wjqn13065-3OvqxMSTLFLBWUN[address] 57685HCXYXOGUKPXNVUFYDHFLMJ9046 -08-30T15:23:381.2.840.229137.1 .72.3.15|1.2.840.377535.1.13.10 4.2.7.2.727879_[id number] [facility] 2023 13:10:31 Pe4vWGIqhQl4E1VzPEOO 0eSafj8v2FH 4F5RMGr5QG+t/tnL4RTxH20aa3m0dJC xw9963-31-83P73:10:31 Pt provided with sandwich, bedside dysphagia passed 59817-7Ccxkojttn[address] ZgpmOW1293-30-47H97:10:53[facility] department NoteTXT1.2.840.862577.1.13.104. 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 2.7.2.560620|[id number] ble for patient krhj73436-8QecvQPXXUIGSZW[address] 99493JOMRULJWMGCHEOOWIINVTC5537 -08-30T12:45:251.2.840.326714.1 .72.3.15|1.2.840.533910.1.13.10 4.2.7.2.727879_[id number] [facility] 2023 12:45:00 TNb3YvFDREqbTV5tDT2o oHyht+VKFDZ oGnfQaKeCF/j+Ntv5AN9vrlMX/6LZMH Lg5074-05-61W72:45:00 Per neurology, ok to keep blood pressure permissive SBP <220 43827-3Ezfwkmtuv department FixvVC6290-89-50I51:17:16[facility] department NoteTXT1.2.840.587438.1.13.104. 2.7.2.366837|[id number] ble for patient agzn46024-6ZhvgWUFLTHDAQG[address] 93891EBKTFHEIZDLVJPYBDTFBUR5193 -08-30T14:17:161.2.840.865339.1 .72.3.15|1.2.840.842533.1.13.10 4.2.7.2.727879_[id number] [facility] 2023 11:46:44 LPQVYDkZoHTHKCECx/Px vaUg5SxE3GA 6ppkmf+oijS0fds7blzIFcv8pgIUm/g 4M3481-68-48T90:46:44 Stroke attending at bedside 91202-4Lnlazahtd department IwklYV8303-84-63Q87:46:56[facility] department NoteTXT1.2.840.448843.1.13.104. 2.7.2.139596|[id number] ble for patient nekt04504-0NxeeIECWPIVOBC[address] 35090LRVTIZBRNTWOVEFAEJXLQL6695 -08-30T11:46:561.2.840.168327.1 .72.3.15|1.2.840.798149.1.13.10 4.2.7.2.727879_[id number] [facility] 2023 11:19:26 XD5YkO6IB22r7K5Z09Fq UYci3+9+VDQ +h3pBH5qIIMurx3Mc+sLwEWtiUm/3pZ Te4494-37-53V70:19:26 Neurology at bedside 29881-3Ymnikcwoh department NaqvEP3271-34-54I93:19:34Emerge txy department NoteTXT1.2.840.140726.1.13.104. 2.7.2.590577|[id number] ble for patient ysln03447-3TxvtKIHKNPRTHO[address] 81039RCPFKDLLNFKMSGBOPAQFWK6935 -08-30T11:19:341.2.840.783066.1 .72.3.15|1.2.840.978353.1.13.10 4.2.7.2.727879_[id number] [facility] 2023 11:09:34 us6cPOUkrPfohs0OoWid f7g41MXsKEc oSNlnnuWb6V4lHOofnOhqTVOhBnclaK b14648-25-60H93:09:34 Criss Figueroa is a 68 year old female that presents to ER via EMS that was transferred from [facility] d/t [facility] occlusion. EMS reports that around 0300 she had unsteady gait when taking her dogs to the bathroom. CTA performed in [facility] and pt loaded with ASA/plavix. NAD. Ambulated to bathroom on arrival, minimal assist to bathroom d/t unsteady gait 35232-6Ommoyfule[address] DjnzGF5130-82-10Q77:16:53[facility] department NoteTXT1.2.840.705170.1.13.104. 2.7.2.661983|[id number] ble for patient zvmh32729-2TgrwQKUFVFMPZJ[address] [place], [place] [address] 79421QKSMOWFNUTQFMZYEOJJFWP5117 -08-30T11:16:531.2.840.980769.1 .72.3.15|1.2.840.242470.1.13.10 4.2.7.2.727879_[id number] [facility] 2023 11:07:17 k6WlfoUafpRhGcNJ0FS8 jLZkrp+Naw2 LKlgvymw0ts6EEI1lwH/LHr9VmzfNBp RA0814-08-95Q07:07:17 Neuro aware of pt arrival. 00818-1Vgybafhbi[address] DkwcPD6848-17-92K14:07:30[facility] NoteTXT1.2.840.454772.1.13.104. 2.7.2.373364|[id number] ble for patient oyos04120-9IjvgIGCTDCMNPG[address] 15221MSEFOJXFTWWZBVKQLXEXUA1253 -08-30T11:07:301.2.840.313760.1 .72.3.15|1.2.840.242744.1.13.10 4.2.7.2.727879_[id number] [facility] 2023 11:02:48 /Pv4doOl+GaGQls5RZxV 0nNOAbzD5Y8 c6/FtudwBoaOj0ahroNmhlNc4CSDzka Ur1433-56-23Y70:02:48 Criss Figueroa is a 68 year old female presents to ED via EMS from [facility] for R ICA full occlusion. Pt reports 0400 woke up feeling sluggish and left arm weakness. Denies any PMH. 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 Pt is aox4 with gcs 15 skin warm and dry resp even and unlabored. Pt to room 113 for evalNeuro paged for pt arrival, awaiting call return. 34179-7Mictssgsz department Triage ulqnLF6505-98-84F29:06:07[facility] department Triage noteTXT1.2.840.694731.1.13.104. 2.7.2.508668|[id number] ble for patient iaxc15232-9Qztvifsdi department MqypBW137755772Mbzmj Nini RNUT[address] UpccXtkmijegeYtwzmbptvYBQP49054 56865UZCSUZDRKTHDVFATZXHJTA8270 -08-30T11:06:071.2.840.724595.1 .72.3.15|1.2.840.508443.1.13.10 4.2.7.2.727879_[id number] Sarah Chester RN [facility] 2023 09:55:08 0QZOtUIaxeSCDMx/89F2 cVCV6AXoQbP O2kV90RJp6+9d/0eUf8I9X7H3q0bkEZ lp9191-36-43V76:55:08 Nurse Report Report given to WILMER Fitzgerald. Chief complaint, assessment findings, infusion verify and orders reviewed. Plan of care discussed at bedside with patient and both nurses. Patient/family members verbalized understanding. [facility] at bedside picking up patient - Report given at bedside to Venkatesh Hung RN/LP. Patient left ER in no [place] [address]-5Jqrsmvobf department ZifqXD0199-28-78Z20:57:42[facility] NoteTXT1.2.840.941950.1.13.104. 2.7.2.252281|[id number] ble for patient ohwg03663-3ZsflES768106335Pxzvw ela Oxford RN[address] UevtDdukhwqfxUisoudrovSWWW56374 80135YVUULSYIEXIBJRYOHQELZX3015 -08-30T09:57:421.2.840.338794.1 .72.3.15|1.2.840.784386.1.13.10 4.2.7.2.727879_[id number] Tatiana Bright RN [facility] 2023 09:17:10 83rOQ4Wt7C3HrsHhP4eS E4zE3x6DV9z 0AtRyWmXVdNdFYV330TdL012aNGBohJ Ti2964-26-40K18:17:10 Provider speaking with patient and told her we will transfer her to [place]. 23917-4Fofvhwldi department QbveUO8156-82-93W20:17:25[facility] NoteTXT1.2.840.780695.1.13.104. 2.7.2.235855|[id number] ble for patient pdup21420-6GgcaQQ499801638Qzxwq ew D Amy GUILLEN[address] 12885ZWFIQCXHLUSIJQKNCRFORC7873 -08-30T09:17:251.2.840.507559.1 .72.3.15|1.2.840.657035.1.13.10 4.2.7.2.727879_[id number] Brant Hussein Amy RN [facility] 2023 08:02:23 hqzdOm9MWxLt6lJpQbgN ul34z6OVGZX +u27dKTc6j+Lv6054KH7qPM3hEhnbJK Tl1340-67-15H06:02:23 TC tech at bedside. Ekg being done and patient will go to CT scan. 06835-7Hrlwnvjjk department RgpvRC3607-19-74O51:02:44Emerge txy department NoteTXT1.2.840.069853.1.13.104. 2.7.2.570603|[id number] ble for patient moax90161-7MpyqMKLEFDJBQT[address] 37079ZIXWBFSSTFOGSXVXLDBPRE6867 -08-30T08:02:441.2.840.027359.1 .72.3.15|1.2.840.465242.1.13.10 4.2.7.2.727879_[id number] [facility] 2023 08:00:00 I1oYgzEQ+mrcrHz2SyJX ylqfkp9PzKY oT+OhIjMP7w2v0ajT63a9KVnU5Wu26O m82342-63-47C97:00:00 Patient's name and verified with patient. Chief Complaint Patient presents with Other Left side heavy Patient ambulatory with steady gait with EC arrival. Patient is conscious and alert, with normal/unlabored breathing, and normal color/tone for ethnicity -oriented to name, time, place, and situation. GCS 15.Patient reports she got up this morning to walk her dog at ~0400hrs - reports she was feeling "sluggish" with left sided deficits as she was unable to brush her hair. Continues to have slight left arm weakness but it is "better" than it was when she initially woke up.Denies headache, shortness of breath, fever, chills, nausea, vomiting, diarrhea. Report she experienced visual changes when she woke up but they resolved prior to ER arrival. No past medical history on file.No known allergies. Vitals obtained. Assessment performed. IV in place and patent.Placed on continuous spo2/cardiac monitoring, HR 57Bed low and locked, secured with two rails, call light within reach.Belongings at bedside. Patient [place] [address]-1Yqzfxrgqh department GmwnRV8830-64-98I68:53:52Emerge txy department NoteTXT1.2.840.939526.1.13.104. 2.7.2.942301|[id number] ble for patient uvsy05674-0IejyPKWDPKZIAR[address] CoqlIgfggmlnbVnmsxlrbmFOTY76424 31512FYRKUHWGMQQWDTBWICSZMO2634 -08-30T09:53:521.2.840.556953.1 .72.3.15|1.2.840.220765.1.13.10 4.2.7.2.727879_[id number] [facility] 2023 07:51:40 ozSBN/97fXzWVIldCH3J VE2mhpQECe4 sBwOb1dUoevziaYoCaXDin3IwgzjeWw 833213-00-27K95:51:40 Pt woke up this morning ~0300 with left arm/leg heaviness. States she couldn't put her hair in ponytail that well. Has had left hand numbness before but it didn't last. 81904-7Elbrizagz department Triage wynuYV2462-12-62P33:52:23[facility] department Triage noteTXT1.2.840.141698.1.13.104. 2.7.2.874588|[id number] ble for patient gfjn30438-0Kqlaorkha department NoteLNUT[address] GbglTxbcywwvtDabcydtkcLTEG42804 494[id number] -08-30T07:52:231.2.840.161252.1 .72.3.15|[id number] [id number] [facility]
[2023-08-12] MEDS ORDERED: SENOSIDES 8.6 MG TAB PO PRN (09:30)
[2023-08-12] MEDS: LIDOCAINE 4% PATCH TOP SCH (12:39)
--- NOTE | 2023-08-12 15:10 | RAD REPORT ---
EXAM DESCRIPTION: MRI - Brachial Plexus - 08/12/2023 2:58 pm CLINICAL HISTORY: pain, hx of fall Arm pain and swelling. COMPARISON: No comparisons FINDINGS: Examination is limited by lack of contrast material. Periclavicular soft tissues are normal. No masses seen the lung apices. No effacement of the axillary fat seen bilaterally. No unusual brachial plexus finding seen on either side. Mild spondylosis C5-6 and C6-7. IMPRESSION: Negative study.
[2023-08-12 16:20] LABS: Specific Gravity 1.013 (1.005-1.030); Urine Bacteria None Seen /HPF (<20); Urine Bilirubin NEGATIVE (Negative); Urine Blood Negative (Negative); Urine Clarity Clear (Clear); Urine Color Light-Yellow (Yellow); Urine Glucose NEGATIVE (Negative); Urine Mucus Slight /HPF (None Seen); Urine Protein NEGATIVE (Negative); Urine RBC <5 /HPF (None Seen); Urine Urobilinogen Normal (Normal); Urine pH 6.5 (5.0-7.0)
[2023-08-12] MEDS: APIXABAN 2.5 MG TABLET PO SCH (19:08)
[2023-08-12] MEDS: MAGNESIUM OXIDE 400 MG TAB PO SCH (19:08)
[2023-08-12] MEDS: TRAZODONE 50 MG TABLET PO SCH (19:11)
[2023-08-12] MEDS: ATORVASTATIN 40 MG TAB PO SCH (19:11)
[2023-08-12] MEDS: DOCUSATE NA/SENNA CONC 1 TAB PO SCH (19:11)
[2023-08-12] MEDS: GABAPENTIN 300 MG CAP PO SCH (19:12)
[2023-08-12] MEDS: MELATONIN 3 MG TABLET PO SCH (19:12)
[2023-08-12] MEDS ORDERED: GABAPENTIN 300 MG CAP PO SCH (20:00)
--- NOTE | 2023-08-12 22:51 | HP ---
Date of Admission: 08/12/2023 Time Of Service: 1:00 p.m. Chief Complaint: "I had a stroke, and I am not getting stronger." History Of Present Illness: Ms. Figueroa is a 68-year-old patient with dyslipidemia, hypertension, de pression, insomnia, aortic dissection, who had a stroke affecting the right brain and causing left-si ded dense paresis of left upper extremity. Imaging identified total right internal carotid artery oc clusion, and right anterior cerebral artery and the right middle cerebral artery fill through the lef t-sided collaterals. Her MRI showed multiple right-sided infarcts and the right FILOMENA MCA watershed co rtical infarcts. She was admitted to inpatient rehabilitation, where she was able to improve from a dependent state on all functional mobility to minimum assistance with bed mobilization, transfers, to ileting. She was discharged with flaccid left upper extremity paresis and some slight improvement of lower extremity paresis. [facility] was [facility], where for a week she did okay, then fell off the toilet and was as usual left alone. Her family took her from there to home and she continued with home health, doing physical therapy/occupational therapy, and did get somewhat stronger. Howev er, she has had worse issues such as balance, coordination, and ending up falling out of a chair. In addition, she had become overwhelmed and very emotional multiple times. She had some issues and dif ficulty coping with some of her significant deficits. At this point, she requires moderate assistanc e for transfers and standing, and she is unable to do any stepping. She has left-sided neglect, thierry ng it very difficult for her to maintain balance. Since she has been immobile for a quite extended p eriod, she ended up with skin breakdown in her sacrum and has had risk of heel breakdown as well. In addition, she has had urinary retention after the stroke, which may result in urinary tract infectio ns and secondary confusion and renal failure as well. Her depression and anxiety should be monitored and addressed in addition. Furthermore, she has failure to thrive with poor oral intake. Given her significant functional decline and potential for worsening and the need to address her comorbid cond itions, she was felt to be an appropriate candidate for inpatient rehabilitation and was therefore ad mitted for physical, occupational, and speech therapy. Past Medical History: As noted above, including dyslipidemia, hypertension, depression, insomnia, di ssection of the aorta, right hemispheric stroke with left hemiparesis. Allergies: NO KNOWN DRUG ALLERGIES. Medications: Tylenol 500 mg every 4 hours as needed, Eliquis 2.5 mg twice daily, aspirin 81 mg daily , Lipitor 40 mg at bedtime, gabapentin 300 mg a day and 600 mg at night, lidocaine patch 2 patches to the left shoulder, Prinivil 20 mg daily, magnesium oxide 400 mg twice daily, melatonin 3 mg at bedti me, Protonix 40 mg daily, Senokot-S 2 at bedtime, and trazodone 50 mg at bedtime. Family History: Noncontributory. Social History: The patient lives with family who are much involved in her care and are able to help after her discharge with a plan to go back home hopefully instead of [facility]. No alcohol, t obacco, or IV drug use. Past Surgical History: No recent surgeries. Review of Systems: She does report pain in the left shoulder as the left arm most of the time is not put in a sling, whi ch she did have. She said that because of some difficulty with pain around the neck, she has not bee n wearing the sling and therefore left arm has been dangling causing some pain in the shoulder and in the deltoid region along with the shoulder joint. Otherwise, she denies any recent fevers, chills. No rash, psychiatric complaints. No active genitourinary or gastrointestinal complaints except for the urinary retention as noted. Laboratory Studies: Urinalysis is completely normal. COVID-19 testing today is negative. She has a n additional blood work pending. Weight 157 pounds, BMI 28.7, height 6 feet 2 inches. X-rays And Imaging: X-rays will be done as needed. No recent x-rays or imaging. Current Level Of Functioning: Currently, supervision for eating, oral hygiene. She is dependent for toileting, showering. Upper body dressing, requires moderate assistance. Lower body dressing, maxi mal assistance. Donning and doffing footwear, maximum assistance. Rolling from right to left and le ft to right, changing from sitting to standing and lying to sitting, all moderate assistance needed. Transfers from bed to chair to toilet, all moderate assistance. Gait: Unable to ambulate at this p oint due to significant weakness. Her wheelchair mobilization, she covered 10 feet with supervision. With speech, she has difficulty with expression, word finding, and speech is not as clear as it nee d to be. Good understanding. She has clear comprehension without clues or repetition. She does bec ome very emotional easily. Physical Examination: Vital Signs: Blood pressure 149/75, pulse of 69, respiratory rate 16, temperature 98.3, oxygen satur ation 98%. General: Ms. Figueroa is lying in bed. She is in no significant distress, although there is some nadia n in the left shoulder. One lidocaine patch is in the front of the shoulder and another will be plac ed in the back of the left shoulder. HEENT: She is otherwise normocephalic, atraumatic. Sclerae anicteric. Oropharynx pink moist. Neck: Supple. Chest: Clear. Extremities: No significant clubbing, cyanosis, or edema. Neurological: Some slight decrease of left nasolabial fold with good excursions. The left upper ext remity has dense paresis. No significant movement noted there. The left lower extremity, she has ar ound 2 to 3 strength proximally and distally. Sensation decreased, left compared to right side. Card Writer Hand rdination intact to right upper extremity. Reflexes increased on left compared to right side. Assessment: Ms. Figueroa is a 68-year-old patient, admitted to the inpatient rehabilitation unit with impairment category 01 stroke. Her impairment group code is 01.1, left body involvement, right brai n. Her etiologic diagnosis is sequelae of cerebral infarct. Comorbidities: Anxiety, decreased mobi lity, decreased physical functioning, depression, essential hypertension, dyslipidemia, insomnia, uri nary retention, and multiple falls. In addition, she has dependent ulcers on the left side and the s acral area. Plan: 1.She will have physical, occupational, and speech therapy for 3.5 hours, 5 of 7 days. 2.We will continue with melatonin for insomnia, trazodone also added for insomnia, Senokot-S for con stipation, Protonix for GE reflux, magnesium oxide for muscle spasms, Prinivil 10 mg daily for hypert ension, gabapentin dosage was adjusted to help with the neuropathic pain in the upper extremity on th e left, lidocaine patch to be applied, Lipitor 40 mg at bedtime, aspirin 81 mg daily, Eliquis 2.5 mg daily, Tylenol 500 mg every 4 hours as needed. Comorbidities That Are Impacting The Rehabilitation: Currently, she does appear to be very emotional . There is the potential of pseudobulbar affect, which may be playing a role given her stroke and di fficulty seeing herself in terms of a good recovery. Also potential for significant infection, inclu ding aspiration pneumonia and urinary tract infection had to be watched carefully as she of course cortez d significant stroke. She is of course a very high fall risk, fall precautions adhered to at all олег es with gait belt and 2-wheeled walker with all transfers and all mobilization. Rehab Specific Plan: Ms. Figueroa will have physical, occupational, and speech therapy for 3.5 hours, 5 of 7 days to improve her ability to transfer from bed to toilet to chair to shower; to be able to ambulate with a rolling walker close to household distances of 50 feet and a platform walker may be u sed on the left. In addition, adaptive equipment use, her to be able to don and doff shoes, try and put clothes on, working and reaching for household objects and manipulating them safely. In addition , she will have speech therapy to work on cognition, swallowing, thinking, processing, and safety loraine reness. Ms. Figueroa's family has good understanding of the process of admission to the inpatient rehabilitati on facility and the benefits of physical, occupational, and speech therapy. If need be, additional s ervices such as Hospitalist Service, Neurology Service may be consulted. Given her complex medical c ondition and risk of further complications, rehabilitation cannot be safely or effectively performed in the lower level facility such as [facility]. Barriers To Discharge: Currently, she has had significant weakness in the left upper extremity, whic h at this point has been mostly flaccid and will eventually become more spastic and will have to have lots of range of motion exercises to decrease that. Going home may be a big challenge as she has a tendency to be impulsive and has again fallen multiple times. She may have to go to [facility] prior to going home. Length Of Stay: Expected to be about 14 days. Disposition: Home with 24-hour care and supervision. Continue physical, occupational, and speech th erapy. Prognosis: Fair prognosis. Rehabilitation Goals: 1.Independent with upper and lower body dressing, transferring, toileting, showering, donning and do ffing shoes. 2.Independently ambulate 50 feet household distance with rolling walker. 3.Independently go up and down 5 steps. 4.Independently propel a wheelchair 250 feet. 5.Independently perform cognitive functioning and safety awareness issues. The above goals were reviewed with Ms. Figueroa and family, and she is in agreement. By signing this document, I acknowledge I personally performed a full physical examination on Ms. Konrad schmidt no later than 24 hours after admission to the inpatient rehabilitation facility and determined t hat she is able to tolerate the above course of treatment at an intensive level for a reasonable evan od of time. A detailed individualized plan of care for her will be completed by hospital day 4 based on the preadmission screen, history and physical, and therapy evaluations. TOM Voice ID: [id number]
[2023-08-13] MEDS: PANTOPRAZOLE 40MG TABLET PO SCH (05:42)
[2023-08-13 07:22] LABS: Absolute Lymphocytes (CBC) 2.4 K/uL (0.7-4.9); Hematocrit 35.3 % (36.0-45.0); Lymphocytes % 47.6 % (15.3-44.8); MCV 90.4 fL (80-100); MPV 7.8 fL (7.6-11.3); Platelets 287 thou/uL (152-406); RBC Red Blood Cell Count 3.91 M/uL (3.86-4.86)
[2023-08-13 07:38] LABS: Albumin 3.3 g/dL (3.4-5.0); Potassium 3.7 mEq/L (3.5-5.1); Prealbumin 25.4 mg/dL (20-40)
[2023-08-13] MEDS: LIDOCAINE 4% PATCH TOP SCH (07:39)
[2023-08-13] MEDS: lisinopriL 20 MG TAB PO SCH (07:40)
[2023-08-13] MEDS: ASPIRIN 81 MG CHEWABLE TABLET PO SCH (07:41)
[2023-08-13] MEDS ORDERED: CLOPIDOGREL 75 MG TABLET PO SCH (08:00)
[2023-08-13] MEDS ORDERED: LIDOCAINE 4% PATCH TOP SCH (08:00)
[2023-08-13] MEDS ORDERED: MAGNESIUM OXIDE 400 MG TAB PO SCH (08:00)
[2023-08-13] MEDS: GABAPENTIN 300 MG CAP PO SCH (08:27)
[2023-08-13] MEDS: CYANOCOBALAMIN 1000MCG/ML INJ IM ONE ×2 (13:30→14:14)
[2023-08-13] MEDS: ACETAMINOPHEN 500 MG TAB PO PRN (14:09)
[2023-08-13] MEDS ORDERED: FLEET ENEMA ADULT PR PRN (20:28)
--- NOTE | 2023-08-13 22:17 | PN ---
Date of Progress Note: 08/13/2023 Time Of Service: 1:10 p.m. Subjective: Ms. Figueroa is sitting on the chair doing therapy sessions. She does have the left arm sling on supporting the left arm. She reports less pain in the left shoulder. She had 2 lidocaine p atches now applied and adjusted gabapentin dosage. She was eager to hear about the results of her MR I of the left lumbosacral plexus. The study did not show any abnormalities of that area. Mild spond ylosis in C4 and 5. Otherwise, no abnormalities noted on the MRI of her cervical spine area and brac hial plexus. Review of Systems: No fevers or chills. No myalgias, arthralgias. No rash. No psychiatric issues. No gastrointestina l or genitourinary issues. Physical Examination: Vital Signs: Blood pressure 135/63, pulse 48, respiratory rate of 16, temperature 97, oxygen saturat ion 98%. Weight 130 pounds, height 5 feet 4 inches, BMI 21. General: Ms. Figueroa is resting comfortably in a chair. HEENT: She is normocephalic, atraumatic. Sclerae anicteric. Oropharynx pink and moist. Neck: Supple. Chest: Clear. Heart: Regular. Extremities: Show no clubbing, cyanosis, or edema. She has the left arm in a sling. She had 0 move ment noted there. She is to lift her shoulder to begin to get movement in the left upper extremity. Left lower extremity 3/5. Laboratory Studies: White blood cell count 5.1, hemoglobin 10.9, platelets 287. Sodium 143, potassi um 3.7, chloride 109, carbon dioxide 30, BUN 13, creatinine 0.58, glucose 94, calcium 9.1. Magnesium 2.0. Albumin 3.3, prealbumin 25.4. Urinalysis is completely normal. COVID-19 test yesterday was n egative. Chest x-ray imaging was noted. Right brachial plexus showed no abnormalities. She has mil d spondylosis at the C5-6 and C6-7 level. Current Medications: Tylenol 500 mg every 4 hours as needed, Eliquis 2.5 mg twice daily, aspirin 81 mg daily, Lipitor 40 mg at bedtime, vitamin B12 1000 mcg. She has daily gabapentin 600 mg at bedtime , 300 mg a day. Lidocaine patch 2 topically to the left shoulder daily, Prinivil 20 mg daily, magnes ium oxide 400 mg twice daily, melatonin 3 mg at bedtime, Protonix 40 mg daily, Senokot S 2 at bedtime , trazodone 50 mg at bedtime. Progress Made With Physical And Occupational Therapy: Today with physical therapy, she completed 70 feet twice with left platform walker and maximum assistance. She did need assistance with her left l ower extremity while an AFO was in place. She mobilized wheelchair 170 feet with minimum to contact guard assistance. With occupational therapy, minimum assistance for supine to sit, sit to stand, edge of bed to wheelchair, and toilet transfer. With speech therapy, she was able to be orie nted to temporal concepts with 25% accuracy. She sustained attention for a structured tasks with 80% accuracy and moderate assistance. Word retrieval skills used for concrete categories with 80% accur acy. Ms. Figueroa is making fair progress thus far over the length of stay and in rehabilitation and she is encouraged by her and decreased pain in her left shoulder. Assessment: Ms. Figueroa is a 68-year-old patient in the rehabilitation unit with late affects of a r ight hemispheric stroke affecting the left upper extremity more than lower extremity. She has multip le comorbid conditions including anxiety, depression, hypertension, dyslipidemia, insomnia, urinary r etention. Plan: 1.Continue with physical, occupational, and speech therapy. 2.Continue all medications as noted above for comorbid conditions including Eliquis for DVT prophyla xis, gabapentin for neuropathic pain. Keep the left arm sling in place, Lipitor 40 mg at bedtime for dyslipidemia. Comorbidities That Impact Her Rehabilitation: She does have some evidence of the pseudobulbar affect , but is still managing very well regarding that. She reports a high fall risk and is beginning to ambulate with the platform walker, but still requires maximum assistance there. LB/MODL Voice ID: [id number] Report ID: [id number]
[2023-08-14] MEDS: BISACODYL 10 MG RECTAL SUPP PR PRN (05:45)
[2023-08-14] MEDS: CYANOCOBALAMIN 1,000 MCG TAB PO SCH (07:58)
[2023-08-14] MEDS ORDERED: TAMSULOSIN 0.4 MG SR CAP ONE (18:57)
[2023-08-14] MEDS: TAMSULOSIN 0.4 MG SR CAP PO SCH (18:57)
--- NOTE | 2023-08-14 19:23 | PN ---
Date of Progress Note: 08/14/2023 Time Of Service: 1:20 p.m. Subjective: Ms. Figueroa is lying in bed while the speech therapist is at the bed doing a session of therapy. She does report some improvement in the left shoulder pain as the sling is in place and she has pain patch on the front and back of her left shoulder. She is somewhat disappointed in the slow rate of recovery of strength of the lower extremity and no return of strength noted in the upper ext remity on the left. Otherwise, no new complaints. Objective: No fevers, chills, nausea. No significant myalgias, that have been addressed. No arthra lgias. No rash. No active psychiatric issues or other positives. There is some urinary retention t hat is unchanged. Physical Examination: Vital Signs: Blood pressure 118/63, pulse 53, respiratory rate 16, temperature 97.6, oxygen saturati on 99%. General: Ms. Figueroa is lying in bed, again with the therapist at the foot of the bed. HEENT: She is normocephalic, atraumatic. Sclerae anicteric. Oropharynx pink, moist. Neck: Supple. Chest: Clear. Heart: Regular. Extremities: Show no significant edema or cyanosis. Neurological: There is a decrease of left nasolabial fold with fair excursion. The left lower extre mity has dense paresis with no movement. Left lower extremity ranging from 3 to 4 out of 5. Sensati on decreased in the left compared to the right side. Laboratory Studies: No new laboratory studies today. She had blood work yesterday. X-ray/imaging: No new x-rays or imaging studies today. Medications: Medications have been reviewed and she did have vitamin B12 1000 mcg orally to help wit h her energy level. She is on the gabapentin for the left shoulder pain, Prinivil for hypertension, magnesium oxide for muscle spasms, Flomax for urinary retention, trazodone for insomnia, and Tylenol for pain. Progress Made With Physical And Occupational Along With Speech Therapy: In terms of physical therapy , she did multiple [id number] with moderate assistance and verbal cues. She did use a platform wal ker to ambulate 35 feet twice with maximum assistance and mobilized wheelchair 150 feet twice with co ntact guard assistance and verbal cues. With occupational therapy, minimum assist for upper body mena ssing. Contact guard assistance for [id number]. With speech, she used temporal orientation skills within the room. She did sustain attention tasks for 7 minutes to 80% accuracy and moderate assista nce. Word retrieval skills used for concrete categories with 100% accuracy and minimum assistance. Ms. Figueroa is making fair overall progress with physical, occupational, and speech therapy. She daly s have dense paresis of the left upper extremity, making it tough for her to thrive and do very well. She is doing well with speech therapy as well. Assessment: Ms. Figueroa is a 68-year-old patient in rehabilitation with a right hemispheric stroke p roducing dense paresis of the left upper extremity much more than the lower extremity along with decr ease of left nasolabial fold, some dysarthria, and dysphagia. She has depression, hypertension, dysl ipidemia, and some urinary retention. Plan: 1.Continue with physical, occupational, and speech therapy for 3.5 hours, 5 of 7 days. 2.Continue with Eliquis for DVT prophylaxis, Lipitor for dyslipidemia, gabapentin for neuropathic pa in. The left arm kept in a sling due to weakness and she will continue all other medications as note d. Comorbidities That Continue To Impact Rehabilitation: There was some mood fluctuation, which appears to have stabilized and, however, again, maximum assistance required for many activities of daily neha ing because she is unable to have any functional use of the left arm and if left dangling, causes signifi cant left shoulder pain. STEVE/WILNERL Voice ID: [id number] Report ID: [id number]
--- NOTE | 2023-08-15 13:19 | P.RH.PN ---
Estimated Length of Stay: 17 Expected Discharge Date: 08/27/23 Discharge Disposition Plan: Home Family Support: Yes Snf Goal: Mobility, Transfers, Self Care Vital Signs: Last Vital Signs Temp 97.5 F 08/15/23 06:44 Pulse 52 08/15/23 07:43 Resp 17 08/15/23 06:44 BP 130/58 L 08/15/23 07:43 Pulse Ox 96 08/15/23 06:44 Laboratory: Laboratory Last Values WBC 5.10 thou/uL (4.3-10.9) 08/13/23 06:49 RBC 3.91 M/uL (3.86-4.86) 08/13/23 06:49 Hgb 11.9 g/dL (12.0-15.0) L 08/13/23 06:49 Hct 35.3 % (36.0-45.0) L 08/13/23 06:49 MCV 90.4 fL (80-100) 08/13/23 06:49 MCH 30.4 pg (27.0-35.0) 08/13/23 06:49 MCHC 33.6 g/dL (32.0-36.0) 08/13/23 06:49 RDW 14.3 % (12.1-15.2) 08/13/23 06:49 Plt Count 287 thou/uL (152-406) 08/13/23 06:49 MPV 7.8 fL (7.6-11.3) 08/13/23 06:49 Neutrophils % 45.3 % (41.7-73.7) 08/13/23 06:49 Lymphocytes % 47.6 % (15.3-44.8) H 08/13/23 06:49 Monocytes % 5.7 % (3.3-12.3) 08/13/23 06:49 Eosinophils % 0.7 % (0-4.4) 08/13/23 06:49 Basophils % 0.7 % (0-1.3) 08/13/23 06:49 Absolute Neutrophils 2.3 K/uL (1.8-8.0) 08/13/23 06:49 Absolute Lymphocytes 2.4 K/uL (0.7-4.9) 08/13/23 06:49 Absolute Monocytes 0.3 K/uL (0.1-1.3) 08/13/23 06:49 Absolute Eosinophils 0.0 K/uL (0-0.5) 08/13/23 06:49 Absolute Basophils 0.0 K/uL (0-0.5) 08/13/23 06:49 Sodium 143 mEq/L (136-145) 08/13/23 06:49 Potassium 3.7 mEq/L (3.5-5.1) 08/13/23 06:49 Chloride 109 mEq/L (98-107) H 08/13/23 06:49 Carbon Dioxide 30 mEq/L (21-32) 08/13/23 06:49 Anion Gap 7.7 mEq/L (5.0-15.0) 08/13/23 06:49 BUN 13 mg/dL (7-18) 08/13/23 06:49 Creatinine 0.58 mg/dL (0.55-1.02) 08/13/23 06:49 Est GFR (CKD-EPI) 100 ml/min (=/>90) 08/13/23 06:49 Glucose 94 mg/dL (74-106) 08/13/23 06:49 Calcium 9.1 mg/dL (8.5-10.1) 08/13/23 06:49 Magnesium 2.0 mg/dL (1.6-2.4) 08/13/23 06:49 Albumin 3.3 g/dL (3.4-5.0) L 08/13/23 06:49 Prealbumin 25.4 mg/dL (20-40) 08/13/23 06:49 Urine Color Light-yellow (Yellow) 08/12/23 15:00 Urine Clarity Clear (Clear) 08/12/23 15:00 Urine pH 6.5 (5.0-7.0) 08/12/23 15:00 Ur Specific [place] 1.013 (1.005-1.030) 08/12/23 15:00 Glucose (UA)(Auto) Negative (Negative) 08/12/23 15:00 Urine Ketones Negative (Negative) 08/12/23 15:00 Urine Blood Negative (Negative) 08/12/23 15:00 Urine Nitrite Negative (Negative) 08/12/23 15:00 Urine Bilirubin Negative (Negative) 08/12/23 15:00 Urine Urobilinogen Normal (Normal) 08/12/23 15:00 Ur Leukocyte Esterase Negative Allie/uL (Negative) 08/12/23 15:00 Urine RBC <5 /HPF (None Seen) 08/12/23 15:00 Urine WBC <5 /HPF (<5) 08/12/23 15:00 Ur Squamous Epith Cells <5 /HPF (None Seen) 08/12/23 15:00 Urine Bacteria None seen /HPF (<20) 08/12/23 15:00 Urine Mucus Slight /HPF (None Seen) 08/12/23 15:00 Urine Culture Reflexed Not needed 08/12/23 15:00 Urine Total Protein Negative (Negative) 08/12/23 15:00 SARS-CoV-2 Rap RNA(RT-PCR) Negative (NEGATIVE) 08/12/23 09:00 Weight: 130 lb 6.4 oz Wound Present: No Closed Surgical Incision Present: No Negative Pressure Wound Therapy Present: No Physician Update: Making fair progress with speech, physical and occupational therapy. Labs reviewed and are stable. She has mild biceps and hand strength return. Walking 70' with the platform walker. Significant neglect of the left side. Mod assist for bed transfers. Runs into objects on the left. Min assistance with lower body dressing. Poor attention to most activities. Summary: Patient's care plan and emt intermediate goals have been reviewed and revised as necessary. Please see the Rehabilitation Signature page for all necessary signatures.
[2023-08-18] MEDS: GABAPENTIN 300 MG CAP PO SCH (20:52)
--- NOTE | 2023-08-19 00:20 | PN ---
Date of Progress Note: 08/18/2023 Time Of Service: 1:20 p.m. Subjective: Ms. Figueroa is lying in bed in between therapy sessions. She does report some more pain in the left shoulder as she had a lot of therapy with movement and range of motion in the left arm w hich is a paretic side from her stroke. Otherwise, no other complaints. No fevers, chills. Mild pa in in the left shoulder, less so in the left knee and leg. Otherwise, no other complaints. Physical Examination: Vital Signs: Blood pressure 102/50, pulse 54, respiratory rate 16, temperature 97.4, oxygen saturati on 93%. General: Ms. Figueroa is resting in bed. No acute distress. HEENT: Normocephalic, atraumatic. Sclerae anicteric. Oropharynx pink, moist. Neck: Supple. Chest: Clear. Neurological: Very little movement, although there is somewhat more movement with the left hand. Sh e can elevate the left index finger and her wrist and fingers can close around 2/5, elevation around 1 to 2, very little biceps movement in rotation of the left arm as well. She does have somewhat more strength in the lower extremity on the left, but still around 2/5 distally, 3/5 proximally. Laboratory Studies: No new laboratory studies. X-ray/imaging: No new x-rays or imaging. Medications: Her medications have been reviewed and remain unchanged except gabapentin has been incr eased to 600 mg twice daily because of some increase in pain in the shoulder and she does have lidoca ine patch on the shoulder, 1 in front and the back on the left side. Progress Made With Physical And Occupational Therapy: Today with physical therapy, she did multiple sit to stand with moderate assistance. She used the left platform walker to ambulate 50 feet 5 times with moderate assistance. She mobilized a wheelchair 150 feet twice with contact guard assistance. With her speech therapy, she used divided attention with 90% accuracy doing a double letter cancella tion task. She had 4/4 unrelated pictures, were recalled after 5 minutes using internal memory strat egies. With occupational therapy, contact guard assist with toilet transfer and [id number] transfe r with grab bar. Ms. Figueroa is making fair progress with physical, occupational, speech therapy, but still she has de nse paresis of left upper extremity, making it tough for her to recover very quickly. She is doing w ell with her speech therapy, swallowing is good, cognition and insight improving well. Assessment: Ms. Figueroa is a 68-year-old patient in the rehabilitation unit with a right hemispheric stroke producing dense paresis of the left upper more than lower extremity. She has improving dysar thria, dysphagia, depression, hypertension, dyslipidemia, all stable, and urinary retention, improvin g. Plan: 1.Continue with physical, occupational, and speech therapy for 3.5 hours, 5 of 7 days. 2.Her multiple comorbid conditions are addressed by continuing medications including Eliquis for DVT prophylaxis, Lipitor for dyslipidemia, gabapentin for neuropathic pain that has increased. She has a sling on the left arm to decrease the pressure from the dangling left arm which is very paretic. S he has aspirin 81 mg daily for stroke risk reduction, Prinivil for hypertension, magnesium oxide for muscle spasms, Protonix for GE reflux, and trazodone for insomnia. Comorbidities That Continue To Impact Rehabilitation: Her dense paresis is the obvious issue that is making it difficult for her to thrive, but despite that she is improving using the right side and do ing the transfer better, go up and down steps and to mobilize with a wheelchair. She does have the p ain in the left shoulder, which will likely continue for significant period of time until that arm re gains the ability to be held without dangling. Until then, she must wear the sling while transferring whil e upright and mobilizing. STEVE/WILNERL Voice ID: [id number] Report ID: [id number]
--- NOTE | 2023-08-19 20:51 | PN ---
Date of Progress Note: 08/19/2023 Time Of Service: 1:15 p.m. Subjective: Ms. Figueroa is resting in bed. She does report somewhat worsening pain in the left shou lder and in the left leg and she did more therapy, the pain came as she used the left arm on a platfo rm walker to ambulate, which she is doing well. Otherwise, no other complaints on subjective. Objective: No recent fevers, chills, nausea, vomiting. No myalgias although again mild in the left upper extremity and some arthralgias in the left stroke affected side. Physical Examination: Vital Signs: Blood pressure 169/73, pulse of 70, respiratory rate of 15, temperature 97, oxygen satu ration 97%. General: Ms. Figueroa is in bed. HEENT: She appears normocephalic, atraumatic. She has a mild decrease of left nasolabial fold. Neurologic: She has dense paresis of left upper extremity open and close the hand on the left involving the index finger especially, more movement noted in the left lower extremity and still decreased sensation in left upper and lower compared to right side. Laboratory Studies: No new laboratory studies. X-ray Imaging: No new x-rays or imaging. Progress Made With Physical, Occupational, And Speech Therapy: Today with physical therapy, she mobi lized by wheelchair 250 feet twice with contact guard to standby assistance, stand pivot transfers fr om wheelchair to bed done with contact guard assistance. She also used the left platform walker to a mbulate 50 feet 3 times with moderate assistance. With speech, she recalled 4/4 words after 5 minute s on 3 occasions and 4/5 words or sequences correctly in the sentence with accuracy. Sing le letter cancellation, moderately complex, was completed with 100% accuracy and minimal assistance. Word retrieval completed for food, beverage items 100% accuracy. Ms. Figueroa is making great progress. Her speech also making moderate progress with physical and occ upational therapy using the left platform walker and mobilizing by wheelchair. Assessment: Ms. Figueroa is a 68-year-old patient with a right MCA stroke and dense upper extremity p aresis more than lower extremity paresis for which she is recovering at a fair rate. She has dysarth nasra, dysphagia, depression, hypertension, dyslipidemia, urinary tract infection, all improving. Plan: 1.Continue with physical, occupational and speech therapy for 3-1/2 hours, 5/7 days. 2.Continue with her current regimen of medications including Eliquis for DVT prophylaxis, multiple a ntihypertensive medications, magnesium oxide for muscle spasms, Protonix for GE reflux, trazodone for insomnia, and lidocaine patch and left arm sling for muscle pain and spasms. Comorbidities That Are Continuing To Impact Her Rehabilitation: While she is doing well, she does ap pear to have some signs of depression, which are expected given significant life change she is experi encing. She also has some pain in the left shoulder and she is on multiple medication modalities to address that, which is improving. STEVE/EFREN Voice ID: [id number] Report ID: [id number]
[2023-08-20 05:30] LABS: Absolute Lymphocytes (CBC) 2.3 K/uL (0.7-4.9); Hematocrit 30.8 % (36.0-45.0); Lymphocytes % 51.4 % (15.3-44.8); MCV 90.5 fL (80-100); MPV 7.8 fL (7.6-11.3); Platelets 247 thou/uL (152-406)
[2023-08-20 05:50] LABS: Albumin 2.8 g/dL (3.4-5.0); Magnesium 2.1 mg/dL (1.6-2.4); Potassium 3.9 mEq/L (3.5-5.1)
[2023-08-20 08:30] LABS: Blood Morphology Comment NOTED (NOT SEEN); Platelet Estimate ADEQ; Rouleau NOTED
[2023-08-20] MEDS: lisinopriL 20 MG TAB PO SCH (12:30)
--- NOTE | 2023-08-21 13:26 | P.RH.PN ---
Estimated Length of Stay: 17 Expected Discharge Date: 08/29/23 Discharge Disposition Plan: Home Family Support: Yes Care Home Goal: Mobility, Transfers, Self Care Vital Signs: Last Vital Signs Temp 98.2 F 08/21/23 08:00 Pulse 55 08/21/23 08:00 Resp 17 08/21/23 08:00 BP 118/68 08/21/23 08:00 Pulse Ox 97 08/21/23 08:00 Laboratory: Laboratory Last Values WBC 4.50 thou/uL (4.3-10.9) 08/20/23 04:38 RBC 3.40 M/uL (3.86-4.86) L 08/20/23 04:38 Hgb 10.4 g/dL (12.0-15.0) L 08/20/23 04:38 Hct 30.8 % (36.0-45.0) L 08/20/23 04:38 MCV 90.5 fL (80-100) 08/20/23 04:38 MCH 30.6 pg (27.0-35.0) 08/20/23 04:38 MCHC 33.8 g/dL (32.0-36.0) 08/20/23 04:38 RDW 14.0 % (12.1-15.2) 08/20/23 04:38 Plt Count 247 thou/uL (152-406) 08/20/23 04:38 MPV 7.8 fL (7.6-11.3) 08/20/23 04:38 Neutrophils % 41.4 % (41.7-73.7) L 08/20/23 04:38 Lymphocytes % 51.4 % (15.3-44.8) H 08/20/23 04:38 Monocytes % 5.9 % (3.3-12.3) 08/20/23 04:38 Eosinophils % 0.7 % (0-4.4) 08/20/23 04:38 Basophils % 0.6 % (0-1.3) 08/20/23 04:38 Absolute Neutrophils 1.9 K/uL (1.8-8.0) 08/20/23 04:38 Segmented Neutrophils 40 % (40-80) 08/20/23 04:38 Absolute Lymphocytes 2.3 K/uL (0.7-4.9) 08/20/23 04:38 Lymphocytes 43 % (15-42) H 08/20/23 04:38 Monocytes 9 % (0-10) 08/20/23 04:38 Absolute Monocytes 0.3 K/uL (0.1-1.3) 08/20/23 04:38 Eosinophils 2 % (0-3) 08/20/23 04:38 Absolute Eosinophils 0.0 K/uL (0-0.5) 08/20/23 04:38 Absolute Basophils 0.0 K/uL (0-0.5) 08/20/23 04:38 Atypical Lymphocytes 6 % 08/20/23 04:38 Platelet Estimate Adeq 08/20/23 04:38 Rouleaux Noted 08/20/23 04:38 Morphology Comment Noted (NOT SEEN) 08/20/23 04:38 Sodium 143 mEq/L (136-145) 08/20/23 04:38 Potassium 3.9 mEq/L (3.5-5.1) 08/20/23 04:38 Chloride 112 mEq/L (98-107) H 08/20/23 04:38 Carbon Dioxide 29 mEq/L (21-32) 08/20/23 04:38 Anion Gap 5.9 mEq/L (5.0-15.0) 08/20/23 04:38 BUN 18 mg/dL (7-18) 08/20/23 04:38 Creatinine 0.62 mg/dL (0.55-1.02) 08/20/23 04:38 Est GFR (CKD-EPI) 98 ml/min (=/>90) 08/20/23 04:38 Glucose 92 mg/dL (74-106) 08/20/23 04:38 Calcium 9.0 mg/dL (8.5-10.1) 08/20/23 04:38 Magnesium 2.1 mg/dL (1.6-2.4) 08/20/23 04:38 Albumin 2.8 g/dL (3.4-5.0) L 08/20/23 04:38 Prealbumin 25.0 mg/dL (20-40) 08/20/23 04:38 Urine Color Light-yellow (Yellow) 08/12/23 15:00 Urine Clarity Clear (Clear) 08/12/23 15:00 Urine pH 6.5 (5.0-7.0) 08/12/23 15:00 Ur Specific Alden 1.013 (1.005-1.030) 08/12/23 15:00 Glucose (UA)(Auto) Negative (Negative) 08/12/23 15:00 Urine Ketones Negative (Negative) 08/12/23 15:00 Urine Blood Negative (Negative) 08/12/23 15:00 Urine Nitrite Negative (Negative) 08/12/23 15:00 Urine Bilirubin Negative (Negative) 08/12/23 15:00 Urine Urobilinogen Normal (Normal) 08/12/23 15:00 Ur Leukocyte Esterase Negative Allie/uL (Negative) 08/12/23 15:00 Urine RBC <5 /HPF (None Seen) 08/12/23 15:00 Urine WBC <5 /HPF (<5) 08/12/23 15:00 Ur Squamous Epith Cells <5 /HPF (None Seen) 08/12/23 15:00 Urine Bacteria None seen /HPF (<20) 08/12/23 15:00 Urine Mucus Slight /HPF (None Seen) 08/12/23 15:00 Urine Culture Reflexed Not needed 08/12/23 15:00 Urine Total Protein Negative (Negative) 08/12/23 15:00 SARS-CoV-2 Rap RNA(RT-PCR) Negative (NEGATIVE) 08/12/23 09:00 Weight: 125 lb 11.2 oz Wound Present: No Closed Surgical Incision Present: No Negative Pressure Wound Therapy Present: No Physician Update: Labs reviewed and are stable. 4/4 speech goals, now oriented to person, place and situation. Still has left neglect. Met 3/4 physical therap goals. Min to contact guard assistance with transfers. Moderate assistance x 2 with mod assistance for 75'. Moderate assistance for ADLs. 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 Please see the Rehabilitation Signature page for all necessary signatures.
--- NOTE | 2023-08-23 10:32 | P.PN ---
Date of Service: 08/23/23 Subjective: Physical Examination: Vital Signs: reviewed General: Ms. Figueroa is in bed. HEENT: She appears normocephalic, atraumatic. She has a mild decrease of left nasolabial fold. Neurologic: She has dense paresis of left upper extremity open and close the hand on the left involving the index finger especially, more movement noted in the left lower extremity and still decreased sensation in left upper and lower compared to right side. Progress Made With Physical, Occupational, And Speech Therapy: Today with physical therapy, she mobilized by wheelchair 250 feet twice with contact guard to standby assistance, stand pivot transfers from wheelchair to bed done with contact guard assistance. She also used the left platform walker to ambulate 50 feet 3 times with moderate assistance. With speech, she recalled 4/4 words after 5 minutes on 3 occasions and 4/5 words or sequences correctly in the sentence with accuracy. Single letter cancellation, moderately complex, was completed with 100% accuracy and minimal assistance. Word retrieval completed for food, beverage items 100% accuracy. Ms. Figueroa is making great progress. Her speech also making moderate progress with physical and occupational therapy using the left platform walker and mobilizing by wheelchair. Assessment: Ms. Figueroa is a 68-year-old patient with a right MCA stroke and dense upper extremity paresis more than lower extremity paresis for which she is recovering at a fair rate. She has dysarthria, dysphagia, depression, hypertension, dyslipidemia, urinary tract infection, all improving. Plan: 1. Continue with physical, occupational and speech therapy for 3-1/2 hours, 5/7 days. 2. Continue with her current regimen of medications including Eliquis for DVT prophylaxis, multiple antihypertensive medications, magnesium oxide for muscle spasms, Protonix for GE reflux, trazodone for insomnia, and lidocaine patch and left arm sling for muscle pain and spasms. Comorbidities That Are Continuing To Impact Her Rehabilitation: While she is doing well, she does appear to have some signs of depression, which are expected given significant life change she is experiencing. She also has some pain in the left shoulder and she is on multiple medication modalities to address that, which is improving.
--- NOTE | 2023-08-26 00:57 | PN ---
Date of Progress Note: 08/25/2023 Time Of Service: 1:20 p.m. Subjective: Ms. Figueroa is sitting comfortably in a chair, getting ready to do her therapy. She daly s report some continued pain in her left shoulder, but that has not worsened. She reports more movem ent in the left hand and can do more squeezing and was able to demonstrate that with holding the righ t hand with the left and gripping slightly. Review of Systems: No fevers, chills, nausea, vomiting, mild myalgias in the left upper extremity. Some arthralgias as well. Otherwise, no other positives on systems review. Physical Examination: Vital Signs: Blood pressure 166/77, pulse 65, respiratory rate 16, temperature 98.1, oxygen saturati on 98%. General: Ms. Figueroa is resting comfortably in a chair. HEENT: She is normocephalic, atraumatic. Sclerae anicteric. She does have left nasolabial fold dec rease. She has left upper extremity paresis very significant proximally, not able to move much there . 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 Left lower extremity 3 to 4/5. Otherwise, no new findings on her examination. Laboratory Studies: No new laboratory studies. X-ray/imaging: No new x-rays or imaging. Medications: Medications have been reviewed and remained unchanged. Progress Made With Her Physical, Occupational, And Speech Therapy: Today with physical therapy, she was able to perform [id number] transfers with contact guard to minimum assistance. She did ambulat e 50 feet twice and 70 feet twice with minimum assistance and a right platform walker. She did wheel chair mobilization covering 160 feet and 190 feet with contact guard. Regarding occupational therapy , she was independent with supine to sit, but required minimum leasing assistant for sit to supine transfers. She did practice getting dressed as she is scheduling to leave for home and she did improve doing t hat very well. She don and doff her pants in supine position independently, put on slippers independ ently. Regarding her speech therapy, she showed reading comprehension for sentence level without ext ernal cues with 80% accuracy. Word retrieval skills were used during structured tasks with 80% accur acy and moderate assistance. Ms. Figueroa is making good progress given the limitations of severe weakness of left lower extremity. She is going to be able to go home with family help and continuing with therapy via Home Health. Assessment: Ms. Figueroa is a 68-year-old patient with right MCA stroke and left upper more than lowe r extremity weakness, also left facial weakness, dysarthria, dysphagia. She has hypertension, depres christiano, dyslipidemia, urinary tract infection, and GE reflux. Plan: 1.She will have physical, occupational, and speech therapy continued for 3.5 hours, 5 of 7 days. 2.For the spasms of the left shoulder, she has lidocaine patch. She has a left arm sling in place. Continue magnesium oxide. She is on Protonix, trazodone, and Eliquis for DVT prophylaxis, Lipitor f or dyslipidemia, Tylenol for pain, vitamin B12 for energy, gabapentin 600 mg twice daily for neuropat hic pain, Prinivil. Continue hypertension, Flomax for urinary retention. Comorbidities That Are Continuing To Impact Her Rehabilitation: She has some pain in the left should er from left arm dangling because of stroke, but she has the left arm brace, muscle relaxants as note d. She also has some impulsivity and some difficulty maintaining her safety awareness as she mobiliz es, which may put her at risk of falls. Family is being educated on that. STEVE/EFREN Voice ID: [id number] Report ID: [id number]
[2023-08-26 09:43] VITALS: BMI 21.6
[2023-08-27 06:53] VITALS: BP 108/54; TEMP 97.1
--- NOTE | 2023-08-27 13:27 | P.PN ---
Date of Service: 08/27/23 Mrs. Figueroa is recovering fairly well from her right MCA stroke with residual left arm more than leg weakness and numbness with incoordination, dysarthria and dysphagia. However, she has labile blood pressures with episodes of hypotension requiring frequent adjustment of antihypertensive medications, fluid management and mechanical devices including abdominal binder and PAYAL hose. Therefore, she will require continuous medical management to decrease her risk of further stroke and complications. She is not ready to be discharged home as she requires moderate to maximum assistance with most ADLs and mobilization. She is a great candidate for [facility].
== END 2023-08-27 14:20 | DRG 56 ==
LOC: 5TH 08:50
PROVIDERS: ADMIT Psychiatry & Neurology Neurology with Special Qualifications in Child Neurology; ATTEND Psychiatry & Neurology Neurology with Special Qualifications in Child Neurology
DX: I69.354 Hemiplegia and hemiparesis following cerebral infarction affecting left non-dominant side (principal); I71.00 Dissection of unspecified site of aorta; N39.0 Urinary tract infection, site not specified; R33.9 Retention of urine, unspecified; F41.8 Other specified anxiety disorders; R62.7 Adult failure to thrive; E78.5 Hyperlipidemia, unspecified; I10 Essential (primary) hypertension; F32.A Depression, unspecified; G47.00 Insomnia, unspecified; I69.322 Dysarthria following cerebral infarction; I69.391 Dysphagia following cerebral infarction; M62.838 Other muscle spasm; K21.9 Gastro-esophageal reflux disease without esophagitis; Z68.21 Body mass index [BMI] 21.0-21.9, adult
CPT/HCPCS: 36415; 71550; 80048; 81001; 82040; 82947; 83735; 84134; 85025; 87086; 87088; 87635; 92523; 97110; 97112; 97116; 97124; 97129; 97140; 97163; 97165; 97530; 97542; J2001; J3420